=== PATIENT | male | born 1940 | race Caucasian/White ===

== ENCOUNTER → 2016-08-05 | Outpatient (CLI) | payer BC ==
[~2016-08-05] MED LIST: ASPI-435 PO; CEPH500C2 PO; CHOL1CAP57 PO; CIPR-255 PO; CLC100 PO; CYAN100020 PO; DICL1GEL34 TOP; DOXY100C76 PO; LRS10 PO; MAGN400T6 PO; MULT-506 PO; OMEP20CA9 PO; OMEP40CA PO; POTA550T4 PO; SACC250C3 PO; SNK PO; SULF-183 PO; ULT50 PO
--- NOTE | 2016-08-05 09:01 | DIAGNOSTIC IMAGING REPORT ---
FUSION CT SINUSES W/O HISTORY: J32.9 Chronic [id number] Nasal septal [id number] Hypertr TECHNIQUE: Multiaxial CT images of the sinuses were performed and reformatted in the coronal plane without the use of intravenous contrast. Fusion CT sinus protocol was also obtained. COMPARISON STUDY: None. FINDINGS: The frontal sinuses, ethmoid air cells, sphenoid sinuses, and bilateral maxillary antra are clear. No fluid levels within the paranasal sinuses. The mastoid air cells are clear. No evidence for carotid canal dehiscence. The lamina papyracea and orbital floors are intact. Mild right nasal septal deviation. Bilateral ostiomeatal units are patent. The orbits and visualized brain parenchyma are unremarkable. IMPRESSION: The paranasal sinuses and mastoid air cells are clear. Mild right nasal septal deviation. Electronically signed by: Vu Graves M.D. 08/05/2016 8:59 AM Dictated Date/Time: 08/05/2016 8:55 AM
== END | disposition home or self-care (01) ==
LOC: C.CTS 08:23
PROVIDERS: ATTEND Physician Assistant
DX: J34.2 Deviated nasal septum (principal); J32.9 Chronic sinusitis, unspecified; J34.3 Hypertrophy of nasal turbinates

== ENCOUNTER → 2016-08-12 | Outpatient (CLI) | payer BC ==
--- NOTE | 2016-08-12 13:48 | DIAGNOSTIC IMAGING REPORT ---
CT SCAN OF THE CHEST WITHOUT IV CONTRAST CLINICAL HISTORY: Follow-up pulmonary nodule. COMPARISON STUDY: Chest CT dated 09/05/2015. TECHNIQUE: CT scan of the thorax was performed from the thoracic inlet to the upper abdomen. Images are reviewed in the axial, sagittal, and coronal planes. IV contrast was not administered for this examination as per the front clinician. CT DOSE: 393.75 mGy.cm FINDINGS: Thyroid: Imaged portions of the thyroid gland are normal in size and attenuation. Thoracic aorta: There is mild atherosclerotic calcification of the thoracic aorta, which is normal in caliber and demonstrates standard 3-vessel arch anatomy. Heart: The heart is normal in size and there is trace pericardial effusion. The coronary arteries are densely calcified. Lungs and pleural spaces: Mild emphysematous change is observed. There is no airspace consolidation or pleural effusion. The trachea and central airways are clear. A 5 mm right lower lobe nodule seen on image #161 is unchanged from 09/05/2015. No additional nodules are identified. Mediastinum: There is no mediastinal lymphadenopathy. [place]: Not well assessed without IV contrast. Axillae: There is no axillary lymphadenopathy. Upper abdomen: There is a tiny hiatal hernia. The liver is steatotic. Diverticula are noted in the partially imaged colon. Skeletal structures: The skeletal structures are osteopenic. Mild degenerative change is seen in the thoracic spine and shoulders. No lytic or blastic bony lesions are seen. IMPRESSION: 1. Emphysema. 2. There is unchanged appearance of a 5 mm right lower lobe nodule as compared to 09/05/2015. Continued follow-up is recommended to document 2 years of stability. See below. 3. No new pulmonary lesions are identified. 4. No airspace consolidation or pleural effusion is seen. 5. Hepatic steatosis. Please refer to below summary of Fleischner criteria recommendations for follow-up of incidental CT nodules (Cecily Machado, Guidelines for management of small pulmonary nodules detected on CT scans: A statement from the Fleischner Society, Radiology 237: [phone].) SOLID NODULES Solitary nodule size: <6 mm * low risk patients: no follow-up needed * high risk patients: optional CT at 12 months Solitary nodule size: 6-8 mm * low risk patients: follow-up at 6-12 months, then consider further follow-up at 18-24 months * high risk patients: initial follow-up CT at 6-12 months and then at 18-24 months if no change Solitary nodule size: >8 mm * either low or high risk patients - consider follow-up CT at 3 months, and/or CT-PET, and/or biopsy Multiple nodules size: <6 mm * low risk patients: no routine follow-up * high risk patients: optional CT at 12 months Multiple nodules size: 6-8 mm * low risk patients: follow-up at 3-6 months, then consider further follow-up at 18-24 months * high risk patients: follow-up at 3-6 months, then at 18-24 months if no change Multiple nodules size: >8 mm * low risk patients: follow-up at 3-6 months, then consider further follow-up at 18-24 months * high risk patients: follow-up at 3-6 months, then at 18-24 months if no change Note: newly detected indeterminate nodule in persons 35 years of age or older. * low risk patients: minimal or absent history of smoking and/or other known risk factors * high risk patients: history of smoking or of other known risk factors (e.g. first degree relative with lung cancer, or exposure to asbestos, radon, uranium) * if a nodule up to 8 mm is partly solid or is ground glass further follow-up is required after 24 months to exclude possible slow growing adenocarcinoma (RUFUS) SUBSOLID NODULES Solitary pure ground-glass nodule * nodule size <6 mm - no CT follow-up required * nodule size >=6 mm - follow-up CT at 6-12 months, then every 2 years until 5 years Solitary part-solid nodule * nodule size <6 mm - no CT follow-up required * nodule size >=6 mm - follow-up CT at 3-6 months. If unchanged, and solid component remains <6 mm, then annual follow-up for 5 years Multiple subsolid nodules * nodule size <6 mm - follow-up CT at 3-6 months, consider further follow-up at 2 and 4 years if stable * nodule size >=6 mm - follow-up CT at 3-6 months, subsequent management based on the most suspicious nodule(s) Electronically signed by: Elia Rebollar M.D. 08/12/2016 1:47 PM Dictated Date/Time: 08/12/2016 1:42 PM
== END | disposition home or self-care (01) ==
LOC: C.CTS 13:30
PROVIDERS: ATTEND Internal Medicine
DX: R91.1 Solitary pulmonary nodule (principal)

== ENCOUNTER → 2016-08-20 | Outpatient (CLI) | payer BC ==
[2016-08-20 12:33] LABS: CALCIUM 9.9 mg/dl (8.5-10.1)
[2016-08-20 12:40] LABS: ALT/SGPT 84 U/L (12-78); AST/SGOT 59 U/L (15-37); BLOOD UREA NITROGEN 16 mg/dl (7-18); BUN/CREATININE RATIO 15.9 (10-20); CARBON DIOXIDE 26 mmol/L (21-32); CHLORIDE 108 mmol/L (98-107); CHOLESTEROL 176 mg/dl (0-200); GLUCOSE 143 mg/dl (70-99); SODIUM 140 mmol/L (136-145); TRIGLYCERIDES 85 mg/dl (0-150); VERY LOW DENSITY LIPOPROT CALC 17 mg/dl
[2016-08-20 12:42] LABS: ESTIMATED AVERAGE GLUCOSE 131 mg/dl; HA1C FLAG Normal (Normal)
[2016-08-20 12:44] LABS: ALKALINE PHOSPHATASE 126 U/L (45-117); CHOLESTEROL/HDL RATIO 2.9; HDL CHOLESTEROL 60 mg/dl; LDL CHOLESTEROL CALCULATED 99 mg/dl; TOTAL IRON BINDING CAPACITY 308 mcg/dl (250-450)
[2016-08-20 13:12] LABS: RATIO 15.1 mcg/mg (0-30.0)
== END | disposition home or self-care (01) ==
LOC: C.LAB 10:51
PROVIDERS: ATTEND Internal Medicine
DX: E78.00 Pure hypercholesterolemia, unspecified (principal); I10 Essential (primary) hypertension; E11.9 Type 2 diabetes mellitus without complications; E53.8 Deficiency of other specified B group vitamins; E55.9 Vitamin D deficiency, unspecified; R79.89 Other specified abnormal findings of blood chemistry; K76.0 Fatty (change of) liver, not elsewhere classified; E83.42 Hypomagnesemia

== ENCOUNTER 2016-10-09 10:40 | Emergency (ER) | payer BC ==
[~2016-10-09] VITALS: Ht 172.7 cm; Wt 75.6 kg
[~2016-10-09 10:40] MED LIST changes: -CEPH500C2 PO; -CLC100 PO; -DICL1GEL34 TOP; -DOXY100C76 PO; -LRS10 PO; -OMEP20CA9 PO; -SACC250C3 PO; -SNK PO; -SULF-183 PO; -ULT50 PO
[2016-10-09 10:44] VITALS: TEMP 36.7; Ht 172.7 cm; Wt 75.6 kg
--- NOTE | 2016-10-09 11:17 | EMERGENCY ROOM VISIT NOTE ---
History Report prepared by Joseph: Dane Cottrell Under the Supervision of: Dr. Giles Workman M.D. First contact with patient: 10:50 Chief Complaint: INFECTION Stated Complaint: CELLULITIS History of Present Illness The patient is a 76 year old male who presents to the Emergency Room with complaints of a constant rash that started three weeks ago. He rates his discomfort as a 2/10 in severity. The patient reports that he noticed a rash, erythema, and a black and blue hue to his leg around three weeks ago. He states that he was given Keflex for a week three times a day, which he finished a week ago, and a cream for his leg twice a day. He states that for the last three days he has been experiencing achiness, chills, weakness, back pain and fatigue. The patient reports that he is usually not fatigued. He admits that the rash is pruritic, but denies scratching the rash area. The patient admits that he has been experiencing lower extremity stiffness and mild pain. The patient reports that his rash is not as worse as it was when it first occurred, but admits that the rash has spread. He states that he follows up with Dr. Gm langston for his iron level and liver since his iron level is three times the level it should be. He states that his doctor was concerned about his rash and told him to report to the ED. The patient admits that he saw Dr. Ghosh yesterday where we was tested for Lyme's disease. He also admits that he saw dermatology, but denies having anything done. any The patient denies fever, cough, congestion, nausea, vomiting, and a history of hepatitis and hemochromatosis. Source of History: patient Onset: three weeks ago Position: leg (left) Symptom Intensity: 2/10 Quality: other (pruritic) Modifying Factors (Relieving): other (antibiotic, cream) Associated Symptoms: + chills, + back pain, + fatigue, + weakness, No fevers , No cough, No nausea, No vomiting Review of Systems See HPI for pertinent positives and negatives. A total of ten systems were reviewed and were otherwise negative. Past Medical & Surgical Medical Problems: (1) Diabetes (2) Hypertension (3) Perforated diverticulitis Surgical Problems: (1) History of inguinal hernia repair Family History Cancer Diabetes mellitus Hypertension Social History Smoking Status: Former Smoker Alcohol Use: occasionally Drug Use: none Marital Status: single Housing Status: lives with friends Occupation Status: employed Current/Historical Medications Scheduled Aspirin (Aspirin 81), 1 TAB PO QAM Cephalexin Monohydrate (Keflex), 500 MG PO QID Cholecalciferol (Vitamin D3), 1 CAP PO QAM Cyanocobalamin (Vitamin B12), 1 TAB PO QAM Magnesium Oxide (Mag-Ox), 400 MG PO QAM Multivitamin (Multivitamin), 1 TAB PO QAM Omeprazole (Prilosec), 40 MG PO QAM Potassium Gluconate (Potassium Gluconate), 1 TAB PO QAM Saccharomyces Boulardii (Florastor), 1 CAP PO BID Sulfamethoxazole-Trimethoprim (Smz-Tmp Ds), 2 TAB PO BID Allergies Coded Allergies: No Known Allergies (Verified , 10/09/16) Physical Exam Vital Signs Date Time Temp Pulse Resp B/P (MAP) Pulse Ox O2 Delivery O2 Flow Rate FiO2 10/09/16 14:02 77 18 133/78 99 10/09/16 12:02 82 18 129/80 99 Room Air 10/09/16 10:44 36.7 90 20 147/85 94 Room Air Physical Exam GENERAL: Awake, alert, well-appearing, in no distress HENT: Normocephalic, atraumatic. Oropharynx unremarkable. EYES: Normal conjunctiva. Sclera non-icteric. NECK: Supple. No nuchal rigidity. FROM. No JVD. RESPIRATORY: Clear to auscultation. CARDIAC: Regular rate, normal rhythm. Extremities warm and well perfused. Pulses equal. ABDOMEN: Soft, non-distended. No tenderness to palpation. No rebound or guarding. No masses. RECTAL: Deferred. MUSCULOSKELETAL: Chest examination reveals no tenderness. The back is symmetrical on inspection without obvious abnormality. There is no CVA tenderness to palpation. No joint edema. LOWER EXTREMITIES: Calves are equal size bilaterally and non-tender. No edema. Patch of erythema in the proximal thigh with mild warmth. No induration or fluctuance. Erythema in distal thigh tracking medially across the knee to the proximal lower leg. No fluctuance or induration. Full ROM in knee without pain. Sensory in tact. NEURO: Normal sensorium. No sensory or motor deficits noted. SKIN: skin warm/dry no jaundice noted. Medical Decision & Procedures ER Provider Diagnostic Interpretation: Radiology results as stated below per my review and radiologist interpretation: ULTRASOUND LEFT VENOUS DOPP LOWER EXT UNILAT CLINICAL HISTORY: Left pain and erythema COMPARISON STUDY: No previous studies for comparison. FINDINGS: Real-time and color flow Doppler imaging were performed. Flow was seen within the femoral, popliteal and calf veins with no intraluminal thrombus demonstrated. The saphenous vein is patent. IMPRESSION: No evidence of left lower extremity DVT. Electronically signed by: Nathaniel Kent M.D. 10/09/2016 1:04 PM Dictated Date/Time: 10/09/2016 1:03 PM Laboratory Results 10/09/16 11:20 Red Blood Count 4.12, Mean Corpuscular Volume 101.0, Mean Corpuscular Hemoglobin 34.2, Mean Corpuscular Hemoglobin Concent 33.9, Mean Platelet Volume 9.8, Neutrophils (%) (Auto) 67.0, Lymphocytes (%) (Auto) 21.1, Monocytes (%) ( Auto) 10.1, Eosinophils (%) (Auto) 0.8, Basophils (%) (Auto) 0.6, Neutrophils # (Auto) 3.31, Lymphocytes # (Auto) 1.04, Monocytes # (Auto) 0.50, Eosinophils # ( Auto) 0.04, Basophils # (Auto) 0.03 10/09/16 11:20 Test 10/09/16 11:20 White Blood Count 4.94 K/uL (4.8-10.8) Red Blood Count 4.12 M/uL (4.7-6.1) Hemoglobin 14.1 g/dL (14.0-18.0) Hematocrit 41.6 % (42-52) Mean Corpuscular Volume 101.0 fL (80-100) Mean Corpuscular Hemoglobin 34.2 pg (25-34) Mean Corpuscular Hemoglobin Concent 33.9 g/dl (32-36) Platelet Count 165 K/uL (130-400) Mean Platelet Volume 9.8 fL (7.4-10.4) Neutrophils (%) (Auto) 67.0 % Lymphocytes (%) (Auto) 21.1 % Monocytes (%) (Auto) 10.1 % Eosinophils (%) (Auto) 0.8 % Basophils (%) (Auto) 0.6 % Neutrophils # (Auto) 3.31 K/uL (1.4-6.5) Lymphocytes # (Auto) 1.04 K/uL (1.2-3.4) Monocytes # (Auto) 0.50 K/uL (0.11-0.59) Eosinophils # (Auto) 0.04 K/uL (0-0.5) Basophils # (Auto) 0.03 K/uL (0-0.2) RDW Standard Deviation 44.2 fL (36.4-46.3) RDW Coefficient of Variation 12.2 % (11.5-14.5) Immature Granulocyte % (Auto) 0.4 % Immature Granulocyte # (Auto) 0.02 K/uL (0.00-0.02) Anion Gap 6.0 mmol/L (3-11) Est Creatinine Clear Calc Drug Dose 76.4 ml/min Estimated GFR () 101.0 Estimated GFR (Non- 87.1 BUN/Creatinine Ratio 14.4 (10-20) Calcium Level 8.9 mg/dl (8.5-10.1) Total Bilirubin 0.6 mg/dl (0.2-1) Direct Bilirubin 0.2 mg/dl (0-0.2) Aspartate Amino Transf (AST/SGOT) 28 U/L (15-37) Alanine Aminotransferase (ALT/SGPT) 42 U/L (12-78) Alkaline Phosphatase 108 U/L (45-117) Total Protein 7.3 gm/dl (6.4-8.2) Albumin 3.4 gm/dl (3.4-5.0) Laboratory results reviewed by me Medications Administered Medications (Trade) Dose Ordered Sig/Tab Route Start Time Stop Time Status Last Admin Dose Admin Ketorolac Tromethamine (Toradol Inj) 30 mg NOW STAT IV 10/09/16 12:49 10/09/16 12:50 DC 10/09/16 13:03 30 MG Cephalexin Monohydrate (Keflex Cap) 500 mg NOW ONCE PO 10/09/16 13:45 10/09/16 13:46 DC 10/09/16 13:53 500 MG Trimethoprim/ Sulfamethoxazole (Septra Ds 800/ 160MG Tab) 2 tab NOW ONCE PO 10/09/16 13:45 10/09/16 13:46 DC 10/09/16 13:53 2 TAB ED Course 1052: The patient was evaluated in room B04B. A complete history and physical exam was performed. 1249: Toradol Injection 30 mg IV. 1345: Ordered Trimethoprim/Sulfamethoxazole 2 tab PO, Keflex Cap 500 mg PO. 1350: I reevaluated the patient. Discussed results and discharge instructions: He verbalized understanding and agreement. The patient is ready for discharge. Medical Decision I reviewed the patient's past medical history, medications, and the nursing notes as described above. The patient's presentation and history were concerning for cellulitis, DVT, abscess, and allergic reaction. Patient is a 76-year-old gentleman with a past medical history of iron was followed by hematology who presents emergency department for worsening of lower extremity redness and warmth after completing a 1 week course of Keflex for the same last week per history of present illness. Arrival the patient is in no acute distress. Afebrile with stable vital signs. She has area of warmth and redness proximal tib-fib area extending medially to the distal thigh. As an additional patch proximal thigh extending across the lower abdomen. No induration or areas of fluctuance. The distribution of the erythema DVT in the differential despite no significant swelling. Duplex study negative for DVT. Otherwise WBC within normal limits. Sitting recent failure of outpatient Keflex although with some improvement. I will broaden coverage and provide a 10 day course of both Keflex and Bactrim. Findings and plan for follow-up d/w patient. Patient agreeable and d/c'd per discharge instructions. Medication Reconcilliation Current Medication List: was personally reviewed by me Blood Pressure Screening Patient's blood pressure: Elevated blood pressure Blood pressure disposition: Elevated BP felt to be situational Impression Primary Impression: Cellulitis Scribe Attestation The scribe's documentation has been prepared under my direction and personally reviewed by me in its entirety. I confirm that the note above accurately reflects all work, treatment, procedures, and medical decision making performed by me. Departure Information Dispostion Home / Self-Care Prescriptions Saccharomyces Boulardii (Florastor) 250 Mg Cap 1 CAP PO BID for 10 Days, #20 CAP Prov: Giles Workman M.D. 10/09/16 Cephalexin Monohydrate (KEFLEX) 500 Mg Cap 500 MG PO QID for 10 Days, #40 CAP Prov: Giles Workman M.D. 10/09/16 Sulfamethoxazole-Trimethoprim (SMZ-TMP DS) 1 Tab Tab 2 TAB PO BID for 10 Days, #40 TAB Prov: Giles Workman M.D. 10/09/16 Referrals Carmelo Mason M.D. (PCP) Forms HOME CARE DOCUMENTATION FORM, IMPORTANT VISIT INFORMATION, WORK / SCHOOL INSTRUCTIONS Patient Instructions Cellulitis Dc, [facility] Additional Instructions Please follow up with your primary care physician in the next 1-3 days for re- evaluation. Otherwise, your exam, lab results, and ultrasound did not show signs of an emergent condition at this time. Take antibiotics as prescribed. Probiotics as directed to help prevent antibiotic associated diarrhea. Return to the emergency department for worsening symptoms as described in the accompanying instructions.
[2016-10-09 11:37] LABS: BASO % 0.6 %; BASO ABS # 0.03 K/uL (0-0.2); COMPLETE YES; EOS % 0.8 %; HEMATOCRIT 41.6 % (42-52); IG% 0.4 %; LYMPH % 21.1 %; LYMPH ABS # 1.04 K/uL (1.2-3.4); MEAN CORPUSCULAR HEMOGLOBIN 34.2 pg (25-34); MEAN CORPUSCULAR HGB CONC 33.9 g/dl (32-36); MEAN PLATELET VOLUME 9.8 fL (7.4-10.4); MONO % 10.1 %; PLATELET COUNT 165 K/uL (130-400); RED BLOOD COUNT 4.12 M/uL (4.7-6.1); WHITE BLOOD COUNT 4.94 K/uL (4.8-10.8)
[2016-10-09 11:56] LABS: BUN/CREATININE RATIO 14.4 (10-20); CALCIUM 8.9 mg/dl (8.5-10.1); CREATININE 0.82 mg/dl (0.60-1.40); POTASSIUM 3.9 mmol/L (3.5-5.1)
[2016-10-09] MEDS ORDERED: KETOROLAC TROMETHAMINE 30 MG/ML VIAL IV STA (12:49)
--- NOTE | 2016-10-09 13:05 | DIAGNOSTIC IMAGING REPORT ---
ULTRASOUND LEFT VENOUS DOPP LOWER EXT UNILAT CLINICAL HISTORY: Left pain and erythema COMPARISON STUDY: No previous studies for comparison. FINDINGS: Real-time and color flow Doppler imaging were performed. Flow was seen within the femoral, popliteal and calf veins with no intraluminal thrombus demonstrated. The saphenous vein is patent. IMPRESSION: No evidence of left lower extremity DVT. Electronically signed by: Nathaniel Kent M.D. 10/09/2016 1:04 PM Dictated Date/Time: 10/09/2016 1:03 PM
[2016-10-09] MEDS ORDERED: SULF-183 PO (13:39)
[2016-10-09] MEDS ORDERED: CEPH500C2 PO (13:39)
[2016-10-09] MEDS ORDERED: SACC250C3 PO (13:40)
[2016-10-09] MEDS ORDERED: CEPHALEXIN MONOHYDRATE 250 MG CAP PO ONE (13:45)
[2016-10-09] MEDS ORDERED: SULFAMETHOXAZOLE/TRIMETHOPRIM DS 800/160MG TAB PO ONE (13:45)
[2016-10-09 14:02] VITALS: BP 133/78; PULSE 77; O2SAT 99
== END 2016-10-09 14:03 | disposition home or self-care (01) ==
LOC: C.EDB 10:41
DX: L03.116 Cellulitis of left lower limb (principal); L03.311 Cellulitis of abdominal wall; E11.9 Type 2 diabetes mellitus without complications; I10 Essential (primary) hypertension; Z79.82 Long term (current) use of aspirin; Z79.899 Other long term (current) drug therapy; Z87.19 Personal history of other diseases of the digestive system; Z87.891 Personal history of nicotine dependence; Z82.49 Family history of ischemic heart disease and other diseases of the circulatory system; Z83.3 Family history of diabetes mellitus

== ENCOUNTER 2016-10-24 20:59 | Emergency (ER) | payer BC ==
[~2016-10-24] VITALS: Ht 172.7 cm; Wt 76.8 kg
[~2016-10-24 20:59] MED LIST changes: -CIPR-255 PO
[2016-10-24 21:02] VITALS: TEMP 36.7; Ht 172.7 cm; Wt 76.8 kg
[2016-10-24] MEDS ORDERED: OMEP20CA9 PO (21:14)
[2016-10-24 21:58] LABS: BASO % 0.6 %; BASO ABS # 0.04 K/uL (0-0.2); COMPLETE YES; EOS % 1.3 %; HEMATOCRIT 41.3 % (42-52); IG% 0.6 %; LYMPH ABS # 2.16 K/uL (1.2-3.4); MEAN CELL VOLUME 100.2 fL (80-100); MEAN CORPUSCULAR HGB CONC 34.9 g/dl (32-36); MEAN PLATELET VOLUME 9.6 fL (7.4-10.4); MONO % 8.3 %; NEUT % 59.2 %; PLATELET COUNT 189 K/uL (130-400); RED BLOOD COUNT 4.12 M/uL (4.7-6.1); WHITE BLOOD COUNT 7.19 K/uL (4.8-10.8)
[2016-10-24 22:02] LABS: BUN/CREATININE RATIO 16.8 (10-20); CALCIUM 8.8 mg/dl (8.5-10.1); CREATININE 0.87 mg/dl (0.60-1.40); POTASSIUM 4.1 mmol/L (3.5-5.1)
[2016-10-24 22:20] LABS: URINE APPEARANCE CLEAR (CLEAR); URINE BILIRUBIN NEG (NEG); URINE COLOR YELLOW; URINE NITRITE NEG (NEG); URINE SPECIFIC GRAVITY 1.023 (1.000-1.030); UROBILINOGEN NEG (NEG); ZZUR CULT IF INDIC CLEAN CATCH NO
--- NOTE | 2016-10-24 22:28 | EMERGENCY ROOM VISIT NOTE ---
ED Visit Note First contact with patient: 21:10 HPI: lower back pain and left leg pain. PE: AFVSS, NAD NC/AT RRR, no murmurs CTAB Abd soft NT/ND BACK no midline ttp. mild lower lumbar paraspinal ttp. Ext: no edema, erythema, 5//5 strength and SILT x 4 ext. Neuro: grossly intact Plan: Labs unremarkable. Plain films notable for L-spine arthropathy. Sx likely muscular strain vs radiculopathy. No weakness, numbness, urinary retention or bowel incontinence. Thus, no indication for emergent MRI at this time. Patient receiving relief from NSAIDs already. Here reports pain only 2/10. Recommend heating pad and pcp f/u for possible physical therapy if symptoms persist. Will avoid narcotics in this elderly patient who lives by himself. I reviewed the patient's past medical history, medications, and visit nursing notes. I discussed the case with the physician bricklayer's assistant, examined the patient, and agree with the findings and plan as documented in the physician assistants note.
--- NOTE | 2016-10-24 22:34 | DIAGNOSTIC IMAGING REPORT ---
L-SPINE MIN 4 VIEWS ROUTINE HISTORY: 76 years-old Male low back pain, no injury, radiating down both legs, L>R acute lumbar back pain without injury with radiation into the lower extremities. Radicular symptoms. Initial exam. COMPARISON: CT 09/05/2015 TECHNIQUE: 5 views of the lumbar spine. FINDINGS: 14 degrees convex left curvature is seen from L3-L5. No acute fracture or subluxation. Moderate intervertebral disc space narrowing is again seen at L4-L5 and L5-S1. Mild multilevel endplate spurring is seen. Moderate facet arthrosis is noted at L4-L5 and L5-S1. The bones are mildly demineralized. There is atherosclerosis of the aorta. The bones are seen within the pelvis. Surgical suture material is seen within the right mid abdomen. IMPRESSION: 1. No acute fracture or subluxation. 2. Moderate intervertebral disc space narrowing and facet arthropathy redemonstrated at L4-L5 and L5-S1. 3. Mild convex left curvature of the lower lumbar spine. The above report was generated using voice recognition software. It may contain grammatical, syntax or spelling errors. Electronically signed by: Dagoberto Cortez M.D. 10/24/2016 10:33 PM Dictated Date/Time: 10/24/2016 10:30 PM
[2016-10-24 22:50] LABS: MANUAL MICROSCOPIC REQUIRED? NO; REVIEW REQ? NO
--- NOTE | 2016-10-24 23:22 | EMERGENCY ROOM VISIT NOTE ---
ED Visit Note First contact with patient: 21:10 CHIEF COMPLAINT: "Low back pain/groin/hip pain". HISTORY OF PRESENT ILLNESS: This 76-year-old male patient presents to the emergency department via private vehicle complaining of pain in the low back which began weeks ago. He notes that he was seen here about 2 weeks ago for cellulitis of the left leg, which is now better but notes that he had back pain at that time which has now progressed. The pain was gradual in onset, is now constant and worse with movement. The patient notes the pain as dull and a 10/ 10. The patient has taken ibuprofen, Tylenol and Raffi's with a little relief of the pain. The patient denies any loss of control of their bowel or bladder functions. There has been no leg numbness or weakness, and no change in sensation. No nausea or vomiting or abdominal pain. No chest pain or shortness of breath. The patient has no had prior back injuries. No dysuria or increased urinary frequency. REVIEW OF SYSTEMS: A review of systems was performed with positives and pertinent negatives listed in the history of present illness. All other systems were reviewed and are negative. ALLERGIES: None MEDICATIONS: As noted below PMH: Diverticulitis, diabetes, high blood pressure SOCIAL HISTORY: Patient lives locally with self. PHYSICAL EXAM: VITALS: Vitals are noted on the nurse's note and reviewed by myself. Vital signs stable. He is hypertensive which I believe is secondary to pain. GENERAL: 76-year-old male, in no acute distress, nondiaphoretic, well-developed well-nourished. SKIN: The skin was without rashes, erythema, edema, or bruising. Capillary refill less than 2 seconds. NECK: Full range of motion. HEART: Regular rate and rhythm without murmurs gallops or rubs. LUNGS: Clear to auscultation bilaterally without wheezes, rales or rhonchi. ABDOMEN: Positive bowel sounds x 4. Normal tympanic percussion. Soft, nontender, without masses or organomegaly. MUSCULOSKELETAL: No muscle atrophy, erythema, or edema noted of the back. There is minimal tenderness over the lumbar spinous processes. There is no tenderness over the paraspinous muscles. There is no tenderness over the thoracic spine or paraspinous muscles. There are no muscle spasms present. The patient is able to ambulate without difficulty. NEURO: Patient was alert and oriented to person place and time. Normal sensation to light and sharp touch. Deep tendon reflexes 2+ in the lower extremities. Strength 5/5 and equal in the bilateral lower extremities. IMAGING: L-SPINE MIN 4 VIEWS ROUTINE HISTORY: 76 years-old Male low back pain, no injury, radiating down both legs, L>R acute lumbar back pain without injury with radiation into the lower extremities. Radicular symptoms. Initial exam. COMPARISON: CT 09/05/2015 TECHNIQUE: 5 views of the lumbar spine. FINDINGS: 14 degrees convex left curvature is seen from L3-L5. No acute fracture or subluxation. Moderate intervertebral disc space narrowing is again seen at L4-L5 and L5-S1. Mild multilevel endplate spurring is seen. Moderate facet arthrosis is noted at L4-L5 and L5-S1. The bones are mildly demineralized. There is atherosclerosis of the aorta. The bones are seen within the pelvis. Surgical suture material is seen within the right mid abdomen. IMPRESSION: 1. No acute fracture or subluxation. 2. Moderate intervertebral disc space narrowing and facet arthropathy redemonstrated at L4-L5 and L5-S1. 3. Mild convex left curvature of the lower lumbar spine. The above report was generated using voice recognition software. It may contain grammatical, syntax or spelling errors. Electronically signed by: Dagoberto Cortez M.D. 10/24/2016 10:33 PM Dictated Date/Time: 10/24/2016 10:30 PM EMERGENCY DEPARTMENT COURSE: Patient was seen and evaluated as above. Previous visits were reviewed. Patient presents to us today with low back pain, without evidence of cauda equina syndrome. He was able to drive here, and ambulate to the emergency department. Previous imaging was reviewed, and he has had a CAT scan of the abdomen and pelvis little over a year ago. There is no emergent finding upon this that would contribute to today's findings, no evidence of aortic dilatation. I do not suspect AAA. I suspect is most likely experiencing lumbar radiculopathy secondary to a bulging disc. X-ray was obtained with results as above. There does appear to be some disc space narrowing, and some curvature. Degenerative changes are noted. There has been no trauma or injury. His history, physical examination as well as normal blood work is also leaning towards a diagnosis of lumbar radiculopathy. Because of the recent cellulitis of that leg, I was concerned about DVT, but was able to find a study that was performed at the time he was here a few weeks ago, which was normal. He denies any leg swelling or leg pain is progressed since that time. His CBC reveals no leukocytosis, with red blood cell count slightly low at 4.12. Metabolic panel reveals chloride slightly high at 109, creatinine okay 0.87, glucose high at 205, and alkaline phosphatase high at 148. Urine reveals 1+ glucose, otherwise negative. He is to follow-up for today's incidental findings, as well as the glucose. At this time he appears stable for discharge. Case was discussed with the attending physician who is also personally evaluated the patient. I do not believe that narcotic medication at this time is warranted, as the patient's pain is now rated much lower, noting that the pain meds he took prior to coming here made him feel much better. It is important to clarify that the patient has taken Raffi's, ibuprofen and similar oewn-poa-ucgjkce medication but no narcotics. I do believe he is stable to drive home. I cautioned him about taking ibuprofen and Raffi's together as these are in the same class. He is to follow-up with the family doctor, but was also given the number for a start up specialist in which he may follow-up with. He is to return if worsening. He was educated upon worrisome symptoms which to return, had questions answered prior to discharge, and was discharged home in good condition. In the evaluation and treatment of this patient the following differential diagnoses were entertained: Lumbar radiculopathy, AAA, DVT, infectious etiology , abdominal etiology, among others. Problem List Medical Problems: (1) Diabetes Status: Chronic (2) Hypertension Status: Chronic (3) Perforated diverticulitis Status: Resolved Surgical Problems: (1) History of inguinal hernia repair Status: Resolved Current/Historical Medications Scheduled Aspirin (Aspirin 81), 1 TAB PO QAM Cholecalciferol (Vitamin D3), 1 CAP PO QAM Cyanocobalamin (Vitamin B12), 1 TAB PO QAM Magnesium Oxide (Mag-Ox), 400 MG PO QAM Multivitamin (Multivitamin), 1 TAB PO QAM Omeprazole (Prilosec), 20 MG PO DAILY Potassium Gluconate (Potassium Gluconate), 1 TAB PO QAM Allergies Coded Allergies: No Known Allergies (Verified , 10/24/16) Vital Signs Date Time Temp Pulse Resp B/P (MAP) Pulse Ox O2 Delivery O2 Flow Rate FiO2 10/24/16 23:29 67 20 141/78 94 10/24/16 23:07 67 20 141/78 94 Room Air 10/24/16 22:03 76 20 146/88 96 Room Air 10/24/16 21:02 36.7 84 20 170/96 97 Room Air Laboratory Results 10/24/16 21:30 Red Blood Count 4.12, Mean Corpuscular Volume 100.2, Mean Corpuscular Hemoglobin 35.0, Mean Corpuscular Hemoglobin Concent 34.9, Mean Platelet Volume 9.6, Neutrophils (%) (Auto) 59.2, Lymphocytes (%) (Auto) 30.0, Monocytes (%) ( Auto) 8.3, Eosinophils (%) (Auto) 1.3, Basophils (%) (Auto) 0.6, Neutrophils # ( Auto) 4.26, Lymphocytes # (Auto) 2.16, Monocytes # (Auto) 0.60, Eosinophils # ( Auto) 0.09, Basophils # (Auto) 0.04 10/24/16 21:30 Test 10/24/16 21:30 10/24/16 22:10 White Blood Count 7.19 K/uL (4.8-10.8) Red Blood Count 4.12 M/uL (4.7-6.1) Hemoglobin 14.4 g/dL (14.0-18.0) Hematocrit 41.3 % (42-52) Mean Corpuscular Volume 100.2 fL (80-100) Mean Corpuscular Hemoglobin 35.0 pg (25-34) Mean Corpuscular Hemoglobin Concent 34.9 g/dl (32-36) Platelet Count 189 K/uL (130-400) Mean Platelet Volume 9.6 fL (7.4-10.4) Neutrophils (%) (Auto) 59.2 % Lymphocytes (%) (Auto) 30.0 % Monocytes (%) (Auto) 8.3 % Eosinophils (%) (Auto) 1.3 % Basophils (%) (Auto) 0.6 % Neutrophils # (Auto) 4.26 K/uL (1.4-6.5) Lymphocytes # (Auto) 2.16 K/uL (1.2-3.4) Monocytes # (Auto) 0.60 K/uL (0.11-0.59) Eosinophils # (Auto) 0.09 K/uL (0-0.5) Basophils # (Auto) 0.04 K/uL (0-0.2) RDW Standard Deviation 45.2 fL (36.4-46.3) RDW Coefficient of Variation 12.6 % (11.5-14.5) Immature Granulocyte % (Auto) 0.6 % Immature Granulocyte # (Auto) 0.04 K/uL (0.00-0.02) Anion Gap 6.0 mmol/L (3-11) Est Creatinine Clear Calc Drug Dose 72.0 ml/min Estimated GFR () 98.5 Estimated GFR (Non- 85.0 BUN/Creatinine Ratio 16.8 (10-20) Calcium Level 8.8 mg/dl (8.5-10.1) Total Bilirubin 0.3 mg/dl (0.2-1) Aspartate Amino Transf (AST/SGOT) 34 U/L (15-37) Alanine Aminotransferase (ALT/SGPT) 49 U/L (12-78) Alkaline Phosphatase 148 U/L (45-117) Total Protein 7.2 gm/dl (6.4-8.2) Albumin 3.6 gm/dl (3.4-5.0) Globulin 3.6 gm/dl (2.5-4.0) Albumin/Globulin Ratio 1.0 (0.9-2) Urine Color YELLOW Urine Appearance CLEAR (CLEAR) Urine pH 5.0 (4.5-7.5) Urine Specific [place] 1.023 (1.000-1.030) Urine Protein NEG (NEG) Urine Glucose (UA) 1+ (NEG) Urine Ketones NEG (NEG) Urine Occult Blood NEG (NEG) Urine Nitrite NEG (NEG) Urine Bilirubin NEG (NEG) Urine Urobilinogen NEG (NEG) Urine Leukocyte Esterase NEG (NEG) Departure Information Impression Primary Impression: Low back pain Dispostion Home / Self-Care Condition GOOD Referrals Pro,Carmelo Perkins M.D. (PCP) Lio Christianson, DO Patient Instructions My [facility] Additional Instructions You have been treated in the Emergency Department for Back Pain. For pain control, you can use the following anvf-pan-douxcny medicines: - Regular strength (325mg/tab) Tylenol (acetaminophen) 2 tabs every 4-6 hours as needed. Do not exceed 12 tablets in a 24 hour period. Avoid taking more than 3 grams (3000 mg) of Tylenol per day. This includes any other sources of acetaminophen you may take on a regular basis. - Regular strength (200 mg/tab) Advil (ibuprofen) 1-2 tabs every 4-6 hours as needed. Do not exceed a dose of 3200 mg per day. Please do not take this with any other medication like aspirin, Aleve or Raffi's. If this is an acute injury, ice can be applied to the area of pain for the first 3 days to help decrease pain and inflammation. After the first 3 days, a heating pad can be used over the area for continued soothing relief. You should schedule a follow-up appointment in 2-3 days with your Primary Care Provider for further evaluation and treatment of your back pain. I also listed the number for a back specialist. Return to the Emergency Department if your current symptoms worsen despite treatment course outlined above, or if you develop any of the following symptoms : intractable pain despite aforementioned treatment course, loss of control of your bowel or bladder, numbness or tingling in your groin, or development of a fever. Please return the emergency department with any new/concerning symptoms.
[2016-10-24 23:29] VITALS: BP 141/78; PULSE 67; O2SAT 94
== END 2016-10-24 23:30 | disposition home or self-care (01) ==
LOC: C.EDB 21:00 → C.EDA 23:30
DX: M54.5 Low back pain (principal); E11.9 Type 2 diabetes mellitus without complications; I10 Essential (primary) hypertension; K57.92 Diverticulitis of intestine, part unspecified, without perforation or abscess without bleeding; Z79.82 Long term (current) use of aspirin; Z79.899 Other long term (current) drug therapy

== ENCOUNTER → 2016-11-02 | Outpatient (CLI) | payer BC ==
[~2016-11-02] MED LIST changes: +CLC100 PO; +DICL1GEL34 TOP; +DOXY100C76 PO; +LRS10 PO; +OMEP20CA9 PO; -OMEP40CA PO; +SNK PO; +ULT50 PO
[2016-11-02 14:31] LABS: LYME DISEASE AB IGG POS (NEG); LYME DISEASE AB IGM POS (NEG)
[2016-11-06 16:09] LABS: 18KDIGG BAND REACTIVE (NONREACTIVE); 23KDIGG BAND NONREACTIVE (NONREACTIVE); 23KDIGM BAND REACTIVE (NONREACTIVE); 28KDIGG BAND NONREACTIVE (NONREACTIVE); 30KDIGG BAND NONREACTIVE (NONREACTIVE); 39KDIGG BAND REACTIVE (NONREACTIVE); 39KDIGM BAND NONREACTIVE (NONREACTIVE); 41KDIGG BAND REACTIVE (NONREACTIVE); 41KDIGM BAND REACTIVE (NONREACTIVE); 45KDIGG BAND REACTIVE (NONREACTIVE); 58KDIGG BAND REACTIVE (NONREACTIVE); 66KDIGG BAND NONREACTIVE (NONREACTIVE); 93KDIGG BAND REACTIVE (NONREACTIVE)
== END | disposition home or self-care (01) ==
LOC: C.LAB 10:59
PROVIDERS: ATTEND Internal Medicine
DX: G89.29 Other chronic pain (principal)

== ENCOUNTER 2016-11-03 01:59 | Inpatient (IN) | payer BC, OTHER ==
[~2016-11-03] VITALS: Ht 170.2 cm; Wt 75.6 kg
[~2016-11-03 01:59] MED LIST changes: -CLC100 PO; -DICL1GEL34 TOP; -DOXY100C76 PO; -LRS10 PO; -SNK PO; -ULT50 PO
[2016-11-03] MEDS ORDERED: SODIUM CHLORIDE 0.9% 1000ML 1,000 ML IV STA ×2 (02:17→03:42)
[2016-11-03] MEDS ORDERED: HYDROmorphone INJ 1 MG/ML SYR IV STA (02:17)
--- NOTE | 2016-11-03 02:25 | EMERGENCY ROOM VISIT NOTE ---
History Report prepared by Joseph: Deon Frey Under the Supervision of: Dr. Raheel Gonzales M.D. First contact with patient: 02:08 Chief Complaint: ABDOMINAL PAIN Stated Complaint: ABDOMINAL PAIN- DIVERTICULITUS Nursing Triage Summary: Patient ambulatory to triage, hunched over, states "I have a history of diverticulitis. For about 3 days now, I have had pain all the way across my lower abdomen. I saw my doctor yesterday and she prescribed me Tramadol. That is not working for the pain at all. I haven't been eating because I don't feel good. I am a little bit constipated." History of Present Illness The patient is a 76 year old male who presents to the Emergency Room with complaints of constant, severe, lower abdominal pain beginning about three days ago. The patient states that his discomfort wraps around his abdomen to her lower back. He reports that breathing intensifies his discomfort. The patient notes that he has a history of diverticulitis, and he thinks it is one of his flares. He states that he is nauseous, constipated, and has a decreased appetite. The patient reports that he was evaluated yesterday and was given Tramadol for pain, but it did not help. He notes that he began to develop erythema to his entire right, lower abdomen that spans the entire length of his discomfort. The patient states that he has a history of colon surgery. He denies vomiting, diarrhea, shortness of breath, chest pain, and edema to his legs. Source of History: patient Onset: 3 days ago Position: abdomen (lower) Symptom Intensity: severe Timing: constant Modifying Factors (Worsening): breathing Associated Symptoms: + back pain, + rash, No chest pain, No SOB, No vomiting , No diarrhea Note: Associated symptoms: constipation and decreased appetite Denies: edema to his legs Review of Systems See HPI for pertinent positives & negatives. A total of 10 systems reviewed and were otherwise negative. Past Medical & Surgical Medical Problems: (1) Abdominal wall cellulitis (2) Diabetes (3) Elevated lactic acid level (4) Hypertension (5) Perforated diverticulitis Surgical Problems: (1) History of inguinal hernia repair Family History Cancer Diabetes mellitus Hypertension Social History Smoking Status: Never Smoker Alcohol Use: occasionally Drug Use: none Marital Status: single Housing Status: lives with friends Occupation Status: employed Current/Historical Medications Scheduled Aspirin (Aspirin 81), 1 TAB PO QAM Cholecalciferol (Vitamin D3), 1 CAP PO QAM Cyanocobalamin (Vitamin B12), 1 TAB PO QAM Magnesium Oxide (Mag-Ox), 400 MG PO QAM Multivitamin (Multivitamin), 1 TAB PO QAM Omeprazole (Prilosec), 20 MG PO DAILY Potassium Gluconate (Potassium Gluconate), 1 TAB PO QAM Scheduled PRN Tramadol HCl (Tramadol HCl), 50 MG PO UD PRN for Pain Allergies Coded Allergies: No Known Allergies (Verified , 11/03/16) Physical Exam Vital Signs Date Time Temp Pulse Resp B/P (MAP) Pulse Ox O2 Delivery O2 Flow Rate FiO2 11/03/16 04:43 96 136/74 93 Room Air 11/03/16 03:07 98 22 96/60 98 Room Air 11/03/16 02:04 36.7 87 18 92/63 91 Room Air Physical Exam GENERAL: Patient is uncomfortable appearing and in moderate distress. HEENT: No acute trauma, normocephalic atraumatic, mucous membranes moist, no nasal congestion, no scleral icterus. NECK: No stridor, no adenopathy, no meningismus, trachea is midline. LUNGS: No dyspnea. Clear to auscultation and equal bilaterally. No wheeze, no rhonchi. HEART: Regular rate and rhythm. No murmurs, rubs, gallops appreciated. ABDOMEN: Soft, bowel sounds positive, no masses appreciated, no peritonitis. Extensive scaring with moderate tenderness to palpation over the right lower quadrant. BACK: No midline tenderness, no CVA tenderness EXTREMITIES: Normal motion all extremities, no cyanosis, no edema. NEUROLOGIC: Alert and oriented, no acute motor or sensory deficits, no focal weakness, cranial nerves grossly intact. SKIN: Diffuse cellulitic finding of the entire lower abdomen extending to the thighs and bilateral flanks, warm to touch. No jaundice, no diaphoresis. Medical Decision & Procedures ER Provider Diagnostic Interpretation: CT results as stated below per interpretation by me and the radiologist: CT ABDOMEN & PELVIS: Similar trace pericardial fluid. Coronary artery calcifications. Mild dependent atelectasis bilaterally. Hepatic steatosis again noted. Punctuate nonobstructing renal stones bilaterally. Stable small hypodensity in the right kidney which likely represents a small cyst. Tiny hypodensity in the left kidney is too small to definitively characterize. Large duodenal diverticulum. Status post partial right colon resection with ileocolic anastomosis. Diverticulosis without evidence of diverticulitis. No bowel obstruction or inflammation. Calcification in the prostate. Small fat-containing bilateral inguinal hernias. Tiny fat-containing umbilical hernia. Surgical scaring noted in the soft tissues of the anterior abdominal wall. Radiologist: Maurilio Nelson MD Study ready at 0311 and initial results transmitted at 0347 Laboratory Results 11/03/16 02:30 Red Blood Count 4.49, Mean Corpuscular Volume 101.6, Mean Corpuscular Hemoglobin 33.6, Mean Corpuscular Hemoglobin Concent 33.1, Mean Platelet Volume 9.6, Neutrophils (%) (Auto) 82.0, Lymphocytes (%) (Auto) 12.7, Monocytes (%) ( Auto) 4.2, Eosinophils (%) (Auto) 0.4, Basophils (%) (Auto) 0.3, Neutrophils # ( Auto) 7.82, Lymphocytes # (Auto) 1.21, Monocytes # (Auto) 0.40, Eosinophils # ( Auto) 0.04, Basophils # (Auto) 0.03 Test 11/03/16 02:30 11/03/16 02:35 11/03/16 02:38 11/03/16 04:45 White Blood Count 9.54 K/uL (4.8-10.8) Red Blood Count 4.49 M/uL (4.7-6.1) Hemoglobin 15.1 g/dL (14.0-18.0) Hematocrit 45.6 % (42-52) Mean Corpuscular Volume 101.6 fL (80-100) Mean Corpuscular Hemoglobin 33.6 pg (25-34) Mean Corpuscular Hemoglobin Concent 33.1 g/dl (32-36) Platelet Count 199 K/uL (130-400) Mean Platelet Volume 9.6 fL (7.4-10.4) Neutrophils (%) (Auto) 82.0 % Lymphocytes (%) (Auto) 12.7 % Monocytes (%) (Auto) 4.2 % Eosinophils (%) (Auto) 0.4 % Basophils (%) (Auto) 0.3 % Neutrophils # (Auto) 7.82 K/uL (1.4-6.5) Lymphocytes # (Auto) 1.21 K/uL (1.2-3.4) Monocytes # (Auto) 0.40 K/uL (0.11-0.59) Eosinophils # (Auto) 0.04 K/uL (0-0.5) Basophils # (Auto) 0.03 K/uL (0-0.2) RDW Standard Deviation 46.3 fL (36.4-46.3) RDW Coefficient of Variation 12.5 % (11.5-14.5) Immature Granulocyte % (Auto) 0.4 % Immature Granulocyte # (Auto) 0.04 K/uL (0.00-0.02) Est Creatinine Clear Calc Drug Dose 52.2 ml/min Total Bilirubin 0.9 mg/dl (0.2-1) Direct Bilirubin 0.2 mg/dl (0-0.2) Aspartate Amino Transf (AST/SGOT) 17 U/L (15-37) Alanine Aminotransferase (ALT/SGPT) 31 U/L (12-78) Alkaline Phosphatase 116 U/L (45-117) Total Protein 7.7 gm/dl (6.4-8.2) Albumin 3.3 gm/dl (3.4-5.0) Lipase 124 U/L (73-393) Bedside Lactic Acid Venous 2.36 mmol/L (0.90-1.70) Bedside Hemoglobin 15.0 g/dl (14.0-18.0) Bedside Hematocrit 44 % (42-52) Bedside Sodium 137 mEq/L (135-144) Bedside Potassium 4.0 mEq/L (3.3-5.0) Bedside Chloride 98 mEq/L (101-112) Bedside Total CO2 26 mEq/l (24-31) Bedside Blood Urea Nitrogen 21 mg/dl (7-18) Bedside Creatinine 1.1 mg/dl (0.6-1.3) Bedside Glucose (other) 215 mg/dl (70-99) Bedside Ionized Calcium (Radha) 1.09 mmol/l (1.12-1.32) Influenza Type A Antigen Neg for Influ A (NEG) Influenza Type B Antigen Neg for Influ B (NEG) Laboratory results as reviewed by me. Medications Administered Medications (Trade) Dose Ordered Sig/Tab Route Start Time Stop Time Status Last Admin Dose Admin Sodium Chloride 1,000 ml @ 999 mls/hr Q1H1M STAT IV 11/03/16 02:17 11/03/16 03:17 DC 11/03/16 02:41 999 MLS/HR Hydromorphone HCl (Dilaudid Inj) 1 mg NOW STAT IV 11/03/16 02:17 11/03/16 02:19 DC 11/03/16 02:41 1 MG Sodium Chloride 1,000 ml @ 125 mls/hr Q8H STAT IV 11/03/16 03:42 11/03/16 11:41 11/03/16 03:51 125 MLS/HR Vancomycin HCl 1800 mg/Sodium Chloride 536 ml @ 200 mls/hr ONE STAT IV 11/03/16 03:46 11/03/16 06:26 11/03/16 03:46 200 MLS/HR Ceftriaxone Sodium (Rocephin Inj) 1 gm NOW STAT IV 11/03/16 03:46 11/03/16 03:47 DC 11/03/16 03:51 1 GM ED Course 0212: The patient was evaluated in room A11B. A complete history and physical exam was performed. 0217: Ordered Hydromorphone HCl 1mg IV, Sodium Chloride 1000 ml @ 999 mls/hr IV 0342: Ordered Sodium Chloride 1000 ml @ 125 mls/hr IV 0346: Ordered Ceftriaxone Sodium 1gm IV, Vancomycin HCl 1800 mg/Sodium Chloride 536 ml @ 200 mls/hr IV 0347: Upon reevaluation, the patient is resting. Discussed results and treatment plan with the patient. He verbalized understanding and agreement with the treatment plan. The patient will be evaluated for further management. 0348: I discussed the patient's case with Dr. Seaman, [facility] Hospitalist. The patient will be evaluated for further management and care. Medical Decision Differential: Cellulitis, Abscess, Diverticulitis, Allergic Rx, Renal Colic, Bowel Obstruction, Aortic Pathology, amongst other pathologies entertained. 76 yr old male with bilateral lower abdominal pain worsening over last few days. Seen by PCP and started on Tramadol with minimal improvement. History of extensive abdominal surgeries as well as diverticulitis. On exam diffusely TTP over lower abdomen in area with extensive erythema consistent with cellulitis. Suspect source is infection from recent thigh infection, though with history felt that CT to rule out abscess, or other source indicated. WBC normal, though CRP elevated, mild lactic acid elevation and BP is quite low for patient. Blood Cultures obtained prior to abx given. 1 L NSS bolus with improvement in BP thus held on full 30ml/kg for fear cause CHF. Patient feeling improved but with extensive cellulitis and early sepsis he will need to come in for further monitoring/treatment. Medication Reconcilliation Current Medication List: was personally reviewed by me Blood Pressure Screening Patient's blood pressure: Low blood pressure Monitored by hospitalist. Consults Time Called: 341 Consulting Physician: Dr. Seaman, [facility] Hospitalist Returned Call: [phone] I discussed the patient's case with Dr. Seaman, [facility] Hospitalist. The patient will be evaluated for further management and care. Impression Primary Impression: Abdominal wall cellulitis Additional Impression: Sepsis Scribe Attestation The scribe's documentation has been prepared under my direction and personally reviewed by me in its entirety. I confirm that the note above accurately reflects all work, treatment, procedures, and medical decision making performed by me. Departure Information Dispostion Being Evaluated By Hospitalist Referrals ,Carmelo Perkins M.D. (PCP) Patient Instructions My [facility] Problem Qualifiers
[2016-11-03] MEDS ORDERED: OPTIRAY 320 IV PRN (02:30)
[2016-11-03 02:43] LABS: BASO % 0.3 %; BASO ABS # 0.03 K/uL (0-0.2); COMPLETE YES; EOS % 0.4 %; HEMATOCRIT 45.6 % (42-52); IG% 0.4 %; LYMPH % 12.7 %; LYMPH ABS # 1.21 K/uL (1.2-3.4); MEAN CELL VOLUME 101.6 fL (80-100); MEAN CORPUSCULAR HEMOGLOBIN 33.6 pg (25-34); MEAN CORPUSCULAR HGB CONC 33.1 g/dl (32-36); MEAN PLATELET VOLUME 9.6 fL (7.4-10.4); MONO % 4.2 %; PLATELET COUNT 199 K/uL (130-400); RED BLOOD COUNT 4.49 M/uL (4.7-6.1); WHITE BLOOD COUNT 9.54 K/uL (4.8-10.8)
[2016-11-03 02:50] LABS: ISTAT CREATININE 1.1 mg/dl (0.6-1.3); ISTAT IONIZED CALCIUM 1.09 mmol/l (1.12-1.32)
[2016-11-03 03:02] LABS: BUN/CREATININE RATIO 17.8 (10-20); CALCIUM 8.7 mg/dl (8.5-10.1); CREATININE 1.2 mg/dl (0.60-1.40)
[2016-11-03 03:05] LABS: C-REACTIVE PROTEIN 10.8 mg/dl (0-0.29)
[2016-11-03] MEDS ORDERED: ULT50 PO (03:07)
[2016-11-03] MEDS ORDERED: CEFTRIAXONE SOD INJ 1 GM ADDVIAL IV STA (03:46)
[2016-11-03] MEDS ORDERED: VANCOMYCIN INJ 1,800 MG in SODIUM CHLORIDE 0.9% 500ML 500 ML IV STA (03:46)
[2016-11-03] MEDS ORDERED: ONDANSETRON INJ 2 MG/ML 2 ML VIAL IV PRN (05:15)
[2016-11-03] MEDS ORDERED: GLUCOSE 40% GEL 15 GM TUBE PO PRN (05:45)
[2016-11-03] MEDS ORDERED: DEXTROSE 50% 50 ML SYR IV PRN (05:45)
[2016-11-03] MEDS ORDERED: GLUCAGON FOR INJ 1 MG VIAL SQ PRN (05:45)
[2016-11-03] MEDS ORDERED: GLUCOSE 10 TABS/TUBE PO PRN (05:45)
[2016-11-03 06:00] VITALS: BP 130/74; PULSE 88; TEMP 36.3; O2SAT 95; Ht 170.2 cm; Wt 75.6 kg
--- NOTE | 2016-11-03 06:02 | History and Physical ---
History & Physical Date & Time of Service: Nov 03, 2016 at 04:07 Chief Complaint: Abdominal Pain- Diverticulitus Primary Care Physician: Carmelo Mason M.D. History of Present Illness Source: patient, clinic records, hospital records Mr Robertson is a 76 year old male who presents to the ER with lower abdominal pain , back pain and rash. His history course is unclear and multiple times he changes his story. This is most likely secondary to the time in the morning and Dilaudid given in the ER. His main complaint to me is lower back pain. He reports this pain is all the way around his lower abdomen and started 2 weeks ago although he was here on October 24 with back pain which began weeks before that. The pain round his front has just been in the last 2-3 days. It is an aching pain made worse with movement. He feels generalized aches everywhere "like coming down with the flu". He has had a lack of appetite for the past week , he denies dysphagia or odynophagia. Last BM yesterday - formed hard stool ( feels constipated). 2 days of nausea, no vomiting. He denies any dysuria, incontinence or urinary frequency. He denies any bowel incontinence or perianal numbness. From recent ER and clinic notes: Sep 23 seen in clinic and diagnosed with left leg cellulitis (left popliteal) treated with keflex and Oct 09 seen in the ER and added Bactrim to regimen Oct 24 seen in ER for lower back pain - CT October 27 seen in clinic (Dr Caruso) - for lower back pain and started on methylprednisolone taper and tramadol. No rashes noted. November 02 unsure who ordered the test but he had a lyme IgG and IgM which were both positive Past Medical/Surgical History Medical Problems: (1) T2 Diabetes - diet controlled (2) Hypertension (3) Perforated diverticulitis s/p partial right colectomy with ileocolic anastomosis (4) Chronic lower back pain (5) BPH (6) Hypercholesterolemia (7) Hepatic steatosis (8) Elevated ferritin (9) B12 deficiency (10) Vitamin D deficiency Surgical Problems: (1) History of inguinal hernia repair (2) Partial right colectomy with ileocolic anastomosis Family History Cancer Diabetes mellitus Hypertension Social History Smoking Status: Never Smoker Smokeless Tobacco Use: No Alcohol Use: none (previous alcohol abuse) Drug Use: none Marital Status: single Housing status: lives alone Occupational Status: employed Immunizations History of Influenza Vaccine: Unknown History of Tetanus Vaccine?: Unknown History of Pneumococcal: Unknown History of Hepatitis B Vaccine: Unknown Multi-Drug Resistant Organisms History of MDRO: No Allergies Coded Allergies: No Known Allergies (Verified , 11/03/16) Home Medications Scheduled Aspirin (Aspirin 81), 1 TAB PO QAM Cholecalciferol (Vitamin D3), 1 CAP PO QAM Cyanocobalamin (Vitamin B12), 1 TAB PO QAM Magnesium Oxide (Mag-Ox), 400 MG PO QAM Multivitamin (Multivitamin), 1 TAB PO QAM Omeprazole (Prilosec), 20 MG PO DAILY Potassium Gluconate (Potassium Gluconate), 1 TAB PO QAM Scheduled PRN Tramadol HCl (Tramadol HCl), 50 MG PO UD PRN for Pain Review of Systems Constitutional: + chills, No fever Eyes: No worsening of vision ENT: No hearing loss Respiratory: + cough, No sputum, No wheezing, No shortness of breath, No dyspnea on exertion, No hemoptysis Cardiovascular: No chest pain, No orthopnea, No edema, No claudication, No palpitations Abdomen: + nausea, + constipation, No pain, No vomiting, No diarrhea, No GI bleeding Musculoskeletal: No joint pain, No muscle pain Physical Exam Vital Signs Date Time Temp Pulse Resp B/P (MAP) Pulse Ox O2 Delivery O2 Flow Rate FiO2 11/03/16 03:07 98 22 96/60 98 Room Air 11/03/16 02:04 36.7 87 18 92/63 91 Room Air General Appearance: no apparent distress, + pertinent finding (poorly nourished ) Head: normocephalic, atraumatic Eyes: normal inspection, PERRL, EOMI Neck: supple, no JVD, trachea midline Respiratory/Chest: chest non-tender, lungs clear, normal breath sounds, no respiratory distress, no accessory muscle use Cardiovascular: regular rate, rhythm, no edema, no murmur, normal peripheral pulses Abdomen/GI: normal bowel sounds, non tender, soft Back: normal inspection, + left CVA tenderness (mild) Extremities/Musculoskelatal: no calf tenderness, normal capillary refill, no pedal edema 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, no motor/sensory deficits, alert, oriented x 3 Skin: + pertinent finding (macular papular mobilliform rash on abdominal wall without defined edges but does not appear generalized) Lymphatic: no adenopathy Diagnostics Laboratory Results Results Past 24 Hours Test 11/03/16 02:30 11/03/16 02:35 11/03/16 02:38 Range/Units White Blood Count 9.54 4.8-10.8 K/uL Red Blood Count 4.49 4.7-6.1 M/uL Hemoglobin 15.1 14.0-18.0 g/dL Hematocrit 45.6 42-52 % Mean Corpuscular Volume 101.6 80-100 fL Mean Corpuscular Hemoglobin 33.6 25-34 pg Mean Corpuscular Hemoglobin Concent 33.1 32-36 g/dl Platelet Count 199 130-400 K/uL Mean Platelet Volume 9.6 7.4-10.4 fL Neutrophils (%) (Auto) 82.0 % Lymphocytes (%) (Auto) 12.7 % Monocytes (%) (Auto) 4.2 % Eosinophils (%) (Auto) 0.4 % Basophils (%) (Auto) 0.3 % Neutrophils # (Auto) 7.82 1.4-6.5 K/uL Lymphocytes # (Auto) 1.21 1.2-3.4 K/uL Monocytes # (Auto) 0.40 0.11-0.59 K/uL Eosinophils # (Auto) 0.04 0-0.5 K/uL Basophils # (Auto) 0.03 0-0.2 K/uL RDW Standard Deviation 46.3 36.4-46.3 fL RDW Coefficient of Variation 12.5 11.5-14.5 % Immature Granulocyte % (Auto) 0.4 % Immature Granulocyte # (Auto) 0.04 0.00-0.02 K/uL Sodium Level 136 136-145 mmol/L Potassium Level 4.0 3.5-5.1 mmol/L Chloride Level 101 98-107 mmol/L Carbon Dioxide Level 26 21-32 mmol/L Anion Gap 9.0 18.0 16-25 mmol/L Blood Urea Nitrogen 21 7-18 mg/dl Creatinine 1.20 0.60-1.40 mg/dl Est Creatinine Clear Calc Drug Dose 52.2 ml/min Estimated GFR () 68.6 Estimated GFR (Non- 59.2 BUN/Creatinine Ratio 17.8 10-20 Random Glucose 213 70-99 mg/dl Calcium Level 8.7 8.5-10.1 mg/dl Total Bilirubin 0.9 0.2-1 mg/dl Direct Bilirubin 0.2 0-0.2 mg/dl Aspartate Amino Transf (AST/SGOT) 17 15-37 U/L Alanine Aminotransferase (ALT/SGPT) 31 12-78 U/L Alkaline Phosphatase 116 45-117 U/L C-Reactive Protein 10.80 0-0.29 mg/dl Total Protein 7.7 6.4-8.2 gm/dl Albumin 3.3 3.4-5.0 gm/dl Lipase 124 73-393 U/L Bedside Lactic Acid Venous 2.36 0.90-1.70 mmol/L Bedside Hemoglobin 15.0 14.0-18.0 g/dl Bedside Hematocrit 44 42-52 % Bedside Sodium 137 135-144 mEq/L Bedside Potassium 4.0 3.3-5.0 mEq/L Bedside Chloride 98 101-112 mEq/L Bedside Total CO2 26 24-31 mEq/l Bedside Blood Urea Nitrogen 21 7-18 mg/dl Bedside Creatinine 1.1 0.6-1.3 mg/dl Bedside Glucose (other) 215 70-99 mg/dl Bedside Ionized Calcium (Radha) 1.09 1.12-1.32 mmol/l Microbiology Results 11/03/16 Blood Culture, Received Pending 11/03/16 Blood Culture, Received Pending Diagnostic Radiology ABD/PELVIS IV CONTRAST ONLY IMPRESSION: 1. Pancolonic diverticulosis. No evidence of diverticulitis. 2. Postsurgical changes with ileocolic anastomosis and small bowel anastomosis in the right lower quadrant. No bowel obstruction. 3. 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 4. Suggestion of mild biliary ductal wall thickening, which raises concern for cholangitis. Correlate clinically and with LFTs. 5. Bilateral nonobstructing renal calculi. 6. Hepatic steatosis. CHEST ONE VIEW PORTABLE IMPRESSION: Pulmonary emphysema with basilar atelectasis Impression Assessment and Plan 76 year old with abdominal wall cellulitis and positive lyme IgG and IgM Abdominal wall cellulitis - chills with elevated CRP, possible erythema migrans although atypical appearance vs. drug reaction (previous treatments with Keflex and Bactrim, patient feels it is pruritic) - ceftriaxone + vancomycin (previously failed keflex + bactrim extended course) - follow up blood cultures - repeat lactic acid Lyme Disease - increase ceftriaxone to 2g daily to cover for lyme disease. - Follow up bands on outside lab result Constipation - likely secondary to tramadol use - MiraLax QAM - limit opiate use T2DM - hold metformin - Lantus 8 units BID, insulin as required. Aiming BSG 110-140, correction 35, carb ratio 12 - T2DM diet Code - Full VTE Prophylaxis - enoxaparin 40mg SQ daily Disposition - admit to med/surg Resident Physician Supervision Note: Pt seen/examined independently. I discussed the case with the resident and agree with the findings and plan as documented in the note. Any exceptions or clarifications are listed here: 76 y/o M DM, HTN, HPL Presents with abdominal and L flank pain - has extensive erythema over lower abdominal wall and L leg - suspect cellulitis - may be ressult of erythema migrans - lyme results pending Pt likely has degree of dementia and is a poor historian AAO x 2 S1,2 R CTAB Erythema and warmth over abdomen - nontender Tender L flank/back P: Placed on Vanc and Cef as he has had courses of Bactrim and Keflex - this would cover both Lyme and cellulitis No change in home meds Above discussed with resident and pt Documented By: Siva Seaman Level of Care Med/Surg Resuscitation Status FULL RESUSCITATION VTE Prophylaxis VTE Risk Assessment Done? Y/N: Yes Risk Level: Moderate Given or contraindicated: Enoxaparin (Lovenox)SQ Additional Copies To Carmelo Mason M.D. Resident Tracking Resident Involvement: Resident Care Provided Care Provided: Adult Hospital Medicine
[2016-11-03] MEDS ORDERED: CEFTRIAXONE SOD INJ 1 GM in DEXTROSE 5% ADD-VANTAGE 50ML 50 ML IV SCH (06:30)
--- NOTE | 2016-11-03 06:35 | DIAGNOSTIC IMAGING REPORT ---
CHEST ONE VIEW PORTABLE CLINICAL HISTORY: chills for last week + cough ?pneumonia COMPARISON STUDY: 07/29/2015 FINDINGS: The cardiac and mediastinal contours are normal. There is no evidence of focal pulmonary consolidation. There is no evidence of failure. No pleural effusions are visualized.[ Underlying emphysema is suspected. Increased basal markings are felt to be atelectatic. IMPRESSION: Pulmonary emphysema with basilar atelectasis Electronically signed by: Nathaniel Kent M.D. 11/03/2016 6:33 AM Dictated Date/Time: 11/03/2016 6:32 AM
[2016-11-03] MEDS: ACETAMINOPHEN 325 MG TAB PO PRN (07:26)
[2016-11-03] MEDS ORDERED: VANCOMYCIN CONSULT ACTIVE PRN (07:30)
[2016-11-03] MEDS: CYANOCOBALAMIN 500 MCG TAB (VIT B-12) PO SCH (07:33)
[2016-11-03] MEDS: MAGNESIUM OXIDE 400 MG TAB PO SCH (07:33)
[2016-11-03] MEDS: CHOLECALCIFEROL 1000 INTER.UNIT TAB PO SCH (07:33)
[2016-11-03] MEDS: PANTOprazole SOD 40 MG TAB PO SCH (07:33)
--- NOTE | 2016-11-03 07:46 | DIAGNOSTIC IMAGING REPORT ---
ABD/PELVIS IV CONTRAST ONLY CLINICAL HISTORY: 76 years-old Male presenting with diffuse lower abdominal pain. TECHNIQUE: Multidetector CT of the abdomen and pelvis was performed after the administration of intravenous contrast. IV contrast: 93 mL of Optiray 320. A dose lowering technique was used consistent with the principles of ALARA (as low as reasonably achievable). COMPARISON: 10/11/2015. CT DOSE (mGy.cm): The estimated cumulative dose is 448.97 mGy.cm. 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 Lung bases: Minimal dependent reticulation and volume loss, which is persistent and may represent scarring/cicatrizing atelectasis. Normal heart size. Coronary artery and aortic valve calcification. Trace pericardial effusion. No pleural effusion. Liver: Liver density consistent with hepatic steatosis. Normal liver morphology. No focal lesion. Patent hepatic vasculature. Biliary: Mild biliary ductal wall thickening at the liver hilum may be present. No intrahepatic or extra hepatic biliary ductal dilatation. Normal gallbladder. Pancreas: Prominent duodenal diverticulum at the pancreatic head. Mild diffuse pancreatic parenchymal atrophy. Mild prominence of the pancreatic duct at the level of the head and neck, possibly secondary to the presence of the diverticulum. Spleen: Normal. Adrenal glands: Normal. Kidneys and ureters: Punctate nonobstructing renal calculus at the lower pole the left kidney (series 3 image 232). Multiple nonobstructing right renal calculi, the largest at the upper pole measuring 4 mm. No hydronephrosis. Ureters normal. Bladder: Normal. Pelvic organs: Prostate and seminal vesicles normal. Bowel: Normal. No bowel obstruction. Peritoneal cavity: Diverticulosis of the entire colon. The previous site of diverticulitis at the mid to distal sigmoid colon has resolved. Ileocolic anastomosis is evident in the right lower quadrant, which is widely patent. A small bowel anastomosis is also noted in the right lower quadrant, which is also widely patent. No bowel obstruction. Large duodenal diverticulum at the pancreatic head as previously mentioned. No associated inflammatory change. Vasculature: Atherosclerosis of the normal caliber abdominal aorta. IVC patent. Lymph nodes: No enlarged lymph nodes in the abdomen or pelvis. Abdominal wall: Postsurgical changes along the right lower quadrant. No associated fluid collection. Musculoskeletal: Degenerative changes of the spine. IMPRESSION: 1. Pancolonic diverticulosis. No evidence of diverticulitis. 2. Postsurgical changes with ileocolic anastomosis and small bowel anastomosis in the right lower quadrant. No bowel obstruction. 3. 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 4. Suggestion of mild biliary ductal wall thickening, which raises concern for cholangitis. Correlate clinically and with LFTs. 5. Bilateral nonobstructing renal calculi. 6. Hepatic steatosis. Electronically signed by: Art Melton M.D. 11/03/2016 7:45 AM Dictated Date/Time: 11/03/2016 7:36 AM
[2016-11-03 07:54] LABS: BUN/CREATININE RATIO 22.7 (10-20); C-REACTIVE PROTEIN 9.83 mg/dl (0-0.29); CALCIUM 8.2 mg/dl (8.5-10.1); CREATININE 0.83 mg/dl (0.60-1.40)
[2016-11-03 08:07] VITALS: BP 101/57; PULSE 85; TEMP 36.8; O2SAT 93
[2016-11-03] MEDS ORDERED: TRAMADOL HCL 50 MG TAB PO STA (08:18)
--- NOTE | 2016-11-03 08:50 | Family Medicine Progress Note ---
Progress Note Date of Service Nov 03, 2016. Subjective Pt evaluation today including: conversation w/ patient, physical exam, chart review, lab review, review of studies Found pt lying upright comfortably, speaking easily. Pt discussed how his dull , lumbar ache is "24/7" for the past month and that he would like stronger medication that "just aspirin". Has not seen pain management in the past but was on narcotics around winter 2013 for similar pains, stating that the regimen then seemed to work for him really well. He doesn't remember ever being bit by a tick but his dog has had them. Says he thinks his cellulitis on his leg completely resolved about six days after bactrim was added around 18Aug. He's not sure when the current erythema and abd/back rash started. Denies any other acute c/o (including CP, SOB, new abd pain, fevers). Constitutional: No fever, No chills Respiratory: No cough, No wheezing, No shortness of breath Cardiovascular: No chest pain Abdomen: + pain, No nausea, No vomiting, No diarrhea Male : No dysuria Skin: + rash Medications Current Inpatient Medications Medications (Trade) Dose Ordered Sig/Tab Route Start Time Stop Time Status Last Admin Dose Admin Ioversol (Optiray 320) 100 ml UD PRN IV 11/03/16 02:30 11/07/16 02:29 Enoxaparin Sodium (Lovenox Inj) 40 mg Q24H SQ 11/03/16 05:15 12/03/16 05:14 11/03/16 09:20 40 MG Acetaminophen (Tylenol Tab) 650 mg Q4H PRN PO 11/03/16 05:15 12/03/16 05:14 11/03/16 07:26 650 MG Ondansetron HCl (Zofran Inj) 4 mg Q6H PRN IV 11/03/16 05:15 12/03/16 05:14 Magnesium Oxide (Mag-Ox Tab) 400 mg QAM PO 11/03/16 08:00 12/03/16 08:59 11/03/16 07:33 400 MG Cholecalciferol (Vitamin D Tab) 1,000 inter.unit QAM PO 11/03/16 08:00 12/03/16 08:59 11/03/16 07:33 1,000 INTER.UNIT Cyanocobalamin (Vitamin B-12 Tab) 1,000 mcg QAM PO 11/03/16 08:00 12/03/16 08:59 11/03/16 07:33 1,000 MCG Pantoprazole Sodium (Protonix Tab) 40 mg QAM PO 11/03/16 08:00 12/03/16 08:59 11/03/16 07:33 40 MG Vancomycin HCl 1000 mg/Sodium Chloride 270 ml @ 125 mls/hr Q12H IV 11/03/16 16:00 11/13/16 03:59 Insulin Glargine (Lantus Solostar Pen) 8 units Q12 SC 11/03/16 09:00 12/03/16 08:59 11/03/16 09:37 8 UNITS Insulin Aspart (novoLOG ASPART) SLIDING SCALE If C... ACHS SC 11/03/16 06:30 12/03/16 06:59 11/03/16 09:38 5 UNITS Glucose (Glucose 40% Gel) 15-30 GRAMS 15 GRAMS... UD PRN PO 11/03/16 05:45 12/03/16 05:44 Glucose (Glucose Chew Tab) 4-8 Tablets 4 Tabl... UD PRN PO 11/03/16 05:45 12/03/16 05:44 Dextrose (Dextrose 50% 50ML Syringe) 25-50ML OF 50% DW IV FOR... UD PRN IV 11/03/16 05:45 12/03/16 05:44 Glucagon (Glucagon Inj) 1 mg UD PRN SQ 11/03/16 05:45 12/03/16 05:44 Vancomycin HCl (Consult) 1 ea UD PRN N/A 11/03/16 07:30 12/03/16 07:29 Polyethylene (Miralax Powder Packet) 17 gm QAM PO 11/03/16 09:00 12/03/16 08:59 11/03/16 09:17 17 GM Lactated Ringer's 1,000 ml @ 100 mls/hr Q10H IV 11/03/16 08:45 12/03/16 08:44 11/03/16 09:39 100 MLS/HR Ceftriaxone Sodium 2000 mg/ Dextrose 70 ml @ 100 mls/hr Q24H IV 11/04/16 03:00 11/13/16 02:59 Objective Vital Signs Date Time Temp Pulse Resp B/P (MAP) Pulse Ox O2 Delivery O2 Flow Rate FiO2 11/03/16 08:07 36.8 85 18 101/57 (72) 93 Room Air 11/03/16 08:00 Room Air 11/03/16 06:00 36.3 88 20 130/74 95 Room Air 11/03/16 05:26 88 20 117/69 93 11/03/16 04:43 96 136/74 93 Room Air 11/03/16 03:07 98 22 96/60 98 Room Air 11/03/16 02:04 36.7 87 18 92/63 91 Room Air Physical Exam General Appearance: WD/WN, no apparent distress Respiratory/Chest: lungs clear, normal breath sounds Cardiovascular: regular rate, rhythm, no edema Abdomen: normal bowel sounds, non tender (palpation of abdomen doesn't change "internal" discomfort), soft Extremities: non-tender, normal inspection, no pedal edema Skin: + rash Notes: - There is a circumferential, linearly-demarcated erythematous, blanching rash on his abdomen up to approx 10 cm above umbilicus extending around his back. There is a less-so erythematous rash over his lateral LLE. Both areas are warm , not notably edematous, and not ttp. - There is a separate rosacea-like erythema on his face and upper chest. - Full and easy LLE ROM, distal sensation intact. Laboratory Results 11/03/16 02:30 Red Blood Count 4.49, Mean Corpuscular Volume 101.6, Mean Corpuscular Hemoglobin 33.6, Mean Corpuscular Hemoglobin Concent 33.1, Mean Platelet Volume 9.6, Neutrophils (%) (Auto) 82.0, Lymphocytes (%) (Auto) 12.7, Monocytes (%) ( Auto) 4.2, Eosinophils (%) (Auto) 0.4, Basophils (%) (Auto) 0.3, Neutrophils # ( Auto) 7.82, Lymphocytes # (Auto) 1.21, Monocytes # (Auto) 0.40, Eosinophils # ( Auto) 0.04, Basophils # (Auto) 0.03 11/03/16 07:16 Test 11/03/16 02:30 11/03/16 02:35 11/03/16 02:38 11/03/16 04:45 White Blood Count 9.54 K/uL (4.8-10.8) Red Blood Count 4.49 M/uL (4.7-6.1) Hemoglobin 15.1 g/dL (14.0-18.0) Hematocrit 45.6 % (42-52) Mean Corpuscular Volume 101.6 fL (80-100) Mean Corpuscular Hemoglobin 33.6 pg (25-34) Mean Corpuscular Hemoglobin Concent 33.1 g/dl (32-36) Platelet Count 199 K/uL (130-400) Mean Platelet Volume 9.6 fL (7.4-10.4) Neutrophils (%) (Auto) 82.0 % Lymphocytes (%) (Auto) 12.7 % Monocytes (%) (Auto) 4.2 % Eosinophils (%) (Auto) 0.4 % Basophils (%) (Auto) 0.3 % Neutrophils # (Auto) 7.82 K/uL (1.4-6.5) Lymphocytes # (Auto) 1.21 K/uL (1.2-3.4) Monocytes # (Auto) 0.40 K/uL (0.11-0.59) Eosinophils # (Auto) 0.04 K/uL (0-0.5) Basophils # (Auto) 0.03 K/uL (0-0.2) RDW Standard Deviation 46.3 fL (36.4-46.3) RDW Coefficient of Variation 12.5 % (11.5-14.5) Immature Granulocyte % (Auto) 0.4 % Immature Granulocyte # (Auto) 0.04 K/uL (0.00-0.02) Total Bilirubin 0.9 mg/dl (0.2-1) Direct Bilirubin 0.2 mg/dl (0-0.2) Aspartate Amino Transf (AST/SGOT) 17 U/L (15-37) Alanine Aminotransferase (ALT/SGPT) 31 U/L (12-78) Alkaline Phosphatase 116 U/L (45-117) Total Protein 7.7 gm/dl (6.4-8.2) Albumin 3.3 gm/dl (3.4-5.0) Lipase 124 U/L (73-393) Bedside Lactic Acid Venous 2.36 mmol/L (0.90-1.70) Bedside Hemoglobin 15.0 g/dl (14.0-18.0) Bedside Hematocrit 44 % (42-52) Bedside Sodium 137 mEq/L (135-144) Bedside Potassium 4.0 mEq/L (3.3-5.0) Bedside Chloride 98 mEq/L (101-112) Bedside Total CO2 26 mEq/l (24-31) Bedside Blood Urea Nitrogen 21 mg/dl (7-18) Bedside Creatinine 1.1 mg/dl (0.6-1.3) Bedside Glucose (other) 215 mg/dl (70-99) Bedside Ionized Calcium (Radha) 1.09 mmol/l (1.12-1.32) Influenza Type A Antigen Neg for Influ A (NEG) Influenza Type B Antigen Neg for Influ B (NEG) Test 11/03/16 07:16 11/03/16 07:54 Anion Gap 4.0 mmol/L (3-11) Est Creatinine Clear Calc Drug Dose 73.0 ml/min Estimated GFR () 100.5 Estimated GFR (Non- 86.7 BUN/Creatinine Ratio 22.7 (10-20) Lactic Acid Level 1.1 mmol/L (0.4-2.0) Calcium Level 8.2 mg/dl (8.5-10.1) C-Reactive Protein 9.83 mg/dl (0-0.29) Vitamin B12 Level 630 pg/mL (211-911) Folate 18.45 ng/mL (>5.38) Bedside Glucose 164 mg/dl (70-99) Assessment and Plan 76yo male with abdominal pain and ongoing cellulitis. Cellulitis / ? early sepsis: Timeline: 02Aug left leg cellulitis, rx keflex. 18Aug seen in ED, added bactrim. 02Sep seen in ED for back pain, CT scan. 05Sep seen in clinic, no note of rash. 11Sep lyme IgG and IgM positive. Also ? of erythema migrans. - Started on vancomycin 1 gram q12h (12Sep) and ceftriaxone 2 grams q24h (12Sep ) to cover both cellulitis and lyme. [ ] BCx results pending - Reported hx generalized aches. Negative for influenza A & B. - Elevated lactate in ED 11Sep. Repeat s/p IVF resolved. Abd pain, hx diverticulitis: Reportedly worsening over past couple days, not improved with outpt tramadol. Positive nausea, no emesis, pt feels constipated. Exam somewhat complicated by cellulitis and prior surgical issues. - Miralax q AM. Try to limit opiates due to SE of constipation. Lower back pain: Reportedly began around 02Sep, seen in ED for back pain. - Tramadol given. PMH DM2: By report, previously diet-controlled. - On Glargine and aspart here to start. DVT prophy: Lovenox Code status: Full code. Will discuss all the above on attending rounds this morning. Veda, PGY1 [employer] Tracking Resident Involvement: Resident Care Provided (inpt rounds) Care Provided: Adult Hospital Medicine History Resident Physician Supervision Note: I was present with Dr. Rodrigues during the history and exam. I discussed the case with the resident and agree with the findings and plan as documented in the note. Any exceptions or clarifications are listed here. Pt reports improved pain control with present regimen and after starting antibiotic therapy. Concomitantly, the rash on his abdomen/back may be somewhat less intense than previous. He reports no fever, DHALIWAL, other joint pain, CP/ palpitations, SOB. 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, alert, normal mood/affect, oriented x 3 Skin Characteristics: rash (erythematous, nontender rash with some peeling on the abdomen which wraps from 10 cm rightward lateral of midline to the right midback) Assessment/Plan 76 y/o male with h/o chronic lower back pain presents with abdominal rash concerning for cellulitis Cellulitis - +ve DELMA for Lyme, atypical as is nontender, nonindurated - BCx pending, continue ceftriaxone and vancomycin Abdominal pain in the setting of diverticulosis - monitor BM, bowel regimen as noted Lower back pain - acute on chronic - avoid NSAIDs in this patient - reasonable to use percocet or morphine for acute inpatient pain DMII - ISS and glargine, monitor FSBS and will adjust as needed
[2016-11-03] MEDS: POLYETHYLENE (MIRALAX) 17 GM PACK PO SCH (09:17)
[2016-11-03] MEDS ORDERED: KETOROLAC TROMETHAMINE 30 MG/ML VIAL IV STA (09:17)
[2016-11-03] MEDS: ENOXAPARIN 40 MG/0.4 ML SYR SQ SCH (09:20)
[2016-11-03] MEDS: INSULIN GLARGINE SOLOSTAR 100 UNITS/ML 3 ML PEN SC SCH ×2 (09:37→20:58)
[2016-11-03] MEDS: INSULIN ASPART 100 UNITS/ML 3 ML PEN SC SCH ×4 (09:38→20:59)
[2016-11-03] MEDS: LACTATED RINGER'S 1000ML 1,000 ML IV SCH ×2 (09:39→19:48)
[2016-11-03] MEDS: VANCOMYCIN INJ 1,000 MG in SODIUM CHLORIDE 0.9% 250ML 250 ML IV SCH (15:38)
--- NOTE | 2016-11-03 16:03 | Pharmacy Progress Note ---
Pharmacy Antibiotic Consult Date of Service: Nov 03, 2016. Pharmacy Dosing Scope Pharmacy is consulted to initiate vanocmycin IV dosing therapy, order appropriate labs and adjust drug dose/frequency. Subjective The patient is a 76 year old male admitted on Nov 03, 2016 at 05:14 with cellulitis. History of DM, diverticulitis, cellulitis. Objective Height (Feet): 5 Height (Inches): 7.00 Weight (Kilograms): 75.600 Lab Results (24hrs): Test 11/03/16 02:30 11/03/16 02:35 11/03/16 02:38 11/03/16 04:45 White Blood Count 9.54 K/uL (4.8-10.8) Red Blood Count 4.49 M/uL (4.7-6.1) Hemoglobin 15.1 g/dL (14.0-18.0) Hematocrit 45.6 % (42-52) Mean Corpuscular Volume 101.6 fL (80-100) Mean Corpuscular Hemoglobin 33.6 pg (25-34) Mean Corpuscular Hemoglobin Concent 33.1 g/dl (32-36) Platelet Count 199 K/uL (130-400) Mean Platelet Volume 9.6 fL (7.4-10.4) Neutrophils (%) (Auto) 82.0 % Lymphocytes (%) (Auto) 12.7 % Monocytes (%) (Auto) 4.2 % Eosinophils (%) (Auto) 0.4 % Basophils (%) (Auto) 0.3 % Neutrophils # (Auto) 7.82 K/uL (1.4-6.5) Lymphocytes # (Auto) 1.21 K/uL (1.2-3.4) Monocytes # (Auto) 0.40 K/uL (0.11-0.59) Eosinophils # (Auto) 0.04 K/uL (0-0.5) Basophils # (Auto) 0.03 K/uL (0-0.2) RDW Standard Deviation 46.3 fL (36.4-46.3) RDW Coefficient of Variation 12.5 % (11.5-14.5) Immature Granulocyte % (Auto) 0.4 % Immature Granulocyte # (Auto) 0.04 K/uL (0.00-0.02) Sodium Level 136 mmol/L (136-145) Potassium Level 4.0 mmol/L (3.5-5.1) Chloride Level 101 mmol/L (98-107) Carbon Dioxide Level 26 mmol/L (21-32) Blood Urea Nitrogen 21 mg/dl (7-18) Creatinine 1.20 mg/dl (0.60-1.40) Est Creatinine Clear Calc Drug Dose 52.2 ml/min Estimated GFR () 68.6 Estimated GFR (Non- 59.2 BUN/Creatinine Ratio 17.8 (10-20) Random Glucose 213 mg/dl (70-99) Calcium Level 8.7 mg/dl (8.5-10.1) Total Bilirubin 0.9 mg/dl (0.2-1) Direct Bilirubin 0.2 mg/dl (0-0.2) Aspartate Amino Transf (AST/SGOT) 17 U/L (15-37) Alanine Aminotransferase (ALT/SGPT) 31 U/L (12-78) Alkaline Phosphatase 116 U/L (45-117) C-Reactive Protein 10.80 mg/dl (0-0.29) Total Protein 7.7 gm/dl (6.4-8.2) Albumin 3.3 gm/dl (3.4-5.0) Lipase 124 U/L (73-393) Bedside Lactic Acid Venous 2.36 mmol/L (0.90-1.70) Bedside Hemoglobin 15.0 g/dl (14.0-18.0) Bedside Hematocrit 44 % (42-52) Bedside Sodium 137 mEq/L (135-144) Bedside Potassium 4.0 mEq/L (3.3-5.0) Bedside Chloride 98 mEq/L (101-112) Bedside Total CO2 26 mEq/l (24-31) Anion Gap 18.0 mmol/L (16-25) Bedside Blood Urea Nitrogen 21 mg/dl (7-18) Bedside Creatinine 1.1 mg/dl (0.6-1.3) Bedside Glucose (other) 215 mg/dl (70-99) Bedside Ionized Calcium (Radha) 1.09 mmol/l (1.12-1.32) Influenza Type A Antigen Neg for Influ A (NEG) Influenza Type B Antigen Neg for Influ B (NEG) Test 11/03/16 07:16 11/03/16 07:54 Sodium Level 138 mmol/L (136-145) Potassium Level 4.0 mmol/L (3.5-5.1) Chloride Level 104 mmol/L (98-107) Carbon Dioxide Level 30 mmol/L (21-32) Anion Gap 4.0 mmol/L (3-11) Blood Urea Nitrogen 19 mg/dl (7-18) Creatinine 0.83 mg/dl (0.60-1.40) Est Creatinine Clear Calc Drug Dose 73.0 ml/min Estimated GFR () 100.5 Estimated GFR (Non- 86.7 BUN/Creatinine Ratio 22.7 (10-20) Random Glucose 158 mg/dl (70-99) Lactic Acid Level 1.1 mmol/L (0.4-2.0) Calcium Level 8.2 mg/dl (8.5-10.1) C-Reactive Protein 9.83 mg/dl (0-0.29) Vitamin B12 Level 630 pg/mL (211-911) Folate 18.45 ng/mL (>5.38) Bedside Glucose 164 mg/dl (70-99) Micro Results: 11/03/16 blood x2 pending Recent Pertinent Medications Item Value Date Time Ceftriaxone 70 ml @ 100 mls/hr 11/04/16 0300 Sodium 2000 mg/ Q24H/IV Dextrose Vancomycin HCl 270 ml @ 125 mls/hr 11/03/16 1600 1000 mg/Sodium Q12H/IV 11/03/16 1538 Chloride Ceftriaxone 50 ml @ 100 mls/hr 11/03/16 0630 Sodium 1 gm/ TODAY@0630/IV 11/03/16 0728 Dextrose Vancomycin HCl 536 ml @ 200 mls/hr 11/03/16 0346 1800 mg/Sodium ONE STAT/IV 11/03/16 0346 Chloride Ceftriaxone Sodium 1 gm 11/03/16 0346 (Rocephin Inj) NOW STAT/IV 11/03/16 0351 Assessment & Plan Loading dose: vancomycin 1800 mg IV X 1 dose (~24 mg/kg) then: vancomycin 1000 mg IV every 12 hours. Goal peak level estimate: between 30-40 mcg/mL. Goal trough level estimate: between 15-20 mcg/mL. Trough has been ordered for: 11/05/16 before 0400 dose. Pharmacy will continue to follow and will adjust dose/frequency as necessary. Thank you
[2016-11-03 16:05] VITALS: BP 120/69; PULSE 91; TEMP 36.8; O2SAT 97
[2016-11-03] MEDS: OXYCODONE/ACETAMINOPHEN 5-325 TAB PO PRN (16:50)
[2016-11-03 17:34] LABS: URINE APPEARANCE CLEAR (CLEAR); URINE BILIRUBIN NEG (NEG); URINE COLOR DK YELLOW; URINE NITRITE NEG (NEG); URINE PH 7.5 (4.5-7.5); URINE SPECIFIC GRAVITY > 1.045 (1.000-1.030); UROBILINOGEN NEG (NEG); ZZUR CULT IF INDIC CLEAN CATCH NO
[2016-11-03 17:41] LABS: MANUAL MICROSCOPIC REQUIRED? NO; REVIEW REQ? NO
[2016-11-03 17:43] LABS: SULFASALICYLIC ACID NEG (NEG)
--- NOTE | 2016-11-03 18:01 | Medical Student: [facility] ---
Med Student Progress Note Date of Service Nov 03, 2016. Subjective Pt evaluation today including: conversation w/ patient, physical exam, chart review, lab review, review of studies, review of inpatient medication list Pain: moderate PO Intake: normal Voiding: no voiding problems This is 76 year-old male with hx of DM type 2, HTN, diverticulitis, chronic low back pain, BPH, hypercholesterolemia, hepatic steatosis, and B12/Vit D deficiency presented this morning with lower back and abdominal pain with a rash. Per ER and clinic record, he has been having chronic back pain which has got worse for the past 1 month. 2 to 3 days ago, pain in the back started radiating and wrapping to the lower abdomen. He also complains of generalized weakness, loss of appetite, and nausea w/o vomiting. He was recently treated for cellulitis (09/23/2016) with Keflex and Bactrum. As of 11/02/2016, he was tested positive for Lyme disease IgG+ and IgM+. Today, he stated that he felt better but still constant back and abdominal pain. He also feels weak and nauseous but no vomiting. He also felt chills. His last BM was 2 days ago with hard stool, no blood. He denies fever, but have chills episodes. Denies chest pain and SOB. When asked about Lyme disease, he stated that he does not remember spending a lot of time in the [place] or being bitten by any ticks; however, he admitted to picking ticks out of his dogs before. He also expressed concerns of not having enough pain medications. Review of Systems Constitutional: + chills, + fatigue, No fever Eyes: No worsening of vision ENT: No hearing loss Respiratory: No cough, No shortness of breath Cardiac: No chest pain Abdomen: + pain, + nausea, + constipation, No vomiting, No diarrhea Musculoskeletal: + problem reported (Back pain) Neurologic: No memory loss Heme: No swollen lymph nodes Skin: + new/changing skin lesions Objective Vital Signs Date Time Temp Pulse Resp B/P (MAP) Pulse Ox O2 Delivery O2 Flow Rate FiO2 11/03/16 08:07 36.8 85 18 101/57 (72) 93 Room Air 11/03/16 08:00 Room Air 11/03/16 06:00 36.3 88 20 130/74 95 Room Air 11/03/16 05:26 88 20 117/69 93 11/03/16 04:43 96 136/74 93 Room Air 11/03/16 03:07 98 22 96/60 98 Room Air 11/03/16 02:04 36.7 87 18 92/63 91 Room Air Physical Exam General Appearance: no apparent distress Eyes: bilateral eyes normal inspection ENT: hearing grossly normal Neck: supple, no adenopathy Respiratory/Chest: lungs clear, normal breath sounds, no respiratory distress, no accessory muscle use Cardiovascular: regular rate, rhythm, no murmur Abdomen: normal bowel sounds, non tender, soft, + pertinent finding (contant abdominal pain unrelated to palpation) Extremities: normal range of motion Neurologic/Psychiatric: alert, normal mood/affect, oriented x 3 Skin: + rash (abdominal erythema rash, no vesicles, not confined to dermatome around umblicus that goes from left flank to right flank) Laboratory Results Last 24 Hours Test 11/03/16 02:30 11/03/16 02:35 11/03/16 02:38 11/03/16 04:45 White Blood Count 9.54 K/uL Red Blood Count 4.49 M/uL Hemoglobin 15.1 g/dL Hematocrit 45.6 % Mean Corpuscular Volume 101.6 fL Mean Corpuscular Hemoglobin 33.6 pg Mean Corpuscular Hemoglobin Concent 33.1 g/dl Platelet Count 199 K/uL Mean Platelet Volume 9.6 fL Neutrophils (%) (Auto) 82.0 % Lymphocytes (%) (Auto) 12.7 % Monocytes (%) (Auto) 4.2 % Eosinophils (%) (Auto) 0.4 % Basophils (%) (Auto) 0.3 % Neutrophils # (Auto) 7.82 K/uL Lymphocytes # (Auto) 1.21 K/uL Monocytes # (Auto) 0.40 K/uL Eosinophils # (Auto) 0.04 K/uL Basophils # (Auto) 0.03 K/uL RDW Standard Deviation 46.3 fL RDW Coefficient of Variation 12.5 % Immature Granulocyte % (Auto) 0.4 % Immature Granulocyte # (Auto) 0.04 K/uL Sodium Level 136 mmol/L Potassium Level 4.0 mmol/L Chloride Level 101 mmol/L Carbon Dioxide Level 26 mmol/L Anion Gap 9.0 mmol/L 18.0 mmol/L Blood Urea Nitrogen 21 mg/dl Creatinine 1.20 mg/dl Est Creatinine Clear Calc Drug Dose 52.2 ml/min Estimated GFR () 68.6 Estimated GFR (Non- 59.2 BUN/Creatinine Ratio 17.8 Random Glucose 213 mg/dl Calcium Level 8.7 mg/dl Total Bilirubin 0.9 mg/dl Direct Bilirubin 0.2 mg/dl Aspartate Amino Transf (AST/SGOT) 17 U/L Alanine Aminotransferase (ALT/SGPT) 31 U/L Alkaline Phosphatase 116 U/L C-Reactive Protein 10.80 mg/dl Total Protein 7.7 gm/dl Albumin 3.3 gm/dl Lipase 124 U/L Bedside Lactic Acid Venous 2.36 mmol/L Bedside Hemoglobin 15.0 g/dl Bedside Hematocrit 44 % Bedside Sodium 137 mEq/L Bedside Potassium 4.0 mEq/L Bedside Chloride 98 mEq/L Bedside Total CO2 26 mEq/l Bedside Blood Urea Nitrogen 21 mg/dl Bedside Creatinine 1.1 mg/dl Bedside Glucose (other) 215 mg/dl Bedside Ionized Calcium (Radha) 1.09 mmol/l Influenza Type A Antigen Neg for Influ A Influenza Type B Antigen Neg for Influ B Test 11/03/16 07:16 11/03/16 07:54 Sodium Level 138 mmol/L Potassium Level 4.0 mmol/L Chloride Level 104 mmol/L Carbon Dioxide Level 30 mmol/L Anion Gap 4.0 mmol/L Blood Urea Nitrogen 19 mg/dl Creatinine 0.83 mg/dl Est Creatinine Clear Calc Drug Dose 73.0 ml/min Estimated GFR () 100.5 Estimated GFR (Non- 86.7 BUN/Creatinine Ratio 22.7 Random Glucose 158 mg/dl Lactic Acid Level 1.1 mmol/L Calcium Level 8.2 mg/dl C-Reactive Protein 9.83 mg/dl Vitamin B12 Level 630 pg/mL Folate 18.45 ng/mL Bedside Glucose 164 mg/dl Medications Current Inpatient Medications Medications (Trade) Dose Ordered Sig/Tab Route Start Time Stop Time Status Last Admin Dose Admin Ioversol (Optiray 320) 100 ml UD PRN IV 11/03/16 02:30 11/07/16 02:29 Enoxaparin Sodium (Lovenox Inj) 40 mg Q24H SQ 11/03/16 05:15 12/03/16 05:14 11/03/16 09:20 40 MG Acetaminophen (Tylenol Tab) 650 mg Q4H PRN PO 11/03/16 05:15 12/03/16 05:14 11/03/16 07:26 650 MG Ondansetron HCl (Zofran Inj) 4 mg Q6H PRN IV 11/03/16 05:15 12/03/16 05:14 Magnesium Oxide (Mag-Ox Tab) 400 mg QAM PO 11/03/16 08:00 12/03/16 08:59 11/03/16 07:33 400 MG Cholecalciferol (Vitamin D Tab) 1,000 inter.unit QAM PO 11/03/16 08:00 12/03/16 08:59 11/03/16 07:33 1,000 INTER.UNIT Cyanocobalamin (Vitamin B-12 Tab) 1,000 mcg QAM PO 11/03/16 08:00 12/03/16 08:59 11/03/16 07:33 1,000 MCG Pantoprazole Sodium (Protonix Tab) 40 mg QAM PO 11/03/16 08:00 12/03/16 08:59 11/03/16 07:33 40 MG Vancomycin HCl 1000 mg/Sodium Chloride 270 ml @ 125 mls/hr Q12H IV 11/03/16 16:00 11/13/16 03:59 Insulin Glargine (Lantus Solostar Pen) 8 units Q12 SC 11/03/16 09:00 12/03/16 08:59 11/03/16 09:37 8 UNITS Insulin Aspart (novoLOG ASPART) SLIDING SCALE If C... ACHS SC 11/03/16 06:30 12/03/16 06:59 11/03/16 13:46 5 UNITS Glucose (Glucose 40% Gel) 15-30 GRAMS 15 GRAMS... UD PRN PO 11/03/16 05:45 12/03/16 05:44 Glucose (Glucose Chew Tab) 4-8 Tablets 4 Tabl... UD PRN PO 11/03/16 05:45 12/03/16 05:44 Dextrose (Dextrose 50% 50ML Syringe) 25-50ML OF 50% DW IV FOR... UD PRN IV 11/03/16 05:45 12/03/16 05:44 Glucagon (Glucagon Inj) 1 mg UD PRN SQ 11/03/16 05:45 12/03/16 05:44 Vancomycin HCl (Consult) 1 ea UD PRN N/A 11/03/16 07:30 12/03/16 07:29 Polyethylene (Miralax Powder Packet) 17 gm QAM PO 11/03/16 09:00 12/03/16 08:59 11/03/16 09:17 17 GM Lactated Ringer's 1,000 ml @ 100 mls/hr Q10H IV 11/03/16 08:45 12/03/16 08:44 11/03/16 09:39 100 MLS/HR Ceftriaxone Sodium 2000 mg/ Dextrose 70 ml @ 100 mls/hr Q24H IV 11/04/16 03:00 11/13/16 02:59 Assessment and Plan Assessment and Plan: his is 76 year-old male with hx of DM type 2, HTN, diverticulitis, chronic low back pain, BPH, hypercholesterolemia, hepatic steatosis, and B12/Vit D deficiency presented this morning with lower back and abdominal pain with a rash. Cellulitis and Lyme Disease Patient had a rash on left leg with knee ache 1.5 months ago, treated with Keflex and Bactrum. Not sure if this is an early manifestation of Lyme Disease or separate cellulitis. Lyme serology IgM and IgG positive (11/02 clinic). - Continue Ceftriaxone (2000mg) and Vancomycin (1000mg) - started 11/03 Chronic lower back pain and abdominal pain Patient states a change in his back pain. This could be from Lyme Disease or a separate back problem. Patient also had hx of diverticulitis s/p partial right colectomy with iliocolic anastomosis - Continue Tramadol prn. DM - Continue Lantus q12 8mg - NovoLog per meal DVT prophylaxis - Lovenox 40mg injection
[2016-11-03 23:34] VITALS: BP 105/65; PULSE 78; TEMP 36.7; O2SAT 96
[2016-11-04] MEDS: OXYCODONE/ACETAMINOPHEN 5-325 TAB PO PRN ×4 (02:32→19:49)
[2016-11-04] MEDS: CEFTRIAXONE SOD INJ 2,000 MG in DEXTROSE 5% 50ML 50 ML IV SCH (03:20)
[2016-11-04] MEDS ORDERED: CEFTRIAXONE SOD INJ 1 GM in DEXTROSE 5% ADD-VANTAGE 50ML 50 ML IV SCH (03:30)
[2016-11-04] MEDS ORDERED: CEFTRIAXONE SOD INJ 2,000 MG in DEXTROSE 5% 50ML 50 ML IV SCH (04:00)
[2016-11-04] MEDS: VANCOMYCIN INJ 1,000 MG in SODIUM CHLORIDE 0.9% 250ML 250 ML IV SCH ×2 (04:19→15:24)
[2016-11-04] MEDS: LACTATED RINGER'S 1000ML 1,000 ML IV SCH ×2 (04:25→14:25)
--- NOTE | 2016-11-04 05:37 | Family Medicine Progress Note ---
Progress Note Date of Service Nov 04, 2016. Subjective Pt evaluation today including: conversation w/ patient, physical exam, chart review, lab review Found pt resting comfortably. Says he had some [pointing to] suprapubic abd pain last night, some relief with perocet. Denies any other acute pains or concerns. Denies any dysuria, hematuria, or void difficulties. Says last BM was three days ago and inquires about more bowel regimen. Denies N/V. Says he has a hx of kidney stones but has never passed one that he remembers. Constitutional: No fever, No chills Respiratory: No cough, No shortness of breath Cardiovascular: No chest pain, No edema Abdomen: + pain, + constipation, No nausea, No vomiting, No diarrhea Skin: + rash Medications Current Inpatient Medications Medications (Trade) Dose Ordered Sig/Tab Route Start Time Stop Time Status Last Admin Dose Admin Ioversol (Optiray 320) 100 ml UD PRN IV 11/03/16 02:30 11/07/16 02:29 Enoxaparin Sodium (Lovenox Inj) 40 mg Q24H SQ 11/03/16 05:15 12/03/16 05:14 11/04/16 06:11 40 MG Acetaminophen (Tylenol Tab) 650 mg Q4H PRN PO 11/03/16 05:15 12/03/16 05:14 11/04/16 06:07 650 MG Ondansetron HCl (Zofran Inj) 4 mg Q6H PRN IV 11/03/16 05:15 12/03/16 05:14 Magnesium Oxide (Mag-Ox Tab) 400 mg QAM PO 11/03/16 08:00 12/03/16 08:59 11/04/16 08:13 400 MG Cholecalciferol (Vitamin D Tab) 1,000 inter.unit QAM PO 11/03/16 08:00 12/03/16 08:59 11/04/16 08:13 1,000 INTER.UNIT Cyanocobalamin (Vitamin B-12 Tab) 1,000 mcg QAM PO 11/03/16 08:00 12/03/16 08:59 11/04/16 08:13 1,000 MCG Pantoprazole Sodium (Protonix Tab) 40 mg QAM PO 11/03/16 08:00 12/03/16 08:59 11/04/16 08:13 40 MG Vancomycin HCl 1000 mg/Sodium Chloride 270 ml @ 125 mls/hr Q12H IV 11/03/16 16:00 11/13/16 03:59 11/04/16 04:19 125 MLS/HR Insulin Glargine (Lantus Solostar Pen) 8 units Q12 SC 11/03/16 09:00 12/03/16 08:59 11/03/16 20:58 8 UNITS Insulin Aspart (novoLOG ASPART) SLIDING SCALE If C... ACHS SC 11/03/16 06:30 12/03/16 06:59 11/03/16 20:59 1 UNITS Glucose (Glucose 40% Gel) 15-30 GRAMS 15 GRAMS... UD PRN PO 11/03/16 05:45 12/03/16 05:44 Glucose (Glucose Chew Tab) 4-8 Tablets 4 Tabl... UD PRN PO 11/03/16 05:45 12/03/16 05:44 Dextrose (Dextrose 50% 50ML Syringe) 25-50ML OF 50% DW IV FOR... UD PRN IV 11/03/16 05:45 12/03/16 05:44 Glucagon (Glucagon Inj) 1 mg UD PRN SQ 11/03/16 05:45 12/03/16 05:44 Vancomycin HCl (Consult) 1 ea UD PRN N/A 11/03/16 07:30 12/03/16 07:29 Polyethylene (Miralax Powder Packet) 17 gm QAM PO 11/03/16 09:00 12/03/16 08:59 11/04/16 08:12 17 GM Lactated Ringer's 1,000 ml @ 100 mls/hr Q10H IV 11/03/16 08:45 12/03/16 08:44 11/04/16 04:25 100 MLS/HR Ceftriaxone Sodium 2000 mg/ Dextrose 70 ml @ 100 mls/hr Q24H IV 11/04/16 03:00 11/13/16 02:59 11/04/16 03:20 100 MLS/HR Oxycodone/ Acetaminophen (Percocet 5-325mg Tab) 1 tab Q4H PRN PO 11/03/16 15:45 11/17/16 15:44 11/04/16 06:53 1 TAB Objective Vital Signs Date Time Temp Pulse Resp B/P (MAP) Pulse Ox O2 Delivery O2 Flow Rate FiO2 11/04/16 07:39 36.9 78 18 124/73 (90) 94 Room Air 11/04/16 00:00 Room Air 11/03/16 23:34 36.7 78 16 105/65 (78) 96 Room Air 11/03/16 20:00 Room Air 11/03/16 16:05 36.8 91 18 120/69 (86) 97 Room Air 11/03/16 16:00 Room Air Physical Exam General Appearance: no apparent distress Respiratory/Chest: lungs clear, + wheezing (in bilateral low lung powell on expiration) Cardiovascular: regular rate, rhythm, no edema, no murmur Abdomen: normal bowel sounds, non tender, soft Extremities: normal range of motion, non-tender, no pedal edema Neurologic/Psychiatric: alert, normal mood/affect Skin: + rash Notes: - There remains an upper linear rim of the abdominal rash erythema but the vast majority of the lower section appears resolved, as does the erythema on his left leg. Laboratory Results 11/04/16 06:37 Test 11/03/16 20:00 11/04/16 06:37 Bedside Glucose 148 mg/dl (70-99) Est Creatinine Clear Calc Drug Dose 78.7 ml/min Estimated GFR () 103.6 Estimated GFR (Non- 89.4 Assessment and Plan 76yo male with abdominal pain and ongoing cellulitis. Cellulitis / ? early sepsis: Timeline: 02Aug left leg cellulitis, rx keflex. 18Aug seen in ED, added bactrim. Pt believes rash on leg resolved within the next week. 05Sep seen in clinic, no note of rash. Pt is unsure of when new leg , abdomen, and back rash began, perhaps around day of admission. 11Sep lyme IgG and IgM positive. He does not remember being bit by a tick. Leading sources are cellulitis vs lyme disease, so will cover for both. On morning of 13Sep, both abd and leg rash much improved. - Started on vancomycin 1 gram q12h (12Sep) and ceftriaxone 2 grams q24h (12Sep ) to cover both cellulitis and lyme. [ ] 12Sep BCx results pending - Reported hx generalized aches. Negative for influenza A & B. - Elevated lactate in ED 11Sep. Repeat s/p IVF resolved. Abd pain, hx diverticulitis: Reportedly worsening over past couple days, not improved with outpt tramadol. Positive nausea, no emesis, pt feels constipated. Says the pain is more internal and has repeated non-tender to palpation examinations. Hx narcotic pain control (per PDMP query around Oct 2013 to June 2014) but minimal in interim until now. CT scan on 12Sep noted no evidence of diverticulitis. - Miralax q AM. [ ] Pain management consult, appreciate recs. Lower back pain: Reportedly began about a month ago, seen in ED on 02Sep for same, suspected muscular strain vs radiculopathy at that time. Presently no low back red flags prompting need for emergent imaging. X-ray in ED then noted 1. No acute fracture or subluxation. 2. Moderate intervertebral disc space narrowing and facet arthropathy redemonstrated at L4-L5 and L5-S1. 3. Mild convex left curvature of the lower lumbar spine. On this inpt stay, single dose of tramadol given. Will try to avoid NSAIDs if possible. - Will manage along with overall pain management recs. For moment, prn percocet ordered. [ ] 12Sep UA noted trace ketones and 10-30 RBCs along with 10-[address] of abd/pelvis noted bilateral nonobstructing renal calculi. Will discuss hematuria on rounds. PMH DM2: By report, previously diet-controlled. - On Glargine and aspart here to start. DVT prophy: Lovenox Code status: Full code. Will discuss all the above on attending rounds this morning. [facility], PGY1 [employer] Tracking Resident Involvement: Resident Care Provided Care Provided: Adult Hospital Medicine (inpt rounds) History Resident Physician Supervision Note: I was present with Dr. Rodrigues during the history and exam. I discussed the case with the resident and agree with the findings and plan as documented in the note. Any exceptions or clarifications are listed here. Today, patient feels that his back pain has returned to it's baseline. Concomitantly, the abdominal pain that he has complained about has also improved on the antibiotic regimen. He has been asking for pain medication regularly, which has likely influenced this, but he states that even between doses, it hasn't been that bad. General Appearance: WD/WN, no apparent distress Respiratory: chest non-tender, lungs clear, normal breath sounds, no respiratory distress Cardiovascular: normal peripheral pulses, regular rate, rhythm, no murmur Gastrointestinal: normal bowel sounds, non tender, soft, no organomegaly Skin Characteristics: rash (significantly improved nontender nonindurated erytehmatous rash of the abdomen which has faded in intensity as well as area) Assessment/Plan 76 y/o male with h/o chronic lower back pain presents with abdominal rash concerning for cellulitis Rash of the abdomen w/ pain - +ve DELMA for Lyme, atypical as is nontender, nonindurated - BCx pending, continue ceftriaxone and vancomycin. Can taper to Doxy for 3 wks if cultures negative as empiric tx for lyme (calling this rash EM ) Suprapubic pain w/ hematuria - repeat UA, encourage PO hydration Constipation - continue miralax, would add senna for narcotic induced constipation Lower back pain - acute on chronic - continue current regimen. Awaiting pain management evaluation. DMII - ISS and glargine, monitor FSBS
[2016-11-04] MEDS: ACETAMINOPHEN 325 MG TAB PO PRN (06:07)
[2016-11-04] MEDS: ENOXAPARIN 40 MG/0.4 ML SYR SQ SCH (06:11)
[2016-11-04 07:39] VITALS: BP 124/73; PULSE 78; TEMP 36.9; O2SAT 94
[2016-11-04 07:56] LABS: CREATININE 0.77 mg/dl (0.60-1.40)
[2016-11-04] MEDS: POLYETHYLENE (MIRALAX) 17 GM PACK PO SCH (08:12)
[2016-11-04] MEDS: MAGNESIUM OXIDE 400 MG TAB PO SCH (08:13)
[2016-11-04] MEDS: PANTOprazole SOD 40 MG TAB PO SCH (08:13)
[2016-11-04] MEDS: CHOLECALCIFEROL 1000 INTER.UNIT TAB PO SCH (08:13)
[2016-11-04] MEDS: CYANOCOBALAMIN 500 MCG TAB (VIT B-12) PO SCH (08:13)
[2016-11-04] MEDS: INSULIN GLARGINE SOLOSTAR 100 UNITS/ML 3 ML PEN SC SCH ×2 (09:06→22:04)
[2016-11-04] MEDS: INSULIN ASPART 100 UNITS/ML 3 ML PEN SC SCH ×4 (09:06→22:05)
--- NOTE | 2016-11-04 10:55 | Clinical Documentation Query ---
KONSTANTIN Arzate : CLINICAL DOCUMENTATION QUERY Please document the POA status of the following clinical diagnosis: Sepsis This diagnosis was introduced the day after admission, but noted elevated lactate in the ED, with HR > 90 and SBP < 100 mmHg. Please clarify as clinically appropriate. In your clinical opinion is this patient being managed for: ( ) Possible early sepsis, POA ( ) Possible early sepsis, not POA ( ) Not Agree ( ) Other explanation of clinical findings (Please Explain) ( ) Unable to determine (Please Define) ( ) Need to Discuss The medical record reflects the following clinical findings, treatment, and risk factors. Clinical Indicators: As above Treatment: IVF, IV antibiotics, blood cultures. Risk Factors: Abdominal well cellulitis Please clarify and document your clinical opinion in the progress notes and discharge summary. Terms such as "probable", "suspected", "likely", "questionable", "possible", or "still to be ruled out" are acceptable. IF IN AGREEMENT, YOU MUST DOCUMENT ABOVE DIAGNOSTIC STATEMENT IN DAILY PROGRESS NOTES AND DISCHARGE SUMMARY. This document is not part of the patient's record. Thank You, Jag Tripp, RN [phone]
--- NOTE | 2016-11-04 15:31 | Medical Student: [facility] ---
Med Student Progress Note Date of Service Nov 04, 2016. Subjective Pt evaluation today including: conversation w/ patient, physical exam, chart review, lab review, review of studies, review of inpatient medication list Pain: lessen PO Intake: normal Voiding: no voiding problems This is 76 year-old male with hx of DM type 2, HTN, diverticulitis, chronic low back pain, BPH, hypercholesterolemia, hepatic steatosis, and B12/Vit D deficiency presented yesterday with lower back and abdominal pain with a rash. Today, he stated that he felt better with pain localized to the suprapubic region. Lower back pain seems to feel like the normal back pain that he usually has. Rash is better. No BM for the past 2 days. Appetite and sleeping okay. Denies fever, chills, chest pain, or SOB. Review of Systems Constitutional: No fever, No chills Eyes: No worsening of vision ENT: No hearing loss Respiratory: No shortness of breath, No dyspnea on exertion Cardiac: No chest pain Abdomen: + pain (lower abdominal pain), + constipation, No nausea, No vomiting Male : No dysuria Objective Vital Signs Date Time Temp Pulse Resp B/P (MAP) Pulse Ox O2 Delivery O2 Flow Rate FiO2 11/04/16 08:00 Room Air 11/04/16 07:39 36.9 78 18 124/73 (90) 94 Room Air 11/04/16 00:00 Room Air 11/03/16 23:34 36.7 78 16 105/65 (78) 96 Room Air 11/03/16 20:00 Room Air 11/03/16 16:05 36.8 91 18 120/69 (86) 97 Room Air 11/03/16 16:00 Room Air Physical Exam General Appearance: no apparent distress Eyes: bilateral eyes normal inspection ENT: hearing grossly normal Neck: supple Respiratory/Chest: lungs clear, normal breath sounds, no respiratory distress Cardiovascular: regular rate, rhythm, no murmur Abdomen: normal bowel sounds, non tender, soft Extremities: non-tender, no pedal edema Neurologic/Psychiatric: alert, normal mood/affect, oriented x 3 Laboratory Results Last 24 Hours Test 11/03/16 16:53 11/03/16 20:00 11/04/16 06:37 11/04/16 07:54 Bedside Glucose 125 mg/dl 148 mg/dl 150 mg/dl Creatinine 0.77 mg/dl Est Creatinine Clear Calc Drug Dose 78.7 ml/min Estimated GFR () 103.6 Estimated GFR (Non- 89.4 Test 11/04/16 11:12 11/04/16 11:34 Bedside Glucose 169 mg/dl Medications Current Inpatient Medications Medications (Trade) Dose Ordered Sig/Tab Route Start Time Stop Time Status Last Admin Dose Admin Ioversol (Optiray 320) 100 ml UD PRN IV 11/03/16 02:30 11/07/16 02:29 Enoxaparin Sodium (Lovenox Inj) 40 mg Q24H SQ 11/03/16 05:15 12/03/16 05:14 11/04/16 06:11 40 MG Acetaminophen (Tylenol Tab) 650 mg Q4H PRN PO 11/03/16 05:15 12/03/16 05:14 11/04/16 06:07 650 MG Ondansetron HCl (Zofran Inj) 4 mg Q6H PRN IV 11/03/16 05:15 12/03/16 05:14 Magnesium Oxide (Mag-Ox Tab) 400 mg QAM PO 11/03/16 08:00 12/03/16 08:59 11/04/16 08:13 400 MG Cholecalciferol (Vitamin D Tab) 1,000 inter.unit QAM PO 11/03/16 08:00 12/03/16 08:59 11/04/16 08:13 1,000 INTER.UNIT Cyanocobalamin (Vitamin B-12 Tab) 1,000 mcg QAM PO 11/03/16 08:00 12/03/16 08:59 11/04/16 08:13 1,000 MCG Pantoprazole Sodium (Protonix Tab) 40 mg QAM PO 11/03/16 08:00 12/03/16 08:59 11/04/16 08:13 40 MG Vancomycin HCl 1000 mg/Sodium Chloride 270 ml @ 125 mls/hr Q12H IV 11/03/16 16:00 11/13/16 03:59 11/04/16 04:19 125 MLS/HR Insulin Glargine (Lantus Solostar Pen) 8 units Q12 SC 11/03/16 09:00 12/03/16 08:59 11/04/16 09:06 8 UNITS Insulin Aspart (novoLOG ASPART) SLIDING SCALE If C... ACHS SC 11/03/16 06:30 12/03/16 06:59 11/04/16 13:05 5 UNITS Glucose (Glucose 40% Gel) 15-30 GRAMS 15 GRAMS... UD PRN PO 11/03/16 05:45 12/03/16 05:44 Glucose (Glucose Chew Tab) 4-8 Tablets 4 Tabl... UD PRN PO 11/03/16 05:45 12/03/16 05:44 Dextrose (Dextrose 50% 50ML Syringe) 25-50ML OF 50% DW IV FOR... UD PRN IV 11/03/16 05:45 12/03/16 05:44 Glucagon (Glucagon Inj) 1 mg UD PRN SQ 11/03/16 05:45 12/03/16 05:44 Vancomycin HCl (Consult) 1 ea UD PRN N/A 11/03/16 07:30 12/03/16 07:29 Polyethylene (Miralax Powder Packet) 17 gm QAM PO 11/03/16 09:00 12/03/16 08:59 11/04/16 08:12 17 GM Lactated Ringer's 1,000 ml @ 100 mls/hr Q10H IV 11/03/16 08:45 12/03/16 08:44 11/04/16 14:25 100 MLS/HR Ceftriaxone Sodium 2000 mg/ Dextrose 70 ml @ 100 mls/hr Q24H IV 11/04/16 03:00 11/13/16 02:59 11/04/16 03:20 100 MLS/HR Oxycodone/ Acetaminophen (Percocet 5-325mg Tab) 1 tab Q4H PRN PO 11/03/16 15:45 11/17/16 15:44 11/04/16 11:01 1 TAB Senna (Senokot Tab) 8.6 mg QAM PO 11/05/16 08:00 12/05/16 07:59 Docusate Sodium (coLACE CAP) 100 mg BID PO 11/04/16 20:00 12/04/16 19:59 Assessment and Plan Assessment and Plan: This is 76 year-old male with hx of DM type 2, HTN, diverticulitis, chronic low back pain, BPH, hypercholesterolemia, hepatic steatosis, and B12/Vit D deficiency presented this morning with lower back and abdominal pain with a rash. Cellulitis and Lyme Disease Rash on leg is resolved. Rash on abdomen is significantly better. - Continue Ceftriaxone (2000mg) and Vancomycin (1000mg) - started 11/03 - Blood culture pending. Discussed on rounds, probably will switch to doxycycline. Abdominal Pain Back pain has became usual chronic back pain. Patient still complains of suprapubic pain. UA shows RBC 10-30. Ddx microscopic hematuria includes renal ( glomerular vs nonglomerular) and extra-renal (kidney stones). Glomerular kidney disease will likely shows red cell casts, proteinuria, which are not seen in this patient. Creatinine in this patient is stable at 1.1. Non-glomerular renal disease such as nephritis also will likely show markedly proteinuria and urinary symptoms, which this patient does not have. Extra-renal such as kidney stones, prostate enlargement, infection or tumors can also cause microscopic hematuria. With suprapubic pain and microscopic hematuria, cystitis is possible but patient is afebrile, has normal WBC and has no urinary sx such as dysuria. With history of BPH, microscopic hematuria is possible also although does not explain the suprapubic pain. The abdominal pain could be also resulted from constipation 2/2 pain medications patient has been taking. Patient hx of diverticulitis is not excluded however abd/pelvic CT shows no signs of diverticulitis. - Continue Tramadol prn. - Continue Percocet prn. - Discussed on rounds: Continue Miralax, start Colace and senokot for bm. Will have a second UA. DM Current blood glucose ranges from 120s-160s. - Continue Lantus q12 8mg - NovoLog per meal DVT prophylaxis - Lovenox 40mg injection
[2016-11-04 15:43] VITALS: BP 143/81; PULSE 93; TEMP 36.6; O2SAT 96
[2016-11-04] MEDS: DOCUSATE SODIUM 100 MG CAP PO SCH (19:49)
[2016-11-04 22:47] LABS: URINE APPEARANCE CLEAR (CLEAR); URINE BILIRUBIN NEG (NEG); URINE COLOR YELLOW; URINE NITRITE NEG (NEG); URINE PH 7.5 (4.5-7.5); URINE SPECIFIC GRAVITY 1.012 (1.000-1.030); UROBILINOGEN NEG (NEG)
[2016-11-04 22:51] LABS: MANUAL MICROSCOPIC REQUIRED? NO; REVIEW REQ? NO
[2016-11-04 22:55] VITALS: BP 144/79; PULSE 77; TEMP 36.6; O2SAT 96
[2016-11-05] MEDS: LACTATED RINGER'S 1000ML 1,000 ML IV SCH ×2 (00:14→11:16)
[2016-11-05] MEDS: OXYCODONE/ACETAMINOPHEN 5-325 TAB PO PRN ×2 (00:14→07:16)
[2016-11-05] MEDS: CEFTRIAXONE SOD INJ 2,000 MG in DEXTROSE 5% 50ML 50 ML IV SCH (02:58)
[2016-11-05] MEDS ORDERED: VANCOMYCIN TROUGH SCH (03:30)
[2016-11-05 04:20] LABS: CREATININE 0.72 mg/dl (0.60-1.40)
[2016-11-05] MEDS: VANCOMYCIN INJ 1,000 MG in SODIUM CHLORIDE 0.9% 250ML 250 ML IV SCH (04:55)
[2016-11-05] MEDS: ENOXAPARIN 40 MG/0.4 ML SYR SQ SCH (04:56)
--- NOTE | 2016-11-05 05:41 | Family Medicine Progress Note ---
Progress Note Date of Service Nov 05, 2016. Subjective Pt evaluation today including: conversation w/ patient, physical exam, chart review, lab review Voiding: no voiding problems Found pt standing, combing hair, in NAD. Says he continues to have low ( suprapubic regional) pain, same as yesterday. Did have BM yesterday. Says percocet helps control pain. Says low back pain is at his baseline. Denies any overnight events or acute concerns otherwise. Constitutional: No fever, No chills Respiratory: No cough, No shortness of breath Cardiovascular: No chest pain, No edema Abdomen: + pain, No nausea, No vomiting, No diarrhea Male : No dysuria, No urinary frequency, No incontinence, No hematuria Skin: + rash Medications Current Inpatient Medications Medications (Trade) Dose Ordered Sig/Tab Route Start Time Stop Time Status Last Admin Dose Admin Ioversol (Optiray 320) 100 ml UD PRN IV 11/03/16 02:30 11/07/16 02:29 Enoxaparin Sodium (Lovenox Inj) 40 mg Q24H SQ 11/03/16 05:15 12/03/16 05:14 11/05/16 04:56 40 MG Acetaminophen (Tylenol Tab) 650 mg Q4H PRN PO 11/03/16 05:15 12/03/16 05:14 11/04/16 06:07 650 MG Ondansetron HCl (Zofran Inj) 4 mg Q6H PRN IV 11/03/16 05:15 12/03/16 05:14 Magnesium Oxide (Mag-Ox Tab) 400 mg QAM PO 11/03/16 08:00 12/03/16 08:59 11/04/16 08:13 400 MG Cholecalciferol (Vitamin D Tab) 1,000 inter.unit QAM PO 11/03/16 08:00 12/03/16 08:59 11/04/16 08:13 1,000 INTER.UNIT Cyanocobalamin (Vitamin B-12 Tab) 1,000 mcg QAM PO 11/03/16 08:00 12/03/16 08:59 11/04/16 08:13 1,000 MCG Pantoprazole Sodium (Protonix Tab) 40 mg QAM PO 11/03/16 08:00 12/03/16 08:59 11/04/16 08:13 40 MG Vancomycin HCl 1000 mg/Sodium Chloride 270 ml @ 125 mls/hr Q12H IV 11/03/16 16:00 11/13/16 03:59 11/05/16 04:55 125 MLS/HR Insulin Glargine (Lantus Solostar Pen) 8 units Q12 SC 11/03/16 09:00 12/03/16 08:59 11/04/16 22:04 8 UNITS Insulin Aspart (novoLOG ASPART) SLIDING SCALE If C... ACHS SC 11/03/16 06:30 12/03/16 06:59 11/04/16 22:05 1 UNITS Glucose (Glucose 40% Gel) 15-30 GRAMS 15 GRAMS... UD PRN PO 11/03/16 05:45 12/03/16 05:44 Glucose (Glucose Chew Tab) 4-8 Tablets 4 Tabl... UD PRN PO 11/03/16 05:45 12/03/16 05:44 Dextrose (Dextrose 50% 50ML Syringe) 25-50ML OF 50% DW IV FOR... UD PRN IV 11/03/16 05:45 12/03/16 05:44 Glucagon (Glucagon Inj) 1 mg UD PRN SQ 11/03/16 05:45 12/03/16 05:44 Vancomycin HCl (Consult) 1 ea UD PRN N/A 11/03/16 07:30 12/03/16 07:29 Polyethylene (Miralax Powder Packet) 17 gm QAM PO 11/03/16 09:00 12/03/16 08:59 11/04/16 08:12 17 GM Lactated Ringer's 1,000 ml @ 100 mls/hr Q10H IV 11/03/16 08:45 12/03/16 08:44 11/05/16 00:14 100 MLS/HR Ceftriaxone Sodium 2000 mg/ Dextrose 70 ml @ 100 mls/hr Q24H IV 11/04/16 03:00 11/13/16 02:59 11/05/16 02:58 100 MLS/HR Oxycodone/ Acetaminophen (Percocet 5-325mg Tab) 1 tab Q4H PRN PO 11/03/16 15:45 11/17/16 15:44 11/05/16 07:16 1 TAB Senna (Senokot Tab) 8.6 mg QAM PO 11/05/16 08:00 12/05/16 07:59 Docusate Sodium (coLACE CAP) 100 mg BID PO 11/04/16 20:00 12/04/16 19:59 11/04/16 19:49 100 MG Objective Vital Signs Date Time Temp Pulse Resp B/P (MAP) Pulse Ox O2 Delivery O2 Flow Rate FiO2 11/05/16 00:00 Room Air 11/04/16 22:55 36.6 77 20 144/79 (100) 96 Room Air 11/04/16 20:00 Room Air 11/04/16 16:00 Room Air 11/04/16 15:43 36.6 93 18 143/81 (101) 96 Room Air 11/04/16 08:00 Room Air Physical Exam General Appearance: no apparent distress Respiratory/Chest: lungs clear, normal breath sounds Cardiovascular: regular rate, rhythm, no edema Abdomen: normal bowel sounds, non tender (throughout, including suprapubically) , soft Extremities: non-tender Neurologic/Psychiatric: no motor/sensory deficits, alert Skin: no rash (abdominal, back, and LLE rash appears virtually completely resolved) Laboratory Results 11/05/16 03:12 Test 11/04/16 22:00 11/04/16 22:09 11/05/16 03:12 Bedside Glucose 164 mg/dl (70-99) Urine Color YELLOW Urine Appearance CLEAR (CLEAR) Urine pH 7.5 (4.5-7.5) Urine Specific [place] 1.012 (1.000-1.030) Urine Protein NEG (NEG) Urine Glucose (UA) NEG (NEG) Urine Ketones NEG (NEG) Urine Occult Blood NEG (NEG) Urine Nitrite NEG (NEG) Urine Bilirubin NEG (NEG) Urine Urobilinogen NEG (NEG) Urine Leukocyte Esterase NEG (NEG) Est Creatinine Clear Calc Drug Dose 84.2 ml/min Estimated GFR () 106.5 Estimated GFR (Non- 91.9 Vancomycin Level Trough 11.8 mcg/ml (SEE COMMENT) Assessment and Plan Cellulitis / suspected sepsis: Timeline: 02Aug left leg cellulitis, rx keflex. 18Aug seen in ED, added bactrim. Pt believes rash on leg resolved within the next week. 05Sep seen in clinic, no note of rash. Pt is unsure of when new leg , abdomen, and back rash began, perhaps around day of admission. 11Sep lyme IgG and IgM positive. He does not remember being bit by a tick. Leading sources are cellulitis vs lyme disease, so will cover for both. Rash appears to have resolved on 14Sep. - Started on vancomycin 1 gram q12h (12Sep) and ceftriaxone 2 grams q24h (12Sep ) to cover both cellulitis and lyme. [ ] 12Sep BCx results pending, though no growth as of 14Sep AM. Will likely transition to PO doxycycline x three weeks for coverage (and will consider rash to be erythema migrans). - Reported hx generalized aches. Negative for influenza A & B. - Elevated lactate in ED 11Sep, in combination with cellulitis as source, makes suspected sepsis likely. Repeat lactate improved s/p IVF. Abd pain, hx diverticulitis: Reportedly worsening over past couple days, not improved with outpt tramadol. Positive nausea, no emesis, pt feels constipated. Says the pain is more internal and has repeated non-tender to palpation examinations. Hx narcotic pain control (per PDMP query around Oct 2013 to June 2014) but minimal in interim until now. CT scan on 12Sep noted no evidence of diverticulitis. - Miralax q AM. Added senna and colace as well to help with BM. [ ] Pain management consult, appreciate recs. - 12Sep UA noted trace ketones and 10-30 RBCs along with 10-[address] of abd/pelvis noted bilateral nonobstructing renal calculi. Repeat UA on evening of 13Sep was completely clear (though micro not performed). Therefore unlikely that urinary tract is source of discomfort. Lower back pain: Reportedly began about a month ago, seen in ED on 02Sep for same, suspected muscular strain vs radiculopathy at that time. Presently no low back red flags prompting need for emergent imaging. X-ray in ED then noted 1. No acute fracture or subluxation. 2. Moderate intervertebral disc space narrowing and facet arthropathy redemonstrated at L4-L5 and L5-S1. 3. Mild convex left curvature of the lower lumbar spine. On this inpt stay, single dose of tramadol given. Will try to avoid NSAIDs if possible. During inpt stay, pt says his back pain has returned to baseline. - Will manage along with overall pain management recs. For moment, prn percocet ordered. PMH DM2: By report, previously diet-controlled. - On Glargine and aspart here to start. DVT prophy: Lovenox Code status: Full code. Will discuss all the above on attending rounds this morning. Veda, PGY1 General Medical Practitioner Tracking Resident Involvement: Resident Care Provided Care Provided: Adult Hospital Medicine (inpt rounds) History Resident Physician Supervision Note: I was present with Dr. Rodrigues during the history and exam. I discussed the case with the resident and agree with the findings and plan as documented in the note. Any exceptions or clarifications are listed here. For full attending documentation, please see discharge summary from day of this note. Assessment/Plan 76 y/o male with h/o chronic lower back pain presents with abdominal rash concerning for cellulitis Rash of the abdomen w/ pain - +ve DELMA for Lyme, atypical as is nontender, nonindurated; BCx neg x 48h - transition to complete 3 wks of doxycycline Constipation - encourage behavioral modification and medication use as directed Suprapubic pain - UA negative - outpatient management with baclofen and voltaren gel, f/u with primary care DMII - resume outpatient regimen
[2016-11-05 07:00] VITALS: BP 150/85; PULSE 84; TEMP 36.9; O2SAT 98
[2016-11-05] MEDS ORDERED: SENNA 8.6 MG TAB PO SCH (08:00)
[2016-11-05] MEDS: DOCUSATE SODIUM 100 MG CAP PO SCH (08:36)
[2016-11-05] MEDS: CHOLECALCIFEROL 1000 INTER.UNIT TAB PO SCH (08:36)
[2016-11-05] MEDS: MAGNESIUM OXIDE 400 MG TAB PO SCH (08:36)
[2016-11-05] MEDS: POLYETHYLENE (MIRALAX) 17 GM PACK PO SCH (08:37)
[2016-11-05] MEDS: CYANOCOBALAMIN 500 MCG TAB (VIT B-12) PO SCH (08:37)
[2016-11-05] MEDS: PANTOprazole SOD 40 MG TAB PO SCH (08:37)
[2016-11-05] MEDS: INSULIN GLARGINE SOLOSTAR 100 UNITS/ML 3 ML PEN SC SCH (08:45)
[2016-11-05] MEDS: INSULIN ASPART 100 UNITS/ML 3 ML PEN SC SCH ×2 (08:45→12:46)
--- NOTE | 2016-11-05 09:57 | Pharmacy Progress Note ---
Pharmacy Abx Dose Progress Nt Date of Service Nov 05, 2016. Pharmacy Dosing Scope The patient WAS receiving the following antimicrobial agents per Pharmacy consult: Vancomycin 1000 mg IV every 12 hours Objective Height (Feet): 5 Height (Inches): 7.00 Weight (Kilograms): 75.600 Vital Signs (Past 12Hrs) Vital Signs Past 12 Hours Date Time Temp Pulse Resp B/P (MAP) Pulse Ox O2 Delivery O2 Flow Rate FiO2 11/05/16 07:00 36.9 84 20 150/85 (106) 98 Room Air 11/05/16 00:00 Room Air 11/04/16 22:55 36.6 77 20 144/79 (100) 96 Room Air Lab Results (24Hrs) Item Value Date Time Vancomycin Level Trough 11.8 mcg/ml 11/05/16 0312 Micro Results Date/Time Source Procedure Growth Status 11/03/16 02:53 Blood Blood Culture - Preliminary NO GROWTH TO DATE. Resulted 11/03/16 02:30 Blood Blood Culture - Preliminary NO GROWTH TO DATE. Resulted Assessment & Plan Assessment 76 year old male was receiving Vancomycin 1gm IV q12h for treatment of Cellulitis. Day # 3/10 of antimicrobial therapy. Plan Vancomycin IV * Trough level of 11.8 mcg/mL is subtherapeutic. * Goal trough for Cellulitis ~15 mcg/ml. * Ke = 0.085/hr, t1/2 = 8.2 hrs. * Changed to Vancomycin 1250 mg IV every 12 hours * Trough Vancomycin level ordered for: 11/06 before dose at 1600 Pharmacy will continue to follow and will adjust dose/frequency as necessary. Thank you.
[2016-11-05] MEDS ORDERED: BACLOFEN 10 MG TAB PO PRN (10:00)
--- NOTE | 2016-11-05 12:41 | Pain Management Consultation ---
Pain Management Consultation Date of Consultation Nov 05, 2016. Reason for Consultation Lower abdominal pain Pain Location 1 - Past Medical/Surgical History (1) Perforated diverticulitis (2) Abdominal abscess (3) Anemia (4) Enterocutaneous fistula (5) Left leg DVT (6) Anemia (7) Abdominal pain (8) Abdominal wall fistula (9) Enterocutaneous fistula (10) Subtherapeutic international normalized ratio (INR) (11) Abdominal fistula (12) Ileostomy care (13) abd wall fistula, ileostomy site leakage, acute anemia (14) Peritoneal free air (15) Intra-abdominal abscess (16) Oliguria (17) Microscopic hematuria (18) Anemia (19) Small bowel obstruction (20) Urinary retention (21) Chest pain (22) Acute diverticulitis (23) Back strain (24) Spasm of back muscles (25) Diverticulitis (26) Abdominal wall cellulitis (27) Elevated lactic acid level (28) Sepsis (29) Abdominal wall cellulitis (30) Diabetes (31) Hypertension (32) Acute diverticulitis (33) History of inguinal hernia repair Family History Cancer Diabetes mellitus Hypertension Family Hx Review: history personally reviewed by me Social / Work History Smoking Status: Unknown if ever smoked Smokeless Tobacco Use: No Alcohol Use: none (previous alcohol abuse) Drug Use: none Marital Status: single Housing Status: lives alone Occupation: employed 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[employer] but 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 at [employer] Allergies Coded Allergies: No Known Allergies (Verified , 11/03/16) Medications Current Inpatient Medications Medications (Trade) Dose Ordered Sig/Tab Route Start Time Stop Time Status Last Admin Dose Admin Ioversol (Optiray 320) 100 ml UD PRN IV 11/03/16 02:30 11/07/16 02:29 Enoxaparin Sodium (Lovenox Inj) 40 mg Q24H SQ 11/03/16 05:15 12/03/16 05:14 11/05/16 04:56 40 MG Acetaminophen (Tylenol Tab) 650 mg Q4H PRN PO 11/03/16 05:15 12/03/16 05:14 11/04/16 06:07 650 MG Ondansetron HCl (Zofran Inj) 4 mg Q6H PRN IV 11/03/16 05:15 12/03/16 05:14 Magnesium Oxide (Mag-Ox Tab) 400 mg QAM PO 11/03/16 08:00 12/03/16 08:59 11/05/16 08:36 400 MG Cholecalciferol (Vitamin D Tab) 1,000 inter.unit QAM PO 11/03/16 08:00 12/03/16 08:59 11/05/16 08:36 1,000 INTER.UNIT Cyanocobalamin (Vitamin B-12 Tab) 1,000 mcg QAM PO 11/03/16 08:00 12/03/16 08:59 11/05/16 08:37 1,000 MCG Pantoprazole Sodium (Protonix Tab) 40 mg QAM PO 11/03/16 08:00 12/03/16 08:59 11/05/16 08:37 40 MG Insulin Glargine (Lantus Solostar Pen) 8 units Q12 SC 11/03/16 09:00 12/03/16 08:59 11/05/16 08:45 8 UNITS Insulin Aspart (novoLOG ASPART) SLIDING SCALE If C... ACHS SC 11/03/16 06:30 12/03/16 06:59 11/05/16 08:45 5 UNITS Glucose (Glucose 40% Gel) 15-30 GRAMS 15 GRAMS... UD PRN PO 11/03/16 05:45 12/03/16 05:44 Glucose (Glucose Chew Tab) 4-8 Tablets 4 Tabl... UD PRN PO 11/03/16 05:45 12/03/16 05:44 Dextrose (Dextrose 50% 50ML Syringe) 25-50ML OF 50% DW IV FOR... UD PRN IV 11/03/16 05:45 12/03/16 05:44 Glucagon (Glucagon Inj) 1 mg UD PRN SQ 11/03/16 05:45 12/03/16 05:44 Vancomycin HCl (Consult) 1 ea UD PRN N/A 11/03/16 07:30 12/03/16 07:29 Polyethylene (Miralax Powder Packet) 17 gm QAM PO 11/03/16 09:00 12/03/16 08:59 11/05/16 08:37 17 GM Lactated Ringer's 1,000 ml @ 100 mls/hr Q10H IV 11/03/16 08:45 12/03/16 08:44 11/05/16 11:16 100 MLS/HR Ceftriaxone Sodium 2000 mg/ Dextrose 70 ml @ 100 mls/hr Q24H IV 11/04/16 03:00 11/13/16 02:59 11/05/16 02:58 100 MLS/HR Oxycodone/ Acetaminophen (Percocet 5-325mg Tab) 1 tab Q4H PRN PO 11/03/16 15:45 11/17/16 15:44 11/05/16 07:16 1 TAB Senna (Senokot Tab) 8.6 mg QAM PO 11/05/16 08:00 12/05/16 07:59 11/05/16 08:38 8.6 MG Docusate Sodium (coLACE CAP) 100 mg BID PO 11/04/16 20:00 12/04/16 19:59 11/05/16 08:36 100 MG Vancomycin HCl 1250 mg/Sodium Chloride 275 ml @ 125 mls/hr Q12H IV 11/05/16 16:00 11/13/16 03:59 Baclofen (Lioresal Tab) 5 mg Q6H PRN PO 11/05/16 10:00 12/05/16 09:59 Review of Systems 10 point review of systems was otherwise negative aside from HPI Physical Exam Height & Weight: Height 5 feet, 7.00 inches. Weight 75.600 (Kilograms) 166 (Pounds) Last Vital Signs Documentation Date Time Temp Pulse Resp B/P (MAP) Pulse Ox O2 Delivery O2 Flow Rate FiO2 11/05/16 08:00 Room Air 11/05/16 07:00 36.9 84 20 150/85 (106) 98 Exam: Awake alert noted 3 appearing in no acute distress just finished breakfast sitting in bed. HEENT pupils equally round and reactive to light Neck supple CV regular rate and rhythm Lung no audible wheezes or rhonchi, he is nontender over her ribs to deep palpation or with chest excursion Abdomen soft with mild distention over the lower quadrants visible scars over the right lower quadrant at the inguinal crease as well as from prior laparotomy incision he does not have significant allodynia surrounding the scars. There is some generalized muscular tension over his lower quadrants but no discrete myoneural trigger points he is nontender over bilateral ilioinguinal or genitofemoral nerves. Extremities 5 out of 5 strength in all extremities equal throughout with intact sensation He is able to easily log roll in the bed without difficulty Laboratory Laboratory Results (Last CBC): 11/03/16 02:30 Red Blood Count 4.49 L, Mean Corpuscular Volume 101.6 H, Mean Corpuscular Hemoglobin 33.6, Mean Corpuscular Hemoglobin Concent 33.1, Mean Platelet Volume 9.6, Neutrophils (%) (Auto) 82.0, Lymphocytes (%) (Auto) 12.7, Monocytes (%) ( Auto) 4.2, Eosinophils (%) (Auto) 0.4, Basophils (%) (Auto) 0.3, Neutrophils # ( Auto) 7.82 H, Lymphocytes # (Auto) 1.21, Monocytes # (Auto) 0.40, Eosinophils # (Auto) 0.04, Basophils # (Auto) 0.[address] Findings ABD/PELVIS IV CONTRAST ONLY CLINICAL HISTORY: 76 years-old Male presenting with diffuse lower abdominal pain. TECHNIQUE: Multidetector CT of the abdomen and pelvis was performed after the administration of intravenous contrast. IV contrast: 93 mL of Optiray 320. A dose lowering technique was used consistent with the principles of ALARA (as low as reasonably achievable). COMPARISON: 10/11/2015. CT DOSE (mGy.cm): The estimated cumulative dose is 448.97 mGy.cm. FINDINGS: Sewer And Inspector topogram: Unremarkable. Lung bases: Minimal dependent reticulation and volume loss, which is persistent and may represent scarring/cicatrizing atelectasis. Normal heart size. Coronary artery and aortic valve calcification. Trace pericardial effusion. No pleural effusion. Liver: Liver density consistent with hepatic steatosis. Normal liver morphology. No focal lesion. Patent hepatic vasculature. Biliary: Mild biliary ductal wall thickening at the liver hilum may be present. No intrahepatic or extra hepatic biliary ductal dilatation. Normal gallbladder. Pancreas: Prominent duodenal diverticulum at the pancreatic head. Mild diffuse pancreatic parenchymal atrophy. Mild prominence of the pancreatic duct at the level of the head and neck, possibly secondary to the presence of the diverticulum. Spleen: Normal. Adrenal glands: Normal. Kidneys and ureters: Punctate nonobstructing renal calculus at the lower pole the left kidney (series 3 image 232). Multiple nonobstructing right renal calculi, the largest at the upper pole measuring 4 mm. No hydronephrosis. Ureters normal. Bladder: Normal. Pelvic organs: Prostate and seminal vesicles normal. Bowel: Normal. No bowel obstruction. Peritoneal cavity: Diverticulosis of the entire colon. The previous site of diverticulitis at the mid to distal sigmoid colon has resolved. Ileocolic anastomosis is evident in the right lower quadrant, which is widely patent. A small bowel anastomosis is also noted in the right lower quadrant, which is also widely patent. No bowel obstruction. Large duodenal diverticulum at the pancreatic head as previously mentioned. No associated inflammatory change. Vasculature: Atherosclerosis of the normal caliber abdominal aorta. IVC patent. Lymph nodes: No enlarged lymph nodes in the abdomen or pelvis. Abdominal wall: Postsurgical changes along the right lower quadrant. No associated fluid collection. Musculoskeletal: Degenerative changes of the spine. IMPRESSION: 1. Pancolonic diverticulosis. No evidence of diverticulitis. 2. Postsurgical changes with ileocolic anastomosis and small bowel anastomosis in the right lower quadrant. No bowel obstruction. 3. 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 4. Suggestion of mild biliary ductal wall thickening, which raises concern fo [place] Drug Monitoring Program Search Results: patient reviewed within database, no issues identified Opioid Risk Assessment Risk assessment performed, no issues identified Assessment 1. Abdominal pain of unknown origin 2. Possible myofascial pain and spasm Recommendations 1. I do not really see a anatomic reason for pain in this area at this time. The patient does report improvement with Percocet utilization. Would recommend continuation or perhaps it discharge a decrease to hydrocodone acetaminophen. 2. Will initiate baclofen 5 mg by mouth every 8 when necessary should there be a myofascial component to this but I don't feel that a trigger point injection at this time is warranted as there is not a discrete myoneural trigger point noted. 3. We'll add Voltaren gel to further diminish pain 4. Thank you for this consultation
[2016-11-05] MEDS ORDERED: DICLOFENAC SOD 1% GEL 100 GM TUBE EXT PRN (12:45)
[2016-11-05] MEDS ORDERED: SNK PO (14:47)
[2016-11-05] MEDS ORDERED: CLC100 PO (14:47)
[2016-11-05] MEDS ORDERED: DOXY100C76 PO (14:48)
[2016-11-05] MEDS ORDERED: LRS10 PO (14:56)
[2016-11-05] MEDS ORDERED: DICL1GEL34 TOP (14:56)
--- NOTE | 2016-11-05 14:59 | Discharge Instructions ---
Discharge Instructions Date of Service Nov 05, 2016. Admission Reason for Admission: Abd. Wall Cellulitis, Elevated Lactic Acid Level Discharge Discharge Diagnosis / Problem: Cellulitis Discharge Goals Goal(s): Decrease discomfort Activity Recommendations Activity Limitations: resume your previous activity . Instructions / Follow-Up Instructions / Follow-Up - Take the doxycycline (an antibiotic) for a total of three weeks to make sure your rash (suspected infection) does not return. - Please follow up with your primary care provider for routine hospital follow- up to make sure the rash remains resolved. - Please also talk to them about your back pain and your more recent lower abdominal discomfort. - Your blood sugars were mildly elevated during your hospital stay. Please talk with your doctor about your diabetes to keep it under great control. - Return to an emergency department if you develop a new rapidly-spreading rash , fever, uncontrolled pain, or other acute symptoms or concerns. Current Hospital Diet Patient's current hospital diet: Diabetes Type 2 Diet Discharge Diet Recommended Diet: Diabetes Type 2 Diet Procedures Procedures Performed: CT abdomen/pelvis, Chest x-ray Pending Studies Studies pending at discharge: yes List of pending studies: Final blood culture results Laboratory Results Hemoglobin A1c Test 08/20/16 11:00 Range/Units Estimated Average Glucose 131 mg/dl Hemoglobin A1c 6.2 H 4.5-5.6 % Lipid Panel Test 08/20/16 11:00 Range/Units Triglycerides Level 85 0-150 mg/dl Cholesterol Level 176 0-200 mg/dl HDL Cholesterol 60 mg/dl Cholesterol/HDL Ratio 2.9 LDL Cholesterol, Calculated 99 mg/dl Medical Emergencies . Who to Call and When: Medical Emergencies: If at any time you feel your situation is an emergency, please call 911 immediately. . Non-Emergent Contact Non-Emergency issues call your: Primary Care Provider . . "Provider Documentation" section prepared by Dagoberto Rodrigues. . VTE Core Measure Inpt VTE Proph given/why not?: Enoxaparin (Lovenox)SQ
--- NOTE | 2016-11-05 15:12 | Discharge Summary ---
Discharge Summary Date of Service Nov 05, 2016. (Josh. Rodrigues M.D.) Discharge Summary Admission Date: Nov 03, 2016 at 05:14 Discharge Date: Nov 05, 2016 Discharge Disposition: Home Principal Diagnosis: Cellulitis Problems/Secondary Diagnoses: - Possible erythema migrans - Lower abdominal pain - Low back pain Immunizations: Have You Had Influenza Vaccine: Unknown History of Tetanus Vaccine?: Unknown History of Pneumococcal: Unknown History of Hepatitis B Vaccine: Unknown Procedures: CT abdomen/pelvis with IV contrast only [id number] 1. Pancolonic diverticulosis. No evidence of diverticulitis. 2. Postsurgical changes with ileocolic anastomosis and small bowel anastomosis in the right lower quadrant. No bowel obstruction. 3. 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 4. Suggestion of mild biliary ductal wall thickening, which raises concern for cholangitis. Correlate clinically and with LFTs. 5. Bilateral nonobstructing renal calculi. 6. Hepatic steatosis. Chest X-ray one view portable [id number] IMPRESSION: Pulmonary emphysema with basilar atelectasis Consultations: Pain management (Josh. Rodrigues M.D.) Medication Reconciliation New Medications: Baclofen (Baclofen) 10 Mg Tab 0.5 TAB PO TID, #20 0 Refills one-half tab per dose Diclofenac Sodium (Topical) (Diclofenac Sodium) 1 % Gel 2 GM TOP QID PRN for Pain, #1 TUBE 0 Refills apply to affected area on abdomen Doxycycline Monohydrate (Monodox) 100 Mg Cap 100 MG PO BID for 21 Days, #42 CAP Docusate Sodium (Docusate Sodium) 100 Mg Cap 100 MG PO BID for 30 Days, #60 CAP Senna (Senna Lax) 8.6 Mg Tab 8.6 MG PO QAM for 30 Days, #30 TAB 0 Refills Continued Medications: Aspirin (Aspirin 81) 81 Mg Tab 1 TAB PO QAM Cholecalciferol (Vitamin D3) 1,000 Unit Cap 1 CAP PO QAM Cyanocobalamin (Vitamin B12) 1,000 Mcg Tab 1 TAB PO QAM Magnesium Oxide (Mag-Ox) 400 Mg Tab 400 MG PO QAM, TAB Multivitamin (Multivitamin) Tab 1 TAB PO QAM, TAB Omeprazole (Prilosec) 20 Mg Cap 20 MG PO DAILY, #30 Potassium Gluconate (Potassium Gluconate) 550 Mg Tab 1 TAB PO QAM Tramadol HCl (Tramadol HCl) 50 Mg Tab 50 MG PO UD PRN for Pain Discharge Exam Review of Systems: Constitutional: No fever, No chills Respiratory: No cough, No shortness of breath Cardiovascular: No chest pain, No edema Abdomen: + pain, No nausea, No vomiting, No diarrhea Genitourinary - Female: No dysuria, No urinary incontinence, No hematuria Physical Exam: General Appearance: WD/WN, no apparent distress Respiratory/Chest: lungs clear, normal breath sounds Cardiovascular: regular rate, rhythm, no edema Abdomen / GI: normal bowel sounds, non tender (including suprapubically to palpation), soft Extremities: normal inspection Neurologic/Psychiatric: no motor/sensory deficits, alert Skin: no rash (resolved) (Josh. Rodrigues M.D.) Hospital Course From admission H&P Source: patient, clinic records, hospital records Mr Robertson is a 76 year old male who presents to the ER with lower abdominal pain , back pain and rash. His history course is unclear and multiple times he changes his story. This is most likely secondary to the time in the morning and Dilaudid given in the ER. His main complaint to me is lower back pain. He reports this pain is all the way around his lower abdomen and started 2 weeks ago although he was here on October 24 with back pain which began weeks before that. The pain round his front has just been in the last 2-3 days. It is an aching pain made worse with movement. He feels generalized aches everywhere "like coming down with the flu". He has had a lack of appetite for the past week , he denies dysphagia or odynophagia. Last BM yesterday - formed hard stool ( feels constipated). 2 days of nausea, no vomiting. He denies any dysuria, incontinence or urinary frequency. He denies any bowel incontinence or perianal numbness. From recent ER and clinic notes: Sep 23 seen in clinic and diagnosed with left leg cellulitis (left popliteal) treated with keflex and Oct 09 seen in the ER and added Bactrim to regimen Oct 24 seen in ER for lower back pain - CT October 27 seen in clinic (Dr Caruso) - for lower back pain and started on methylprednisolone taper and tramadol. No rashes noted. November 02 unsure who ordered the test but he had a lyme IgG and IgM which were both positive Upon discharge: Cellulitis vs Erythema migrans / suspected sepsis: Timeline: 02Aug left leg cellulitis, rx keflex. 18Aug seen in ED, added bactrim. Pt believes rash on leg resolved within the next week. 05Sep seen in clinic, no note of rash. Pt is unsure of when new leg, abdomen, and back rash (circumferential around entire lower abdomen and back extending approx 10 cm above umbilicus, less so over entire lateral aspect of thigh and calf of LLE) began, perhaps around day of admission. 11Sep lyme IgG and IgM positive. He does not remember being bit by a tick. Leading sources are cellulitis vs lyme disease, so will cover for both. Rash appears to have resolved on 14Sep. Started on vancomycin 1 gram q12h (12Sep) and ceftriaxone 2 grams q24h (12Sep) to cover both cellulitis and lyme. Blood cultures x 2 were no growth as of 48 hours, so IV abx were stopped. Will transition to doxycycline 100 mg PO BID for three weeks. - Reported hx generalized aches. Negative for influenza A & B. - Elevated lactate in ED 11Sep, in combination with cellulitis as source, makes suspected sepsis likely. Repeat lactate improved s/p IVF. Abd pain, hx diverticulitis: Reportedly worsening over past couple days, not improved with outpt tramadol. Positive nausea, no emesis, pt feels constipated. Says the pain is more internal and has repeated non-tender to palpation examinations. Hx narcotic pain control (per PDMP query around Oct 2013 to June 2014) but minimal in interim until now. CT scan on 12Sep noted no evidence of diverticulitis. No obvious cause of his pain. On final eval before d/c, pt stated this pain had completely resolved at rest. Pain management consulted, noted possible myofascial pain or spasm. Rec'd baclofen 5 mg PO q8h and voltaren gel BID prn. Noted could use vicodin prn if needed. Discussed the same with pt, will try to avoid narcotics as much as possible, so will go with former two pain options. - For bowel regimen, was on miralax q AM, but added senna and colace as well to help with BM. Will send home with senna and docusate rx. - 12Sep UA noted trace ketones and 10-30 RBCs along with 10-[address] of abd/pelvis noted bilateral nonobstructing renal calculi. Repeat UA on evening of 13Sep was completely clear (though micro not performed). Therefore unlikely that urinary tract is source of discomfort. Lower back pain: Reportedly began about a month ago, seen in ED on 02Sep for same, suspected muscular strain vs radiculopathy at that time. Presently no low back red flags prompting need for emergent imaging. X-ray in ED then noted 1. No acute fracture or subluxation. 2. Moderate intervertebral disc space narrowing and facet arthropathy redemonstrated at L4-L5 and L5-S1. 3. Mild convex left curvature of the lower lumbar spine. On this inpt stay, single dose of tramadol given. During inpt stay, pt says his back pain has returned to baseline. Will manage pain along with recommendations above. PMH DM2: By report, previously diet-controlled. Mildly elevated blood sugars here, last four 169 - 121 - 173 - 164. Rec'd PCM f/u. Total Time Spent: Greater than 30 minutes This includes examination of the patient, discharge planning, medication reconciliation, and communication with other providers. (Josh. Rodrigues M.D.) Discharge Instructions Please refer to the electronic Patient Visit Report (Discharge Instructions) for additional information. (Josh. Rodrigues M.D.) Follow-Up PCM (Josh. Rodrigues M.D.) History Resident Physician Supervision Note: I was present with Dr. Rodrigues during the history and exam. I discussed the case with the resident and agree with the findings and plan as documented in the note. Any exceptions or clarifications are listed here. Pt reports considerable improvement in abdominal and back pain, the former to resolution, the latter to baseline. He states his rash has nearly disappeared as well. (Gabe George MD) General Appearance: WD/WN, no apparent distress Respiratory: chest non-tender, lungs clear, normal breath sounds, no respiratory distress Cardiovascular: normal peripheral pulses, regular rate, rhythm, no edema, no murmur Gastrointestinal: normal bowel sounds, non tender, soft, no organomegaly Skin Characteristics: normal color, warm/dry (Gabe George MD) Assessment/Plan 76 y/o male with h/o chronic lower back pain presents with abdominal rash concerning for cellulitis Rash of the abdomen w/ pain - +ve DELMA for Lyme, atypical as is nontender, nonindurated; BCx neg x 48h - transition to complete 3 wks of doxycycline Constipation - encourage behavioral modification and medication use as directed Suprapubic pain - UA negative - outpatient management with baclofen and voltaren gel, f/u with primary care DMII - resume outpatient regimen (Gabe George MD)
[2016-11-05 15:22] VITALS: BP 150/85; PULSE 84; TEMP 36.9; O2SAT 98
--- NOTE | 2016-11-05 15:44 | Medical Student: [facility] ---
Med Student Progress Note Date of Service Nov 05, 2016. Subjective Pt evaluation today including: conversation w/ patient, physical exam, chart review, lab review, review of studies, review of inpatient medication list Pain: controlled with pain meds PO Intake: normal Voiding: no voiding problems This is 76 year-old male with hx of DM type 2, HTN, diverticulitis, chronic low back pain, BPH, hypercholesterolemia, hepatic steatosis, and B12/Vit D deficiency presented 2 days ago with lower back and abdominal pain with a rash. Today, he stated that he felt better. Suprapubic pain is controlled with pain meds. Lower back pain seems to feel like the normal back pain that he usually has. Rash is resolved. BM yesterday (soft stool, no blood). Appetite and sleeping okay. Denies fever, chills, chest pain, or SOB. Review of Systems Constitutional: No fever, No chills Eyes: No worsening of vision ENT: No hearing loss Respiratory: No cough, No shortness of breath Cardiac: No chest pain, No edema Abdomen: + see HPI, + pain (lower abdominal pain), No nausea, No vomiting Musculoskeletal: No joint pain Male : No dysuria Neurologic: No memory loss Objective Vital Signs Date Time Temp Pulse Resp B/P (MAP) Pulse Ox O2 Delivery O2 Flow Rate FiO2 11/05/16 15:22 36.9 84 20 98 Room Air 11/05/16 08:00 Room Air 11/05/16 07:00 36.9 84 20 150/85 (106) 98 Room Air 11/05/16 00:00 Room Air 11/04/16 22:55 36.6 77 20 144/79 (100) 96 Room Air 11/04/16 20:00 Room Air 11/04/16 16:00 Room Air 11/04/16 15:43 36.6 93 18 143/81 (101) 96 Room Air Physical Exam General Appearance: WD/WN, no apparent distress Eyes: bilateral eyes normal inspection ENT: hearing grossly normal Neck: supple Respiratory/Chest: lungs clear, normal breath sounds, no respiratory distress Cardiovascular: regular rate, rhythm, no murmur Abdomen: normal bowel sounds, non tender, soft Extremities: normal range of motion, no pedal edema Neurologic/Psychiatric: alert, normal mood/affect, oriented x 3 Skin: no rash Laboratory Results Last 24 Hours Test 11/04/16 16:27 11/04/16 20:07 11/04/16 22:00 11/04/16 22:09 Bedside Glucose 121 mg/dl 173 mg/dl 164 mg/dl Urine Color YELLOW Urine Appearance CLEAR Urine pH 7.5 Urine Specific Priddy 1.012 Urine Protein NEG Urine Glucose (UA) NEG Urine Ketones NEG Urine Occult Blood NEG Urine Nitrite NEG Urine Bilirubin NEG Urine Urobilinogen NEG Urine Leukocyte Esterase NEG Test 11/05/16 03:12 11/05/16 07:41 11/05/16 11:23 Creatinine 0.72 mg/dl Est Creatinine Clear Calc Drug Dose 84.2 ml/min Estimated GFR () 106.5 Estimated GFR (Non- 91.9 Vancomycin Level Trough 11.8 mcg/ml Bedside Glucose 161 mg/dl 145 mg/dl Medications Current Inpatient Medications Medications (Trade) Dose Ordered Sig/Tab Route Start Time Stop Time Status Last Admin Dose Admin Ioversol (Optiray 320) 100 ml UD PRN IV 11/03/16 02:30 11/07/16 02:29 Enoxaparin Sodium (Lovenox Inj) 40 mg Q24H SQ 11/03/16 05:15 12/03/16 05:14 11/05/16 04:56 40 MG Acetaminophen (Tylenol Tab) 650 mg Q4H PRN PO 11/03/16 05:15 12/03/16 05:14 11/04/16 06:07 650 MG Ondansetron HCl (Zofran Inj) 4 mg Q6H PRN IV 11/03/16 05:15 12/03/16 05:14 Magnesium Oxide (Mag-Ox Tab) 400 mg QAM PO 11/03/16 08:00 12/03/16 08:59 11/05/16 08:36 400 MG Cholecalciferol (Vitamin D Tab) 1,000 inter.unit QAM PO 11/03/16 08:00 12/03/16 08:59 11/05/16 08:36 1,000 INTER.UNIT Cyanocobalamin (Vitamin B-12 Tab) 1,000 mcg QAM PO 11/03/16 08:00 12/03/16 08:59 11/05/16 08:37 1,000 MCG Pantoprazole Sodium (Protonix Tab) 40 mg QAM PO 11/03/16 08:00 12/03/16 08:59 11/05/16 08:37 40 MG Insulin Glargine (Lantus Solostar Pen) 8 units Q12 SC 11/03/16 09:00 12/03/16 08:59 11/05/16 08:45 8 UNITS Insulin Aspart (novoLOG ASPART) SLIDING SCALE If C... ACHS SC 11/03/16 06:30 12/03/16 06:59 11/05/16 12:46 7 UNITS Glucose (Glucose 40% Gel) 15-30 GRAMS 15 GRAMS... UD PRN PO 11/03/16 05:45 12/03/16 05:44 Glucose (Glucose Chew Tab) 4-8 Tablets 4 Tabl... UD PRN PO 11/03/16 05:45 12/03/16 05:44 Dextrose (Dextrose 50% 50ML Syringe) 25-50ML OF 50% DW IV FOR... UD PRN IV 11/03/16 05:45 12/03/16 05:44 Glucagon (Glucagon Inj) 1 mg UD PRN SQ 11/03/16 05:45 12/03/16 05:44 Vancomycin HCl (Consult) 1 ea UD PRN N/A 11/03/16 07:30 12/03/16 07:29 Polyethylene (Miralax Powder Packet) 17 gm QAM PO 11/03/16 09:00 12/03/16 08:59 11/05/16 08:37 17 GM Lactated Ringer's 1,000 ml @ 100 mls/hr Q10H IV 11/03/16 08:45 12/03/16 08:44 11/05/16 11:16 100 MLS/HR Ceftriaxone Sodium 2000 mg/ Dextrose 70 ml @ 100 mls/hr Q24H IV 11/04/16 03:00 11/13/16 02:59 11/05/16 02:58 100 MLS/HR Oxycodone/ Acetaminophen (Percocet 5-325mg Tab) 1 tab Q4H PRN PO 11/03/16 15:45 11/17/16 15:44 11/05/16 07:16 1 TAB Senna (Senokot Tab) 8.6 mg QAM PO 11/05/16 08:00 12/05/16 07:59 11/05/16 08:38 8.6 MG Docusate Sodium (coLACE CAP) 100 mg BID PO 11/04/16 20:00 12/04/16 19:59 11/05/16 08:36 100 MG Vancomycin HCl 1250 mg/Sodium Chloride 275 ml @ 125 mls/hr Q12H IV 11/05/16 16:00 11/13/16 03:59 Baclofen (Lioresal Tab) 5 mg Q6H PRN PO 11/05/16 10:00 12/05/16 09:59 Diclofenac Sodium (Voltaren 1% Top Gel) 1 appln BID PRN EXT 11/05/16 12:45 12/05/16 12:44 Assessment and Plan Assessment and Plan: This is 76 year-old male with hx of DM type 2, HTN, diverticulitis, chronic low back pain, BPH, hypercholesterolemia, hepatic steatosis, and B12/Vit D deficiency presented 2 days ago with lower back and abdominal pain with a rash. Cellulitis and Lyme Disease Rash on abdomen and leg resolved - Blood Culture is 48hrs negative - Switch abx to doxycycline (discussed on round and with patient) Abdominal Pain Back pain has became usual chronic back pain. Patient still complains of suprapubic pain, which is controlled with pain medications. UA shows RBC 10-30 yesterday. Today UA is negative for blood. Muscle pain might be the cause. Other Ddx microscopic hematuria includes renal (glomerular vs nonglomerular) and extra-renal (kidney stones). Glomerular kidney disease will likely shows red cell casts, proteinuria, which are not seen in this patient. Creatinine in this patient is stable at 1.1. Non-glomerular renal disease such as nephritis also will likely show markedly proteinuria and urinary symptoms, which this patient does not have. Extra-renal such as kidney stones, prostate enlargement, infection or tumors can also cause microscopic hematuria. With suprapubic pain and microscopic hematuria, cystitis is possible but patient is afebrile, has normal WBC and has no urinary sx such as dysuria. With history of BPH, microscopic hematuria is possible also although does not explain the suprapubic pain. The abdominal pain could be also resulted from constipation 2/2 pain medications patient has been taking. Patient hx of diverticulitis is not excluded however abd/pelvic CT shows no signs of diverticulitis. - Pain management consulted - recommended Baclofen and Voltaren - Discussed on round and with patient. Patient agreed to Baclofen and Voltaren when discharged. DM Current blood glucose ranges from 120s-160s. - Continue Lantus q12 8mg - NovoLog per meal DVT prophylaxis - Lovenox 40mg injection Discharge planning: home
[2016-11-05] MEDS ORDERED: VANCOMYCIN INJ 1,250 MG in SODIUM CHLORIDE 0.9% 250ML 250 ML IV SCH (16:00)
[2016-11-06] MEDS ORDERED: VANCOMYCIN TROUGH SCH (15:30)
== END 2016-11-05 16:00 | disposition home or self-care (01) | DRG 872 ==
LOC: C.EDB 02:00 → C.MS4W 05:14 → ENRESERV 05:19
PROVIDERS: ADMIT Internal Medicine; ATTEND Family Medicine
DX: A41.9 Sepsis, unspecified organism (principal); L03.311 Cellulitis of abdominal wall; A69.20 Lyme disease, unspecified; Z83.3 Family history of diabetes mellitus; Z82.49 Family history of ischemic heart disease and other diseases of the circulatory system; Z79.82 Long term (current) use of aspirin; K59.03 Drug induced constipation; T40.4X5A Adverse effect of other synthetic narcotics, initial encounter; E11.9 Type 2 diabetes mellitus without complications; M54.5 Low back pain; G89.29 Other chronic pain; K75.9 Inflammatory liver disease, unspecified; A26.0 Cutaneous erysipeloid; M79.1 Myalgia; M62.838 Other muscle spasm

== ENCOUNTER → 2017-02-24 | Outpatient (CLI) | payer BC, OTHER ==
[~2017-02-24] MED LIST changes: +CLC100 PO; +DICL1GEL34 TOP; +LRS10 PO; +SNK PO; +ULT50 PO
[2017-02-24 16:26] LABS: ALT/SGPT 49 U/L (12-78); AST/SGOT 31 U/L (15-37); BLOOD UREA NITROGEN 13 mg/dl (7-18); CALCIUM 8.7 mg/dl (8.5-10.1); CARBON DIOXIDE 24 mmol/L (21-32); CREATININE 0.97 mg/dl (0.60-1.40); GLUCOSE 161 mg/dl (70-99); SODIUM 139 mmol/L (136-145)
[2017-02-24 16:53] LABS: HEMOGLOBIN A1C 6.4 % (4.5-5.6)
== END | disposition home or self-care (01) ==
LOC: C.LAB1850 14:57
PROVIDERS: ATTEND Internal Medicine
DX: E11.9 Type 2 diabetes mellitus without complications (principal); E53.8 Deficiency of other specified B group vitamins; E55.9 Vitamin D deficiency, unspecified; R79.89 Other specified abnormal findings of blood chemistry; E78.00 Pure hypercholesterolemia, unspecified

== ENCOUNTER → 2017-02-26 | Outpatient (CLI) | payer BC, OTHER | END | disposition home or self-care (01) | LOC: C.LAB 09:50 | PROVIDERS: ATTEND Internal Medicine | DX: E78.00 Pure hypercholesterolemia, unspecified (principal) ==

== ENCOUNTER → 2017-09-10 | Outpatient (CLI) | payer BC ==
[~2017-09-10] MED LIST changes: -CLC100 PO; -DICL1GEL34 TOP; -LRS10 PO; -SNK PO; -ULT50 PO
[2017-09-10 13:17] LABS: BASO % 0.5 %; BASO ABS # 0.03 K/uL (0-0.2); EOS ABS # 0.06 K/uL (0-0.5); HEMATOCRIT 43.9 % (42-52); HEMOGLOBIN 15.3 g/dL (14.0-18.0); IG# 0.02 K/uL (0.00-0.02); LYMPH % 33.2 %; LYMPH ABS # 1.99 K/uL (1.2-3.4); MEAN CELL VOLUME 99.5 fL (80-100); MEAN CORPUSCULAR HEMOGLOBIN 34.7 pg (25-34); MEAN CORPUSCULAR HGB CONC 34.9 g/dl (32-36); MEAN PLATELET VOLUME 9.9 fL (7.4-10.4); MONO % 9.5 %; MONO ABS # 0.57 K/uL (0.11-0.59); NEUT % 55.5 %; NEUT ABS # 3.33 K/uL (1.4-6.5); PLATELET COUNT 177 K/uL (130-400); RED CELL DISTRIBUTION WIDTH CV 12.3 % (11.5-14.5)
[2017-09-10 14:13] LABS: ALBUMIN 3.7 gm/dl (3.4-5.0); ALKALINE PHOSPHATASE 106 U/L (45-117); ALT/SGPT 43 U/L (12-78); AST/SGOT 27 U/L (15-37); BLOOD UREA NITROGEN 14 mg/dl (7-18); CALCIUM 8.8 mg/dl (8.5-10.1); CARBON DIOXIDE 23 mmol/L (21-32); CREATININE 0.85 mg/dl (0.60-1.40); GLUCOSE 111 mg/dl (70-99); SODIUM 138 mmol/L (136-145); TOTAL PROTEIN 7.3 gm/dl (6.4-8.2)
== END | disposition home or self-care (01) ==
LOC: C.LAB1850 12:03
PROVIDERS: ATTEND Internal Medicine
DX: R10.31 Right lower quadrant pain (principal); R10.9 Unspecified abdominal pain

== ENCOUNTER → 2017-09-15 | Outpatient (CLI) | payer BC ==
--- NOTE | 2017-09-15 09:32 | DIAGNOSTIC IMAGING REPORT ---
ABD/PELVIS NO IV OR ORAL CONT CT DOSE: HISTORY: Abnormal CT scan R93.2 Abnormal findings on diagnostic imaging of liver and bilia TECHNIQUE: Multiaxial CT images of the abdomen and pelvis were performed without contrast. A dose lowering technique was utilized adhering to the principles of ALARA. COMPARISON STUDY: 11/03/2016 FINDINGS: Lung bases are clear. Liver spleen and pancreas appear unremarkable. Moderate gastric distention. No evidence for gallbladder distention. Kidneys negative for hydronephrosis. There are several nonobstructing lower pole right renal calcifications. Postoperative changes to the bowel including several anastomotic sites are again noted. These appear to be widely patent. There are findings of chronic colonic diverticulosis. There is no evidence for acute diverticulitis. The bladder is midline. IMPRESSION: 1. Moderate gastric distention. Several nonobstructing right renal calcifications. 2. Stable postoperative changes. 3. Otherwise negative study. The above report was generated using voice recognition software. It may contain grammatical, syntax or spelling errors. Electronically signed by: Naseem Irby M.D. 09/15/2017 9:31 AM Dictated Date/Time: 09/15/2017 9:18 AM
--- NOTE | 2017-09-15 09:48 | DIAGNOSTIC IMAGING REPORT ---
(CHEST) THORAX WITHOUT CT DOSE: 749.08 mGy.cm HISTORY: Lung nodule R91.1 Lung nodule < 6cm TECHNIQUE: Multiaxial CT images of the chest were performed without contrast. A dose lowering technique was utilized adhering to the principles of ALARA. COMPARISON: 08/12/2016 FINDINGS: Stable 5 mm right lower lobe nodule. No new or interval parenchymal nodularity is appreciated. Lungs are clear. No significant mediastinal or hilar adenopathy. IMPRESSION: 1. Stable 5 mm right lower lobe nodule. 2. No change from the prior exam. 3. No new interval or progressive process. 4. No additional follow-up is required. The above report was generated using voice recognition software. It may contain grammatical, syntax or spelling errors. Electronically signed by: Naseem Irby M.D. 09/15/2017 9:46 AM Dictated Date/Time: 09/15/2017 9:38 AM
== END | disposition home or self-care (01) ==
LOC: C.CTS 08:51
PROVIDERS: ATTEND Internal Medicine
DX: R91.1 Solitary pulmonary nodule (principal); R93.2 Abnormal findings on diagnostic imaging of liver and biliary tract; R10.31 Right lower quadrant pain

== ENCOUNTER 2020-06-03 15:49 | Inpatient (IN) ==
[2020-06-03] MEDS ORDERED: KETOROLAC TROMETHAMINE 15 MG/ML VIAL IV STA (17:33)
[2020-06-03] MEDS ORDERED: ONDANSETRON INJ 2 MG/ML 2 ML VIAL IV STA (17:33)
[2020-06-03] MEDS ORDERED: GI COCKTAIL ED USE PO ONE (17:33)
[2020-06-03] MEDS ORDERED: SODIUM CHLORIDE 0.9% 1000ML 1,000 ML IV SCH (17:45)
[2020-06-03 17:58] LABS: Basophils # (auto) 0.02 K/uL (0-0.2); Basophils % (auto) 0.2 %; Hematocrit (blood only) 42.8 % (42-52); Hemoglobin 15.4 g/dL (14.0-18.0); Immature Granulocytes # (auto) 0.02 K/uL (0.00-0.02); Immature Granulocytes % (auto) 0.2 %; Lymphocytes # (auto) 0.46 K/uL (1.2-3.4); Lymphocytes % (auto) 4.9 %; Mean Corpuscular Hemoglobin 35.2 pg (25-34); Mean Corpuscular Volume 97.9 fL (80-100); Mean Platelet Volume 9.6 fL (7.4-10.4); Monocytes # (auto) 0.33 K/uL (0.11-0.59); Monocytes % (auto) 3.5 %; Neutrophils # (auto) 8.62 K/uL (1.4-6.5); Neutrophils % (auto) 91.2 %; Platelet Count 194 K/uL (130-400); RDW Coefficient of Variation 12.5 % (11.5-14.5); Red Blood Count 4.37 M/uL (4.7-6.1); White Blood Count 9.45 K/uL (4.8-10.8)
--- NOTE | 2020-06-03 18:26 | Emergency Department Note ---
History of Present Illness General Chief Complaint: Abdominal Pain Stated Complaint: ABDOMINAL PAIN Time Seen by Provider: 06/03/20 17:13 History of Present Illness Provider Complaint: abdominal pain Onset (ago): 7 hour(s) Pain Consistency: intermittent Location: diffuse Radiation: none Severity: severe Maximum Pain Intensity: 10 Current Pain Intensity: 10 Quality: + aching Relieved By: + nothing Exacerbated By: + nothing Context: no foreign travel, no possible food poisoning, no sick contacts, no recent antibiotic use, no recent surgery/procedure, no recent injury and no history of similar episodes Associated Symptoms: + nausea and + vomiting (6 times); no diarrhea, no fever, no constipation, no dysuria, no hematemesis, no hematochezia, no melena, no hematuria, no anorexia, no headache, no neck pain, no back pain, no chest pain, no weakness and no breathing difficulty Home Medications Medication Instructions Recorded Confirmed Type cholecalciferol (vitamin D3) 25 1,000 units PO QAM cap 10/06/18 06/03/20 History mcg (1,000 unit) capsule cyanocobalamin (vitamin B-12) 1,000 mcg PO QAM #30 tab 10/06/18 06/03/20 History 1,000 mcg tablet psyllium husk 3.4 gram/5.4 gram 1 tbs PO QAM gm 10/06/18 06/03/20 History oral powder aspirin [Aspirin Low Dose] 81 mg PO QAM 11/14/19 06/03/20 History potassium gluconate 595 mg PO QAM 11/14/19 06/03/20 History omeprazole 20 mg capsule,delayed 20 mg PO QAM #90 cap 01/04/20 06/03/20 Rx release Allergies Allergy/AdvReac Type Severity Reaction Status Date / Time No Known Drug Allergies Allergy Verified 06/03/20 20:06 Past Med/Surg History Medical History (Updated 06/04/20 @ 00:33 by Eldon Lyon) Acute diverticulitis (08/08/13) hx Chronic back pain Diverticulosis of colon Hepatic steatosis Hiatal hernia History of esophageal dilatation Hypercholesterolemia Left leg DVT pt unsure of details. Low back pain Osteoarthritis Osteopenia Perforated diverticulitis Schatzki's ring Small bowel obstruction (2014) Type 2 diabetes mellitus no medications currently. monitoring with PCP. Surgical History History of colostomy History of colostomy reversal History of esophagogastroduodenoscopy (EGD) Hx of appendectomy Hx of colectomy Hx of colonoscopy Hx of inguinal hernia repair Hx of tonsillectomy Family History Family/Other Aorta aneurysm Perceptive hearing loss or deafness Mother Alcoholism /alcohol abuse Lung disease Lung cancer Father Alcoholism /alcohol abuse Lung disease Brother Diabetes Primary hemochromatosis Denies family history of Colon cancer Ovarian cancer Prostate cancer Myocardial infarction Breast cancer Colorectal cancer Hypertension Stroke Asthma Social History Smoking Status: Former smoker Second Hand Exposure: No; Do You Dip or Chew Tobacco: No; Tobacco Cessation Education Requested by Patient: No Hx Alcohol Use: No Hx Substance Use: No Preferred Language: Yi Communication Ability: Effective Visual Impairment: No Limitations 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: Normal 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 Review of Systems A total of 10 systems reviewed and were otherwise negative Physical Exam Vital Signs: Vital Signs - 24 hr 06/03/20 16:15 06/03/20 17:29 06/03/20 18:19 Temperature 36.0 C L 36.8 C Temperature Source Temporal Artery Sc an Oral Pulse Rate 104 H 87 Pulse Rate [Right] 90 Pulse Rate from Sp O2 Sensor Pulse Rhythm [Righ t] Regular Pulse Strength [Ri ght] Normal Respiratory Rate 18 18 17 Respiratory Effort / Characteristics Non-Labored Non-Labored Respiratory Depth Normal Normal Respiratory Patter n Regular Regular Blood Pressure 125/59 L Blood Pressure [Le ft Arm] 155/90 H Blood Pressure Shefali n 81 Blood Pressure Shefali n [Left Arm] 111 Blood Pressure Pos ition Sitting Blood Pressure Pos ition [Left Arm] Lying Pulse Oximetry 96 99 Oxygen Delivery Me thod Room Air Room Air Sepsis Recent Feve r Within 48 Hours No Sepsis New/Unexpla ined Change in Men carlos Status N/A Sepsis Action Take n by Nursing No Action Required 06/03/20 18:20 06/03/20 18:30 06/03/20 18:40 Temperature Temperature Source Pulse Rate 86 88 87 Pulse Rate [Right] Pulse Rate from Sp O2 Sensor Pulse Rhythm [Righ t] Pulse Strength [Ri ght] Respiratory Rate 20 19 16 Respiratory Effort / Characteristics Respiratory Depth Respiratory Patter n Blood Pressure 122/65 Blood Pressure [Le ft Arm] Blood Pressure Shefali n 84 Blood Pressure Shefali n [Left Arm] Blood Pressure Pos ition Blood Pressure Pos ition [Left Arm] Pulse Oximetry Oxygen Delivery Me thod Sepsis Recent Feve r Within 48 Hours Sepsis New/Unexpla ined Change in Men carlos Status Sepsis Action Take n by Nursing 06/03/20 19:04 06/03/20 19:05 06/03/20 19:15 Temperature Temperature Source Pulse Rate 89 88 85 Pulse Rate [Right] Pulse Rate from Sp O2 Sensor 90 88 85 Pulse Rhythm [Righ t] Pulse Strength [Ri ght] Respiratory Rate 18 18 21 Respiratory Effort / Characteristics Respiratory Depth Respiratory Patter n Blood Pressure 134/78 117/71 Blood Pressure [Le ft Arm] Blood Pressure Shefali n 96 86 Blood Pressure Shefali n [Left Arm] Blood Pressure Pos ition Blood Pressure Pos ition [Left Arm] Pulse Oximetry 95 99 97 Oxygen Delivery Me thod Sepsis Recent Feve r Within 48 Hours Sepsis New/Unexpla ined Change in Men carlos Status Sepsis Action Take n by Nursing 06/03/20 19:20 06/03/20 19:30 06/03/20 19:40 Temperature Temperature Source Pulse Rate 85 86 86 Pulse Rate [Right] Pulse Rate from Sp O2 Sensor 85 86 86 Pulse Rhythm [Righ t] Pulse Strength [Ri ght] Respiratory Rate 16 22 13 Respiratory Effort / Characteristics Respiratory Depth Respiratory Patter n Blood Pressure 124/70 Blood Pressure [Le ft Arm] Blood Pressure Shefali n 88 Blood Pressure Shefali n [Left Arm] Blood Pressure Pos ition Blood Pressure Pos ition [Left Arm] Pulse Oximetry 97 96 97 Oxygen Delivery Me thod Sepsis Recent Feve r Within 48 Hours Sepsis New/Unexpla ined Change in Men carlos Status Sepsis Action Take n by Nursing 06/03/20 19:45 06/03/20 20:00 06/03/20 20:01 Temperature Temperature Source Pulse Rate 85 84 84 Pulse Rate [Right] Pulse Rate from Sp O2 Sensor 85 84 84 Pulse Rhythm [Righ t] Pulse Strength [Ri ght] Respiratory Rate 15 18 19 Respiratory Effort / Characteristics Respiratory Depth Respiratory Patter n Blood Pressure 138/79 107/69 Blood Pressure [Le ft Arm] Blood Pressure Shefali n 98 81 Blood Pressure Shefali n [Left Arm] Blood Pressure Pos ition Blood Pressure Pos ition [Left Arm] Pulse Oximetry 97 96 94 Oxygen Delivery Me thod Sepsis Recent Feve r Within 48 Hours Sepsis New/Unexpla ined Change in Men carlos Status Sepsis Action Take n by Nursing 06/03/20 20:15 06/03/20 20:20 06/03/20 20:31 Temperature Temperature Source Pulse Rate 79 79 94 H Pulse Rate [Right] Pulse Rate from Sp O2 Sensor 79 79 78 Pulse Rhythm [Righ t] Pulse Strength [Ri ght] Respiratory Rate 18 22 20 Respiratory Effort / Characteristics Respiratory Depth Respiratory Patter n Blood Pressure 115/65 127/86 Blood Pressure [Le ft Arm] Blood Pressure Shefali n 81 99 Blood Pressure Shefali n [Left Arm] Blood Pressure Pos ition Blood Pressure Pos ition [Left Arm] Pulse Oximetry 95 95 94 Oxygen Delivery Me thod Sepsis Recent Feve r Within 48 Hours Sepsis New/Unexpla ined Change in Men carlos Status Sepsis Action Take n by Nursing 06/03/20 20:40 06/03/20 20:45 06/03/20 21:00 Temperature Temperature Source Pulse Rate 100 H 78 78 Pulse Rate [Right] Pulse Rate from Sp O2 Sensor 90 79 78 Pulse Rhythm [Righ t] Pulse Strength [Ri ght] Respiratory Rate 21 19 17 Respiratory Effort / Characteristics Respiratory Depth Respiratory Patter n Blood Pressure 101/66 125/66 Blood Pressure [Le ft Arm] Blood Pressure Shefali n 77 85 Blood Pressure Shefali n [Left Arm] Blood Pressure Pos ition Blood Pressure Pos ition [Left Arm] Pulse Oximetry 94 96 95 Oxygen Delivery Me thod Sepsis Recent Feve r Within 48 Hours Sepsis New/Unexpla ined Change in Men carlos Status Sepsis Action Take n by Nursing 06/03/20 21:01 06/03/20 21:15 06/03/20 21:20 Temperature Temperature Source Pulse Rate 76 77 Pulse Rate [Right] Pulse Rate from Sp O2 Sensor 76 77 81 Pulse Rhythm [Righ t] Pulse Strength [Ri ght] Respiratory Rate 16 16 18 Respiratory Effort / Characteristics Respiratory Depth Respiratory Patter n Blood Pressure 122/67 Blood Pressure [Le ft Arm] Blood Pressure Shefali n 85 Blood Pressure Shefali n [Left Arm] Blood Pressure Pos ition Blood Pressure Pos ition [Left Arm] Pulse Oximetry 95 95 98 Oxygen Delivery Me thod Sepsis Recent Feve r Within 48 Hours Sepsis New/Unexpla ined Change in Men carlos Status Sepsis Action Take n by Nursing 06/03/20 21:30 Temperature Temperature Source Pulse Rate Pulse Rate [Right] Pulse Rate from Sp O2 Sensor 81 Pulse Rhythm [Righ t] Pulse Strength [Ri ght] Respiratory Rate 21 Respiratory Effort / Characteristics Respiratory Depth Respiratory Patter n Blood Pressure 120/91 Blood Pressure [Le ft Arm] Blood Pressure Shefali n 100 Blood Pressure Shefali n [Left Arm] Blood Pressure Pos ition Blood Pressure Pos ition [Left Arm] Pulse Oximetry 96 Oxygen Delivery Me thod Sepsis Recent Feve r Within 48 Hours Sepsis New/Unexpla ined Change in Men carlos Status Sepsis Action Take n by Nursing Physical Exam: Physical Exam GENERAL: He is oriented to person, place, and time. He appears well-developed and well-nourished. He does not appear distressed. HENT: Exam performed. - Head: Normocephalic and atraumatic. - Right Ear: External ear normal. No mastoid tenderness. - Left Ear: External ear normal. No mastoid tenderness. - Mouth/Throat: The oropharynx is clear and moist. No trismus in the jaw. No dental abscesses or uvula swelling. No oropharyngeal exudate or tonsillar abscesses. EYES: Conjunctivae and EOM are normal. Pupils are equal, round, and reactive to light. Right eye exhibits no discharge. Left eye exhibits no discharge. No scleral icterus. NECK: Normal range of motion. Neck supple. No JVD present. No spinous process tenderness present. No carotid bruit present. No rigidity. No tracheal deviation and normal range of motion present. No Brudzinski's sign and no Kernig's sign noted. CV: Normal rate, regular rhythm, normal heart sounds and intact distal pulses. There is no peripheral edema. Palpable radial pulses bue. PULM/CHEST: Effort normal and breath sounds normal. No respiratory distress. No stridor. He has no wheezes. He has no rales. - Chest Wall: He exhibits no tenderness. ABD: The abdomen is soft. Bowel sounds are normal. He has no distension. No mass is present. There is diffuse to palpation of the abdomen tenderness. There is no rebound, no guarding, no Lozano's sign and no tenderness at McBurney's point. Rovsig negative. MUSC/SKEL: Normal range of motion. There is no peripheral edema, tenderness or deformity. LYMPH: No cervical adenopathy. NEURO: He is alert and oriented to person, place, and time. He has normal strength. No cranial nerve deficit or sensory deficit. Coordination and gait normal. GCS eye subscore is 4. GCS verbal subscore is 5. GCS motor subscore is 6. Cerebellar tests wnl. SKIN: Skin is warm and dry. He is not diaphoretic. PSYCH: He has a normal mood and affect. Behavior is normal. Judgment and thought content normal. Course Course 1713: The patient was evaluated in room B9. A complete history and physical exam was performed Cardiac monitoring: An order was placed for continuous cardiac monitoring. The monitor shows a rate of 90 with sinus rhythm 1935: Vital signs stable. Labs within normal limits. CT does show small bowel obstruction. Patient will be admitted to the medicine service. [facility] [place]. Administered Medications Famotidine 20 mg/ Syringe 5 mls @ 2.5 mls/min IV Q12 PATRICIA Stop: 07/03/20 23:13 Last Admin: 06/03/20 23:14 Dose: 2.5 mls/min Documented by: [id number] Potassium Chloride/Sodium Chloride (Normal Saline W/20 Meq Kcl) 20 meq in 1,000 mls @ 100 mls/hr IV .Q10H PATRICIA Stop: 07/03/20 23:13 Last Admin: 06/03/20 23:14 Dose: 100 mls/hr Documented by: [id number] Discontinued Medications Al Hydrox/Mg Hydrox/Simethicone (Gi Cocktail Ed Use) 1 dose PO ONE ONE Stop: 06/03/20 17:34 Last Admin: 06/03/20 17:50 Dose: 1 dose Documented by: [id number] Sodium Chloride (Nss 1000ml) 1,000 mls @ 125 mls/hr IV .Q8H PATRICIA Stop: 07/03/20 17:44 Last Infusion: 06/03/20 23:15 Dose: 0 mls/hr Documented by: [id number] Admin: 06/03/20 17:53 Dose: 125 mls/hr Documented by: [id number] Piperacillin Sod/Tazobactam (Sod 3.375 gm/ Dextrose) 115 mls @ 230 mls/hr IV ONE ONE Stop: 06/03/20 23:59 Last Infusion: 06/03/20 23:44 Dose: 0 mls/hr Documented by: [id number] Admin: 06/03/20 23:14 Dose: 230 mls/hr Documented by: [id number] Ioversol (Ioversol 100ml) 85 ml IV ONCE ONE Stop: 06/03/20 18:55 Last Admin: 06/03/20 18:55 Dose: 85 ml Documented by: [id number] Ketorolac Tromethamine (Ketorolac Tromethamine 15 Mg/Ml Vial) 15 mg IV NOW STA Stop: 06/03/20 17:34 Last Admin: 06/03/20 17:50 Dose: 15 mg Documented by: [id number] Ondansetron HCl (Ondansetron Inj 2 Mg/Ml 2 Ml Vial) 4 mg IV NOW STA Stop: 06/03/20 17:34 Last Admin: 06/03/20 17:50 Dose: 4 mg Documented by: [id number] Medical Decision Making Laboratory Data Result diagrams: 06/03/20 17:40 06/03/20 17:40 Lab Results 06/03/20 06/03/20 06/03/20 Range/Units 17:40 17:40 19:02 WBC 9.45 (4.8-10.8) K/uL RBC 4.37 L (4.7-6.1) M/uL Hgb 15.4 (14.0-18.0) g/dL Hct 42.8 (42-52) % MCV 97.9 (80-100) fL MCH 35.2 H (25-34) pg MCHC 36.0 (32-36) g/dL RDW Std Deviation 45.0 (36.4-46.3) fL RDW Coeff of Saturnino 12.5 (11.5-14.5) % Plt Count 194 (130-400) K/uL MPV 9.6 (7.4-10.4) fL Immature Gran % (Auto) 0.2 % Neut % (Auto) 91.2 % Lymph % (Auto) 4.9 % Mccone % (Auto) 3.5 % Eos % (Auto) 0.0 % Baso % (Auto) 0.2 % Neut # (Auto) 8.62 H (1.4-6.5) K/uL Lymph # (Auto) 0.46 L (1.2-3.4) K/uL Mccone # (Auto) 0.33 (0.11-0.59) K/uL Eos # (Auto) 0.00 (0-0.5) K/uL Baso # (Auto) 0.02 (0-0.2) K/uL Immature Gran # (Auto) 0.02 (0.00-0.02) K/uL PT 10.6 (9.0-12.0) Seconds INR 1.0 (0.9-1.1) APTT 23.2 (21.0-31.0) Seconds PTT Ratio 0.9 Sodium 140 (136-145) mmol/L Potassium 3.7 (3.5-5.1) mmol/L Chloride 109 H (98-107) mmol/L Carbon Dioxide 23 (21-32) mmol/L Anion Gap 8.0 (3-11) BUN 14 (7-18) mg/dl Creatinine 0.79 (0.6-1.4) mg/dl Est Cr Clr Drug Dosing 73.2 ml/min Est GFR ( Amer) 100.4 Est GFR (Non-Af Amer) 86.6 BUN/Creatinine Ratio 18.3 (10-20) Glucose 218 H (70-99) mg/dl Calcium 9.1 (8.5-10.1) mg/dl Total Bilirubin 0.9 (0.2-1) mg/dl Direct Bilirubin 0.2 (0-0.2) mg/dl AST 37 (15-37) U/L ALT 45 (12-78) U/L Alkaline Phosphatase 118 H (45-117) U/L Total Protein 7.8 (6.4-8.2) gm/dl Albumin 3.9 (3.4-5.0) gm/dl Lipase 94 (73-393) U/L COVID-19 Eval Order SARS-CoV-2 (PCR) (Negative) Influenza Type A (PCR) (Neg) Influenza Type B (PCR) (Neg) RSV (RT-PCR) (Neg) 06/03/20 06/03/20 Range/Units 20:27 20:27 WBC (4.8-10.8) K/uL RBC (4.7-6.1) M/uL Hgb (14.0-18.0) g/dL Hct (42-52) % MCV (80-100) fL MCH (25-34) pg MCHC (32-36) g/dL RDW Std Deviation (36.4-46.3) fL RDW Coeff of Saturnino (11.5-14.5) % Plt Count (130-400) K/uL MPV (7.4-10.4) fL Immature Gran % (Auto) % Neut % (Auto) % Lymph % (Auto) % Mccone % (Auto) % Eos % (Auto) % Baso % (Auto) % Neut # (Auto) (1.4-6.5) K/uL Lymph # (Auto) (1.2-3.4) K/uL Mccone # (Auto) (0.11-0.59) K/uL Eos # (Auto) (0-0.5) K/uL Baso # (Auto) (0-0.2) K/uL Immature Gran # (Auto) (0.00-0.02) K/uL PT (9.0-12.0) Seconds INR (0.9-1.1) APTT (21.0-31.0) Seconds PTT Ratio Sodium (136-145) mmol/L Potassium (3.5-5.1) mmol/L Chloride (98-107) mmol/L Carbon Dioxide (21-32) mmol/L Anion Gap (3-11) BUN (7-18) mg/dl Creatinine (0.6-1.4) mg/dl Est Cr Clr Drug Dosing ml/min Est GFR ( Amer) Est GFR (Non-Af Amer) BUN/Creatinine Ratio (10-20) Glucose (70-99) mg/dl Calcium (8.5-10.1) mg/dl Total Bilirubin (0.2-1) mg/dl Direct Bilirubin (0-0.2) mg/dl AST (15-37) U/L ALT (12-78) U/L Alkaline Phosphatase (45-117) U/L Total Protein (6.4-8.2) gm/dl Albumin (3.4-5.0) gm/dl Lipase (73-393) U/L COVID-19 Eval Order CovFluRsv at [facility] SARS-CoV-2 (PCR) NEGATIVE (Negative) Influenza Type A (PCR) Negative (Neg) Influenza Type B (PCR) Negative (Neg) RSV (RT-PCR) Negative (Neg) Imaging Data Radiologist's Impression: Abdomen/Pelvis CT 06/03/20 17:34 CT SCAN OF THE ABDOMEN AND PELVIS WITH IV CONTRAST CLINICAL HISTORY: Generalized abdominal pain. Vomiting. COMPARISON STUDY: Abdominal CT dated 09/15/2017. TECHNIQUE: Following the IV administration of 85 cc of Optiray 320, CT scan of the abdomen and pelvis is performed from the lung bases to the proximal femora. Images are reviewed in the axial, sagittal, and coronal planes. IV contrast was administered without complication. A dose lowering technique was utilized adhering to the principles of ALARA. CT DOSE: 404.14 mGy.cm FINDINGS: Lung bases: The heart is normal in size noting trace pericardial fluid. The coronary arteries are densely calcified. There is a small hiatal hernia. The lung bases are clear noting bibasilar scarring/atelectasis. Liver: The contrast-enhanced liver is normal in size, contour, and attenuation. There is no intrahepatic biliary ductal dilatation. The hepatic veins and portal veins are patent. Gallbladder: Unremarkable. Spleen: Normal in size and attenuation. Pancreas: Moderately atrophic and grossly unremarkable. Adrenal glands: Unremarkable. Kidneys: The contrast enhanced kidneys demonstrate mild cortical atrophy and are without hydronephrosis. The kidneys enhance symmetrically. There are least 2 nonobstructing right renal calculi measuring up to 8 mm. A 3 mm nonobstructing calculus is noted in the left kidney. Scattered subcentimeter cortical hypodensities likely represent cysts but are too small for definitive suzan racterization. Abdominal vasculature: The abdominal aorta is normal in course and caliber noting moderate to advanced atherosclerotic calcification. Bowel: There is postoperative change from ileocecal resection resections with bowel anastomoses in the right lower quadrant. The upstream small bowel loops are distended and fluid-filled measuring up to 2.8 cm diameter. A focal transition point is identified distal to a small bowel anastomosis in the right lower quadrant on image #202. The distal small bowel and colon are decompressed, the appearance is consistent with a small bowel obstruction. There is trace interloop fluid. No pneumatosis intestinalis or portal venous gas is identified. There is advanced colonic diverticulosis without CT evidence of acute diverticulitis. The appendix is surgically absent. There are large duodenal diverticula. Peritoneum: No intraperitoneal free air is identified. There is trace pelvic ascites. Lymphadenopathy: None. Pelvic viscera: The prostate gland is enlarged and heterogeneous noting median lobe hypertrophy. The bladder wall appears thickened and trabeculated indicating chronic outlet obstruction. There is evidence of previous right inguinal herniorrhaphy. Skeletal structures: The skeletal structures are osteopenic. There is mild l umbosacral spondylosis. No lytic or blastic lesions are seen. IMPRESSION: 1. There is postoperative change from ileocecal resections in the right lower quadrant with anastomoses. 2. Findings are consistent with a small bowel obstruction. The transition point is seen just below a small bowel anastomosis in the right lower quadrant as above. 3. There is trace interloop fluid and trace pelvic ascites. 4. There is no pneumatosis intestinalis, portal venous gas, or intraperitoneal free air. 5. Bilateral nephrolithiasis. 6. Advanced colonic diverticulosis without CT evidence of acute diverticulitis. 7. Additional findings as above. ACT 112: Negative or not required by law. Electronically signed by: Elia Rebollar M.D. 06/03/2020 7:14 PM MDM Narrative Vital signs stable. Labs within normal limits. CT does show small bowel obstruction. Patient will be admitted to the medicine service. [facility] [place] Pr[place] notified. Impression & Plan SBO (small bowel obstruction) Discharge Plan Visit Data Chief Complaint: Abdominal Pain Stated Complaint: ABDOMINAL PAIN ED Provider: Eldon Lyon Discharge Problem: SBO (small bowel obstruction) Patient Disposition: Admitted As Inpatient Discharge Instructions Interventions: ED Discharge Assessment Last Done: 06/03/20 22:35
[2020-06-03 18:28] LABS: Albumin Level 3.9 gm/dl (3.4-5.0); BUN Creatinine Ratio 18.3 (10-20); Bilirubin Direct 0.2 mg/dl (0-0.2); Calcium 9.1 mg/dl (8.5-10.1); Creatinine Clr Calc Pharmacy 73.2 ml/min; Est GFR (African American) 100.4; Est GFR (Non-African American) 86.6; Potassium 3.7 mmol/L (3.5-5.1)
[2020-06-03 18:37] LABS: Bilirubin,Total 0.9 mg/dl (0.2-1); Total Protein 7.8 gm/dl (6.4-8.2)
[2020-06-03] MEDS ORDERED: OPTIRAY 320 100ml IV ONE (18:54)
--- NOTE | 2020-06-03 19:15 | CT Scan Report ---
CT SCAN OF THE ABDOMEN AND PELVIS WITH IV CONTRAST CLINICAL HISTORY: Generalized abdominal pain. Vomiting. COMPARISON STUDY: Abdominal CT dated 09/15/2017. TECHNIQUE: Following the IV administration of 85 cc of Optiray 320, CT scan of the abdomen and pelvi s is performed from the lung bases to the proximal femora. Images are reviewed in the axial, sagittal , and coronal planes. IV contrast was administered without complication. A dose lowering technique wa s utilized adhering to the principles of ALARA. CT DOSE: 404.14 mGy.cm FINDINGS: Lung bases: The heart is normal in size noting trace pericardial fluid. The coronary arteries are den sely calcified. There is a small hiatal hernia. The lung bases are clear noting bibasilar scarring/at electasis. Liver: The contrast-enhanced liver is normal in size, contour, and attenuation. There is no intrahepa tic biliary ductal dilatation. The hepatic veins and portal veins are patent. Gallbladder: Unremarkable. Spleen: Normal in size and attenuation. Pancreas: Moderately atrophic and grossly unremarkable. Adrenal glands: Unremarkable. Kidneys: The contrast enhanced kidneys demonstrate mild cortical atrophy and are without hydronephros is. The kidneys enhance symmetrically. There are least 2 nonobstructing right renal calculi measuring up to 8 mm. A 3 mm nonobstructing calculus is noted in the left kidney. Scattered subcentimeter tracy ical hypodensities likely represent cysts but are too small for definitive characterization. Abdominal vasculature: The abdominal aorta is normal in course and caliber noting moderate to advance d atherosclerotic calcification. Bowel: There is postoperative change from ileocecal resection resections with bowel anastomoses in th e right lower quadrant. The upstream small bowel loops are distended and fluid-filled measuring up to 2.8 cm diameter. A focal transition point is identified distal to a small bowel anastomosis in the r ight lower quadrant on image #202. The distal small bowel and colon are decompressed, the appearance is consistent with a small bowel obstruction. There is trace interloop fluid. No pneumatosis intestin candido or portal venous gas is identified. There is advanced colonic diverticulosis without CT evidence of acute diverticulitis. The appendix is surgically absent. There are large duodenal diverticula. Peritoneum: No intraperitoneal free air is identified. There is trace pelvic ascites. Lymphadenopathy: None. Pelvic viscera: The prostate gland is enlarged and heterogeneous noting median lobe hypertrophy. The bladder wall appears thickened and trabeculated indicating chronic outlet obstruction. There is evide nce of previous right inguinal herniorrhaphy. Skeletal structures: The skeletal structures are osteopenic. There is mild lumbosacral spondylosis. N o lytic or blastic lesions are seen. IMPRESSION: 1. There is postoperative change from ileocecal resections in the right lower quadrant with anastomos es. 2. Findings are consistent with a small bowel obstruction. The transition point is seen just below a small bowel anastomosis in the right lower quadrant as above. 3. There is trace interloop fluid and trace pelvic ascites. 4. There is no pneumatosis intestinalis, portal venous gas, or intraperitoneal free air. 5. Bilateral nephrolithiasis. 6. Advanced colonic diverticulosis without CT evidence of acute diverticulitis. 7. Additional findings as above. ACT 112: Negative or not required by law. Electronically signed by: Elia Rebollar M.D. 06/03/2020 7:14 PM
[2020-06-03 19:30] LABS: Partial Thromboplastin Ratio 0.9; Partial Thromboplastin Time 23.2 Seconds (21.0-31.0); Prothrombin Time 10.6 Seconds (9.0-12.0)
[2020-06-03 21:22] LABS: Influenza A virus by PCR Negative (Neg); Influenza B virus by PCR Negative (Neg); RSV by PCR Negative (Neg); SARS CoV2 RNA(COVID-19) InHosp NEGATIVE (Negative)
--- NOTE | 2020-06-03 22:11 | Surgery Consultation ---
Date of Consultation June 03, 2020 Assessment & Plan (1) Small bowel obstruction: Patient small bowel obstruction are likely on the basis of adhesions from previous surgeries. He is being admitted to the hospital by the medical service. We recommend proceeding as follows: Provide analgesics Provide antiemetics Keep patient n.p.o. Provide IV fluid for hydration I discussed with the patient that if any nausea vomiting ensue or his belly becomes more distended or painful he require an NG tube. As patient is comfortable without any further nausea vomiting this time we can hold at this modality for the present time. Continue to follow along while patient is hospitalized History of Present Illness Reason for Consultation: Small bowel obstruction History of Present Illness This is a 79-year-old male who presented to the emergency department secondary to abdominal pain. Patient notes he was in his usual state of health yesterday however earlier today he developed abdominal pain with associated nausea vomiting on numerous occasions. Patient does note that he has had multiple abdominal surgeries related to diverticulitis. These include partial colon resections as well as an ostomy with subsequent reversal. Patient denies any fevers, shakes, chills. He says he did feel somewhat better after vomiting. He denies any additional provocative factors he denies any other palliative factors other than pain medicine that was administered in the emergency department. He does note that his bowels have been moving normally over the past 24 hours. In the emergency department the patient had labs and imaging which were independently reviewed by myself. CBC revealed his white blood cell count, hemoglobin, hematocrit, and platelet count were all within normal range. Chemistry profile showed his sodium, potassium, BUN, and creatinine were all within normal range. A Covid test was performed and was noted to be negative. CT scan of the abdomen showed findings consistent with a small bowel obstruction with a chest transition point in the right lower quadrant. There is no pneumatosis or portal venous gas. There is no free air. At the time of my interview the patient was pain-free and he was in no distress. Allergies Allergy/AdvReac Type Severity Reaction Status Date / Time No Known Drug Allergies Allergy Verified 06/03/20 20:06 Home Medications Medication Instructions Recorded Confirmed Type cholecalciferol (vitamin D3) 25 1,000 units PO QAM cap 10/06/18 06/03/20 History mcg (1,000 unit) capsule cyanocobalamin (vitamin B-12) 1,000 mcg PO QAM #30 tab 10/06/18 06/03/20 History 1,000 mcg tablet psyllium husk 3.4 gram/5.4 gram 1 tbs PO QAM gm 10/06/18 06/03/20 History oral powder aspirin [Aspirin Low Dose] 81 mg PO QAM 11/14/19 06/03/20 History potassium gluconate 595 mg PO QAM 11/14/19 06/03/20 History omeprazole 20 mg capsule,delayed 20 mg PO QAM #90 cap 01/04/20 06/03/20 Rx release Patient History Medical History (Updated 06/03/20 @ 22:10 by Edgardo aCmargo PA-C) Acute diverticulitis (08/08/13) hx Chronic back pain Diverticulosis of colon Hepatic steatosis Hiatal hernia History of esophageal dilatation Hypercholesterolemia Left leg DVT pt unsure of details. Low back pain Osteoarthritis Osteopenia Perforated diverticulitis Schatzki's ring Small bowel obstruction (2014) Type 2 diabetes mellitus no medications currently. monitoring with PCP. Surgical History History of colostomy History of colostomy reversal History of esophagogastroduodenoscopy (EGD) Hx of appendectomy Hx of colectomy Hx of colonoscopy Hx of inguinal hernia repair Hx of tonsillectomy Family History Family/Other Aorta aneurysm Perceptive hearing loss or deafness Mother Alcoholism /alcohol abuse Lung disease Lung cancer Father Alcoholism /alcohol abuse Lung disease Brother Diabetes Primary hemochromatosis Denies family history of Colon cancer Ovarian cancer Prostate cancer Myocardial infarction Breast cancer Colorectal cancer Hypertension Stroke Asthma Social History Smoking Status: Former smoker Second Hand Exposure: No; Hx Alcohol Use: Yes (quit several years ago) Hx Substance Use: No Preferred Language: Jamaican Communication Ability: Effective Visual Impairment: No Limitations 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: Normal Ladle Liner Required: No Beliefs That Will Affect Care: None marital status: Single Current Living Situation: Alone current occupational status: retired current occupation: [employer] Feels Safe at Home: Yes Dental Care, Regularly: No Physical Activity Frequency: 1-2 Times per Week Seatbelt Use: always Assistive Devices: Glasses Review of Systems Constitutional: no fever and no chills Eyes: no diplopia Ear, Nose, Mouth, Throat: no ear pain Respiratory: no cough and no dyspnea Cardiovascular: no chest pain Gastrointestinal: + abdominal pain, + nausea and + vomiting Genitourinary: no dysuria Musculoskeletal: no back pain Integumentary: no rash Neurologic: no localized weakness Physical Exam Constitutional: well developed and well nourished; no acute distress Eyes: no conjunctival abnormality ENMT: Ears: no hearing impairment Neck: trachea midline Respiratory: normal respiratory effort, lungs clear to auscultation Cardiovascular: Rate/Rhythm: regular rate and regular rhythm Gastrointestinal (Abdomen): Abdomen is soft and nondistended. Bowel sounds are present. There is minimal pain with palpation. There is no rebound tenderness or guarding. Musculoskeletal: No calf tenderness Skin: normal turgor Neurologic: moves all extremities Psychiatric: A+Ox3, euthymic affect Results & Data ([facility]) Vital Signs (Past 12 Hours) Vital Signs Temp Pulse Pulse Resp BP BP Pulse Ox 06/03/20 20:20 79 22 95 06/03/20 20:15 79 18 115/65 95 06/03/20 20:01 84 19 94 06/03/20 20:00 84 18 107/69 96 06/03/20 19:45 85 15 138/79 97 06/03/20 19:40 86 13 97 06/03/20 19:30 86 22 124/70 96 06/03/20 19:20 85 16 97 06/03/20 19:15 85 21 117/71 97 06/03/20 19:05 88 18 134/78 99 06/03/20 19:04 89 18 95 06/03/20 18:40 87 16 06/03/20 18:30 88 19 122/65 06/03/20 18:20 86 20 06/03/20 18:19 87 17 06/03/20 17:29 36.8 C 90 18 155/90 H 99 06/03/20 16:15 36.0 C L 104 H 18 125/59 L 96 PG Care Time/CCT Total # of Minutes Spent Total Time Spent with Patient: Total time spent is greater than 50% in coordination of care (as documented) at patient's floor/unit and/or counseling patient: Coding Level of Care Code 91195 Inpt Consult Level 5 Diagnoses Small bowel obstruction K56.609
--- NOTE | 2020-06-03 22:43 | History & Physical Report ---
Date of Service June 03, 2020 Assessment & Plan (1) SBO (small bowel obstruction): Small bowel obstruction/history of previous abdominal surgeries, history of colostomy and then reversal- NPO Zofran 4 mg IV every 6 hours as needed Famotidine 20 mg IV every 12 hours Zosyn 4.5 g IV every 8 hours NSS + KCl 20 mEq at 100 mils per hour Acetaminophen 1 g IV every 8 hours as needed mild pain or temperature No NG tube at this time Consult general surgery Present on Admission?: Yes (2) Schatzki's ring: Hiatal hernia/Schatzki's ring- Hold omeprazole while n.p.o., and placed on famotidine 20 mg IV every 12 hours as noted Present on Admission?: Yes (3) Hiatal hernia: See above Present on Admission?: Yes Admission and Anticipated Discharge Date Admission Date: June 03, 2020 History of Present Illness Chief Complaint: The patient presents to the emergency department with complaint of acute onset of mid and lower abdominal pain upon awakening this morning, without relieved by [place], and worsened as the day progressed. Later accompanied by nausea and 5 episodes of vomiting. Primary Care Provider: Carmelo Mason MD The patient is a 79-year-old male with a past medical history including hypertension, anemia, left lower extremity DVT, vitamin D deficiency, vitamin B12 deficiency, erectile dysfunction, hepatic steatosis, hiatal hernia, hypercholesterolemia, Schatzki's ring, diabetes mellitus type 2, previous small bowel obstruction 2014, previous surgery for SBO, with temporary colostomy and then reversal. Work-up in the emergency department included is a CT scan of abdomen and pelvis, which showed findings consistent with small bowel ob struction with a transition point in the right lower quadrant, without signs of perforation. Laboratory studies were overall normal, and patient was referred to the medical service for admission. Patient was seen by general surgery in the emergency department and will follow along during admission Allergies Allergy/AdvReac Type Severity Reaction Status Date / Time No Known Drug Allergies Allergy Verified 06/03/20 20:06 Home Medications Medication Instructions Recorded Confirmed Type cholecalciferol (vitamin D3) 25 1,000 units PO QAM cap 10/06/18 06/03/20 History mcg (1,000 unit) capsule cyanocobalamin (vitamin B-12) 1,000 mcg PO QAM #30 tab 10/06/18 06/03/20 History 1,000 mcg tablet psyllium husk 3.4 gram/5.4 gram 1 tbs PO QAM gm 10/06/18 06/03/20 History oral powder aspirin [Aspirin Low Dose] 81 mg PO QAM 11/14/19 06/03/20 History potassium gluconate 595 mg PO QAM 11/14/19 06/03/20 History omeprazole 20 mg capsule,delayed 20 mg PO QAM #90 cap 01/04/20 06/03/20 Rx release Past Med/Surg History Medical History (Updated 06/04/20 @ 00:33 by Eldon Lyon) Acute diverticulitis (08/08/13) hx Chronic back pain Diverticulosis of colon Hepatic steatosis Hiatal hernia History of esophageal dilatation Hypercholesterolemia Left leg DVT pt unsure of details. Low back pain Osteoarthritis Osteopenia Perforated diverticulitis Schatzki's ring Small bowel obstruction (2014) Type 2 diabetes mellitus no medications currently. monitoring with PCP. Surgical History History of colostomy History of colostomy reversal History of esophagogastroduodenoscopy (EGD) Hx of appendectomy Hx of colectomy Hx of colonoscopy Hx of inguinal hernia repair Hx of tonsillectomy Family History Family/Other Aorta aneurysm Perceptive hearing loss or deafness Mother Alcoholism /alcohol abuse Lung disease Lung cancer Father Alcoholism /alcohol abuse Lung disease Brother Diabetes Primary hemochromatosis Denies family history of Colon cancer Ovarian cancer Prostate cancer Myocardial infarction Breast cancer Colorectal cancer Hypertension Stroke Asthma Social History Smoking Status: Former smoker Second Hand Exposure: No; Do You Dip or Chew Tobacco: No; Tobacco Cessation Education Requested by Patient: No Hx Alcohol Use: No Hx Substance Use: No Preferred Language: Macedonian Communication Ability: Effective Visual Impairment: No Limitations 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: Normal Duplicating Machine Mechanic Required: No Beliefs That Will Affect Care: None marital status: Single Current Living Situation: Alone current occupational status: retired current occupation: [employer] Other Information That Helps Us Care for You: No Feels Safe at Home: Yes Safety Concerns: Feels Safe At This Time Dental Care, Regularly: No Physical Activity Frequency: 1-2 Times per Week Seatbelt Use: always Assistive Devices: Glasses Assistive Devices Comment: Reading glasses. Review of Systems Review of Systems: The patient denies chest pain, palpitations, shortness of breath, dyspnea on exertion, cough, lower extremity swelling, sore throat, fevers, chills, sweats, blood in urine or stool, dysuria, urinary frequency or urgency, lightheadedness, dizziness, headache, memory loss, loss of consciousness, rash, abnormal bruising or bleeding, imbalance, focal or generalized weakness, numbness or tingling in arms or legs, generalized arthralgias or myalgias, back or neck pain, or night sweats. The review of systems is otherwise negative other than for that already noted above, and at least 10 systems have been reviewed. Physical Exam Physical Exam: The patient is awake, alert and oriented 3, well developed and well nourished, normocephalic and atraumatic, lying in bed and in no acute distress. HEENT--PERRL, EOMI, mucous membranes and oropharynx dry. Neck--supple. No JVD. No bruits. Thyroid normal, trachea midline, no adenopathy. Heart--normal S1 and S2. No murmurs, rubs or gallops. Lungs--clear bilaterally, no respiratory distress, no accessory muscle use. Abdomen--normal bowel sounds and soft. Tenderness and mid and lower abdomen. Mildly distended. Extremities--no cyanosis or clubbing. No edema. Dermatologic--normal skin turgor, normal color, no abnormal lymph nodes, no rash. Neurologic--cranial nerves II through XII grossly intact. Rheumatologic--normal range of motion. Psychiatric--normal affect. Results & Data Results & Data ([facility]) Vital Signs (Past 12 Hours) Vital Signs Temp Pulse Pulse Resp BP BP Pulse Ox 06/03/20 22:20 18 96 06/03/20 22:15 17 124/76 96 06/03/20 22:01 18 96 06/03/20 22:00 18 127/70 96 06/03/20 21:45 20 115/74 96 06/03/20 21:40 22 95 06/03/20 21:30 21 120/91 96 06/03/20 21:20 18 98 06/03/20 21:15 77 16 122/67 95 06/03/20 21:01 76 16 95 06/03/20 21:00 78 17 125/66 95 06/03/20 20:45 78 19 101/66 96 06/03/20 20:40 100 H 21 94 06/03/20 20:31 94 H 20 127/86 94 06/03/20 20:20 79 22 95 06/03/20 20:15 79 18 115/65 95 06/03/20 20:01 84 19 94 06/03/20 20:00 84 18 107/69 96 06/03/20 19:45 85 15 138/79 97 06/03/20 19:40 86 13 97 06/03/20 19:30 86 22 124/70 96 06/03/20 19:20 85 16 97 06/03/20 19:15 85 21 117/71 97 06/03/20 19:05 88 18 134/78 99 06/03/20 19:04 89 18 95 06/03/20 18:40 87 16 06/03/20 18:30 88 19 122/65 06/03/20 18:20 86 20 06/03/20 18:19 87 17 06/03/20 17:29 98.2 F 90 18 155/90 H 99 06/03/20 16:15 96.8 F L 104 H 18 125/59 L 96 Laboratory Results Laboratory Results WBC 9.45 K/uL (4.8-10.8) 06/03/20 17:40 RBC 4.37 M/uL (4.7-6.1) L 06/03/20 17:40 Hgb 15.4 g/dL (14.0-18.0) 06/03/20 17:40 Hct 42.8 % (42-52) 06/03/20 17:40 MCV 97.9 fL (80-100) 06/03/20 17:40 MCH 35.2 pg (25-34) H 06/03/20 17:40 MCHC 36.0 g/dL (32-36) 06/03/20 17:40 RDW Std Deviation 45.0 fL (36.4-46.3) 06/03/20 17:40 RDW Coeff of [place] 12.5 % (11.5-14.5) 06/03/20 17:40 Plt Count 194 K/uL (130-400) 06/03/20 17:40 MPV 9.6 fL (7.4-10.4) 06/03/20 17:40 Immature Gran % (Auto) 0.2 % 06/03/20 17:40 Neut % (Auto) 91.2 % 06/03/20 17:40 Lymph % (Auto) 4.9 % 06/03/20 17:40 [place] % (Auto) 3.5 % 06/03/20 17:40 Eos % (Auto) 0.0 % 06/03/20 17:40 Baso % (Auto) 0.2 % 06/03/20 17:40 Neut # (Auto) 8.62 K/uL (1.4-6.5) H 06/03/20 17:40 Lymph # (Auto) 0.46 K/uL (1.2-3.4) L 06/03/20 17:40 [place] # (Auto) 0.33 K/uL (0.11-0.59) 06/03/20 17:40 Eos # (Auto) 0.00 K/uL (0-0.5) 06/03/20 17:40 Baso # (Auto) 0.02 K/uL (0-0.2) 06/03/20 17:40 Immature Gran # (Auto) 0.02 K/uL (0.00-0.02) 06/03/20 17:40 PT 10.6 Seconds (9.0-12.0) 06/03/20 19:02 INR 1.0 (0.9-1.1) 06/03/20 19:02 APTT 23.2 Seconds (21.0-31.0) 06/03/20 19:02 PTT Ratio 0.9 06/03/20 19:02 Sodium 140 mmol/L (136-145) 06/03/20 17:40 Potassium 3.7 mmol/L (3.5-5.1) 06/03/20 17:40 Chloride 109 mmol/L (98-107) H 06/03/20 17:40 Carbon Dioxide 23 mmol/L (21-32) 06/03/20 17:40 Anion Gap 8.0 (3-11) 06/03/20 17:40 BUN 14 mg/dl (7-18) 06/03/20 17:40 Creatinine 0.79 mg/dl (0.6-1.4) 06/03/20 17:40 Est Cr Clr Drug Dosing 73.2 ml/min 06/03/20 17:40 Est GFR ( Amer) 100.4 06/03/20 17:40 Est GFR (Non-Af Amer) 86.6 06/03/20 17:40 BUN/Creatinine Ratio 18.3 (10-20) 06/03/20 17:40 Glucose 218 mg/dl (70-99) H 06/03/20 17:40 Calcium 9.1 mg/dl (8.5-10.1) 06/03/20 17:40 Total Bilirubin 0.9 mg/dl (0.2-1) 06/03/20 17:40 Direct Bilirubin 0.2 mg/dl (0-0.2) 06/03/20 17:40 AST 37 U/L (15-37) 06/03/20 17:40 ALT 45 U/L (12-78) 06/03/20 17:40 Alkaline Phosphatase 118 U/L (45-117) H 06/03/20 17:40 Total Protein 7.8 gm/dl (6.4-8.2) 06/03/20 17:40 Albumin 3.9 gm/dl (3.4-5.0) 06/03/20 17:40 Lipase 94 U/L (73-393) 06/03/20 17:40 COVID-19 Eval Order [facility]FluRsv at [facility] 06/03/20 20:27 SARS-CoV-2 (PCR) NEGATIVE (Negative) 06/03/20 20:27 Influenza Type A (PCR) Negative (Neg) 06/03/20 20:27 Influenza Type B (PCR) Negative (Neg) 06/03/20 20:27 RSV (RT-PCR) Negative (Neg) 06/03/20 20:27 Impressions Abdomen/Pelvis CT 06/03/20 17:34 CT SCAN OF THE ABDOMEN AND PELVIS WITH IV CONTRAST CLINICAL HISTORY: Generalized abdominal pain. Vomiting. COMPARISON STUDY: Abdominal CT dated 09/15/2017. TECHNIQUE: Following the IV administration of 85 cc of Optiray 320, CT scan of the abdomen and pelvis is performed from the lung bases to the proximal femora. Images are reviewed in the axial, sagittal, and coronal planes. IV contrast was administered without complication. A dose lowering technique was utilized adhering to the principles of ALARA. CT DOSE: 404.14 mGy.cm FINDINGS: Lung bases: The heart is normal in size noting trace pericardial fluid. The coronary arteries are densely calcified. There is a small hiatal hernia. The lung bases are clear noting bibasilar scarring/atelectasis. Liver: The contrast-enhanced liver is normal in size, contour, and attenuation. There is no intrahepatic biliary ductal dilatation. The hepatic veins and portal veins are patent. Gallbladder: Unremarkable. Spleen: Normal in size and attenuation. Pancreas: Moderately atrophic and grossly unremarkable. Adrenal glands: Unremarkable. Kidneys: The contrast enhanced kidneys demonstrate mild cortical atrophy and are without hydronephrosis. The kidneys enhance symmetrically. There are least 2 nonobstructing right renal calculi measuring up to 8 mm. A 3 mm nonobstructing calculus is noted in the left kidney. Scattered subcentimeter cortical hypodensities likely represent cysts but are too small for definitive characterization. Abdominal vasculature: The abdominal aorta is normal in course and caliber noting moderate to advanced atherosclerotic calcification. Bowel: There is postoperative change from ileocecal resection resections with bowel anastomoses in the right lower quadrant. The upstream small bowel loops are distended and fluid-filled measuring up to 2.8 cm diameter. A focal transition point is identified distal to a small bowel anastomosis in the right lower quadrant on image #202. The distal small bowel and colon are decompressed, the appearance is consistent with a small bowel obstruction. There is trace interloop fluid. No pneumatosis intestinalis or portal venous gas is identified. There is advanced colonic diverticulosis without CT evidence of acute diverticulitis. The appendix is surgically absent. There are large duodenal diverticula. Peritoneum: No intraperitoneal free air is identified. There is trace pelvic ascites. Lymphadenopathy: None. Pelvic viscera: The prostate gland is enlarged and heterogeneous noting median lobe hypertrophy. The bladder wall appears thickened and trabeculated indicating chronic outlet obstruction. There is evidence of previous right inguinal herniorrhaphy. Skeletal structures: The skeletal structures are osteopenic. There is mild lumbosacral spondylosis. No lytic or blastic lesions are seen. IMPRESSION: 1. There is postoperative change from ileocecal resections in the right lower quadrant with anastomoses. 2. Findings are consistent with a small bowel obstruction. The transition point is seen just below a small bowel anastomosis in the right lower quadrant as above. 3. There is trace interloop fluid and trace pelvic ascites. 4. There is no pneumatosis intestinalis, portal venous gas, or intraperitoneal free air. 5. Bilateral nephrolithiasis. 6. Advanced colonic diverticulosis without CT evidence of acute diverticulitis. 7. Additional findings as above. ACT 112: Negative or not required by law. Electronically signed by: Elia Rebollar M.D. 06/03/2020 7:14 PM Code Status & VTE Plan Code Status Full code VTE Prophylaxis Plan VTE Prophylaxis will be ordered: Yes PG Care Time/CCT Total # of Minutes Spent Total Time Spent with Patient: Total time spent is greater than 50% in coor dination of care (as documented) at patient's floor/unit and/or counseling patient: Coding Level of Care Code 46668 Initial Inpt Care Lvl 2 Diagnoses SBO (small bowel obstruction) K56.609 Schatzki's ring K22.2 Hiatal hernia K44.9
[2020-06-03] MEDS: NSS + 20MEQ KCL 20 MEQ/1,000 ML BAG IV SCH (23:14)
[2020-06-03] MEDS: FAMOTIDINE 20 MG in SYRINGE 3 ML IV SCH (23:14)
[2020-06-03] MEDS ORDERED: PIPERACILL/TAZOBAC CONSULT ACTIVE PRN (23:14)
[2020-06-03] MEDS ORDERED: ACETAMINOPHEN 1,000 MG/100 ML VIAL IV PRN (23:14)
[2020-06-03] MEDS ORDERED: ONDANSETRON INJ 2 MG/ML 2 ML VIAL IV PRN (23:14)
[2020-06-03] MEDS ORDERED: PIPERACILLIN/TAZOBACTAM 3.375 GM in DEXTROSE 5% 100 ML IV ONE (23:30)
[2020-06-04] MEDS ORDERED: KETOROLAC TROMETHAMINE 10 MG TABLET PO STA (00:43)
[2020-06-04] MEDS ORDERED: KETOROLAC TROMETHAMINE 15 MG/ML VIAL IV ONE (01:17)
[2020-06-04] MEDS ORDERED: PIPERACILLIN/TAZOBACTAM 3.375 GM in DEXTROSE 5% 100 ML IV SCH (06:00)
[2020-06-04] MEDS: FAMOTIDINE 20 MG in SYRINGE 3 ML IV SCH ×2 (08:21→21:14)
[2020-06-04 08:29] LABS: Estimated Average Glucose 126 mg/dl
[2020-06-04 08:45] LABS: Chol HDL Ratio 3; Cholesterol 142 mg/dl (0-200); HDL Cholesterol 50 mg/dl; LDL Cholesterol Calculated 73 mg/dl; Triglycerides 93 mg/dl (0-150); VLDL Cholesterol 19 mg/dl
[2020-06-04] MEDS: NSS + 20MEQ KCL 20 MEQ/1,000 ML BAG IV SCH ×2 (09:43→19:16)
--- NOTE | 2020-06-04 10:39 | Surgery Progress Note ---
Date of Service June 04, 2020 Assessment & Plan (1) SBO (small bowel obstruction): clinically doing better. will check kub today...if improved will start clears. if still shows sbo obstruction will keep npo. IVF will continue to follow closely. Admission and Anticipated Discharge Date Admission Date: June 03, 2020 Subjective pt feeling much better. no more pain or nausea. no bowel fx yet. Physical Exam Constitutional: WD/WN, vitals as above no acute distress and not ill appearing Eyes: PERRL, conjunctivae normal, anicteric sclerae EOM intact bilaterally ENMT: external ear and nose normal, oropharynx normal Ears: no hearing impairment Neck: trachea midline, no thyromegaly Respiratory: normal respiratory effort; no respiratory distress and does not use accessory muscles Cardiovascular: Rate/Rhythm: regular rate and regular rhythm Gastrointestinal (Abdomen): soft. nt/nd. minimal bs's. multiple lower abdominal surgical scars. no palpable hernias. Skin: no rashes, warm and dry Psychiatric: Orientation: alert, oriented x 3 and cooperative Results & Data ([facility]) Vital Signs (Past 12 Hours) Vital Signs Temp Pulse Resp BP BP Pulse Ox 06/04/20 07:36 36.9 C 74 16 155/76 H 98 06/03/20 23:00 36.7 C 75 14 137/73 97 06/03/20 22:45 136/72 96 06/03/20 22:40 98 PG Care Time/CCT Total # of Minutes Spent Total Time Spent with Patient: Total time spent is greater than 50% in coordination of care (as documented) at patient's floor/unit and/or counseling patient: Coding Level of Care Code 29649 Subseq Hosp Care Lvl 3 Diagnoses SBO (small bowel obstruction) K56.609
--- NOTE | 2020-06-04 11:05 | XRay Report ---
KUB HISTORY: Acute generalized abdominal pain with small bowel obstruction sbo COMPARISON: CT 06/03/2020 FINDINGS: There are persistent and mildly progressed air-filled loops of small bowel within the centr al abdomen measuring up to 3.7 cm transversely. Contrast is noted within the urinary bladder. Air is also seen within the large bowel. Surgical suture material noted within the right lateral midabdomen. Pelvic basin phlebolith. Mild lumbar levoscoliosis. No renal calculi. No ureteral calculi. No pneum operitoneum or pneumatosis. No fracture. IMPRESSION: Small bowel obstruction with persistent mildly progressed small bowel dilation. ACT 112: Negative or not required by law. The above report was generated using voice recognition software. It may contain grammatical, syntax o r spelling errors. Electronically signed by: Dagoberto Cortez M.D. 06/04/2020 11:03 AM
--- NOTE | 2020-06-04 11:19 | Hospitalist Progress Note ---
Date of Service June 04, 2020 Assessment & Plan (1) SBO (small bowel obstruction): Eleuterio Robertson is a 79 yo male with h/o small bowel obstruction in 2015 (s/p resection with colostomy followed by reversal several months later), hiatal hernia, Schtazki ring and h/o DVTs, who was admitted to [facility] on 06/03/2020 for small bowel obstruction. Currently clinically improved with minimal symptoms although SBO still present per imaging. Small Bowel Obstruction H/o SBO, several previous abdominal surgeries, presented with acute onset abdominal pain with N/V, CT showing SBO with transition point just distal to previous anastomosis in RLQ --> SBO - received IVFs and Zofran in the ED, and started on Zosyn - symptoms significantly improved but SBO still present per KUB today - surgery on board, appreciate recs - d/c Zosyn - keep NPO for now, will advance as tolerated after serial KUB tomorrow morning - continue IVFs with NSS +20mEq KCl at 100cc/hr - PRN Zofran for N/V Hiatal Hernia/Schatzki Ring - continue Famotidine 20mg IV Q12H while NPO T2DM - no medications at home, A1c 6.0 today FEN/GI: NPO, NSS +20mEq KCl at 100cc/hr DVT Prophylaxis: Lovenox 40mg SQ QAM Code Status: Full code Disposition: Med/surg Admission and Anticipated Discharge Date Admission Date: June 03, 2020 Supervising Physician Co-Signing Physician Notes I personally examined the patient and verified all rojas points of history and exam, discussed case, and agree with decision making with Dr Kelley. Feeling a good bit better. Feeling hungry, having some flatus, no abdominal pain. Vitals noted, in general he is awake and alert pleasant no distress. HEENT normocephalic atraumatic mucous membranes moist. Abdomen soft mildly distended nontender no guarding no rebound no masses no organomegaly Adhesional small bowel obstructionclinically seems to be much improved. His x- ray was stable from this morning comparing to the CT yesterday rather than improved, but given that I saw him probably 6 or 7 hours after the x-ray was taken and he has shown so much clinical improvement, cautiously we will give trial to clear liquid diet and see how he does. Discussed to not push the diet, and if he feels any pain bloating or nausea to stop eating, but otherwise we can try clears and then hopefully start to advance. Otherwise as above Subjective No nausea or vomiting since arrival in the ED and given anti-emetics. This morning patient reports that abdominal pain is resolved since coming to the hospital. He denies fever/chills, chest pain, palpitations, SOB. Review of Systems 2 Review of Systems: Pertinent positives and negatives mentioned in HPI Physical Exam Physical Exam: General: A&Ox3. NAD. Cooperative. HEENT: Atraumatic, normocephalic. Pulm: CTAB A&P. -wheezes, -rales, -rhonchi. Symmetrical chest rise. No increase work of breathing. No respiratory distress. Cardiac: RRR, -mrg. Radial pulses intact and symmetrical. Abdominal: soft, non-tender, mildly distended, hyperactive BS x 4, previous laparotomy scar and RLQ surgical scar without palpated incisional hernias Results & Data Results & Data ([place]) Vital Signs (Past 12 Hours) Vital Signs Temp Pulse Resp BP Pulse Ox 06/04/20 07:36 36.9 C 74 16 155/76 H 98 Resident Activity Tracking Resident Involvement: Resident Care Provided Care Provided: Adult Hospital Medicine
[2020-06-04] MEDS: ENOXAPARIN INJ 40 MG/0.4 ML SYR SQ SCH (12:24)
--- NOTE | 2020-06-04 20:19 | Billing Data ---
Date of Service June 04, 2020 Coding Level of Care Code 38956 Subseq Hosp Care Lvl 3
[2020-06-05] MEDS: NSS + 20MEQ KCL 20 MEQ/1,000 ML BAG IV SCH (04:40)
[2020-06-05 07:29] LABS: Basophils # (auto) 0.01 K/uL (0-0.2); Basophils % (auto) 0.2 %; Eosinophils # (auto) 0.13 K/uL (0-0.5); Eosinophils % (auto) 2.9 %; Hematocrit (blood only) 34.6 % (42-52); Hemoglobin 11.8 g/dL (14.0-18.0); Immature Granulocytes # (auto) 0.01 K/uL (0.00-0.02); Immature Granulocytes % (auto) 0.2 %; Lymphocytes # (auto) 1.17 K/uL (1.2-3.4); Lymphocytes % (auto) 26.2 %; Mean Corpuscular Hemoglobin 34.2 pg (25-34); Mean Corpuscular Hgb Conc 34.1 g/dL (32-36); Mean Corpuscular Volume 100.3 fL (80-100); Mean Platelet Volume 9.4 fL (7.4-10.4); Monocytes # (auto) 0.45 K/uL (0.11-0.59); Monocytes % (auto) 10.1 %; Neutrophils % (auto) 60.4 %; Platelet Count 160 K/uL (130-400); RDW Coefficient of Variation 12.8 % (11.5-14.5); RDW Standard Deviation 46.3 fL (36.4-46.3); Red Blood Count 3.45 M/uL (4.7-6.1); White Blood Count 4.47 K/uL (4.8-10.8)
[2020-06-05 07:52] LABS: BUN Creatinine Ratio 19.6 (10-20); Calcium 7.4 mg/dl (8.5-10.1); Creatinine Clr Calc Pharmacy 101.5 ml/min; Est GFR (African American) 114.8; Potassium 3.7 mmol/L (3.5-5.1)
--- NOTE | 2020-06-05 08:39 | XRay Report ---
KUB HISTORY: Small bowel obstruction. Follow-up. COMPARISON: KUB 06/04/2020. FINDINGS: Slight improvement in the mildly dilated gas-filled loops of small bowel seen within the ab domen. There is gas and stool seen within the nondistended colon. No renal calculi. No ureteral calc roberto. No pneumoperitoneum or pneumatosis. Suture material within the right side the abdomen consistent with postoperative change. IMPRESSION: Slight improvement in the mildly dilated gas-filled loops of small bowel suggestive of a partial smal l bowel obstruction. ACT 112: Negative or not required by law. Electronically signed by: Vu Graves M.D. 06/05/2020 8:38 AM
--- NOTE | 2020-06-05 08:52 | Surgery Progress Note ---
Date of Service June 05, 2020 Assessment & Plan (1) SBO (small bowel obstruction): Patient here with SBO Is passing + flatus, no BM yet. Has some intermittent lower abdominal discomfort Abdomen is soft, non tender, non distended He was started on clear liquids yesterday of which he has tolerated and denies n/v KUB this AM revealed slight improvement in the mildly dilated gas-filled loops of small bowel suggestive of a partial small bowel obstruction Will plan to remain on clear liquids for now until continued symptom improvement and further return of bowel function as above. still with some mild lower abdominal discomfort. +flatus but no bm yet...would hold on liquids until bowel fx. if regresses may need sbft. will continue to follow closely. Admission and Anticipated Discharge Date Admission Date: June 03, 2020 Subjective Patient states he is feeling well. Denies nausea/vomiting. Tolerating clear liquids. Still has some intermittent lower abdominal discomfort. He is passing flatus, no BM yet. He has been ambulating the halls. Physical Exam Physical Exam: awake/alert Constitutional: well developed and well nourished; no acute distress Gastrointestinal (Abdomen): Inspection/Auscultation: abdomen not distended Percussion/Palpation: + abdomen tender and abdomen soft Results & Data ([facility]) Vital Signs (Past 12 Hours) Vital Signs Temp Pulse Resp BP BP Pulse Ox 06/05/20 07:18 36.4 C L 71 18 120/74 97 06/05/20 00:21 36.6 C 66 16 127/71 94 PG Care Time/CCT Total # of Minutes Spent Total Time Spent with Patient: Total time spent is greater than 50% in coordination of care (as documented) at patient's floor/unit and/or counseling patient: Coding Level of Care Code 87264 Subseq Hosp Care Lvl 3 Diagnoses SBO (small bowel obstruction) K56.609
[2020-06-05] MEDS: FAMOTIDINE 20 MG in SYRINGE 3 ML IV SCH (09:27)
[2020-06-05] MEDS: ENOXAPARIN INJ 40 MG/0.4 ML SYR SQ SCH (09:28)
--- NOTE | 2020-06-05 12:12 | Discharge Summary ---
Date of Service June 05, 2020 Admission HPI Per Admitting Provider The patient is a 79-year-old male with a past medical history including hypertension, anemia, left lower extremity DVT, vitamin D deficiency, vitamin B12 deficiency, erectile dysfunction, hepatic steatosis, hiatal hernia, hypercholesterolemia, Schatzki's ring, diabetes mellitus type 2, previous small bowel obstruction 2015, previous surgery for SBO, with temporary colostomy and then reversal. Work-up in the emergency department included is a CT scan of abdomen and pelvis, which showed findings consistent with small bowel obstruction with a transition point in the right lower quadrant, without signs of perforation. Laboratory studies were overall normal, and patient was referred to the medical service for admission. Patient was seen by general surgery in the emergency department and will follow along during admission Admission Exam Per Admitting Provider The patient is awake, alert and oriented 3, well developed and well nourished, normocephalic and atraumatic, lying in bed and in no acute distress. HEENT--PERRL, EOMI, mucous membranes and oropharynx dry. Neck--supple. No JVD. No bruits. Thyroid normal, trachea midline, no adenopathy. Heart--normal S1 and S2. No murmurs, rubs or gallops. Lungs--clear bilaterally, no respiratory distress, no accessory muscle use. Abdomen--normal bowel sounds and soft. Tenderness and mid and lower abdomen. Mildly distended. Extremities--no cyanosis or clubbing. No edema. Dermatologic--normal skin turgor, normal color, no abnormal lymph nodes, no rash. Neurologic--cranial nerves II through XII grossly intact. Rheumatologic--normal range of motion. Psychiatric--normal affect. Principal Diagnosis Small Bowel Obstruction Discharge Exam General: A&Ox3. NAD. Cooperative. HEENT: Atraumatic, normocephalic. Pulm: CTAB A&P. -wheezes, -rales, -rhonchi. Symmetrical chest rise. No increase work of breathing. No respiratory distress. Cardiac: RRR, -mrg. Radial pulses intact and symmetrical. Abdominal: soft, non-tender, mildly distended, NA BS x 4, previous laparotomy scar and RLQ surgical scar without palpated incisional hernias Discharge Data Allergies Allergy/AdvReac Type Severity Reaction Status Date / Time No Known Drug Allergies Allergy Verified 06/03/20 20:06 Consultations 04/12/21 19:37 ED Decision to Admit Stat 06/03/20 21:40 Consult General Surgery Routine Ordered Studies 06/03/20 17:34 CT abd pelvis IV con only Stat Hospital Course (1) SBO (small bowel obstruction): Eleuterio Robertson is a 79 yo male with h/o small bowel obstruction in 2014 (s/p resection with colostomy followed by reversal several months later), hiatal hernia, Schtazki ring and h/o DVTs, who was admitted to [facility] on 06/03/2020 for small bowel obstruction. Currently clinically improved with minimal symptoms. Small Bowel Obstruction H/o SBO, several previous abdominal surgeries, presented with acute onset abdominal pain with N/V, CT showing SBO with transition point just distal to previous anastomosis in RLQ --> SBO - received IVFs and Zofran in the ED, and started on Zosyn (d/c'd on 06/04) - symptoms significantly improved as of 06/04 - no N/V and minimal abdominal pain with gradually advancing diet to full - recommend f/u with PCP to ensure sustained resolution of SBO Hiatal Hernia/Schatzki Ring - continue home Prilosec T2DM - no medications at home, A1c 6.0 during this hospitalization - counselled on lifestyle modifications Total Time Total Time Spent Total Time Spent (In Minutes): <30 minutes Total Time Includes: Examination of the Patient and Discharge Planning Discharge Plan Discharge Items Patient Disposition: Home - Self-Care Reason For Visit: sbo Discharge Diagnosis: Small Bowel Obstruction Activity: Per Instructions section Non-emergency contact: Primary Care Provider Call non-emergency contact if: your symptoms worsen, your pain is worsening and you have a fever Follow-up/Referrals: Carmelo Mason MD [Primary Care Provider] - Diet: Regular Addtl Attending Provider Instructions: You were admitted to [facility] on 06/03/2020 for small bowel obstruction. You were given anti-nausea medications, IV fluids and pain medications in the emergency department, and your abdominal pain quickly improved. You did not have nausea, vomiting or abdominal pain while in the hospital, and you did well with advancing your diet. You will be discharged on 06/05/2020 in stable, improved condition. We recommend that you keep a soft diet (no red meats or foods hard to digest) for several weeks to help your bowels heal. You should continue to take all of your home medications. You should follow up with your PCP. Pending Studies at Discharge: No Stand-Alone Forms: My [facility] Medications and DC Order Prescriptions: Continued omeprazole 20 mg capsule,delayed release(DR/EC) 20 mg PO QAM Qty: 90 RF: 3 cholecalciferol (vitamin D3) 1,000 unit capsule 1,000 units PO QAM RF: 0 cyanocobalamin (vitamin B-12) 1,000 mcg tablet 1,000 mcg PO QAM Qty: 30 RF: 0 psyllium husk 3.4 gram/5.4 gram powder 1 tbs PO QAM RF: 0 aspirin [Aspirin Low Dose] 81 mg Tablet,Delayed Release (Dr/Ec) 81 mg PO QAM RF: 0 potassium gluconate 595 mg (99 mg) Tablet 595 mg PO QAM RF: 0 Discharge Orders: Discharge Order (Routine); Ordered 06/05/20 Ordered By: Oliver Lange/Other Patient Handouts: Small Bowel Obstruction, Low-Fiber Diet, High Blood Sugar (Hyperglycemia), Managing Type 2 Diabetes, Discharge Instructions- Eating a ..., Managing Diabetes: The A1C Test Admission Data Admit Date/Time: 06/03/20 21:38 Attending Provider: Nelson Graff Admit Provider: Lee Prieto Primary Care Provider: Carmelo Mason Other Providers: Lee Prieto ; Kasi Schulz. Other Interventions: Discharge Summary Assessment (RN) Last Done: 06/05/20 17:46 Supervising Physician Co-Signing Physician Notes I personally examined the patient and verified all rojas points of history and exam, discussed case, and agree with decision making with Dr Kelley. Feeling well. No abdominal pain. Flatus and a small bowel movement. Eating well without difficulty. Vitals noted, in general he is awake and alert pleasant no distress. HEENT normocephalic atraumatic mucous membranes moist. Abdomen soft minimally distended nontender no guarding no rebound no masses no organomegaly Adhesional small bowel obstructionclinically much improved. He is very anxious for dischargeadvance diet, if he tolerates well, consider discharge to home tonightfortunately he did well and was able to go home. Otherwise as above Resident Activity Tracking Resident Involvement: Resident Care Provided Care Provided: Adult Hospital Medicine
--- NOTE | 2020-06-05 19:42 | Billing Data ---
Date of Service June 05, 2020 Coding Level of Care Code D/C Day Management <30 mins
== END 2020-06-05 18:47 | disposition home or self-care (01) | DRG 390 ==
LOC: ED 15:49 → SUATTDRO 21:38 → 3N 21:38

== ENCOUNTER 2021-11-10 10:06 | Observation (INO) ==
--- NOTE | 2021-11-10 11:00 | Emergency Department Note ---
Impression & Plan Syncope, Hypomagnesemia, Anxiety, Poor sleep ED Provider Note NAME: MARIANN BROWN AGE: 81 SEX: M : 1940 ARRIVES VIA: Walk-In INFORMANT: Patient, ED PROVIDER(S): Dorian Stephens MD Chief Complaint: Anxiety, syncope, trouble sleeping HPI: Patient states that he has been involved in stress with increasing anxiety. He was recently placed on trazodone and also purchased an [id number] sleep aid medication but is only been sleeping from about 3:49 AM over the last several weeks. Patient denies any fevers chills chest pains or shortness of breath. The patient did syncopized 4 times yesterday and did have some presyncopal symptoms including lightheadedness and dizziness. Patient states that sometimes it was laying down sometimes when he was upright. The patient denies any nausea or vomiting. Patient denies any leg swelling. Patient denies any prior heart or lung disease. Patient is a non-smoker. He does not drink alcohol. 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 ROS: See HPI for pertinent positives and negatives. A total of 10 systems were reviewed and otherwise negative. Past medical history: See below Surgical history: See below Social history: See below Physical Exam: GENERAL: NAD, wearing a mask, non-toxic. EYE EXAM: Normal conjunctiva. PERRL, no anisocoria and EOM's grossly intact w/o pain. NECK: Supple, no nuchal rigidity, no adenopathy, non-tender. No signs of meningismus. FROM of the neck with good chin to chest and neck extension. No stridor. LUNGS: Clear to auscultation. Normal chest wall mechanics. HEART: NSR, no MRG. ABDOMEN: Abdomen soft, non-tender, normo-active bowel sounds, no masses, no rebound or guarding. BACK: No CVA TTP. SKIN: No rashes and no bruising. UPPER EXTREMITIES: Upper extremities are grossly normal. LOWER EXTREMITIES: Grossly normal, no edema. NEURO EXAM: A&O x3, cranial nerves II-XII grossly intact, normal speech, moves all 4 extremities. Differential diagnoses: Vasovagal event, dehydration, infection, hypoglycemia, electrolyte abnormalities, cardiac sources, intracerebral event, pulmonary embolism, seizure, toxicologic, neurologic, as well as other pathologies. Course: Patient was seen and evaluated the bedside. Full history physical exam was performed. EKG interpreted by me Normal sinus rhythm, rate of 80, normal intervals, left axis deviation, ST depressions in the lateral leads. No significant changes from comparison dated February 19, 2015 Imaging Studies: See Below Cardiac monitoring: An order was placed for continuous cardiac monitoring. The monitor shows a rate of 82 with sinus rhythm. MDM: Patient was seen due to concern for syncope and anxiety. Blood work was obtained along with an EKG. The patient was ordered IV fluids and small amount of Ativan 0.25 IV. Patient's blood work shows normal white count and H&H. Platelet count is unremarkable. Kidney function is grossly unremarkable with mild hypomagnesemia. This is ordered for replacement. Troponin is not elevated. COVID-negative. Given the patient's syncope x4 given in light of the patient's decreased sleep and anxiety do believe the patient would benefit from an observation period. I did speak with Tex Hansen PA-C and the patient was admitted by Dr. Cota. Past Med/Surg History Medical History Acute diverticulitis (08/08/13) hx Chronic back pain Diverticulosis of colon Hepatic steatosis Hiatal hernia History of esophageal dilatation Hypercholesterolemia hx of / pt not sure currently Left leg DVT pt unsure of details. Osteoarthritis Osteopenia Schatzki's ring Sleep trouble Type 2 diabetes mellitus no medications currently. monitoring with PCP. Surgical History History of colostomy History of colostomy reversal History of esophagogastroduodenoscopy (EGD) Hx of appendectomy Hx of colectomy Hx of colonoscopy Hx of inguinal hernia repair Hx of tonsillectomy Family History Family/Other Aorta aneurysm Perceptive hearing loss or deafness Mother Alcoholism /alcohol abuse Lung cancer Lung disease Father Alcoholism /alcohol abuse Lung disease Brother Primary hemochromatosis Denies family history of Colon cancer Ovarian cancer Prostate cancer Myocardial infarction Breast cancer Colorectal cancer Hypertension Stroke Asthma Social History Smoking Status: Never smoker Second Hand Exposure: No; Hx Alcohol Use: No Hx Substance Use: No Preferred Language: Irish Communication Ability: Effective Visual Impairment: No Limitations 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: Normal Kier Operator Required: No Beliefs That Will Affect Care: None marital status: Single Current Living Situation: Alone current occupational status: retired current occupation: [employer] Feels Safe at Home: Yes Dental Care, Regularly: No Physical Activity Frequency: 1-2 Times per Week Seatbelt Use: always Assistive Devices: None Allergies Allergies Allergy/AdvReac Type Severity Reaction Status Date / Time No Known Allergies Allergy Verified 10/14/21 09:18 Home Meds Home Medications Medication Instructions Recorded Confirmed cholecalciferol (vitamin D3) 25 1,000 units PO QAM 10/06/18 11/10/21 mcg (1,000 unit) capsule cyanocobalamin (vitamin B-12) 1,000 mcg PO QAM #30 tabs 10/06/18 11/10/21 1,000 mcg tablet psyllium husk 3.4 gram/5.4 gram 1 tbs PO QAM 10/06/18 11/10/21 oral powder aspirin 81 mg tablet,delayed 81 mg PO QAM 11/14/19 11/10/21 release (Ally Low Dose Aspirin) potassium gluconate 595 mg (99 mg) 595 mg PO QAM 11/14/19 11/10/21 tablet trazodone 50 mg tablet 25 mg PO HS 11/10/21 11/10/21 Previous Rx's Medication Instructions Recorded omeprazole 20 mg capsule,delayed 20 mg PO QAM #90 caps 12/30/20 release Results & Data (ED) Vital Signs Vital Signs - 24 hr 11/10/21 10:16 11/10/21 11:52 11/10/21 13:00 Temperature 36.5 C Temperature Source Oral Pulse Rate 80 Pulse Rate [Finger] 76 81 Pulse Rhythm Regular Pulse Strength Normal Respiratory Rate 18 16 19 Respiratory Effort / Characteristics Non-Labored Spontaneous Non-Labored Respiratory Depth Normal Normal Respiratory Pattern Regular Blood Pressure 143/90 H Blood Pressure [Right Arm] 143/73 H 151/74 H Blood Pressure Mean 107 Blood Pressure Mean [Right Arm] 96 99 Blood Pressure Position Sitting Pulse Oximetry 98 98 99 Oxygen Delivery Method Room Air Room Air Room Air Sepsis Recent Fever Within 48 Hours No Sepsis New/Unexplained Change in Mental Status No Sepsis Action Taken by Nursing No Action Required 11/10/21 14:41 Temperature Temperature Source Pulse Rate Pulse Rate [Finger] 74 Pulse Rhythm Pulse Strength Respiratory Rate 16 Respiratory Effort / Characteristics Respiratory Depth Respiratory Pattern Blood Pressure Blood Pressure [Right Arm] 159/73 H Blood Pressure Mean Blood Pressure Mean [Right Arm] 101 Blood Pressure Position Pulse Oximetry 99 Oxygen Delivery Method Room Air Sepsis Recent Fever Within 48 Hours Sepsis New/Unexplained Change in Mental Status Sepsis Action Taken by [facility] Medications Current Medication List: was personally reviewed by me Laboratory Data Attestation: I reviewed the patient's lab results. Result diagrams: 11/10/21 10:37 11/10/21 10:37 Lab Results 11/10/21 11/10/21 11/10/21 Range/Units 10:37 10:37 10:37 WBC 6.35 (4.8-10.8) K/ul RBC 4.17 L (4.63-6.08) M/uL Hgb 14.3 (14.0-18.0) g/dl Hct 41.4 (40.1-51.0) % MCV 99.3 (80.0-100.0) fL MCH 34.3 H (25.0-34.0) pg MCHC 34.5 (32.0-36.0) g/dL RDW Std Deviation 46.0 (36.4-46.3) fL RDW Coeff of Saturnino 12.8 (11.5-14.5) % Plt Count 197 (130-400) K/uL MPV 10.0 (9.4-12.4) fL Immature Gran % (Auto) 0.8 % Neut % (Auto) 66.6 % Lymph % (Auto) 24.7 % Kenton % (Auto) 6.3 % Eos % (Auto) 0.8 % Baso % (Auto) 0.8 % Neut # (Auto) 4.23 (1.4-6.5) K/uL Lymph # (Auto) 1.57 (1.2-3.4) K/uL Kenton # (Auto) 0.40 (0.24-0.82) K/uL Eos # (Auto) 0.05 (0-0.50) K/uL Baso # (Auto) 0.05 (0-0.2) K/uL Immature Gran # (Auto) 0.05 H (0.00-0.02) K/uL Sodium 139 (136-145) mmol/L Potassium 4.2 (3.5-5.1) mmol/L Chloride 105 (98-107) mmol/L Carbon Dioxide 24 (21-32) mmol/L Anion Gap 10 (3-11) BUN 14 (6-23) mg/dl Creatinine 0.88 (0.6-1.4) mg/dl Est Cr Clr Drug Dosing 59.2 ml/min Est GFR ( Amer) 94.7 ml/min Est GFR (Non-Af Amer) 81.7 ml/min BUN/Creatinine Ratio 15.9 (10-20) Glucose 169 H (70-99(Fasting)) mg/dl Calcium 9.6 (8.5-10.1) mg/dl Phosphorus 3.0 (2.5-4.9) mg/dl Magnesium 1.5 L (1.7-2.4) mg/dl Total Bilirubin 0.5 (0.2-1.0) mg/dl AST 24 (13-39) U/L ALT 22 (7-52) U/L Alkaline Phosphatase 85 (34-104) U/L Troponin I High Sens 5.0 (0-20) pg/ml Total Protein 6.6 (6.0-8.3) gm/dl Albumin 4.0 (3.4-5.0) gm/dl Globulin 2.6 (2.5-4.0) gm/dl Albumin/Globulin Ratio 1.5 (0.9-2) TSH 1.927 (0.300-4.500) uIu/ml SARS-CoV-2, RNA, NAAT (NEGATIVE) 11/10/21 Range/Units 15:53 WBC (4.8-10.8) K/ul RBC (4.63-6.08) M/uL Hgb (14.0-18.0) g/dl Hct (40.1-51.0) % MCV (80.0-100.0) fL MCH (25.0-34.0) pg MCHC (32.0-36.0) g/dL RDW Std Deviation (36.4-46.3) fL RDW Coeff of Saturnino (11.5-14.5) % Plt Count (130-400) K/uL MPV (9.4-12.4) fL Immature Gran % (Auto) % Neut % (Auto) % Lymph % (Auto) % Kenton % (Auto) % Eos % (Auto) % Baso % (Auto) % Neut # (Auto) (1.4-6.5) K/uL Lymph # (Auto) (1.2-3.4) K/uL Kenton # (Auto) (0.24-0.82) K/uL Eos # (Auto) (0-0.50) K/uL Baso # (Auto) (0-0.2) K/uL Immature Gran # (Auto) (0.00-0.02) K/uL Sodium (136-145) mmol/L Potassium (3.5-5.1) mmol/L Chloride (98-107) mmol/L Carbon Dioxide (21-32) mmol/L Anion Gap (3-11) BUN (6-23) mg/dl Creatinine (0.6-1.4) mg/dl Est Cr Clr Drug Dosing ml/min Est GFR ( Amer) ml/min Est GFR (Non-Af Amer) ml/min BUN/Creatinine Ratio (10-20) Glucose (70-99(Fasting)) mg/dl Calcium (8.5-10.1) mg/dl Phosphorus (2.5-4.9) mg/dl Magnesium (1.7-2.4) mg/dl Total Bilirubin (0.2-1.0) mg/dl AST (13-39) U/L ALT (7-52) U/L Alkaline Phosphatase (34-104) U/L Troponin I High Sens (0-20) pg/ml Total Protein (6.0-8.3) gm/dl Albumin (3.4-5.0) gm/dl Globulin (2.5-4.0) gm/dl Albumin/Globulin Ratio (0.9-2) TSH (0.300-4.500) uIu/ml SARS-CoV-2, RNA, NAAT NEGATIVE (NEGATIVE) Administered Medications Discontinued Medications Sodium Chloride (Nss) 500 mls @ 999 mls/hr IV .Q31M PATRICIA Stop: 11/10/21 12:00 Last Infusion: 11/10/21 12:53 Dose: 0 mls/hr Documented By: Admin: 11/10/21 11:54 Dose: 999 mls/hr Documented By: IMMANUEL Magnesium Sulfate/Dextrose (Magnesium Sulfate / D5w) 1 gm in 100 mls @ 100 mls/hr IV NOW STA Stop: 11/10/21 13:53 Last Infusion: 11/10/21 14:17 Dose: 0 mls/hr Documented By: Admin: 11/10/21 13:17 Dose: 100 mls/hr Documented By: TAHIR Lorazepam (Lorazepam 2 Mg/1 Ml Vial) 0.25 mg IV NOW STA; Protocol Stop: 11/10/21 11:21 Last Admin: 11/10/21 11:53 Dose: 0.25 mg Documented By: IMMANUEL Imaging Data Radiologist's Impression: Head CT 11/10/21 13:[address] DOSE: 788.63 mGycm HISTORY: syncope of unknown etiology TECHNIQUE: Multiaxial CT images of the head were performed without the use of intravenous contrast. Automated exposure control was utilized for this study. A dose lowering technique was utilized adhering to the principles of ALARA. Comparison: Sinus CT 08/05/2016. Findings: The paranasal sinuses and mastoid air cells are clear. The calvarium and skull base are intact. There is no mass, hematoma, midline shift, acute infarct. White matter hypodensity is nonspecific but suggestive of microvascular ischemic change. The ventricles and sulci demonstrate mild age-related involutional changes. 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 Impression: No acute intracranial abnormality. Atrophy and microvascular ischemic changes. ACT 112: Negative or not required by law. Electronically signed by: Vu Graves M.D. 11/10/2021 2:48 PM Discharge Plan Visit Data Chief Complaint: Anxiety Stated Complaint: FATIGUE, PASSED OUT ED Provider: Dorian Stephens Discharge Problem: Syncope, Hypomagnesemia, Anxiety, Poor sleep Patient Disposition: Admitted As Inpatient Forms Stand Alone Forms: [facility], Suicide Prevention Resources Prescriptions Prescriptions: No Action omeprazole 20 mg capsule,delayed release(DR/EC) 20 mg PO QAM Qty: 90 3RF cholecalciferol (vitamin D3) 1,000 unit capsule 1,000 units PO QAM cyanocobalamin (vitamin B-12) 1,000 mcg tablet 1,000 mcg PO QAM Qty: 30 psyllium husk 3.4 gram/5.4 gram powder 1 tbs PO QAM aspirin [Ally Low Dose Aspirin] 81 mg Tablet,Delayed Release (Dr/Ec) 81 mg PO QAM potassium gluconate 595 mg (99 mg) Tablet 595 mg PO QAM trazodone 50 mg tablet 25 mg PO HS Referrals Referrals: Pro,Carmelo Perkins MD [Primary Care Provider] -
[2021-11-10] MEDS ORDERED: LORazepam 2 MG/2 ML SYR IV STA (11:20)
[2021-11-10] MEDS ORDERED: SODIUM CHLORIDE 0.9% 500 ML IV SCH (11:30)
[2021-11-10 11:34] LABS: Basophils # (auto) 0.05 K/uL (0-0.2); Basophils % (auto) 0.8 %; Eosinophils # (auto) 0.05 K/uL (0-0.50); Eosinophils % (auto) 0.8 %; Hematocrit (blood only) 41.4 % (40.1-51.0); Hemoglobin 14.3 g/dl (14.0-18.0); Immature Granulocytes # (auto) 0.05 K/uL (0.00-0.02); Immature Granulocytes % (auto) 0.8 %; Lymphocytes # (auto) 1.57 K/uL (1.2-3.4); Lymphocytes % (auto) 24.7 %; Mean Corpuscular Hemoglobin 34.3 pg (25.0-34.0); Mean Corpuscular Hgb Conc 34.5 g/dL (32.0-36.0); Mean Corpuscular Volume 99.3 fL (80.0-100.0); Monocytes % (auto) 6.3 %; Neutrophils # (auto) 4.23 K/uL (1.4-6.5); Neutrophils % (auto) 66.6 %; Platelet Count 197 K/uL (130-400); RDW Coefficient of Variation 12.8 % (11.5-14.5); Red Blood Count 4.17 M/uL (4.63-6.08); White Blood Count 6.35 K/ul (4.8-10.8)
[2021-11-10 11:49] LABS: Albumin Globulin Ratio 1.5 (0.9-2); BUN Creatinine Ratio 15.9 (10-20); Bilirubin,Total 0.5 mg/dl (0.2-1.0); Calcium 9.6 mg/dl (8.5-10.1); Creatinine Clr Calc Pharmacy 59.2 ml/min; Est GFR (African American) 94.7 ml/min; Est GFR (Non-African American) 81.7 ml/min; Globulin 2.6 gm/dl (2.5-4.0); Magnesium 1.5 mg/dl (1.7-2.4); Potassium 4.2 mmol/L (3.5-5.1); Total Protein 6.6 gm/dl (6.0-8.3)
[2021-11-10] MEDS ORDERED: MAGNESIUM SULFATE / D5W 1 GM/100 ML BAG IV STA (12:54)
--- NOTE | 2021-11-10 12:58 | History & Physical Report ---
Date of Service November 10, 2021 Assessment & Plan (1) Syncope and collapse: Plan: -Admit to med tele -Patient is currently afebrile, hemodynamically stable, and stable on RA -The etiology of the patient's symptoms is unknown at this time but includes and is not limited to seizure, arrhythmia, valvular dysfunction, stroke, anxiety/panic attack, orthostatic hypotension -No acute ECG changes -Will obtain CT head WO contrast to rule out head mass, ordering EEG, echo, and monitor on tele, orthostatic vitals ordered as well -Seizure precautions ordered -Will add on B12 and folic acid levels -Hgb has been stable and no signs of bleeding -No bruits noted on auscultation of the carotids, will hold off on imaging for now -AM CBC, BMP, and mag (2) Hypertension: Plan: -Hemodynamically stable -No PROMOTIONS ASSOCIATE antihypertensives, monitor for now (3) Anxiety and depression: Plan: -Patient noted to have anxiety and feeling depressed for 4 months -Was started on trazodone outpatient but without improvement in symptoms -Will consult Psych as patiently likely needs to start another medication for his symptoms -Currently denies though of homicidal and suicidal ideations -Hold trazodone for now with possible seizure activity (4) Vitamin B12 deficiency: Plan: -FU on B12 and folic acid levels (5) Hypomagnesemia: Plan: -Noted to be 1.5 today in the ED -Given 1g IV mag in ED -Follow-up with am mag level tomorrow Plan The patient was discussed with Dr. Cota at the time of admission History of Present Illness Chief Complaint: Syncope Primary Care Provider: Carmelo Mason MD Eleuterio is a 81 year old male with a PMH significant for HTN, type II DM, anemia, GERD, nephrolithiasis, SBO, diverticulitis, BPH, vitamin D and B12 deficiency who presented to the [facility] ED on 11/10/21 with chief complaint of syncope. At the time of the exam the patient was sitting comfortably in bed in no acute distress. 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 He states that over this time he has not been eating/drinking well and has not been sleeping well either. He went and saw his PCP for the anxiety in August, they started him on 25 mg PO trazodone daily. He states that he did not take it for very long as he did not feel as though it was helping. He was unable to give me an exact timeframe as to how long he was taking the trazodone, but he does not think it was more than 1-2 weeks. He states that he also has been taking an OTC sleep aid but cannot remember the name. His friend also gave him a prescribed medication used for anxiety that he was taking at night occasionally but he cannot remember the name of it either. He denies tobacco use, frequent alcohol use, and recreational drug use. Yesterday, the patient states that he had 4 different episodes of syncope/LOC, two of which resulted in fall from stading. He felt lightheaded/dizzy prior to these episodes, had darkening of his vision, and was confused upon waking after these episodes. His friend witnessed one of the episodes yesterday and stated that he was experiencing muscle tension/shaking but denies loss of bowel or bladder function. he does not believe that he has a history of seizures and denies a family history of seizures. The patient states that he has had severe anxiety and depression over the past 4 months. He denies any suicidal or homicidal ideation and hallucinations In the ED the patient was found to be afebrile, hemodynamically stable, and stable on RA. Labs were remarkable for a magnesium of 1.5. The patient was give 1L NSS bolus, 0.25 mg IV ativan, and 1 gram of IV magnesium. Allergies Allergy/AdvReac Type Severity Reaction Status Date / Time No Known Allergies Allergy Verified 10/14/21 09:18 Home Medications Medication Instructions Recorded Confirmed Type cholecalciferol (vitamin D3) 25 1,000 units PO QAM 10/06/18 10/14/21 History mcg (1,000 unit) capsule cyanocobalamin (vitamin B-12) 1,000 mcg PO QAM #30 tabs 10/06/18 10/14/21 History 1,000 mcg tablet psyllium husk 3.4 gram/5.4 gram 1 tbs PO QAM 10/06/18 10/14/21 History oral powder aspirin 81 mg tablet,delayed 81 mg PO QAM 11/14/19 10/14/21 History release (Ally Low Dose Aspirin) potassium gluconate 595 mg (99 mg) 595 mg PO QAM 11/14/19 10/14/21 History tablet omeprazole 20 mg capsule,delayed 20 mg PO QAM #90 caps 12/30/20 10/14/21 Rx release trazodone 50 mg tablet 25 mg PO DAILY #30 tabs 09/11/21 10/14/21 Rx Past Med/Surg History Medical History Acute diverticulitis (08/08/13) hx Chronic back pain Diverticulosis of colon Hepatic steatosis Hiatal hernia History of esophageal dilatation Hypercholesterolemia hx of / pt not sure currently Left leg DVT pt unsure of details. Osteoarthritis Osteopenia Schatzki's ring Sleep trouble Type 2 diabetes mellitus no medications currently. monitoring with PCP. Surgical History History of colostomy History of colostomy reversal History of esophagogastroduodenoscopy (EGD) Hx of appendectomy Hx of colectomy Hx of colonoscopy Hx of inguinal hernia repair Hx of tonsillectomy Family History Family/Other Aorta aneurysm Perceptive hearing loss or deafness Mother Alcoholism /alcohol abuse Lung cancer Lung disease Father Alcoholism /alcohol abuse Lung disease Brother Primary hemochromatosis Denies family history of Colon cancer Ovarian cancer Prostate cancer Myocardial infarction Breast cancer Colorectal cancer Hypertension Stroke Asthma Social History Smoking Status: Never smoker Second Hand Exposure: No; Hx Alcohol Use: No Hx Substance Use: No Preferred Language: Djiboutian Communication Ability: Effective Visual Impairment: No Limitations 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: Normal Public Bath Attendant Required: No Beliefs That Will Affect Care: None marital status: Single Current Living Situation: Alone current occupational status: retired current occupation: [employer] Feels Safe at Home: Yes Dental Care, Regularly: No Physical Activity Frequency: 1-2 Times per Week Seatbelt Use: always Assistive Devices: None Review of Systems Review of Systems: Denies current fever, chills, headache, changes in vision, hearing, taste, and smell, chest pain, SOB, cough, abdominal pain, nausea, vomiting, diarrhea, hematemesis, melena, dysuria, hematuria All systems have been reviewed and are otherwise negative. Physical Exam Physical Exam: Physical Exam: General: In no acute distress, stated age, chronically ill-appearing HEENT: Normocephalic, atraumatic, no scleral icterus, pupils around round, symmetrical, and reactive to light, moist mucus membranes, trachea midline, no thyromegaly Chest/Pulm: No respiratory distress, symmetrical chest expansion, clear breath sounds throughout Cardiac: RRR, no murmurs noted Abdomen: Negative for ascites and bruising, normoactive bowel sounds, soft, non-tender to palpation throughout Musculoskeletal: Symmetrical and without signs of acute trauma, upper and lower extremities with full ROM, no atrophy, spasticity, or flaccidity Extremities: Radial, dorsalis pedis, and posterior tibial pulses are intact and symmetrical, no edema noted in the BL LE's Skin: Warm, dry, no rashes , lesions, or scars noted Neuro: Alert and oriented to person, place, month, year, and president, no focal defects, CN II-XII tested and intact, finger to nose test negative Psych: No acute distress, calm and cooperative during the exam Results & Data Results & Data ([facility]) Vital Signs (Past 12 Hours) Vital Signs Temp Pulse Pulse Resp BP BP Pulse Ox 11/10/21 11:52 76 16 143/73 H 98 11/10/21 10:16 36.5 C 80 18 143/90 H 98 O2 Del Method 11/10/21 11:52 Room Air 11/10/21 10:16 Room Air Laboratory Results Abnormal lab results 11/10/21 11/10/21 Range/Units 10:37 10:37 RBC 4.17 L (4.63-6.08) M/uL MCH 34.3 H (25.0-34.0) pg Immature Gran # (Auto) 0.05 H (0.00-0.02) K/uL Glucose 169 H (70-99(Fasting)) mg/dl Magnesium 1.5 L (1.7-2.4) mg/dl ECG Additional Comments: Normal sinus rhythm Left anterior fascicular block Nonspecific ST and T wave abnormality Abnormal ECG When compared with ECG of 19-FEB-2015 18:05, No significant change was found Confirmed by Nico Barnett ([id number]) on 11/10/2021 1:35:24 PM Code Status & VTE Plan Code Status FUll code VTE Prophylaxis Plan VTE Prophylaxis will be ordered: Yes Supervising Physician Co-Signing Physician Notes Patient seen and examined, chart reviewed, case discussed with Tex Hansen PA-C and I agree with the assessment and plan as above except as otherwise noted Labs and images reviewed Eleuterio Robertson is a 81-year-old male past medical history of hypertension, type 2 diabetes, GERD, SBO, BPH, and increased anxiety who presents with 4 episodes of syncope. He did not have chest pain, shortness of breath, difficulty breathing. Does endorse presyncope with 4 episodes of syncope. Pt reports 4 months has had a very difficulty tenant causing poor sleep, increased anxiety. 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 Friend witnessed one fall who says he seems to be with increased tone. No loss of bowel/bladder function. Did seem confused coming out. Denies seizure history, had a similar episode 1-2x in the past but does not think it was due to seizure. Was prescribed trazodone previously but didn't help so he had not been taking this until last night after he had the episodes. Took a prescribed medicine of a friend (started with a 'c' maybe but patient is not sure) recently to help sleep. On initial ER evaluation he has no leukocytosis, hemoglobin is normal, sodium is normal, potassium is normal, no anion gap is present, creatinine is 0.88 with a baseline of less than 1, glucose is 169, magnesium is slightly low at 1.5, there is no transaminitis, and high- sensitivity troponin is 5.0. TSH is normal. EKG shows a normal sinus rhythm with no territorial ST segment changes, T wave inversion is appreciated in V2,II, III. QTc 435, no heart block. On assessment breathing is unlabored, CTAB, RRR, moving jim xtremities equally without focal weakness. Syncope, ddx includes polypharmacy, cardiac, seizure Marked medication induced with insomnia and taking multiple sleep aids prior Pt friend witnessed one episode, describes tonic-like episode ?seizure but without tongue biting or incontinence - metabolic eval as above, +EEG If doing well overnight and other eval negative recommend mobile airborne mission systems and outpatient follow-up Anxiety Psych consulted, patient with increased anxiety/insomnia as outpt Will require additional outpatient follow-up. PG Care Time/CCT Total # of Minutes Spent Total Time Spent with Patient: Total time spent is greater than 50% in coordination of care (as documented) at patient's floor/unit and/or counseling patient: Coding Level of Care Code Established Pt INT OBSERVATION CARE 70M LVL 3 Patient Type Established History Comprehensive Exam Comprehensive Medical Decision Making High Complexity Diagnoses Syncope and collapse R55 Hypertension I10 Anxiety and depression F41.9; F32.A Vitamin B12 deficiency E53.8 Hypomagnesemia E83.42
--- NOTE | 2021-11-10 13:35 | Electrocardiogram Report ---
Test Reason : Blood Pressure : / mmHG Vent. Rate : 080 BPM Atrial Rate : 080 BPM P-R Int : 178 ms QRS Dur : 082 ms QT Int : 378 ms P-R-T Axes : 053 -64 040 degrees QTc Int : 435 ms Normal sinus rhythm Left anterior fascicular block Nonspecific ST and T wave abnormality Abnormal ECG When compared with ECG of 19-FEB-2015 18:05, No significant change was found Confirmed by Nico Barnett ([id number]) on 11/10/2021 1:35:24 PM Referred By: REFERRED SELF Confirmed By:Nico Barnett
--- NOTE | 2021-11-10 14:50 | CT Scan Report ---
HEAD CT NONCONTRAST CT DOSE: 788.63 mGycm HISTORY: syncope of unknown etiology TECHNIQUE: Multiaxial CT images of the head were performed without the use of intravenous contrast. A utomated exposure control was utilized for this study. A dose lowering technique was utilized adheri ng to the principles of ALARA. Comparison: Sinus CT 08/05/2016. Findings: The paranasal sinuses and mastoid air cells are clear. The calvarium and skull base are int act. There is no mass, hematoma, midline shift, acute infarct. White matter hypodensity is nonspecifi c but suggestive of microvascular ischemic change. The ventricles and sulci demonstrate mild age-rela patience involutional changes. 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 Impression: No acute intracranial abnormality. Atrophy and microvascular ischemic changes. ACT 112: Negative or not required by law. Electronically signed by: Vu Graves M.D. 11/10/2021 2:48 PM
[2021-11-10] MEDS ORDERED: ACETAMINOPHEN 325 MG TAB PO PRN (20:52)
[2021-11-10 21:40] LABS: Folate (Folic Acid) > 22.30 ng/ml (>5.38)
[2021-11-10 21:41] LABS: Vitamin B12 195 pg/ml (180-914)
[2021-11-11 06:11] LABS: Hematocrit (blood only) 36.7 % (40.1-51.0); Hemoglobin 12.5 g/dl (14.0-18.0); Mean Corpuscular Hgb Conc 34.1 g/dL (32.0-36.0); Mean Corpuscular Volume 99.7 fL (80.0-100.0); Platelet Count 168 K/uL (130-400); RDW Coefficient of Variation 12.6 % (11.5-14.5); RDW Standard Deviation 46.1 fL (36.4-46.3); Red Blood Count 3.68 M/uL (4.63-6.08)
[2021-11-11 06:35] LABS: BUN Creatinine Ratio 15.8 (10-20); Calcium 8.5 mg/dl (8.5-10.1); Creatinine Clr Calc Pharmacy 68.6 ml/min; Est GFR (African American) 100.6 ml/min; Est GFR (Non-African American) 86.8 ml/min; Magnesium 1.8 mg/dl (1.7-2.4); Potassium 4.2 mmol/L (3.5-5.1)
[2021-11-11 08:28] LABS: Lyme Ab IgG w/WB Rflx Negative (Negative); Lyme Ab IgM w/WB Rflx Negative (Negative)
--- NOTE | 2021-11-11 08:57 | Electroencephalogram ---
EEG Procedure Note Date of Service November 11, 2021 Start / End Times Start Time: 8:20 AM End Time: 8:40 AM Referring Physician Tex Hansen History Syncope, evaluate for seizure Home Medication List Medication Instructions Recorded Confirmed Type cholecalciferol (vitamin D3) 25 1,000 units PO QAM 10/06/18 11/10/21 History mcg (1,000 unit) capsule cyanocobalamin (vitamin B-12) 1,000 mcg PO QAM #30 tabs 10/06/18 11/10/21 History 1,000 mcg tablet psyllium husk 3.4 gram/5.4 gram 1 tbs PO QAM 10/06/18 11/10/21 History oral powder aspirin 81 mg tablet,delayed 81 mg PO QAM 11/14/19 11/10/21 History release (Ally Low Dose Aspirin) potassium gluconate 595 mg (99 mg) 595 mg PO QAM 11/14/19 11/10/21 History tablet omeprazole 20 mg capsule,delayed 20 mg PO QAM #90 caps 12/30/20 11/10/21 Rx release trazodone 50 mg tablet 25 mg PO HS 11/10/21 11/10/21 History Inpatient Medication List Discontinued Medications Sodium Chloride (Nss) 500 mls @ 999 mls/hr IV .Q31M PATRICAI Stop: 11/10/21 12:00 Last Infusion: 11/10/21 12:53 Dose: 0 mls/hr Documented By: Admin: 11/10/21 11:54 Dose: 999 mls/hr Documented By: IMMANUEL Magnesium Sulfate/Dextrose (Magnesium Sulfate / D5w) 1 gm in 100 mls @ 100 mls/hr IV NOW STA Stop: 11/10/21 13:53 Last Infusion: 11/10/21 14:17 Dose: 0 mls/hr Documented By: Admin: 11/10/21 13:17 Dose: 100 mls/hr Documented By: TAHIR Lorazepam (Lorazepam 2 Mg/1 Ml Vial) 0.25 mg IV NOW STA; Protocol Stop: 11/10/21 11:21 Last Admin: 11/10/21 11:53 Dose: 0.25 mg Documented By: IMMANUEL Description This is a 21 electrode EEG with a single channel dedicated to limited EKG. The electrodes were placed in accordance with the International 10-20 system. There is a posterior dominant rhythm of 8 Hz which is symmetrically distributed and attenuates with eye opening. There is a normal anterior to posterior organization. Photic stimulation is unremarkable. Hyperventilation is not pe rformed. There is a symmetric frontal beta rhythm. There is no focal slowing. There are no epileptiform abnormalities. There are no sleep changes. Interpretation Normal-appearing awake/drowsy EEG. A normal EEG does not completely exclude a diagnosis of epilepsy. Further clinical correlation may be needed. [facility] EEG Procedure Codes Indication for Procedure (1) Syncope: (2) Seizure-like activity: Neurology Neurology: 44320 EEG include record awake & drowsy
[2021-11-11] MEDS ORDERED: NON-FORMULARY MEDICATION (Potassium Gluconate 595 mg (99 mg) Tablet) PO SCH (09:00)
[2021-11-11] MEDS ORDERED: ASPIRIN 81 MG ECTAB PO SCH (09:00)
[2021-11-11] MEDS ORDERED: PANTOprazole 40 MG TAB PO SCH (09:00)
[2021-11-11] MEDS ORDERED: CHOLECALCIFEROL 1,000 UNITS 25 MCG TAB PO SCH (09:00)
[2021-11-11] MEDS ORDERED: CYANOCOBALAMIN 1000 MCG/ML VIAL IM SCH (09:00)
--- NOTE | 2021-11-11 12:13 | XRay Report ---
XR chest 1V portable CLINICAL HISTORY: syncope TECHNIQUE: Single frontal radiograph of the chest was obtained. Comparison: Comparison is made to chest radiograph 10/04/2021 FINDINGS: No lines and tubes are seen. The cardiomediastinal silhouette is normal. The lungs are clear. No evid ence of pleural effusion or pneumothorax. IMPRESSION: No acute chest disease. ACT 112: Negative or not required by law. Electronically signed by: Zhou Roman M.D. 11/11/2021 12:11 PM
--- NOTE | 2021-11-11 17:46 | Discharge Summary ---
Date of Service November 11, 2021 Admission HPI Per Admitting Provider Eleuterio is a 81 year old male with a PMH significant for HTN, type II DM, anemia, GERD, nephrolithiasis, SBO, diverticulitis, BPH, vitamin D and B12 deficiency who presented to the [facility] ED on 11/10/21 with chief complaint of syncope. At the time of the exam the patient was sitting comfortably in bed in no acute distress. 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 He states that over this time he has not been eating/drinking well and has not been sleeping well either. He went and saw his PCP for the anxiety in August, they started him on 25 mg PO trazodone daily. He states that he did not take it for very long as he did not feel as though it was helping. He was unable to give me an exact timeframe as to how long he was taking the trazodone, but he does not think it was more than 1-2 weeks. He states that he also has been taking an OTC sleep aid but cannot remember the name. His friend also gave him a prescribed medication used for anxiety that he was taking at night occasionally but he cannot remember the name of it either. He denies tobacco use, frequent alcohol use, and recreational drug use. Yesterday, the patient states that he had 4 different episodes of syncope/LOC, two of which resulted in fall from stading. He felt lightheaded/dizzy prior to these episodes, had darkening of his vision, and was confused upon waking after these episodes. His friend witnessed one of the episodes yesterday and stated that he was experiencing muscle tension/shaking but denies loss of bowel or bladder function. he does not believe that he has a history of seizures and denies a family history of seizures. The patient states that he has had severe anxiety and depression over the past 4 months. He denies any suicidal or homicidal ideation and hallucinations In the ED the patient was found to be afebrile, hemodynamically stable, and stable on RA. Labs were remarkable for a magnesium of 1.5. The patient was give 1L NSS bolus, 0.25 mg IV ativan, and 1 gram of IV magnesium. Principal Diagnosis Iatrogenic syncope Discharge Exam Constitutional WD/WN, vitals as above Eyes PERRL, conjunctivae normal, anicteric sclerae ENMT external ear and nose normal, oropharynx normal Neck trachea midline, no thyromegaly Respiratory normal respiratory effort, lungs clear to auscultation Cardiovascular RRR, no murmur, no edema Gastrointestinal (Abdomen) normal bowel sounds, soft, nontender, no hepatosplenomegaly Musculoskeletal no cyanosis or clubbing, extremities motor strength 5/5 Skin no rashes, warm and dry Neurologic moves all extremities and awake; no focal motor deficits and not confused Speech / Cognition: normal speech Psychiatric A+Ox3, euthymic affect Discharge Data Allergies Allergy/AdvReac Type Severity Reaction Status Date / Time No Known Allergies Allergy Verified 10/14/21 09:18 Consultations 11/10/21 12:54 ED Decision to Admit Stat Ordered Studies 11/10/21 13:45 CT head/brain wo con Urgent Impression: No acute intracranial abnormality. Atrophy and microvascular ischemic changes. Hospital Course (1) Syncope and collapse: Eleuterio Robertson is a 81 year old male observed overnight at [facility] from November 102021 due to a fainting episode at home. Suspect this was secondary to him taking Klonopin and over the counter sleep aids ( suspected containing sedating anti-histamines). Workup including EEG, CT head, Chest X-ray, echocardiogram with no acute pathology. Given his ongoing anxiety we discussed starting buspirone as needed. He was advised to continue trazodone for insomnia. He was advised to avoid all other prescribed or over the counter sleep aids. (2) Hypertension: (3) Anxiety and depression: (4) Vitamin B12 deficiency: (5) Hypomagnesemia: Total Time Total Time Spent Total Time Spent (In Minutes): 55 Discharge Plan Discharge Items Patient Disposition: Home - Self-Care Reason For Visit: SYNCOPE Discharge Diagnosis: Iatrogenic (medication-induced) syncope (fainting) Activity: Resume your previous activity Non-emergency contact: Primary Care Provider Call non-emergency contact if: you have any medication questions and your symptoms worsen Follow-up/Referrals: ProCarmelo MD [Primary Care Provider] - 11/24/21 11:00 am (Appointment with Eloise Alaniz PA-C) Diet: Regular Addtl Attending Provider Instructions: You were observed overnight at [facility] from November 102021 due to a fainting episode at home. Suspect this was secondary to you taking Klonopin and over the counter sleep aids (likely containing sedating anti-histamines). Workup including EEG, CT head, Chest X-ray, echocardiogram with no acute pathology. Recommend starting buspirone as discussed to use as needed for anxiety. Please continue to take trazodone for insomnia. Please follow up with your primary care physician regarding your ongoing anxiety. Recommend avoiding all other sleep medications at this time. Pending Studies at Discharge: No Stand-Alone Forms: My [facility] [employer], Smoking Cessation Medications and DC Order Prescriptions: New buspirone 5 mg tablet 5 mg PO TID PRN (Reason: anxiety) Qty: 90 0RF Continued omeprazole 20 mg capsule,delayed release(DR/EC) 20 mg PO QAM Qty: 90 3RF cholecalciferol (vitamin D3) 1,000 unit capsule 1,000 units PO QAM cyanocobalamin (vitamin B-12) 1,000 mcg tablet 1,000 mcg PO QAM Qty: 30 psyllium husk 3.4 gram/5.4 gram powder 1 tbs PO QAM aspirin [Ally Low Dose Aspirin] 81 mg Tablet,Delayed Release (Dr/Ec) 81 mg PO QAM potassium gluconate 595 mg (99 mg) Tablet 595 mg PO QAM trazodone 50 mg tablet 25 mg PO HS Discharge Orders: Discharge Order (Routine); Ordered 11/11/21 Ordered By: Dajuan Lange/Other Patient Handouts: Anxiety Disorders Tx Admission Data Admit Date/Time: 11/10/21 13:02 Attending Provider: Dajuan Levi Admit Provider: Art Cota Primary Care Provider: Carmelo Mason Other Providers: Art Cota Other Interventions: Discharge Summary Assessment (RN) Last Done: 11/11/21 17:47 Coding Level of Care Code 67115 OBS Care - Discharge Diagnoses Syncope and collapse R55 Hypertension I10 Anxiety and depression F41.9; F32.A Vitamin B12 deficiency E53.8 Hypomagnesemia E83.42
== END 2021-11-11 18:00 | disposition home or self-care (01) ==
LOC: ED 10:06 → EDINP 10:06 → SUATTDRO 13:02 → 2N 20:07
DX: I10 Essential (primary) hypertension; Z79.899 Other long term (current) drug therapy; F41.9 Anxiety disorder, unspecified; R55 Syncope and collapse; F32.A Depression, unspecified; Z79.82 Long term (current) use of aspirin

== ENCOUNTER 2022-05-25 15:08 | Inpatient (IN) ==
--- NOTE | 2022-05-25 15:47 | XRay Report ---
SINGLE VIEW CHEST CLINICAL HISTORY: Illness. FINDINGS: An AP, portable, upright chest radiograph is compared to study dated 11/11/2021. Correlation is made with chest CT dated 09/15/2017. The cardiomediastinal silhouette is unremarkable noting ather osclerotic calcification of the thoracic aorta. Emphysema and chronic interstitial thickening is [place] to previous. There is bibasilar scarring/atelectasis. No airspace consolidation or large pleural effusion is identified. No pneumothorax is seen. The skeletal structures are osteopenic. The bony tho rax is grossly intact. IMPRESSION: No acute cardiopulmonary abnormality identified. ACT 112: Negative or not required by law. Electronically signed by: Elia Rebollar M.D. 05/25/2022 3:46 PM
[2022-05-25 16:57] LABS: Albumin Globulin Ratio 1.6 (0.9-2); Albumin Level 4.4 gm/dl (3.4-5.0); BUN Creatinine Ratio 19.2 (10-20); Bilirubin,Total 0.6 mg/dl (0.2-1.0); Calcium 9.9 mg/dl (8.6-10.3); Creatinine Clr Calc Pharmacy 55.7 ml/min; Est GFR (African American) 78.8 ml/min; Globulin 2.8 gm/dl (2.5-4.0); Potassium 4.6 mmol/L (3.5-5.1); Total Protein 7.2 gm/dl (6.0-8.3)
[2022-05-25] MEDS ORDERED: SODIUM CHLORIDE 0.9% 1000ML 1,000 ML IV ONE (16:57)
[2022-05-25 17:02] LABS: Basophils # (auto) 0.05 K/uL (0-0.2); Basophils % (auto) 0.6 %; Eosinophils # (auto) 0.05 K/uL (0-0.50); Eosinophils % (auto) 0.6 %; Hematocrit (blood only) 41.2 % (42.0-52.0); Hemoglobin 14.6 g/dl (14.0-18.0); Immature Granulocytes # (auto) 0.05 K/uL (0.01-0.20); Immature Granulocytes % (auto) 0.6 %; Lymphocytes # (auto) 2.67 K/uL (1.2-3.4); Lymphocytes % (auto) 32.3 %; Mean Corpuscular Hemoglobin 35.2 pg (25.0-34.0); Mean Corpuscular Hgb Conc 35.4 g/dL (32.0-36.0); Mean Corpuscular Volume 99.3 fL (80.0-100.0); Mean Platelet Volume 10.3 fL (9.4-12.4); Monocytes # (auto) 0.49 K/uL (0.11-0.59); Monocytes % (auto) 5.9 %; Neutrophils # (auto) 4.95 K/uL (1.40-6.50); Platelet Count 222 K/uL (130-400); RDW Coefficient of Variation 12.1 % (11.5-14.5); RDW Standard Deviation 44.3 fL (36.4-46.3); Red Blood Count 4.15 M/uL (4.70-6.10); White Blood Count 8.26 K/ul (4.8-10.8)
--- NOTE | 2022-05-25 17:14 | Emergency Department Note ---
Impression & Plan Asystole, Hypomagnesemia, Near syncope, Atrial fibrillation with rapid ventricular response ED Provider Note NAME: MARIANN BROWN AGE: 81 SEX: M : 1940 ARRIVES VIA: Walk-In INFORMANT: [Patient] ED PROVIDER(S): [Elia Del Castillo MD] CHIEF COMPLAINT: Illness HISTORY OF PRESENT ILLNESS: The patient is a 81-year-old male who presents to the ER with near syncopal spells, fatigue and some shortness of breath for the last 3 to 4 days. He states that he has had multiple near syncopal spells today. No chest pain, no cough or cold or congestion. No urinary complaints or diarrhea. The patient was in our hospital last October for syncope, no etiology was found. PMHx/PSHx: See Below SOCIAL HISTORY: See Below. PHYSICAL EXAM: GENERAL: Patient is in no acute distress. HEENT: No acute trauma, normocephalic atraumatic, mucous membranes moist, no nasal congestion. NECK: No stridor, no adenopathy, no meningismus, trachea is midline. LUNGS: Clear to auscultation bilaterally, no wheeze, no rhonchi, breath sounds equal. HEART: Mildly tachycardic, irregular, no murmurs. ABDOMEN: Soft, nontender, bowel sounds positive, no peritonitis. EXTREMITIES: No cyanosis or edema, full range of motion of all the joints without pain or difficulty, no signs for acute trauma. NEUROLOGIC: Oriented x 3, no acute motor or sensory deficits, no focal weakness. SKIN: No rash, no jaundice, no diaphoresis. DIFFERENTIAL DIAGNOSIS: A-fib, a flutter, V. tach, SVT, dysrhythmia, GA, anemia, electrolyte imbalance, dehydration, among others. EMERGENCY DEPARTMENT COURSE/PROCEDURES: Prior/Outside records reviewed: Previous discharge summary ECG per my interpretation: Indication was near syncope. The ECG shows what appears to be atrial fibrillation with a rate of 103. There is significant baseline artifact. No ST elevation, no PVCs. The QTc is 440. Nonspecific ST changes seen. When compared to an ECG from 10 November 2021, A-fib is now present. Repeat ECG per my interpretation: Indication was A-fib. The ECG shows a normal sinus rhythm with a rate of 75. There is some nonspecific ST change. There is a potential old lateral infarct. There is no ST elevation, no PVCs. The QTc is 424. Compared to the ECG from earlier, sinus rhythm has replaced atrial fibrillation. Continuous Cardiac Monitoring per my interpretation: An order was placed for continuous cardiac monitoring. The monitor shows a rate of 115 with atrial fibrillation. Critical Care Note: I have personally spent 51 minutes of critical care time in the direct management of this patient. This includes bedside care, interpretation of diagnostic studies, and testing, discussion with consultants, patient, and family members, and other required patient management activities. This 51 minutes is in excess of all separately billable procedures. MEDICAL DECISION MAKING: There is no leukocytosis or concerning anemia. There is a normal platelet count. No coagulopathy. No renal failure. Magnesium was somewhat low at 1.5. No concerning liver enzyme elevation. Patient appeared to be in a euthyroid state. ECG initially showed atrial fibrillation with a rate of 103. No obvious ischemia. Cardiac enzyme testing x1 did not show any evidence for acute cardiac injury. Chest film did not show mediastinal widening, pneumonia or pneumothorax per my review. COVID, influenza and RSV test returned negative. Patient had a very long sinus pause here in the ED of around 4 to 5 seconds, basically, asystole. During this timeframe, he felt near syncopal but never lost consciousness. He was placed on the pacer pads but did not require this intervention. After the asystole, he did convert to a sinus rhythm as confirmed by the patient monitor and ECG. The patient received a liter saline bolus, he was given 2 doses of IV magnesium. I did speak with Dr. Reza and Dr. De La Cruz of cardiology. They felt the patient was stable for monitoring overnight with potential pacemaker placement tomorrow. No need for any emergent pacemaker placement. I did speak with the patient and case management, the on-call hospitalist was consulted. DISPOSITION: The patient's presentation and findings warrant a hospital stay. Past Med/Surg History Medical History Acute diverticulitis (08/08/13) hx Chronic back pain Diverticulosis of colon Hepatic steatosis Hiatal hernia History of esophageal dilatation Hypercholesterolemia hx of / pt not sure currently Left leg DVT pt unsure of details. Osteoarthritis Osteopenia Schatzki's ring Sleep trouble Small bowel obstruction (2014) Type 2 diabetes mellitus no medications currently. monitoring with PCP. Surgical History History of colostomy History of colostomy reversal History of esophagogastroduodenoscopy (EGD) Hx of appendectomy Hx of colectomy Hx of colonoscopy Hx of inguinal hernia repair Hx of tonsillectomy Family History Family/Other Aorta aneurysm Perceptive hearing loss or deafness Mother Alcoholism /alcohol abuse Lung cancer Lung disease Father Alcoholism /alcohol abuse Lung disease Brother Primary hemochromatosis Denies family history of Colon cancer Ovarian cancer Prostate cancer Myocardial infarction Breast cancer Colorectal cancer Hypertension Stroke Asthma Social History Smoking Status: Never smoker Second Hand Exposure: No; Do You Dip or Chew Tobacco: No; Hx Alcohol Use: No Hx Substance Use: No Preferred Language: Guinean Communication Ability: Effective Visual Impairment: No Limitations 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: Normal 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 Beliefs That Will Affect Care: None marital status: Single Current Living Situation: Alone Current Living Situation Comment: House current occupational status: retired current occupation: [employer] Other Information That Helps Us Care for You: No Feels Safe at Home: Yes Dental Care, Regularly: No Physical Activity Frequency: 1-2 Times per Week Seatbelt Use: always Assistive Devices: Glasses Allergies Allergies Allergy/AdvReac Type Severity Reaction Status Date / Time No Known Allergies Allergy Verified 05/25/22 17:56 Home Meds Home Medications Medication Instructions Recorded Confirmed cholecalciferol (vitamin D3) 25 1,000 units PO QAM 10/06/18 05/25/22 mcg (1,000 unit) capsule cyanocobalamin (vitamin B-12) 1,000 mcg PO QAM #30 tabs 10/06/18 05/25/22 1,000 mcg tablet psyllium husk 3.4 gram/5.4 gram 2 tbs PO QAM 10/06/18 05/25/22 oral powder aspirin 81 mg tablet,delayed 81 mg PO QAM 11/14/19 05/25/22 release (Ally Low Dose Aspirin) potassium gluconate 595 mg (99 mg) 595 mg PO QAM 11/14/19 05/25/22 tablet calcium carbonate 600 mg calcium 600 mg PO DAILY 05/25/22 05/25/22 (1,500 mg) tablet (Calcium) Previous Rx's Medication Instructions Recorded buspirone 5 mg tablet 5 mg PO TID PRN anxiety #90 tabs 11/24/21 omeprazole 20 mg capsule,delayed 20 mg PO QAM #90 caps 01/12/22 release mirtazapine 15 mg tablet 15 mg PO .QHS #30 tabs 04/23/22 Results & Data (ED) Vital Signs Vital Signs - 24 hr 05/25/22 15:13 05/25/22 16:53 05/25/22 17:19 Temperature 36.7 C Temperature Source Temporal Artery Scan Pulse Rate 102 H 108 H Pulse Rate [Apical] 79 Pulse Rate from SpO2 Sensor Respiratory Rate 20 16 Respiratory Effort / Characteristics Non-Labored Spontaneous Respiratory Depth Normal Normal Blood Pressure 123/77 Blood Pressure [Left Arm] 93/72 L Blood Pressure Mean 92 Blood Pressure Mean [Left Arm] 79 Pulse Oximetry 97 99 Oxygen Delivery Method Room Air Room Air Sepsis Recent Fever Within 48 Hours No Sepsis New/Unexplained Change in Mental Status N/A Sepsis Action Taken by Nursing No Action Required 05/25/22 17:24 05/25/22 16:52 05/25/22 17:00 Temperature Temperature Source Pulse Rate 77 120 H Pulse Rate [Apical] Pulse Rate from SpO2 Sensor 84 Respiratory Rate 19 Respiratory Effort / Characteristics Respiratory Depth Blood Pressure 93/72 L Blood Pressure [Left Arm] Blood Pressure Mean 79 Blood Pressure Mean [Left Arm] Pulse Oximetry 91 Oxygen Delivery Method Sepsis Recent Fever Within 48 Hours Sepsis New/Unexplained Change in Mental Status Sepsis Action Taken by Nursing 05/25/22 17:00 05/25/22 17:21 05/25/22 17:21 Temperature Temperature Source Pulse Rate 100 H 76 Pulse Rate [Apical] Pulse Rate from SpO2 Sensor 103 H 76 Respiratory Rate 19 16 Respiratory Effort / Characteristics Respiratory Depth Blood Pressure 173/92 H Blood Pressure [Left Arm] Blood Pressure Mean 119 Blood Pressure Mean [Left Arm] Pulse Oximetry 96 99 Oxygen Delivery Method Sepsis Recent Fever Within 48 Hours Sepsis New/Unexplained Change in Mental Status Sepsis Action Taken by Nursing 05/25/22 17:30 05/25/22 17:30 05/25/22 18:00 Temperature Temperature Source Pulse Rate 80 Pulse Rate [Apical] Pulse Rate from SpO2 Sensor 78 Respiratory Rate 14 Respiratory Effort / Characteristics Respiratory Depth Blood Pressure 158/89 H 149/88 H Blood Pressure [Left Arm] Blood Pressure Mean 112 108 Blood Pressure Mean [Left Arm] Pulse Oximetry 92 Oxygen Delivery Method Room Air Sepsis Recent Fever Within 48 Hours Sepsis New/Unexplained Change in Mental Status Sepsis Action Taken by Nursing 05/25/22 18:00 Temperature Temperature Source Pulse Rate 80 Pulse Rate [Apical] Pulse Rate from SpO2 Sensor Respiratory Rate 17 Respiratory Effort / Characteristics Respiratory Depth Blood Pressure Blood Pressure [Left Arm] Blood Pressure Mean Blood Pressure Mean [Left Arm] Pulse Oximetry Oxygen Delivery Method Sepsis Recent Fever Within 48 Hours Sepsis New/Unexplained Change in Mental Status Sepsis Action Taken by Long Term Medications Current Medication List: was personally reviewed by me Laboratory Data Attestation: I reviewed the patient's lab results. 05/25/22 15:55 05/25/22 15:55 Lab Results 05/25/22 05/25/22 05/25/22 Range/Units 15:55 15:55 17:12 WBC 8.26 (4.8-10.8) K/ul RBC 4.15 L (4.70-6.10) M/uL Hgb 14.6 (14.0-18.0) g/dl Hct 41.2 L (42.0-52.0) % MCV 99.3 (80.0-100.0) fL MCH 35.2 H (25.0-34.0) pg MCHC 35.4 (32.0-36.0) g/dL RDW Std Deviation 44.3 (36.4-46.3) fL RDW Coeff of [place] 12.1 (11.5-14.5) % Plt Count 222 (130-400) K/uL MPV 10.3 (9.4-12.4) fL Immature Gran % (Auto) 0.6 % Neut % (Auto) 60.0 % Lymph % (Auto) 32.3 % [place] % (Auto) 5.9 % Eos % (Auto) 0.6 % Baso % (Auto) 0.6 % Neut # (Auto) 4.95 (1.40-6.50) K/uL Lymph # (Auto) 2.67 (1.2-3.4) K/uL [place] # (Auto) 0.49 (0.11-0.59) K/uL Eos # (Auto) 0.05 (0-0.50) K/uL Baso # (Auto) 0.05 (0-0.2) K/uL Immature Gran # (Auto) 0.05 (0.01-0.20) K/uL PT (9.0-12.0) Seconds INR (0.9-1.1) APTT (21.0-31.0) Seconds PTT Ratio Sodium 137 (136-145) mmol/L Potassium 4.6 (3.5-5.1) mmol/L Chloride 106 (98-107) mmol/L Carbon Dioxide 23 (21-32) mmol/L Anion Gap 8 (3-11) BUN 20 (6-23) mg/dl Creatinine 1.04 (0.6-1.4) mg/dl Est Cr Clr Drug Dosing 55.7 ml/min Est GFR ( Amer) 78.8 ml/min Est GFR (Non-Af Amer) 68.0 ml/min BUN/Creatinine Ratio 19.2 (10-20) Glucose 199 H (70-99(Fasting)) mg/dl Calcium 9.9 (8.6-10.3) mg/dl Magnesium 1.5 L (1.7-2.4) mg/dl Total Bilirubin 0.6 (0.2-1.0) mg/dl AST 29 (13-39) U/L ALT 37 (7-52) U/L Alkaline Phosphatase 94 (34-104) U/L Troponin I High Sens 7.0 (0-20) pg/ml Total Protein 7.2 (6.0-8.3) gm/dl Albumin 4.4 (3.4-5.0) gm/dl Globulin 2.8 (2.5-4.0) gm/dl Albumin/Globulin Ratio 1.6 (0.9-2) TSH (0.300-4.500) uIu/ml 05/25/22 05/25/22 Range/Units 17:12 17:12 WBC (4.8-10.8) K/ul RBC (4.70-6.10) M/uL Hgb (14.0-18.0) g/dl Hct (42.0-52.0) % MCV (80.0-100.0) fL MCH (25.0-34.0) pg MCHC (32.0-36.0) g/dL RDW Std Deviation (36.4-46.3) fL RDW Coeff of [place] (11.5-14.5) % Plt Count (130-400) K/uL MPV (9.4-12.4) fL Immature Gran % (Auto) % Neut % (Auto) % Lymph % (Auto) % [place] % (Auto) % Eos % (Auto) % Baso % (Auto) % Neut # (Auto) (1.40-6.50) K/uL Lymph # (Auto) (1.2-3.4) K/uL [place] # (Auto) (0.11-0.59) K/uL Eos # (Auto) (0-0.50) K/uL Baso # (Auto) (0-0.2) K/uL Immature Gran # (Auto) (0.01-0.20) K/uL PT 10.9 (9.0-12.0) Seconds INR 1.0 (0.9-1.1) APTT 25.1 (21.0-31.0) Seconds PTT Ratio 0.9 Sodium (136-145) mmol/L Potassium (3.5-5.1) mmol/L Chloride (98-107) mmol/L Carbon Dioxide (21-32) mmol/L Anion Gap (3-11) BUN (6-23) mg/dl Creatinine (0.6-1.4) mg/dl Est Cr Clr Drug Dosing ml/min Est GFR ( Amer) ml/min Est GFR (Non-Af Amer) ml/min BUN/Creatinine Ratio (10-20) Glucose (70-99(Fasting)) mg/dl Calcium (8.6-10.3) mg/dl Magnesium (1.7-2.4) mg/dl Total Bilirubin (0.2-1.0) mg/dl AST (13-39) U/L ALT (7-52) U/L Alkaline Phosphatase (34-104) U/L Troponin I High Sens (0-20) pg/ml Total Protein (6.0-8.3) gm/dl Albumin (3.4-5.0) gm/dl Globulin (2.5-4.0) gm/dl Albumin/Globulin Ratio (0.9-2) TSH 2.249 (0.300-4.500) uIu/ml Administered Medications Insulin Aspart (Insulin Aspart Per Unit Charge) 0 units SC Q6H PATRICIA Stop: 06/24/22 18:59 Last Admin: 05/25/22 19:41 Dose: Not Given Documented By: LAURA Co-signed By: CHRISTOPHER Discontinued Medications Sodium Chloride (Nss 1000ml) 1,000 mls @ 999 mls/hr IV .Q1H1M ONE Stop: 05/25/22 17:57 Last Infusion: 05/25/22 18:15 Dose: 0 mls/hr Documented By: Admin: 05/25/22 17:11 Dose: 999 mls/hr Documented By: MARA Magnesium Sulfate/Dextrose (Magnesium Sulfate / D5w) 1 gm in 100 mls @ 100 mls/hr IV Q1H PATRICIA Stop: 05/25/22 19:50 Last Infusion: 05/25/22 20:20 Dose: 0 mls/hr Documented By: Admin: 05/25/22 19:15 Dose: 100 mls/hr Documented By: Infusion: 05/25/22 19:13 Dose: 100 mls/hr Documented By: Admin: 05/25/22 18:13 Dose: 100 mls/hr Documented By: MARA Magnesium Sulfate/Dextrose (Magnesium Sulfate / D5w) 1 gm in 100 mls @ 50 mls/hr IV ONE ONE Stop: 05/25/22 23:26 Last Admin: 05/25/22 22:53 Dose: 50 mls/hr Documented By: [id number] Imaging Data Radiologist's Impression: Chest X-Ray 05/25/22 15:19 SINGLE VIEW CHEST CLINICAL HISTORY: Illness. FINDINGS: An AP, portable, upright chest radiograph is compared to study dated 11/11/2021. Correlation is made with chest CT dated 09/15/2017. The cardiomediastinal silhouette is unremarkable noting atherosclerotic calcification of the thoracic aorta. Emphysema and chronic interstitial thickening is similar to previous. There is bibasilar scarring/atelectasis. No airspace consolidation or large pleural effusion is identified. No pneumothorax is seen. The skeletal structures are osteopenic. The bony thorax is grossly intact. IMPRESSION: No acute cardiopulmonary abnormality identified. ACT 112: Negative or not required by law. Electronically signed by: Elia Rebollar M.D. 05/25/2022 3:46 PM Discharge Plan Visit Data Chief Complaint: Illness Stated Complaint: FAINTING SPELLS ED Provider: Elia Del Castillo Discharge Problem: Asystole, Hypomagnesemia, Near syncope, Atrial fibrillation with rapid ventricular response Patient Disposition: Admitted As Inpatient Condition: Serious Discharge Instructions Interventions: ED Discharge Assessment Last Done: 05/25/22 20:53
[2022-05-25 17:48] LABS: Magnesium 1.5 mg/dl (1.7-2.4)
[2022-05-25 18:01] LABS: Influenza A virus by PCR Negative (Neg); Influenza B virus by PCR Negative (Neg); RSV by PCR Negative (Neg); SARS CoV2 RNA(COVID-19) Ceph NEGATIVE (Negative)
[2022-05-25 18:02] LABS: Partial Thromboplastin Ratio 0.9; Partial Thromboplastin Time 25.1 Seconds (21.0-31.0); Prothrombin Time 10.9 Seconds (9.0-12.0)
[2022-05-25] MEDS: MAGNESIUM SULFATE / D5W 1 GM/100 ML BAG IV SCH ×2 (18:13→19:15)
--- NOTE | 2022-05-25 18:38 | History & Physical Report ---
Date of Service May 25, 2022 Assessment & Plan (1) Pre-syncope: Plan: -Admit to the PCU on tele -The patient is currently afebrile, hemodynamically stable, stable on RA, and in NSR -The patient has experienced episodes of syncope/pre-syncope since last year -Was admitted in September of 2021 and had a negative cardiac workup, his syncope at that time was thought to be due to polypharmacy from Klonopin and Antihistamines -Initially found to be in afib rvr in the ED, then had a symptomatic 4 sec sinus pause with conversion to NSR -Cardiology consulted, they will see the patient tomorrow, will likely need to be taken for Pacemaker placement -Continue to monitor on tele, order placed and confirmed with nursing staff that we will keep the pacer pads on the patient until he receives his pacemaker -Bedrest until the patient is evaluated by cardiology -Will hold BuSpar and Remeron for now as both can cause arrhythmias -BL SCD's for DVT PPX -AM CBC, CMP, mag, PT/INR (2) Hypomagnesemia: Plan: -Initially found to be 1.5 in the ED -Patient has a chronic hx -Not on diuretics -S/P 2 bags of mag sulfate in ED, will given another 1gm Mag sulfate later tonight -Monitor AM mag levels (3) Hypertension: Plan: -Stable -Not currently on antihypertensives (4) Anxiety: Plan: -Hold BuSpar and remeron for now -Will order prn ativan overnight -Could restart oral regimen after he receives his pacemaker (5) DM II (diabetes mellitus, type II), controlled: Plan: -Normally controlled with Diet -Monitor BSG q6h, goal is 110-140 -Will start with a correction factor of 50 and carb ratio of 15 -DM II diet for now but will make NPO at 0000 in preparation for pacemaker placement -AM A1C ordered Plan The patient was discussed with Dr. Cota at the time of the admission History of Present Illness Chief Complaint: Near syncope Primary Care Provider: Carmelo Mason MD Eleuterio is a 81 year old male with a PMH significant for HTN, type II DM (controlled with diet), anemia, GERD, nephrolithiasis, SBO, diverticulitis, BPH, vitamin D and B12 deficiencywho presented to the [facility] with a chief complaint of near syncope. In the ED the patient was initially found to be afebrile, hemodynamically stable, stable on RA, but tachycardic with HR in the 120's. ECG initially showed new-onset afib RVR. While in the ED the patient had multiple more episodes of near syncope at rest. He was noted to have a 4 second sinus pause on tele, then converted back to NSR. Labs were significant for a CBC WNL, stable Cr at 1.04 with mag of 1.5 otherwise stable electrolytes, glucose of 199, LFT's WNL, TSH WNL, and Covid/RSV/Influenza negative. Chest xray was read as "No acute cardiopulmonary abnormality identified.". At the time of the exam the patient was lying in bed in no acute distress. He states that since 05/23 he has had multiple daily episodes of lightheadedness/dizziness. He states that these episodes occur sporadically and can occur at rest or with activity. He states that they feel just like the syncopal episode he had last September when he was admitted. He denies any recent fevers, chills, chest pain, cough, abd pain, nausea, vomiting, diarrhea, dysuria, hematuria, or recent falls. I explained that Cardiology will likely insert a pacemaker tomorrow. Since discharge in 2021 for syncope the patient has been on prn BuSpar for anxiety and HS Remeron for sleep. 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 He has been taking his BuSpar up to 5 times daily recently. He wishes to be a full code and for his Nephew to make medical decisions for him if he could not make them himself. Please refer to Dr. Cota's attestation for any changes to the treatment Allergies Allergy/AdvReac Type Severity Reaction Status Date / Time No Known Allergies Allergy Verified 05/25/22 17:56 Home Medications Medication Instructions Recorded Confirmed Type cholecalciferol (vitamin D3) 25 1,000 units PO QAM 10/06/18 05/25/22 History mcg (1,000 unit) capsule cyanocobalamin (vitamin B-12) 1,000 mcg PO QAM #30 tabs 10/06/18 05/25/22 History 1,000 mcg tablet psyllium husk 3.4 gram/5.4 gram 2 tbs PO QAM 10/06/18 05/25/22 History oral powder aspirin 81 mg tablet,delayed 81 mg PO QAM 11/14/19 05/25/22 History release (Ally Low Dose Aspirin) potassium gluconate 595 mg (99 mg) 595 mg PO QAM 11/14/19 05/25/22 History tablet buspirone 5 mg tablet 5 mg PO TID PRN anxiety #90 tabs 11/24/21 05/25/22 Rx omeprazole 20 mg capsule,delayed 20 mg PO QAM #90 caps 01/12/22 05/25/22 Rx release mirtazapine 15 mg tablet 15 mg PO .QHS #30 tabs 04/23/22 05/25/22 Rx calcium carbonate 600 mg calcium 600 mg PO DAILY 05/25/22 05/25/22 History (1,500 mg) tablet (Calcium) Past Med/Surg History Medical History Acute diverticulitis (08/08/13) hx Chronic back pain Diverticulosis of colon Hepatic steatosis Hiatal hernia History of esophageal dilatation Hypercholesterolemia hx of / pt not sure currently Left leg DVT pt unsure of details. Osteoarthritis Osteopenia Schatzki's ring Sleep trouble Small bowel obstruction (2014) Type 2 diabetes mellitus no medications currently. monitoring with PCP. Surgical History History of colostomy History of colostomy reversal History of esophagogastroduodenoscopy (EGD) Hx of appendectomy Hx of colectomy Hx of colonoscopy Hx of inguinal hernia repair Hx of tonsillectomy Family History Family/Other Aorta aneurysm Perceptive hearing loss or deafness Mother Alcoholism /alcohol abuse Lung cancer Lung disease Father Alcoholism /alcohol abuse Lung disease Brother Primary hemochromatosis Denies family history of Colon cancer Ovarian cancer Prostate cancer Myocardial infarction Breast cancer Colorectal cancer Hypertension Stroke Asthma Social History Smoking Status: Never smoker Second Hand Exposure: No; Do You Dip or Chew Tobacco: No; Hx Alcohol Use: No Hx Substance Use: No Preferred Language: Japanese Communication Ability: Effective Visual Impairment: No Limitations 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: Normal Sr. Manager Required: No Beliefs That Will Affect Care: None marital status: Single Current Living Situation: Alone Current Living Situation Comment: House current occupational status: retired current occupation: [employer] Other Information That Helps Us Care for You: No Feels Safe at Home: Yes Dental Care, Regularly: No Physical Activity Frequency: 1-2 Times per Week Seatbelt Use: always Assistive Devices: Glasses Review of Systems Review of Systems: Denies current fever, chills, headache, changes in vision, hearing, taste, and smell, chest pain, SOB, cough, abdominal pain, nausea, vomiting, diarrhea, hematemesis, melena, dysuria, hematuria, and recent falls. All systems have been reviewed and are otherwise negative. Physical Exam Physical Exam: Physical Exam: General: In no acute distress, stated age, well-nourished, good hygiene HEENT: Normocephalic, atraumatic, no scleral icterus, pupils around round, symmetrical, and reactive to light, moist mucus membranes, trachea midline, no thyromegaly Chest/Pulm: No respiratory distress, symmetrical chest expansion, clear breath sounds throughout Cardiac: RRR, no murmurs noted Abdomen: Negative for ascites and bruising, normoactive bowel sounds, soft, non-tender to palpation throughout Musculoskeletal: Symmetrical and without signs of acute trauma, upper and lower extremities with full ROM, no atrophy, spasticity, or flaccidity Extremities: Radial, dorsalis pedis, and posterior tibial pulses are intact and symmetrical, no edema noted in the BL LE's Skin: Warm, dry, no rashes , lesions, or scars noted Neuro: Alert and oriented to person, place, month, year, and president, no focal defects,no tremors noted Psych: No acute distress, calm and cooperative during the exam Results & Data Results & Data Vital Signs (Past 12 Hours) Vital Signs Temp Pulse Pulse Resp BP BP Pulse Ox 05/25/22 18:00 80 17 05/25/22 18:00 149/88 H 05/25/22 17:30 80 14 92 05/25/22 17:30 158/89 H 05/25/22 17:21 173/92 H 05/25/22 17:21 76 16 99 05/25/22 17:00 100 H 19 96 05/25/22 17:00 93/72 L 05/25/22 16:52 120 H 19 91 05/25/22 17:24 77 05/25/22 17:19 79 16 93/72 L 99 05/25/22 16:53 108 H 05/25/22 15:13 36.7 C 102 H 20 123/77 97 O2 Del Method 05/25/22 18:00 05/25/22 18:00 05/25/22 17:30 Room Air 05/25/22 17:30 05/25/22 17:21 05/25/22 17:21 05/25/22 17:00 05/25/22 17:00 05/25/22 16:52 05/25/22 17:24 05/25/22 17:19 Room Air 05/25/22 16:53 05/25/22 15:13 Room Air Laboratory Results Abnormal lab results 05/25/22 05/25/22 05/25/22 Range/Units 15:55 15:55 17:12 RBC 4.15 L (4.70-6.10) M/uL Hct 41.2 L (42.0-52.0) % MCH 35.2 H (25.0-34.0) pg Glucose 199 H (70-99(Fasting)) mg/dl Magnesium 1.5 L (1.7-2.4) mg/dl Diagnostic Findings Chest X-Ray 05/25/22 15:19 SINGLE VIEW CHEST CLINICAL HISTORY: Illness. FINDINGS: An AP, portable, upright chest radiograph is compared to study dated 11/11/2021. Correlation is made with chest CT dated 09/15/2017. The cardiomediastinal silhouette is unremarkable noting atherosclerotic calcification of the thoracic aorta. Emphysema and chronic interstitial thickening is similar to previous. There is bibasilar scarring/atelectasis. No airspace consolidation or large pleural effusion is identified. No pneumothorax is seen. The skeletal structures are osteopenic. The bony thorax is grossly intact. IMPRESSION: No acute cardiopulmonary abnormality identified. ACT 112: Negative or not required by law. Electronically signed by: Elia Rebollar M.D. 05/25/2022 3:46 PM ECG Additional Comments: Poor data quality, interpretation may be adversely affected Atrial fibrillation with rapid ventricular response with premature ventricular or aberrantly conducted complexes Left anterior fascicular block Nonspecific ST and T wave abnormality Abnormal ECG When compared with ECG of 10-NOV-2021 10:21, Atrial fibrillation has replaced Sinus rhythm Nonspecific T wave abnormality now evident in Inferior leads Code Status & VTE Plan Code Status Full code VTE Prophylaxis Plan VTE Prophylaxis will be ordered: Yes Supervising Physician Co-Signing Physician Notes Patient seen and examined, chart reviewed, case discussed with Tex Hansen PA-C and I agree with the assessment and plan as above except as otherwise noted Labs and images reviewed Eleuterio is a 81-year-old male with past medical history of hypertension, type II DM, anemia, GERD, nephrolithiasis, SBO, diverticulitis, BPH who presented to the ER with new onset atrial fibrillation with RVR with multiple episodes of near syncope. Patient did convert to sinus rhythm on monitor, but sustained a 4- second pause prior to conversion. To have bedside assessment he is laying in bed with pacer pads in place, reports he feels better than he had previously but is had multiple episodes of feeling like he was nearly going to pass out. His exercise ability is impaired, but the symptoms would also come on at random. He does not have chest pain, chest pressure or shortness of breath. Lungs are clear, heart rate is regular at bedside. Patient is aware that he is going to be followed on telemetry overnight and that due to his symptoms and pause will likely need a pacemaker. Patient has no questions or concerns at time of admission. Agree with assessment and plan above. PG Care Time/CCT Total # of Minutes Spent Total Time Spent with Patient: Total time spent is greater than 50% in coordination of care (as documented) at patient's floor/unit and/or counseling patient: Coding [place] [address] INT INP/OBS CARE 3/75MIN Patient Type Established Medical Decision Making High Complexity Diagnoses Pre-syncope R55 Hypomagnesemia E83.42 Hypertension I10 Anxiety F41.9 DM II (diabetes mellitus, type II), controlled E11.9
[2022-05-25] MEDS ORDERED: CARBOHYDRATES FOR HYPOGLYCEMIA PO PRN (18:50)
[2022-05-25] MEDS ORDERED: GLUCOSE 40% GEL 15 GM TUBE PO PRN (18:50)
[2022-05-25] MEDS ORDERED: GLUCAGON FOR INJ 1 MG VIAL SQ PRN (18:50)
[2022-05-25] MEDS ORDERED: DEXTROSE 50% 50 ML SYRINGE IV PRN (18:50)
[2022-05-25] MEDS ORDERED: GLUCOSE 10 TAB/TUBE PO PRN (18:50)
[2022-05-25] MEDS: INSULIN ASPART PER UNIT CHARGE SC SCH (19:41)
[2022-05-25] MEDS ORDERED: MAGNESIUM SULFATE / D5W 1 GM/100 ML BAG IV ONE (21:27)
[2022-05-25] MEDS ORDERED: LORazepam 2 MG/1 ML VIAL IV PRN (21:36)
[2022-05-25] MEDS ORDERED: Nursing to Pharmacy Communication SCH (22:00)
[2022-05-26] MEDS: INSULIN ASPART PER UNIT CHARGE SC SCH ×5 (00:47→21:02)
[2022-05-26 06:38] LABS: Hematocrit (blood only) 33.7 % (42.0-52.0); Hemoglobin 11.7 g/dl (14.0-18.0); Mean Corpuscular Hemoglobin 35.1 pg (25.0-34.0); Mean Corpuscular Hgb Conc 34.7 g/dL (32.0-36.0); Mean Corpuscular Volume 101.2 fL (80.0-100.0); Platelet Count 164 K/uL (130-400); RDW Coefficient of Variation 12.6 % (11.5-14.5); RDW Standard Deviation 46.8 fL (36.4-46.3); Red Blood Count 3.33 M/uL (4.70-6.10); White Blood Count 5.45 K/ul (4.8-10.8)
[2022-05-26 06:42] LABS: Albumin Globulin Ratio 1.5 (0.9-2); Albumin Level 3.4 gm/dl (3.4-5.0); BUN Creatinine Ratio 23.1 (10-20); Bilirubin,Total 0.5 mg/dl (0.2-1.0); Calcium 7.9 mg/dl (8.6-10.3); Creatinine Clr Calc Pharmacy 74.3 ml/min; Est GFR (African American) 99.5 ml/min; Est GFR (Non-African American) 85.9 ml/min; Globulin 2.3 gm/dl (2.5-4.0); Magnesium 2.2 mg/dl (1.7-2.4); Potassium 3.8 mmol/L (3.5-5.1); Total Protein 5.7 gm/dl (6.0-8.3)
[2022-05-26 06:48] LABS: Prothrombin Time 10.9 Seconds (9.0-12.0)
[2022-05-26 08:59] LABS: Estimated Average Glucose 123 mg/dl; Hemoglobin A1C 5.9 % (4.5-5.6)
[2022-05-26] MEDS ORDERED: Flu Vaccine-High Dose (Fluzone-HD) PF 65+ 0.7mL SYR IM ONE (09:00)
[2022-05-26] MEDS ORDERED: PNEUMOCOCCAL Polysaccharide Vaccine 25mcg/0.5mL vial/Syr IM ONE (09:00)
[2022-05-26] MEDS: ASPIRIN 81 MG ECTAB PO SCH (09:11)
[2022-05-26] MEDS: PANTOprazole 40 MG TAB PO SCH (09:12)
--- NOTE | 2022-05-26 10:42 | Electrocardiogram Report ---
Test Reason : Blood Pressure : / mmHG Vent. Rate : 103 BPM Atrial Rate : 129 BPM P-R Int : 000 ms QRS Dur : 070 ms QT Int : 336 ms P-R-T Axes : 000 -49 046 degrees QTc Int : 440 ms Poor data quality, interpretation may be adversely affected Atrial fibrillation with rapid ventricular response with premature ventricular or aberrantly conducte d complexes Left anterior fascicular block Nonspecific ST and T wave abnormality Abnormal ECG When compared with ECG of 10-NOV-2021 10:21, Atrial fibrillation has replaced Sinus rhythm HR has increased BY 23 BPM Confirmed by Davon Tabor ([id number]) on 05/26/2022 10:42:10 AM Referred By: REFERRED SELF Confirmed By:Davon Tabor
--- NOTE | 2022-05-26 10:43 | Electrocardiogram Report ---
Test Reason : Blood Pressure : / mmHG Vent. Rate : 075 BPM Atrial Rate : 075 BPM P-R Int : 200 ms QRS Dur : 080 ms QT Int : 380 ms P-R-T Axes : 050 -51 042 degrees QTc Int : 424 ms Normal sinus rhythm Left anterior fascicular block Poor R wave progression, consider anterior CT vs. lead placement vs. LVH Abnormal ECG When compared with ECG of 25-MAY-2022 15:53, Sinus rhythm has replaced Atrial fibrillation HR has decreased BY [address] no longer depressed in Inferior leads Nonspecific T wave abnormality no longer evident in Inferior leads Confirmed by Davon Tabor ([id number]) on 05/26/2022 10:42:54 AM Referred By: REFERRED SELF Confirmed By:Davon Tabor
--- NOTE | 2022-05-26 10:43 | Electrocardiogram Report ---
Test Reason : Blood Pressure : / mmHG Vent. Rate : 079 BPM Atrial Rate : 079 BPM P-R Int : 198 ms QRS Dur : 082 ms QT Int : 386 ms P-R-T Axes : 049 -51 045 degrees QTc Int : 442 ms Sinus rhythm with frequent Premature ventricular complexes Left anterior fascicular block Poor R wave progression, consider anterior AK vs. lead placement vs. LVH Abnormal ECG When compared with ECG of 25-MAY-2022 17:30, Premature ventricular complexes are now Present Confirmed by Davon Tabor ([id number]) on 05/26/2022 10:43:14 AM Referred By: REFERRED SELF Confirmed By:Davon Tabor
--- NOTE | 2022-05-26 10:44 | Electrocardiogram Report ---
Test Reason : Blood Pressure : / mmHG Vent. Rate : 068 BPM Atrial Rate : 068 BPM P-R Int : 216 ms QRS Dur : 084 ms QT Int : 420 ms P-R-T Axes : 049 -42 009 degrees QTc Int : 446 ms Sinus rhythm with 1st degree A-V block Left anterior fascicular block Nonspecific ST abnormality Anterior leads Abnormal ECG When compared with ECG of 25-MAY-2022 17:35, Premature ventricular complexes are no longer Present Nonspecific ST abnormality Anterior leads more pronounced Confirmed by Davon Tabor ([id number]) on 05/26/2022 10:44:18 AM Referred By: REFERRED SELF Confirmed By:Davon Tabor
[2022-05-26] MEDS ORDERED: busPIRone 5 MG TAB PO PRN (12:58)
--- NOTE | 2022-05-26 13:01 | Hospitalist Progress Note ---
Date of Service May 26, 2022 Assessment & Plan (1) Pre-syncope: Plan: Acute/unstable - high risk - The patient has experienced episodes of syncope/pre-syncope since last year - Was admitted in September of 2021 and had a negative cardiac workup, his syncope at that time was thought to be due to polypharmacy from Klonopin and Antihistamines - Initially found to be in afib rvr in the ED, then had a symptomatic 4 sec pause with conversion to NSR - BuSpar and Remeron for now as both can cause arrhythmias - Cardiology seen, no plans for PPM insertion - Initiate treatment to prevent afib recurrence (2) Atrial fibrillation with rapid ventricular response: Plan: Acute/unstable - high risk - Appreciate cardiology input - Initiate Amiodarone 200mg BID - Monitor overnight to ensure no pauses with starting Amio - Initiate anticoagulation with Eliquis 5mg BID - Last echo performed Oct 2021, LV normal size and function. No thrombus. Mild LVH and RVH. Normal wall motion. R ventricle borderline dilated. Normal RV function. - Do not feel strongly that echo needs repeated this hospital stay as his presyncopal/syncopal episodes have been occurring since September 2021 (3) Hypomagnesemia: Plan: Acute/stable - resolved - Initially found to be 1.5 in the ED - Patient has a chronic hx - Not on diuretics - S/P 2 bags of mag sulfate in ED, given another 1gm Mag sulfate later tonight - Reviewed Mag level this AM wnl at 2.2 - Start on slow mag + calcium (4) Anxiety: Plan: Chronic/stable - Buspar and Remeron held on admit d/t possible cause of arrhythmia - ordered prn ativan overnight - Currently remains in NSR, starting Amio, will resume his anxiety meds (5) DM II (diabetes mellitus, type II), controlled: Plan: Chronic/stable - Diet controlled - Monitor BSG achs, goal is 110-140 - Will start with a correction factor of 50 and carb ratio of 15 - DM II diet - AM A1C ordered Plan Discussed case with Dr. Tabor (cardiology). Initiate Amiodarone for prevention of afib as well as Eliquis. Monitor overnight. Can be d/c'd tomorrow barring any overnight issues. Will need cardiology follow up +/- [facility]. Above d/w Dr. Torres. Admission and Anticipated Discharge Date Admission Date: May 25, 2022 Subjective Patient seen on rounds this morning. Seen by cardiology with no plans for pacemaker placement. Patient is currently asymptomatic, denies lightheadedness/dizziness, cp, dyspnea, or palpitations. Currently remains in NSR since converting in ED last evening. Physical Exam Physical Exam: GENERAL: 81 yo well-developed, well-nourished. NAD. LUNGS: Clear to auscultation bilaterally. No W/R/R. CARDIOVASCULAR: Regular rate and rhythm. EXTREMITIES: No edema. Non-tender. Peripheral pulses +2/4. Results & Data Results & Data Vital Signs (Past 12 Hours) Vital Signs Temp Pulse Pulse Resp BP Pulse Ox O2 Del Method 05/26/22 12:02 36.7 C 69 20 119/71 95 Room Air 05/26/22 07:58 36.6 C 68 18 104/61 97 Room Air 05/26/22 07:44 69 05/26/22 03:26 36.4 C L 68 20 123/71 98 Room Air Laboratory Results 05/26/22 05:29 05/26/22 05:29 TB=4.8 Ammonia=64 (106) PG Care Time/CCT Total # of Minutes Spent Total Time Spent with Patient: Total time spent is greater than 50% in coordination of care (as documented) at patient's floor/unit and/or counseling patient: Coding Level of Care Code 70773 SUB INP/OBS CARE 3/50MIN Diagnoses Pre-syncope R55 Atrial fibrillation with rapid ventricular response I48.91 Hypomagnesemia E83.42 Anxiety F41.9 DM II (diabetes mellitus, type II), controlled E11.9
--- NOTE | 2022-05-26 14:27 | Cardiology Consultation ---
Date of Consultation May 26, 2022 Assessment & Plan (1) Atrial fibrillation with rapid ventricular response: (2) Hypomagnesemia: (3) Pre-syncope: Plan 81-year-old man with no prior cardiac history who has had several episodes of lightheadedness/presyncope which seem secondary to conversion pauses from atrial fibrillation with elevated ventricular response converting to sinus rhythm. He has not had any actual syncope and notes no symptoms suggestive of myocardial ischemia or congestive heart failure. A recent echocardiogram was completely unremarkable. Recommend aggressive rhythm management in hopes of maintaining sinus rhythm and avoiding further conversion pauses. Initiate amiodarone 200 mg twice daily, would not use higher loading dose given risk of bradycardia/pauses. His [id number] score is 3 (age and hypertension), given normal renal function would anticoagulate with apixaban 5 mg twice daily and discontinue aspirin. Etiology of hypomagnesemia uncertain, but likely the half gallon of iced tea drinks daily has some degree of diuretic effect, recommended that he reduce his intake and would initiate Slow-Mag 64 mg daily as at least a temporary magnesium supplement. Okay to continue buspirone, as this is not associated with significant dysrhythmias. Agree with holding Remeron as possible since this can have QT prolonging properties and he is being amiodarone loaded. Continue on telemetry monitoring at least overnight while he initiates his antiarrhythmic regimen. If he does demonstrate further pauses which are more prolonged or symptomatic, he could ultimately require a pacemaker, but if his rhythm is adequately controlled and he avoids conversion pauses this may not be necessary. History of Present Illness Reason for Consultation: near syncope, sinus pauses of 4 sec Requesting Physician: Todd Torres MD Attending Physician: Todd Torres MD History of Present Illness 81-year-old man with no prior cardiac history who had an episode of presyncope 6 months ago and presented after further episodes of lightheadedness yesterday, found to be in atrial fibrillation with mildly elevated ventricular response (120 bpm), an episode of lightheadedness while in the ER correlated with a conversion pause of 4 seconds as he returned to sinus rhythm. Labs notable for magnesium 1.5 and normal troponin. At baseline, he is physically active and notes no exertional symptoms routinely. He denies any chest discomfort, dyspnea, orthopnea, PND, or leg edema. Aside from the above noted episodes of transient lightheadedness, he has not had any actual syncope. Of note, he drinks about a half a gallon of iced tea daily. No significant alcohol intake and no diuretic use. At the time of my evaluation this morning, he was comfortable and had no somatic complaints. Allergies Allergy/AdvReac Type Severity Reaction Status Date / Time No Known Allergies Allergy Verified 05/25/22 17:56 Home Medications Medication Instructions Recorded Confirmed Type cholecalciferol (vitamin D3) 25 1,000 units PO QAM 10/06/18 05/25/22 History mcg (1,000 unit) capsule cyanocobalamin (vitamin B-12) 1,000 mcg PO QAM #30 tabs 10/06/18 05/25/22 History 1,000 mcg tablet psyllium husk 3.4 gram/5.4 gram 2 tbs PO QAM 10/06/18 05/25/22 History oral powder aspirin 81 mg tablet,delayed 81 mg PO QAM 11/14/19 05/25/22 History release (Ally Low Dose Aspirin) potassium gluconate 595 mg (99 mg) 595 mg PO QAM 11/14/19 05/25/22 History tablet buspirone 5 mg tablet 5 mg PO TID PRN anxiety #90 tabs 11/24/21 05/25/22 Rx omeprazole 20 mg capsule,delayed 20 mg PO QAM #90 caps 01/12/22 05/25/22 Rx release mirtazapine 15 mg tablet 15 mg PO .QHS #30 tabs 04/23/22 05/25/22 Rx calcium carbonate 600 mg calcium 600 mg PO DAILY 05/25/22 05/25/22 History (1,500 mg) tablet (Calcium) Patient History Medical History Acute diverticulitis (08/08/13) hx Chronic back pain Diverticulosis of colon Hepatic steatosis Hiatal hernia History of esophageal dilatation Hypercholesterolemia hx of / pt not sure currently Left leg DVT pt unsure of details. Osteoarthritis Osteopenia Schatzki's ring Sleep trouble Small bowel obstruction (2014) Type 2 diabetes mellitus no medications currently. monitoring with PCP. Surgical History History of colostomy History of colostomy reversal History of esophagogastroduodenoscopy (EGD) Hx of appendectomy Hx of colectomy Hx of colonoscopy Hx of inguinal hernia repair Hx of tonsillectomy Family History Family/Other Aorta aneurysm Perceptive hearing loss or deafness Mother Alcoholism /alcohol abuse Lung cancer Lung disease Father Alcoholism /alcohol abuse Lung disease Brother Primary hemochromatosis Denies family history of Colon cancer Ovarian cancer Prostate cancer Myocardial infarction Breast cancer Colorectal cancer Hypertension Stroke Asthma Social History Smoking Status: Never smoker Second Hand Exposure: No; Do You Dip or Chew Tobacco: No; Hx Alcohol Use: No Hx Substance Use: No Preferred Language: Romanian Communication Ability: Effective Visual Impairment: No Limitations 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: Normal 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 BP normotensive. Pulse 68 bpm and regular. Skin: no ecchymoses or generalized lesions. HEENT: unremarkable. Neck: no JVD or carotid bruits. Lungs: clear. Cardiac: regular rhythm, normal S1-S2, no murmur or gallop. Abdomen: benign. Extremities: no edema, pulses intact. Neurologic: normal affect and conversation, nonfocal. Results & Data Vital Signs (Past 12 Hours) Vital Signs Temp Pulse Pulse Resp BP Pulse Ox O2 Del Method 05/26/22 12:02 98.1 F 69 20 119/71 95 Room Air 05/26/22 07:58 97.9 F 68 18 104/61 97 Room Air 05/26/22 07:44 69 05/26/22 03:26 97.5 F L 68 20 123/71 98 Room Air Laboratory Results Potassium 3.8, magnesium 1.5, BUN 18, creatinine 0.78. Troponin 7.0. Diagnostic Findings Initial ECG showed atrial fibrillation with ventricular rate of 103 bpm, left anterior fascicular block, nonspecific ST and T wave abnormalities. Compared with 2021 study, A-fib had replaced sinus rhythm and heart rate had increased by 23 bpm. Second ECG showed sinus rhythm at 75 bpm, left anterior fascicular block, poor R wave progression. ST-T wave abnormalities had resolved. 30 ECG showed sinus rhythm at 79 bpm with unifocal PVCs. ECG this morning showed sinus rhythm with first-degree AV block at 60 bpm, left anterior fascicular block, minor nonspecific ST depression in anterior leads. Compared with yesterday, PVCs no longer present, nonspecific ST depression more pronounced. Chest x-ray on admission unremarkable. Echocardiogram October 2021 was unremarkable. PG Care Time/CCT Total # of Minutes Spent Total Time Spent with Patient: Total time spent is greater than 50% in coordination of care (as documented) at patient's floor/unit and/or counseling patient: Coding Level of Care Code 63499 INT INP/OBS CARE 3/75MIN Diagnoses Atrial fibrillation with rapid ventricular response I48.91 Hypomagnesemia E83.42 Pre-syncope R55
[2022-05-26] MEDS ORDERED: Nursing to Pharmacy Communication SCH (17:30)
[2022-05-26] MEDS: AMIODARONE 200 MG TAB PO SCH (17:59)
[2022-05-26] MEDS: APIXABAN 5 MG TABLET PO SCH (20:16)
[2022-05-26] MEDS ORDERED: INSULIN ASPART PER UNIT CHARGE SC SCH (21:00)
[2022-05-26] MEDS ORDERED: MIRTAZAPINE TAB 15 MG TAB PO SCH (21:00)
[2022-05-27 06:36] LABS: Hematocrit (blood only) 33.3 % (42.0-52.0); Hemoglobin 11.5 g/dl (14.0-18.0); Mean Corpuscular Hemoglobin 35.3 pg (25.0-34.0); Mean Corpuscular Hgb Conc 34.5 g/dL (32.0-36.0); Mean Corpuscular Volume 102.1 fL (80.0-100.0); Platelet Count 150 K/uL (130-400); RDW Coefficient of Variation 12.1 % (11.5-14.5); RDW Standard Deviation 45.9 fL (36.4-46.3); Red Blood Count 3.26 M/uL (4.70-6.10); White Blood Count 4.72 K/ul (4.8-10.8)
[2022-05-27 06:54] LABS: Albumin Globulin Ratio 1.6 (0.9-2); Albumin Level 3.5 gm/dl (3.4-5.0); BUN Creatinine Ratio 24.7 (10-20); Bilirubin,Total 0.6 mg/dl (0.2-1.0); Calcium 7.8 mg/dl (8.6-10.3); Creatinine Clr Calc Pharmacy 71.5 ml/min; Est GFR (Non-African American) 84.5 ml/min; Globulin 2.2 gm/dl (2.5-4.0); Magnesium 1.9 mg/dl (1.7-2.4); Potassium 4.1 mmol/L (3.5-5.1); Total Protein 5.7 gm/dl (6.0-8.3)
[2022-05-27] MEDS: AMIODARONE 200 MG TAB PO SCH (08:08)
[2022-05-27] MEDS: ASPIRIN 81 MG ECTAB PO SCH (08:09)
[2022-05-27] MEDS: APIXABAN 5 MG TABLET PO SCH (08:09)
[2022-05-27] MEDS: PANTOprazole 40 MG TAB PO SCH (08:09)
[2022-05-27] MEDS ORDERED: MAGNESIUM CHLORIDE W/CALCIUM 64MG DELAYED REL TAB PO SCH (09:00)
[2022-05-27] MEDS: INSULIN ASPART PER UNIT CHARGE SC SCH ×2 (09:29→13:02)
[2022-05-27] MEDS ORDERED: MAGNESIUM OXIDE 400 MG TAB PO SCH (11:00)
--- NOTE | 2022-05-27 11:48 | Discharge Summary ---
Date of Service May 27, 2022 Admission HPI Per Admitting Provider Eleuterio is a 81 year old male with a PMH significant for HTN, type II DM (controlled with diet), anemia, GERD, nephrolithiasis, SBO, diverticulitis, BPH, vitamin D and B12 deficiencywho presented to the [facility] ED on 05/25/22 with a chief complaint of near syncope. In the ED the patient was initially found to be afebrile, hemodynamically stable, stable on RA, but tachycardic with HR in the 120's. ECG initially showed new-onset afib RVR. While in the ED the patient had multiple more episodes of near syncope at rest. He was noted to have a 4 second sinus pause on tele, then converted back to NSR. Labs were significant for a CBC WNL, stable Cr at 1.04 with mag of 1.5 otherwise stable electrolytes, glucose of 199, LFT's WNL, TSH WNL, and Covid/RSV/Influenza negative. Chest xray was read as "No acute cardiopulmonary abnormality identified.". At the time of the exam the patient was lying in bed in no acute distress. He states that since 05/23 he has had multiple daily episodes of lightheadedness/dizziness. He states that these episodes occur sporadically and can occur at rest or with activity. He states that they feel just like the syncopal episode he had last September when he was admitted. He denies any recent fevers, chills, chest pain, cough, abd pain, nausea, vomiting, diarrhea, dysuria, hematuria, or recent falls. I explained that Cardiology will likely insert a pacemaker tomorrow. Since discharge in 2021 for syncope the patient has been on prn BuSpar for anxiety and HS Remeron for sleep. 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 He has been taking his BuSpar up to 5 times daily recently. He wishes to be a full code and for his Nephew to make medical decisions for him if he could not make them himself. Please refer to Dr. Cota's attestation for any changes to the treatment Admission Exam Per Admitting Provider Physical Exam: General:In no acute distress, stated age, well-nourished, good hygiene HEENT:Normocephalic, atraumatic, no scleral icterus, pupils around round, symmetrical, and reactive to light, moist mucus membranes, trachea midline, no thyromegaly Chest/Pulm:No respiratory distress, symmetrical chest expansion, clear breath sounds throughout Cardiac:RRR, no murmurs noted Abdomen:Negative for ascites and bruising, normoactive bowel sounds, soft, non-tender to palpation throughout Musculoskeletal:Symmetrical and without signs of acute trauma, upper and lower extremities with full ROM, no atrophy, spasticity, or flaccidity Extremities:Radial, dorsalis pedis, and posterior tibial pulses are intact and symmetrical, no edema noted in the BL LE's Skin:Warm, dry, no rashes , lesions, or scars noted Neuro:Alert and oriented to person, place, month, year, and president, no focal defects,no tremors noted Psych:No acute distress, calm and cooperative during the exam Principal Diagnosis Afib w/ RVR Discharge Exam General: WD/WN elderly male sitting up in bed, dressed and wanting to go home, NAD HEENT: head normocephalic, atraumatic, trachea midline Resp: CTA, no w/c/r, on room air CV: RRR, no significant m/r/g, no pitting edema/calf tenderness GI: +BS, soft/NT MSK/NEURO: no focal deficit, no slurred speech/facial droop Psych: AOx3, cooperative with examination Discharge Data Allergies Allergy/AdvReac Type Severity Reaction Status Date / Time No Known Allergies Allergy Verified 05/25/22 17:56 Consultations 05/25/22 17:57 ED Decision to Admit Stat 05/25/22 18:42 Consult Cardiology Routine Ordered Studies Chest X-Ray 05/25/22 15:19 SINGLE VIEW CHEST CLINICAL HISTORY: Illness. FINDINGS: An AP, portable, upright chest radiograph is compared to study dated 11/11/2021. Correlation is made with chest CT dated 09/15/2017. The cardiomediastinal silhouette is unremarkable noting atherosclerotic calcification of the thoracic aorta. Emphysema and chronic interstitial thickening is similar to previous. There is bibasilar scarring/atelectasis. No airspace consolidation or large pleural effusion is identified. No pneumothorax is seen. The skeletal structures are osteopenic. The bony thorax is grossly intact. IMPRESSION: No acute cardiopulmonary abnormality identified. ACT 112: Negative or not required by law. Electronically signed by: Elia Rebollar M.D. 05/25/2022 3:46 PM Hospital Course (1) Pre-syncope: Presented with near syncope, found to be in afib with RVR to rates 120s, no prior afib (Prior admit in Oct 2021 for syncope, felt related to Klonopin use/sleep aides and antihistamines -- while patient does report issues w/ sleeping at baseline, ?if alcohol at bed contributing to afib on admit although patient denied such) Mag 1.5, replacement ordered. Patient converted to NSR, 4 second conversion pause, nothing further. No BB given bradycardic/pauses as discussed w/ Dr Tabor --> plan to discharge patient on Amiodarone 200mg BID, eliquis 5mg BID ($19 galindo chcked by ), and slow mag BID. D/c ASA at discharge. D/c remeron given risk for QT prolongation, can continue buspar prn -- rec'd to f/u PCP for alternative sleep aides Patient without any further syncope/pre-syncope symptoms reported since in NSR and stable for discharge. Cards having MCOT arranged to ensure no breakthrough atrial dysrhythmias or conversion pauses --> if expeience presyncope or syncope, will need to entertain pacemaker placement F/u cards 2-4 weeks CM provided information for life alert for at home as well given family concerns/living alone/falls as well (2) Atrial fibrillation with rapid ventricular response: NEW Cards consulted No need for repeat echo given ongoing episodes since last admission (LV normal size/function, mild LVH, RVH. normal wm. R ventricle borderline dilation w/ normal RV function) Monitored on tele, as above w/ conversion back to NSR w/o further pauses Amio 200mg BID initiated and continued at dc Eliquis 5mg BID initiated and continued at d/c Slow-mag BID ordered -- mag 1.5 on admit, IV ordered and was 1.9 prior to discharge before oral supplementation began and decision to d/c on TWICE daily, especially given prior admit in October patient w/ mag 1.5 as well (?to PPI use) MCOT being arranged by cards at d/c, outpatient follow up (3) Hypomagnesemia: 1.5 on admit, prior lows as above. not on diuretics, ? to PPI use s/p 3gm IV mag replacement Mag 2.2 on repeat, 1.9 this morning --> SLOW MAG BID at discharge (4) Anxiety: Chronic/stable - Buspar and Remeron held on admit d/t possible cause of arrhythmia, prn ativan given at night (not sent rx given prior polypharmacy/sedation w/ klonopin) Remains in NSR on amio buspar resumed prn f/u PCP for alternative sleep medications, rec OTC melatonin/sleep/wake schedules (5) DM II (diabetes mellitus, type II), controlled: Chronic/stablem diet controlled. A1c 5.9 BSG AC/HS while inpatient w/ SSI - BSGs acceptable Total Time Total Time Spent Total Time Spent (In Minutes): 50 Discharge Plan Discharge Items Patient Disposition: Home - Self-Care Reason For Visit: NEAR-SYNCOPE Discharge Diagnosis: Atrial Fibrillation with RVR Goals: You have been hospitalized for an acute medical problem. During your stay at [facility], we have made an effort to correct the problem that brought you to the hospital while keeping you as comfortable as possible. Medications were used to bring your condition under control and your discharge instructions will include directions for any medications you should take after leaving the hospital. Please make sure you see your Primary Care Provider as part of your follow up plan. Activity: Resume your previous activity Non-emergency contact: Primary Care Provider and Quality Review Specialist Call non-emergency contact if: you have any medication questions, your symptoms worsen and you have a fever Follow-up/Referrals: Davon Tabor MD [Physician] - 06/16/22 2:30 pm (With Dr Tabor) ProCarmelo MD [Primary Care Provider] - 06/01/22 11:00 am (With Brigette Mcmahon PA-C) Diet: Heart Healthy Addtl Attending Provider Instructions: You have been hospitalized for pre-syncope and found to be in an irregular rhythm called atrial fibrillation. You converted back to normal sinus rhythm, and your magnesium levels were replaced. We consulted cardiology, Dr Tabor, and recommendations are for you to continue eliquis 5mg by mouth twice daily and amiodarone 200mg by mouth twice daily to help keep you in a normal rhythm and prevent any secondary issues like stroke/clot with the Eliquis. You can continue you buspar as needed for anxiety, but your REMERON (mirtazepine) has been STOPPED to prevent any issues with your conduction system in the heart. You will also be sent on oral magnesium to help prevent any lows, (which could be from reflux medications, or diuretic effect from excess tea consumption) and it is recommended to cut back on the tea intake at discharge. You should STOP your baby aspirin while on Eliquis. You should AVOID taking any Aleve, ibuprofen, naproxen or other NSAIDs while on Eliquis as this is a blood thinner and they will increase risk for bleeding. You will need to have follow up with Cardiology at discharge for ongoing management. Please follow up with primary care in the next 7-10 days after discharge. Please return to the ER for any worsening symptoms, chest pain, shortness of breath , bleeding, or for any other symptoms concerning for you. It has been a pleasure being a part of the medical team providing for you while you have been in the hospital. Take care! 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 Bag Bundler Provider Instructions: Call your Primary Care doctor if you experience any of the following: * Swelling or Pain in your leg * Sudden, continuous pain deep in a muscle * Pain that worsens when you are active or when you stand still for a long time * Chest Pain * Sudden Shortness of Breath * Rapid or pounding heart beat * Fainting * Dizziness * Cough with blood or bloody sputum * Sweating more than normal * Bruises * Heavy or uncontrolled bleeding * Blood in your urine, stool or vomit * Black or tarry stools Pending Studies at Discharge: No Stand-Alone Forms: My [facility], Smoking Cessation Medications and DC Order Prescriptions: New amiodarone 200 mg Tablet 200 mg PO BIDM Qty: 60 0RF Mag 64 64 mg Tablet,Delayed Release (Dr/Ec) 64 mg PO BID Qty: 60 0RF Eliquis 5 mg Tablet 5 mg PO BID Qty: 60 0RF Continued omeprazole 20 mg capsule,delayed release(DR/EC) 20 mg PO QAM Qty: 90 3RF cholecalciferol (vitamin D3) 1,000 unit capsule 1,000 units PO QAM cyanocobalamin (vitamin B-12) 1,000 mcg tablet 1,000 mcg PO QAM Qty: 30 psyllium husk 3.4 gram/5.4 gram powder 2 tbs PO QAM buspirone 5 mg tablet 5 mg PO TID PRN (Reason: anxiety) Qty: 90 3RF potassium gluconate 595 mg (99 mg) Tablet 595 mg PO QAM calcium carbonate [Calcium 600] 600 mg calcium (1,500 mg) Tablet 600 mg PO DAILY Discontinued mirtazapine 15 mg tablet 15 mg PO .QHS Qty: 30 2RF aspirin [Ally Low Dose Aspirin] 81 mg Tablet,Delayed Release (Dr/Ec) 81 mg PO QAM Discharge Orders: Discharge Order (Routine); Ordered 05/27/22 Ordered By: Rianna Dumont Admission Data Admit Date/Time: 05/25/22 18:17 Attending Provider: Alexander Berrios Admit Provider: Art Cota Primary Care Provider: Carmelo Mason Other Providers: Art Cota ; Carmelo De La Cruz Other Interventions: Discharge Summary Assessment (RN) Last Done: 05/27/22 13:24 Supervising Physician Co-Signing Physician Notes The patient was seen by me. The chart was reviewed. Case discussed with BIANCA Lane. Agree with assessment and plan. He will be discharged home today, May 27 Coding Level of Care Code 89741 INP/OBS DISCH >30 MIN Diagnoses Pre-syncope R55 Atrial fibrillation with rapid ventricular response I48.91 Hypomagnesemia E83.42 Anxiety F41.9 DM II (diabetes mellitus, type II), controlled E11.9
--- NOTE | 2022-05-27 12:17 | Cardiology Progress Note ---
Date of Service May 27, 2022 Assessment & Plan (1) Atrial fibrillation with rapid ventricular response: (2) Hypomagnesemia: (3) Pre-syncope: Plan Would discharge on amiodarone 200 mg twice daily and apixaban 5 mg twice daily. Discontinue aspirin. Also, Slow-Mag 64 mg twice daily with instructions to reduce his intake of iced tea (likely contributing factor to his hypomagnesemia). We will arrange for MCOT monitor at home to ensure he has no breakthrough atrial dysrhythmias or further conversion pauses. If he does experience presyncope or syncope, would certainly need to consider pacemaker placement at that time. Cardiology follow-up with me in 2 to 4 weeks. Admission and Anticipated Discharge Date Admission Date: May 25, 2022 Subjective Uneventful night, feels well. No chest pain, dyspnea, subjective palpitations, lightheadedness, presyncope, or syncope. Rhythm is sinus in the 60-70 bpm range, no pauses or recurrent atrial fibrillation. Physical Exam Physical Exam: No distress. BP normotensive. Pulse 72 bpm and regular. Skin: no ecchymoses or generalized lesions. HEENT: unremarkable. Neck: no JVD or carotid bruits. Lungs: clear. Cardiac: regular rhythm, normal S1-S2, no murmur or gallop. Abdomen: benign. Extremities: no edema, pulses intact. Neurologic: normal affect and conversation, nonfocal. Results & Data Vital Signs (Past 12 Hours) Vital Signs Temp Pulse Pulse Resp BP Pulse Ox O2 Del Method 05/27/22 11:34 97.3 F L 72 18 128/71 95 Room Air 05/27/22 07:10 61 05/27/22 07:45 97.9 F 65 18 126/75 95 Room Air 05/27/22 03:41 98.2 F 67 16 119/74 96 Room Air Laboratory Results Normal electrolytes, BUN 20, creatinine 0.81. PG Care Time/CCT Total # of Minutes Spent Total Time Spent with Patient: Total time spent is greater than 50% in coordination of care (as documented) at patient's floor/unit and/or counseling patient: Coding Level of Care Code 24899 SUB INP/OBS CARE 3/50MIN Diagnoses Atrial fibrillation with rapid ventricular response I48.91 Hypomagnesemia E83.42 Pre-syncope R55
== END 2022-05-27 13:51 | disposition home or self-care (01) | DRG 310 ==
LOC: ED 15:08 → SUATTDRO 18:17 → 4W 18:17

== ENCOUNTER 2022-05-29 15:01 | Inpatient (IN) ==
--- NOTE | 2022-05-29 15:44 | Emergency Department Note ---
History of Present Illness General Chief complaint: Syncope Stated complaint: A FIB, DIZZY Time Seen by Provider: 05/29/22 15:08 History of Present Illness Provider complaint: Near syncope Onset (ago): day(s) 1 81-year-old male presents emergency department of near syncope. Patient reports that today felt like he was going to pass out multiple times. He reports no actual syncopal episode. Patient reports this happens when he goes in atrial fibrillation. Patient reports no chest pain no difficulty breathing no headache. Patient is on Eliquis. Home Medications Medication Instructions Recorded Confirmed Type cholecalciferol (vitamin D3) 25 1,000 units PO QAM 10/06/18 05/29/22 History mcg (1,000 unit) capsule cyanocobalamin (vitamin B-12) 1,000 mcg PO QAM #30 tabs 10/06/18 05/29/22 History 1,000 mcg tablet psyllium husk 3.4 gram/5.4 gram 2 tbs PO QAM 10/06/18 05/29/22 History oral powder potassium gluconate 595 mg (99 mg) 595 mg PO QAM 11/14/19 05/29/22 History tablet buspirone 5 mg tablet 5 mg PO TID PRN anxiety #90 tabs 11/24/21 05/29/22 Rx omeprazole 20 mg capsule,delayed 20 mg PO QAM #90 caps 01/12/22 05/29/22 Rx release calcium carbonate 600 mg calcium 600 mg PO DAILY 05/25/22 05/29/22 History (1,500 mg) tablet (Calcium) amiodarone 200 mg tablet 200 mg PO BIDM #60 tabs 05/27/22 05/29/22 Rx apixaban 5 mg tablet (Eliquis) 5 mg PO BID #60 tabs 05/27/22 05/29/22 Rx magnesium chloride 64 mg 64 mg PO BID #60 tabs 05/27/22 05/29/22 Rx (magnesium chloride) tablet,delayed release (Mag 64) Allergies Allergy/AdvReac Type Severity Reaction Status Date / Time No Known Allergies Allergy Verified 05/25/22 17:56 Past Med/Surg History Medical History Acute diverticulitis (08/08/13) hx Chronic back pain Diverticulosis of colon Hepatic steatosis Hiatal hernia History of esophageal dilatation Hypercholesterolemia hx of / pt not sure currently Left leg DVT pt unsure of details. Osteoarthritis Osteopenia Schatzki's ring Sleep trouble Small bowel obstruction (2015) Type 2 diabetes mellitus no medications currently. monitoring with PCP. Surgical History History of colostomy History of colostomy reversal History of esophagogastroduodenoscopy (EGD) Hx of appendectomy Hx of colectomy Hx of colonoscopy Hx of inguinal hernia repair Hx of tonsillectomy Family History Family/Other Aorta aneurysm Perceptive hearing loss or deafness Mother Alcoholism /alcohol abuse Lung cancer Lung disease Father Alcoholism /alcohol abuse Lung disease Brother Primary hemochromatosis Denies family history of Colon cancer Ovarian cancer Prostate cancer Myocardial infarction Breast cancer Colorectal cancer Hypertension Stroke Asthma Social History Smoking Status: Never smoker Second Hand Exposure: No; Hx Alcohol Use: No Hx Substance Use: No Preferred Language: Bulgarian Communication Ability: Effective Visual Impairment: No Limitations 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: Normal Swatch Maker Required: No Beliefs That Will Affect Care: None marital status: Single Current Living Situation: Alone Current Living Situation Comment: House current occupational status: retired current occupation: [employer] Other Information That Helps Us Care for You: No Feels Safe at Home: Yes Safety Concerns: Feels Safe At This Time Dental Care, Regularly: No Physical Activity Frequency: 1-2 Times per Week Seatbelt Use: always Assistive Devices: None Physical Exam Vital Signs Vital Signs - 24 hr 05/29/22 15:05 05/29/22 15:13 05/29/22 15:22 Temperature 36.7 C Temperature Source Temporal Artery Scan Pulse Rate 81 77 Pulse Rate [Apical] 89 Respiratory Rate 16 18 Respiratory Effort / Characteristics Non-Labored Non-Labored Spontaneous Respiratory Depth Normal Normal Blood Pressure 135/75 Blood Pressure [Right Arm] 143/82 H Blood Pressure Mean 95 Blood Pressure Mean [Right Arm] 102 Pulse Oximetry 96 97 Oxygen Delivery Method Room Air Room Air Sepsis Recent Fever Within 48 Hours No Sepsis New/Unexplained Change in Mental Status No Sepsis Action Taken by Nursing No Action Required 05/29/22 15:25 05/29/22 15:34 05/29/22 15:34 Temperature Temperature Source Pulse Rate 74 Pulse Rate [Apical] 73 Respiratory Rate 18 Respiratory Effort / Characteristics Non-Labored Spontaneous Respiratory Depth Normal Blood Pressure Blood Pressure [Right Arm] 125/90 Blood Pressure Mean Blood Pressure Mean [Right Arm] 101 Pulse Oximetry 96 97 Oxygen Delivery Method Room Air Room Air Sepsis Recent Fever Within 48 Hours Sepsis New/Unexplained Change in Mental Status Sepsis Action Taken by Nursing 05/29/22 16:06 05/29/22 17:00 Temperature Temperature Source Pulse Rate Pulse Rate [Apical] 71 67 Respiratory Rate 18 18 Respiratory Effort / Characteristics Non-Labored Spontaneous Non-Labored Spontaneous Respiratory Depth Normal Normal Blood Pressure Blood Pressure [Right Arm] 131/73 120/64 Blood Pressure Mean Blood Pressure Mean [Right Arm] 92 82 Pulse Oximetry 96 97 Oxygen Delivery Method Room Air Room Air Sepsis Recent Fever Within 48 Hours Sepsis New/Unexplained Change in Mental Status Sepsis Action Taken by Nursing Physical Exam GENERAL: oriented to person, place, and time. appears well-developed and well- nourished. HENT: Exam performed. - Head: Normocephalic and atraumatic. EYES: Conjunctivae and EOM are normal. Right eye exhibits no discharge. Left eye exhibits no discharge. No scleral icterus. NECK: Normal range of motion. Neck supple. No JVD present. CV: Normal rate, regular rhythm, normal heart sounds and intact distal pulses. There is no peripheral edema. Palpable radial pulses bue. PULM/CHEST: Effort normal and breath sounds normal. No respiratory distress. No stridor. no wheezes. no rales. ABD: The abdomen is soft. There is no tenderness. NEURO: Motor and sensation grossly intact. SKIN: Skin is warm and dry. He is not diaphoretic. PSYCH: normal mood and affect. Behavior is normal. Judgment and thought content normal. Course Course 1508: The patient was evaluated in room C2. A complete history and physical exam was performed Cardiac monitoring: An order was placed for continuous cardiac monitoring. The monitor shows a rate of 70 with sinus rhythm interpreted by me 1540: Nursing made me aware that the patient had a sinus pause on environmental monitoring technician. Telemetry was reviewed and the patient did have a pause which quickly resolved. According nursing the patient was unresponsive for the time. But quickly became alert and responsive again. 1644: Vital signs stable. Labs within normal limits with exception of a magnesium of 1.5 magnesium repletion started in the emergency department. Discussed case with Tex acosta PA-C for [facility] hospitalist Dr. Levi who will admit the patient to their service. Administered Medications Insulin Aspart (Insulin Aspart Per Unit Charge) 0 units SC ACHS PATRICIA Stop: 06/28/22 20:59 Last Admin: 05/29/22 20:51 Dose: 2 units Documented By: KRANTHI Co-signed By: SRS Discontinued Medications Magnesium Sulfate/Dextrose (Magnesium Sulfate / D5w) 1 gm in 100 mls @ 100 mls/hr IV NOW STA Stop: 05/29/22 17:25 Last Infusion: 05/29/22 17:34 Dose: 0 mls/hr Documented By: Admin: 05/29/22 16:31 Dose: 100 mls/hr Documented By: FRANK Magnesium Sulfate/Dextrose (Magnesium Sulfate / D5w) 1 gm in 100 mls @ 50 mls/hr IV Q2H PATRICIA Stop: 05/29/22 21:59 Last Infusion: 05/29/22 22:00 Dose: 0 mls/hr Documented By: Admin: 05/29/22 19:56 Dose: 50 mls/hr Documented By: Infusion: 05/29/22 19:56 Dose: 50 mls/hr Documented By: Admin: 05/29/22 18:00 Dose: 50 mls/hr Documented By: FRANK Medical Decision Making Medical Records Attestation: I reviewed the patient's medical records. External medical records were reviewed. The patient was admitted to the hospital at this facility from May 25, 2022 to May 27, 2022. In the emergency department on May 25 the patient was found to be in atrial fibrillation and then to have very long sinus pauses lasting 4 to 5 seconds where he felt syncopal but never lost consciousness. The patient's magnesium was low 1.5 and he was given magnesium and then admitted to the hospitalist service. While on the hospitalist team the patient was eval by cardiology Dr. Tabor. He recommended starting the patient on amiodarone 200 mg daily as well as apixaban 5 mg daily and to discontinue aspirin. Slow-Mag 64 mg twice daily was also initiated. Dr. Tabor's note states that we will continue his medical management and if he does experience presyncope or syncope he would need to consider pacemaker placement Laboratory Data Attestation: I reviewed the patient's lab results. 05/29/22 15:21 05/29/22 15:21 Lab Results 05/29/22 05/29/22 05/29/22 Range/Units 15:21 15:21 15:21 WBC 5.96 (4.8-10.8) K/ul RBC 3.48 L (4.70-6.10) M/uL Hgb 12.3 L (14.0-18.0) g/dl Hct 35.6 L (42.0-52.0) % MCV 102.3 H (80.0-100.0) fL MCH 35.3 H (25.0-34.0) pg MCHC 34.6 (32.0-36.0) g/dL RDW Std Deviation 45.1 (36.4-46.3) fL RDW Coeff of [place] 12.2 (11.5-14.5) % Plt Count 173 (130-400) K/uL MPV 10.1 (9.4-12.4) fL Immature Gran % (Auto) 0.5 % Neut % (Auto) 63.8 % Lymph % (Auto) 26.3 % [place] % (Auto) 7.9 % Eos % (Auto) 1.0 % Baso % (Auto) 0.5 % Neut # (Auto) 3.80 (1.40-6.50) K/uL Lymph # (Auto) 1.57 (1.2-3.4) K/uL [place] # (Auto) 0.47 (0.11-0.59) K/uL Eos # (Auto) 0.06 (0-0.50) K/uL Baso # (Auto) 0.03 (0-0.2) K/uL Immature Gran # (Auto) 0.03 (0.01-0.20) K/uL PT 10.9 (9.0-12.0) Seconds INR 1.0 (0.9-1.1) APTT 29.3 (21.0-31.0) Seconds PTT Ratio 1.1 Sodium 137 (136-145) mmol/L Potassium 4.1 (3.5-5.1) mmol/L Chloride 106 (98-107) mmol/L Carbon Dioxide 23 (21-32) mmol/L Anion Gap 8 (3-11) BUN 22 (6-23) mg/dl Creatinine 0.94 (0.6-1.4) mg/dl Est Cr Clr Drug Dosing 61.6 ml/min Est GFR ( Amer) 89.0 ml/min Est GFR (Non-Af Amer) 76.8 ml/min BUN/Creatinine Ratio 23.4 H (10-20) Glucose 192 H (70-99(Fasting)) mg/dl Calcium 9.4 (8.6-10.3) mg/dl Magnesium 1.5 L (1.7-2.4) mg/dl Troponin I High Sens 6.0 (0-20) pg/ml Lipase 26 (11-82) U/L Lyme Disease IgG Ab (Negative) Lyme Disease IgM Ab (Negative) SARS-CoV-2, RNA, NAAT (NEGATIVE) 05/29/22 05/29/22 Range/Units 15:21 15:48 WBC (4.8-10.8) K/ul RBC (4.70-6.10) M/uL Hgb (14.0-18.0) g/dl Hct (42.0-52.0) % MCV (80.0-100.0) fL MCH (25.0-34.0) pg MCHC (32.0-36.0) g/dL RDW Std Deviation (36.4-46.3) fL RDW Coeff of [place] (11.5-14.5) % Plt Count (130-400) K/uL MPV (9.4-12.4) fL Immature Gran % (Auto) % Neut % (Auto) % Lymph % (Auto) % [place] % (Auto) % Eos % (Auto) % Baso % (Auto) % Neut # (Auto) (1.40-6.50) K/uL Lymph # (Auto) (1.2-3.4) K/uL [place] # (Auto) (0.11-0.59) K/uL Eos # (Auto) (0-0.50) K/uL Baso # (Auto) (0-0.2) K/uL Immature Gran # (Auto) (0.01-0.20) K/uL PT (9.0-12.0) Seconds INR (0.9-1.1) APTT (21.0-31.0) Seconds PTT Ratio Sodium (136-145) mmol/L Potassium (3.5-5.1) mmol/L Chloride (98-107) mmol/L Carbon Dioxide (21-32) mmol/L Anion Gap (3-11) BUN (6-23) mg/dl Creatinine (0.6-1.4) mg/dl Est Cr Clr Drug Dosing ml/min Est GFR ( Amer) ml/min Est GFR (Non-Af Amer) ml/min BUN/Creatinine Ratio (10-20) Glucose (70-99(Fasting)) mg/dl Calcium (8.6-10.3) mg/dl Magnesium (1.7-2.4) mg/dl Troponin I High Sens (0-20) pg/ml Lipase (11-82) U/L Lyme Disease IgG Ab Negative (Negative) Lyme Disease IgM Ab Negative (Negative) SARS-CoV-2, RNA, NAAT NEGATIVE (NEGATIVE) Imaging Data Attestation: I personally reviewed and interpreted this imaging study as follows: My Impression: Chest x-ray negative. Airway clear. No pneumothorax. No consolidation. No cardiomegaly or cephalization.. No free air under the diaphragm. No fractures of the skeletal structures. Radiologist's Impression: Chest X-Ray 05/29/22 15:23 XR chest 1V portable CLINICAL HISTORY: Chest pain, nonspecific TECHNIQUE: Single frontal radiograph of the chest was obtained. Comparison: Comparison is made to chest radiograph 05/25/2022 FINDINGS: No lines and tubes are seen. The cardiomediastinal silhouette is normal. The lungs are clear. No evidence of pleural effusion or pneumothorax. IMPRESSION: No acute chest disease. ACT 112: Negative or not required by law. Electronically signed by: Zhou Roman M.D. 05/29/2022 3:41 PM ECG Data Attestation: I personally reviewed and interpreted this ECG as follows: Indication: + other (near syncope) Rate (beats per minute): 79 Rhythm: + normal sinus ECG Intervals/blocks: + Normal QRS, + Normal [place] and + Normal QT-c ECG ST segments: + Normal ST segments [facility] Narrative 1508: The patient was evaluated in room C2. A complete history and physical exam was performed Cardiac monitoring: An order was placed for continuous cardiac monitoring. The monitor shows a rate of 70 with sinus rhythm interpreted by me 1540: Nursing made me aware that the patient had a sinus pause on environmental monitoring technician. Telemetry was reviewed and the patient did have a pause which quickly resolved. According nursing the patient was unresponsive for the time. But quickly became alert and responsive again. 1644: Vital signs stable. Labs within normal limits with exception of a magnesium of 1.5 magnesium repletion started in the emergency department. Discussed case with Tex acosta PA-C [place] hospitalist Dr. Levi who will admit the patient to their service. Impression & Plan Hypomagnesemia, Syncope and collapse Discharge Plan Visit Data Chief Complaint: Syncope Stated Complaint: A FIB, DIZZY ED Provider: Eldon Lyon Discharge Problem: Hypomagnesemia, Syncope and collapse Patient Disposition: Admitted As Inpatient Discharge Instructions Interventions: ED Discharge Assessment Last Done: 05/29/22 18:20
[2022-05-29 15:55] LABS: Basophils # (auto) 0.03 K/uL (0-0.2); Basophils % (auto) 0.5 %; Eosinophils # (auto) 0.06 K/uL (0-0.50); Hematocrit (blood only) 35.6 % (42.0-52.0); Hemoglobin 12.3 g/dl (14.0-18.0); Immature Granulocytes # (auto) 0.03 K/uL (0.01-0.20); Immature Granulocytes % (auto) 0.5 %; Lymphocytes # (auto) 1.57 K/uL (1.2-3.4); Lymphocytes % (auto) 26.3 %; Mean Corpuscular Hemoglobin 35.3 pg (25.0-34.0); Mean Corpuscular Hgb Conc 34.6 g/dL (32.0-36.0); Mean Corpuscular Volume 102.3 fL (80.0-100.0); Mean Platelet Volume 10.1 fL (9.4-12.4); Monocytes # (auto) 0.47 K/uL (0.11-0.59); Monocytes % (auto) 7.9 %; Neutrophils % (auto) 63.8 %; Platelet Count 173 K/uL (130-400); RDW Coefficient of Variation 12.2 % (11.5-14.5); RDW Standard Deviation 45.1 fL (36.4-46.3); Red Blood Count 3.48 M/uL (4.70-6.10); White Blood Count 5.96 K/ul (4.8-10.8)
[2022-05-29 16:15] LABS: BUN Creatinine Ratio 23.4 (10-20); Calcium 9.4 mg/dl (8.6-10.3); Creatinine Clr Calc Pharmacy 61.6 ml/min; Est GFR (Non-African American) 76.8 ml/min; Magnesium 1.5 mg/dl (1.7-2.4); Potassium 4.1 mmol/L (3.5-5.1)
[2022-05-29 16:25] LABS: Partial Thromboplastin Ratio 1.1; Partial Thromboplastin Time 29.3 Seconds (21.0-31.0); Prothrombin Time 10.9 Seconds (9.0-12.0)
[2022-05-29] MEDS ORDERED: MAGNESIUM SULFATE / D5W 1 GM/100 ML BAG IV STA (16:26)
--- NOTE | 2022-05-29 17:05 | History & Physical Report ---
Date of Service May 29, 2022 Assessment & Plan (1) Sinus pause: Plan: -Admit to the PCU -The patient is currently afebrile, hemodynamically stable, and stable on RA -The patient continues to have episodes of afib/aflutter with sinus pauses of 4- 5 seconds when he converts back to NSR >Cardiology attempted a trial of PO amiodarone to keep him out of arrhythmias but this treatment has failed >Cardiology consulted, appreciate Dr. Tabor's quick response to bedside >He recommends holding amiodarone and eliquis at this time, keep transcutaneous pacer pads on incase he becomes unstable >Avoid any beta-blocking agents at this time -Patient's mag was 1.5 in the ED, S/P 1 bag IV mag in the ED, will give 2 additional gms STAT as his mag needs to remain stable -Continue to monitor on tele and pulse oximetry -Will obtain lyme studies as requested by Cardiology -Strict bedrest at this time, the patient and nursing staff are aware -BL SCD's for DVT PPX -Clear liquid diet for now -AM CBC, BMP, Mag (2) Hypomagnesemia: Plan: -Thought to be caused by poor oral intake and large quantities of iced tea which may be causing a diuretic effect -See sinus pause for plan (3) DM II (diabetes mellitus, type II), controlled: Plan: -Diet controlled -Monitor BSG ACHS, goal is 110-140 -CF of 50 and CR of 15 -Clear liquid diet for now in case of emergent procedure (4) Hypertension: Plan: -Stable -Continue to monitor (5) Anxiety and depression: Plan: -Continue Buspirone Plan The patient was discussed with Dr. Levi at the time of the admission History of Present Illness Chief Complaint: Lightheadedness/pre-syncope Primary Care Provider: Carmelo Mason MD Eleuterio is a 81 year old male with a PMH significant for HTN, type II DM (controlled with diet), anemia, GERD, nephrolithiasis, SBO, diverticulitis, BPH, vitamin D and B12 deficiencywho presented to the [facility] ED on 05/29/22 with continued episodes of lightheadedness and pre-syncopal episodes. In the ED the patient was initially found to be afebrile, hemodynamically stable, stable on RA, and with HR in the 70's. Labs were remarkable for a stable CBC, mag of 1.5 otherwise stable CMP, initial high sen trop of 6.0, and covid 19 negative. While in the ED the patient had a confirmed syncopal episode. Review of the telemetry strip prior to the sinus pause it appears that the patient was in sinus rhythm prior and is currently in sinus rhythm. Chest xray was read as "No acute chest disease.". Prior to admission the patient was given 1gm IV mag in the ED. Per chart review, the patient was just admitted to [facility] from from 05/25-05/27 for the same issue. He was evaluated by Cardiology who thought that his pauses were occurring due to the patient going into afib then converting back to sinus rhythm. They recommended starting PO amiodarone for rhythm control before attempting pacemaker placement. The patient was also started on Eliquis for stroke prevention. At the time of the exam the patient was lying in bed in no acute distress. He states that he was initially doing well after discharge. Today, he was doing yard work and had multiple episodes of feeling dizzy/lightheaded but denied complete syncope. He denies recent fevers, chills, chest pain, SOB, abd pain, nausea, vomiting, diarrhea, dysuria, hematuria, melena, LE swelling and recent trauma. While in the room with the patient he went into afib, then a-flutter, with an approximately 4-5 second pause where he was symptomatic but did not pass out and remained hemodynamically stable. Dr. Tabor came to the bedside to evaluate the patient. He confirmed that the patient will need a permanent pacemaker and advised to keep the transcutaneous pacemaker pads in place for now. Please refer to Dr. Levi's attestation for any changes to the treatment plan Allergies Allergy/AdvReac Type Severity Reaction Status Date / Time No Known Allergies Allergy Verified 05/25/22 17:56 Home Medications Medication Instructions Recorded Confirmed Type cholecalciferol (vitamin D3) 25 1,000 units PO QAM 10/06/18 05/29/22 History mcg (1,000 unit) capsule cyanocobalamin (vitamin B-12) 1,000 mcg PO QAM #30 tabs 10/06/18 05/29/22 History 1,000 mcg tablet psyllium husk 3.4 gram/5.4 gram 2 tbs PO QAM 10/06/18 05/29/22 History oral powder potassium gluconate 595 mg (99 mg) 595 mg PO QAM 11/14/19 05/29/22 History tablet buspirone 5 mg tablet 5 mg PO TID PRN anxiety #90 tabs 11/24/21 05/29/22 Rx omeprazole 20 mg capsule,delayed 20 mg PO QAM #90 caps 01/12/22 05/29/22 Rx release calcium carbonate 600 mg calcium 600 mg PO DAILY 05/25/22 05/29/22 History (1,500 mg) tablet (Calcium) amiodarone 200 mg tablet 200 mg PO BIDM #60 tabs 05/27/22 05/29/22 Rx apixaban 5 mg tablet (Eliquis) 5 mg PO BID #60 tabs 05/27/22 05/29/22 Rx magnesium chloride 64 mg 64 mg PO BID #60 tabs 05/27/22 05/29/22 Rx (magnesium chloride) tablet,delayed release (Mag 64) Past Med/Surg History Medical History Acute diverticulitis (08/08/13) hx Chronic back pain Diverticulosis of colon Hepatic steatosis Hiatal hernia History of esophageal dilatation Hypercholesterolemia hx of / pt not sure currently Left leg DVT pt unsure of details. Osteoarthritis Osteopenia Schatzki's ring Sleep trouble Small bowel obstruction (2014) Type 2 diabetes mellitus no medications currently. monitoring with PCP. Surgical History History of colostomy History of colostomy reversal History of esophagogastroduodenoscopy (EGD) Hx of appendectomy Hx of colectomy Hx of colonoscopy Hx of inguinal hernia repair Hx of tonsillectomy Family History Family/Other Aorta aneurysm Perceptive hearing loss or deafness Mother Alcoholism /alcohol abuse Lung cancer Lung disease Father Alcoholism /alcohol abuse Lung disease Brother Primary hemochromatosis Denies family history of Colon cancer Ovarian cancer Prostate cancer Myocardial infarction Breast cancer Colorectal cancer Hypertension Stroke Asthma Social History Smoking Status: Never smoker Second Hand Exposure: No; Hx Alcohol Use: No Hx Substance Use: No Preferred Language: Malay Communication Ability: Effective Visual Impairment: No Limitations 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: Normal 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 Beliefs That Will Affect Care: None marital status: Single Current Living Situation: Alone Current Living Situation Comment: House current occupational status: retired current occupation: [employer] Other Information That Helps Us Care for You: No Feels Safe at Home: Yes Safety Concerns: Feels Safe At This Time Dental Care, Regularly: No Physical Activity Frequency: 1-2 Times per Week Seatbelt Use: always Assistive Devices: None Physical Exam Physical Exam: Physical Exam: General: In no acute distress, stated age, well-nourished, good hygiene HEENT: Normocephalic, atraumatic, no scleral icterus, pupils around round, symmetrical, and reactive to light, moist mucus membranes, trachea midline, no thyromegaly Chest/Pulm: No respiratory distress, symmetrical chest expansion, clear breath sounds throughout Cardiac: irregular rate and rhythm, no murmurs noted Abdomen: Negative for ascites and bruising, normoactive bowel sounds, soft, non-tender to palpation throughout Musculoskeletal: Symmetrical and without signs of acute trauma, upper and lower extremities with full ROM, no atrophy, spasticity, or flaccidity Extremities: Radial, dorsalis pedis, and posterior tibial pulses are intact and symmetrical, no edema noted in the BL LE's Skin: Warm, dry, no rashes , lesions, or scars noted Neuro: Alert and oriented to person, place, month, year, and president, no focal defects, CN II-XII tested and intact, finger to nose test negative, no tremors noted Psych: No acute distress, calm and cooperative during the exam Results & Data Results & Data Vital Signs (Past 12 Hours) Vital Signs Temp Pulse Pulse Resp BP BP Pulse Ox 05/29/22 16:06 71 18 131/73 96 05/29/22 15:34 73 18 125/90 97 05/29/22 15:34 96 05/29/22 15:25 74 05/29/22 15:22 89 18 143/82 H 97 05/29/22 15:13 77 05/29/22 15:05 36.7 C 81 16 135/75 96 O2 Del Method 05/29/22 16:06 Room Air 05/29/22 15:34 Room Air 05/29/22 15:34 Room Air 05/29/22 15:25 05/29/22 15:22 Room Air 05/29/22 15:13 05/29/22 15:05 Room Air Laboratory Results Abnormal lab results 05/29/22 05/29/22 Range/Units 15:21 15:21 RBC 3.48 L (4.70-6.10) M/uL Hgb 12.3 L (14.0-18.0) g/dl Hct 35.6 L (42.0-52.0) % MCV 102.3 H (80.0-100.0) fL MCH 35.3 H (25.0-34.0) pg BUN/Creatinine Ratio 23.4 H (10-20) Glucose 192 H (70-99(Fasting)) mg/dl Magnesium 1.5 L (1.7-2.4) mg/dl Diagnostic Findings Chest X-Ray 05/29/22 15:23 XR chest 1V portable CLINICAL HISTORY: Chest pain, nonspecific TECHNIQUE: Single frontal radiograph of the chest was obtained. Comparison: Comparison is made to chest radiograph 05/25/2022 FINDINGS: No lines and tubes are seen. The cardiomediastinal silhouette is normal. The lungs are clear. No evidence of pleural effusion or pneumothorax. IMPRESSION: No acute chest disease. ACT 112: Negative or not required by law. Electronically signed by: Zhou Roman M.D. 05/29/2022 3:41 PM ECG Additional Comments: Normal sinus rhythm Left anterior fascicular block Nonspecific T wave abnormality Anteroseptal leads Abnormal ECG When compared with ECG of 26-MAY-2022 05:32, Nonspecific T wave abnormality no longer evident in Inferior leads Nonspecific ST abnormality Anterior leads no longer present Confirmed by Davon Tabor ([id number]) on 05/29/2022 5:15:56 PM Code Status & VTE Plan Code Status Full code Supervising Physician Co-Signing Physician Notes I personally saw and examined the patient. I verified all rojas points and agree with Tex Hansen PA-C with the following exceptions and/or additions: 81 year old male presents to the ER with recurrent presyncopal events. Recently admitted for the same and started on amiodarone as episodes occurred on conversation of aKyleigh rg to NSR therefore hope was to stop the episode of a. fib and this would no longer occur. Currently having significant sinus pauses though not related to conversion therefore on advice of cardiology will d/c amiodarone with plans on PPM. Stop apixaban in preparation for this. Replace Mg as needed which should help him not go back into a. fib off the amiodarone. O/E A&Ox3, HS RRR, no murmurs, Chest CTAB, Abdo SNT PG Care Time/CCT Total # of Minutes Spent Total Time Spent with Patient: Total time spent is greater than 50% in coordination of care (as documented) at patient's floor/unit and/or counseling patient: Coding [place] [address] INT INP/OBS CARE 3/75MIN Patient Type Established Medical Decision Making High Complexity Diagnoses Sinus pause I45.5 Hypomagnesemia E83.42 DM II (diabetes mellitus, type II), controlled E11.9 Hypertension I10 Anxiety and depression F41.9; F32.A
--- NOTE | 2022-05-29 17:16 | Electrocardiogram Report ---
Test Reason : Blood Pressure : / mmHG Vent. Rate : 079 BPM Atrial Rate : 079 BPM P-R Int : 198 ms QRS Dur : 080 ms QT Int : 380 ms P-R-T Axes : 043 -59 057 degrees QTc Int : 435 ms Normal sinus rhythm Left anterior fascicular block Nonspecific T wave abnormality Anteroseptal leads Abnormal ECG When compared with ECG of 26-MAY-2022 05:32, Nonspecific T wave abnormality no longer evident in Inferior leads Nonspecific ST abnormality Anterior leads no longer present Confirmed by Davon Tabor ([id number]) on 05/29/2022 5:15:56 PM Referred By: Confirmed By:Davon Tabor
[2022-05-29] MEDS ORDERED: GLUCOSE 10 TAB/TUBE PO PRN (17:51)
[2022-05-29] MEDS ORDERED: DEXTROSE 50% 50 ML SYRINGE IV PRN (17:51)
[2022-05-29] MEDS ORDERED: CARBOHYDRATES FOR HYPOGLYCEMIA PO PRN (17:51)
[2022-05-29] MEDS ORDERED: GLUCOSE 40% GEL 15 GM TUBE PO PRN (17:51)
[2022-05-29] MEDS ORDERED: GLUCAGON FOR INJ 1 MG VIAL SQ PRN (17:51)
[2022-05-29] MEDS: MAGNESIUM SULFATE / D5W 1 GM/100 ML BAG IV SCH ×2 (18:00→19:56)
--- NOTE | 2022-05-29 18:38 | Cardiology Consultation ---
Date of Consultation May 29, 2022 Assessment & Plan (1) Near syncope: (2) Sinus pause: (3) Atrial fibrillation with rapid ventricular response: (4) Hypomagnesemia: At the time of his hospitalization several days ago, the patient had noted only lightheadedness and had 1 episode of conversion pause after atrial fibrillation with mildly tachycardic ventricular response (100-120 bpm). It was suspected that he had intermittent atrial fibrillation with conversion pauses when returning to sinus rhythm and the hope was that this could be suppressed with amiodarone to prevent atrial fibrillation and the subsequent conversion pauses. He did not demonstrate any evidence of heart block or pauses while on telemetry, even after initiation of amiodarone. Unfortunately, he is now demonstrating frequent pauses, some of which are still conversion pauses after atrial fibrillation with a now controlled rate (due to amiodarone), but some of the pauses seem to occur after sinus beats as well. 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 Although he has not had any symptoms to suggest his conduction system disease is secondary to Lyme disease, would check Lyme titer to exclude reversible causes. Since his pauses seem to be self-limited and not sustained, would utilize transcutaneous pacemaker pads for now. However, if he has any recurrent syncope secondary to prolonged pauses, urgent transvenous pacemaker placement may become necessary. Would keep at bedrest and discontinue amiodarone. If he has recurrent atrial fibrillation, previously the rate had not been excessive and was well-tolerated, therefore would not specifically attempt to control rate or return rhythm to sinus, since this could result in further pauses. Would discontinue apixaban, since he may need a temporary transvenous pacer and he is not at risk for thromboembolic phenomenon as long as he is not remaining in atrial fibrillation. Agree with correcting his hypomagnesemia, since reduction in his ice tea intake and the addition of Slow-Mag supplement were not adequate to prevent recurrence, will need to monitor this as outpatient and potentially assess renal magnesium loss. Will have the cardiology team continue to follow and will arrange with electrophysiology for pacemaker placement on Wednesday or Wednesday. History of Present Illness Reason for Consultation: sinus pauses with syncope Requesting Physician: Dajuan Levi MD Attending Physician: Dajuan Levi MD History of Present Illness 81-year-old man with no prior cardiac history who was admitted last week after an episode of atrial fibrillation with presyncope after a 4-second conversion pause and who now returns with recurrent presyncope and possible syncope (in the ER) occurring both in the context of transient atrial fibrillation as well as during sinus rhythm (pauses up to 5 seconds). He first had an episode of presyncope 6 months ago with unrevealing work-up at that time, he was admitted 05/25/22 after further episodes of lightheadedness and found to be in atrial fibrillation with mildly elevated ventricular response (120 bpm) and then had an episode of lightheadedness while in the ER correlated with a conversion pause of 4 seconds as he returned to sinus rhythm. Labs were notable for magnesium 1.5 and normal troponin. He was initiated on amiodarone to suppress atrial fibrillation (and hopefully conversion pauses) and anticoagulated with apixaban, he had no dysrhythmias or pauses on overnight telemetry monitoring and was discharged home on 05/27/22. He did well over the past 3 days with no symptoms whatsoever, but today after higher level of physical activity he noted multiple episodes of presyncope and reported to the emergency department where he had further episodes of presyncope and 1 brief syncopal episode. Rhythm during this time appeared to be variably atrial flutter with controlled ventricular response, sinus rhythm and sinus bradycardia, with significant pauses of up to 5 seconds which at times were conversion pauses but at other times occurred while apparently in sinus rhythm. He denies any chest pain, dyspnea, subjective palpitations, or any complaints aside from transient lightheadedness during the pauses., His exercise tolerance has been good, as noted today he was quite physically active without any symptoms or limitations. Of note, he drinks about a half a gallon of iced tea daily. No significant alcohol intake and no diuretic use. He did reduce his ice tea intake after advised this could be causing hypomagnesemia, however he still discloses substantial ice tea intake. At the time of my evaluation in the ER, he was comfortable and had no somatic complaints and was in sinus rhythm at 64 bpm. Allergies Allergy/AdvReac Type Severity Reaction Status Date / Time No Known Allergies Allergy Verified 05/25/22 17:56 Home Medications Medication Instructions Recorded Confirmed Type cholecalciferol (vitamin D3) 25 1,000 units PO QAM 10/06/18 05/29/22 History mcg (1,000 unit) capsule cyanocobalamin (vitamin B-12) 1,000 mcg PO QAM #30 tabs 10/06/18 05/29/22 History 1,000 mcg tablet psyllium husk 3.4 gram/5.4 gram 2 tbs PO QAM 10/06/18 05/29/22 History oral powder potassium gluconate 595 mg (99 mg) 595 mg PO QAM 11/14/19 05/29/22 History tablet buspirone 5 mg tablet 5 mg PO TID PRN anxiety #90 tabs 11/24/21 05/29/22 Rx omeprazole 20 mg capsule,delayed 20 mg PO QAM #90 caps 01/12/22 05/29/22 Rx release calcium carbonate 600 mg calcium 600 mg PO DAILY 05/25/22 05/29/22 History (1,500 mg) tablet (Calcium) amiodarone 200 mg tablet 200 mg PO BIDM #60 tabs 05/27/22 05/29/22 Rx apixaban 5 mg tablet (Eliquis) 5 mg PO BID #60 tabs 05/27/22 05/29/22 Rx magnesium chloride 64 mg 64 mg PO BID #60 tabs 05/27/22 05/29/22 Rx (magnesium chloride) tablet,delayed release (Mag 64) Patient History Medical History Acute diverticulitis (08/08/13) hx Chronic back pain Diverticulosis of colon Hepatic steatosis Hiatal hernia History of esophageal dilatation Hypercholesterolemia hx of / pt not sure currently Left leg DVT pt unsure of details. Osteoarthritis Osteopenia Schatzki's ring Sleep trouble Small bowel obstruction (2015) Type 2 diabetes mellitus no medications currently. monitoring with PCP. Surgical History History of colostomy History of colostomy reversal History of esophagogastroduodenoscopy (EGD) Hx of appendectomy Hx of colectomy Hx of colonoscopy Hx of inguinal hernia repair Hx of tonsillectomy Family History Family/Other Aorta aneurysm Perceptive hearing loss or deafness Mother Alcoholism /alcohol abuse Lung cancer Lung disease Father Alcoholism /alcohol abuse Lung disease Brother Primary hemochromatosis Denies family history of Colon cancer Ovarian cancer Prostate cancer Myocardial infarction Breast cancer Colorectal cancer Hypertension Stroke Asthma Social History Smoking Status: Never smoker Second Hand Exposure: No; Hx Alcohol Use: No Hx Substance Use: No Preferred Language: Wolof Communication Ability: Effective Visual Impairment: No Limitations 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: Normal Parts Processor Required: No Beliefs That Will Affect Care: None marital status: Single Current Living Situation: Alone Current Living Situation Comment: House current occupational status: retired current occupation: [employer] Feels Safe at Home: Yes Dental Care, Regularly: No Physical Activity Frequency: 1-2 Times per Week Seatbelt Use: always Assistive Devices: None Physical Exam Physical Exam: Normal habitus adult white male in no distress. BP normotensive. Pulse 64 bpm and regular. Skin: no ecchymoses or generalized lesions. HEENT: unremarkable. Neck: no JVD or carotid bruits. Lungs: clear. Cardiac: regular rhythm, normal S1-S2, no murmur or gallop. Abdomen: benign. Extremities: no edema, pulses intact. Neurologic: normal affect and conversation, nonfocal. Results & Data Laboratory Results High-sensitivity troponin was 7.0 earlier this week and 6.0 today. Magnesium 1.5, otherwise normal electrolytes, BUN 20, creatinine 0.81. Diagnostic Findings ECG showed sinus rhythm at 79 bpm with left anterior fascicular block and nonspecific T wave flattening in the anteroseptal leads but otherwise unremarkable ST and T wave segments. Compared with 05/26/2022 ECG, nonspecific T wave abnormality no longer evident in inferior leads nonspecific ST abnormality in the anterior leads was no longer present. Chest x-ray today was unremarkable. Echocardiogram 11/11/2021 was a normal study with mild LVH but normal systolic function with no wall motion abnormalities and no significant valvular disease. PG Care Time/CCT Total # of Minutes Spent Total Time Spent with Patient: Total time spent is greater than 50% in coordination of care (as documented) at patient's floor/unit and/or counseling patient: Coding Level of Care Code 00480 IN/OBS CONSULT LVL 4,60M Diagnoses Near syncope R55 Sinus pause I45.5 Atrial fibrillation with rapid ventricular response I48.91 Hypomagnesemia E83.42
[2022-05-29 18:48] LABS: Lyme Ab IgG w/WB Rflx Negative (Negative); Lyme Ab IgM w/WB Rflx Negative (Negative)
[2022-05-29] MEDS ORDERED: busPIRone 5 MG TAB PO PRN (18:48)
[2022-05-29] MEDS: INSULIN ASPART PER UNIT CHARGE SC SCH (20:51)
[2022-05-29] MEDS ORDERED: MAGNESIUM CHLORIDE W/CALCIUM 64MG DELAYED REL TAB PO SCH (21:00)
[2022-05-30 07:21] LABS: Hemoglobin 12.1 g/dl (14.0-18.0); Mean Corpuscular Hemoglobin 35.3 pg (25.0-34.0); Mean Corpuscular Hgb Conc 34.6 g/dL (32.0-36.0); Platelet Count 162 K/uL (130-400); RDW Coefficient of Variation 12.3 % (11.5-14.5); RDW Standard Deviation 46.2 fL (36.4-46.3); Red Blood Count 3.43 M/uL (4.70-6.10); White Blood Count 4.47 K/ul (4.8-10.8)
[2022-05-30 07:43] LABS: BUN Creatinine Ratio 22.1 (10-20); Calcium 8.1 mg/dl (8.6-10.3); Creatinine Clr Calc Pharmacy 75.3 ml/min; Est GFR (Non-African American) 86.3 ml/min; Magnesium 2.2 mg/dl (1.7-2.4)
[2022-05-30] MEDS: SODIUM CHLORIDE 0.9% 1000ML 1,000 ML IV SCH (08:15)
[2022-05-30] MEDS: PANTOprazole 40 MG TAB PO SCH (08:15)
[2022-05-30] MEDS: INSULIN ASPART PER UNIT CHARGE SC SCH ×4 (08:15→20:24)
--- NOTE | 2022-05-30 12:21 | Hospitalist Progress Note ---
Date of Service May 30, 2022 Assessment & Plan (1) Sinus pause: Plan: Telemetry. Cardiology consultation and recommendations appreciated. It appears he has tachybradycardia syndrome and will need permanent pacemaker insertion on Wednesday. Continue low-flow IV fluids to make sure we have patent IV access if needed (2) Hypomagnesemia: Plan: Corrected. Continue replacement therapy as needed. Serial labs (3) DM II (diabetes mellitus, type II), controlled: Plan: Diet controlled. Sliding scale coverage as needed. Currently on clear liquid diet (4) Hypertension: Plan: Stable. Continue current medical management (5) Anxiety and depression: Plan: Stable Continue Buspirone Plan Anticipate eventual discharge to home Admission and Anticipated Discharge Date Admission Date: May 29, 2022 Subjective Alert and oriented. No complaints. Low-flow IV fluids continuous are ordered to make sure we have IV access if needed. Awaiting permanent pacemaker implantation on Wednesday. Cardiology consultation and recommendations appreciated Review of Systems Review of Systems: Constitutional-no fever or chills ENT-no blurred vision, no double vision, no epistaxis, no sore throat Respiratory-no cough, no wheezing, no shortness of breath Cardiac-no palpitations, no chest pain, no syncope GI-no nausea, vomiting, diarrhea, melena, hematochezia -no urinary retention, no urinary incontinence, no dysuria, no hematuria Musculoskeletal-no joint pain, no muscle tenderness Skin-no bruising, no rashes, no pruritus Neuro-no isolated weakness, no paresthesia, no weakness Psych-no depression, no anxiety Physical Exam Physical Exam: General-alert and oriented x3, no fevers, no chills HEENT-head atraumatic and normocephalic, pupils equal and reactive to light, extraocular muscles intact Neck-no lymphadenopathy or thyromegaly, trachea midline Chest-clear to auscultation percussion. No rales wheezing or rhonchi Cardiac-regular rate and rhythm, normal S1 and S2 Abdomen-normal bowel sounds, nontender, no hepatosplenomegaly Extremities-no cyanosis, clubbing, or edema Neuro-cranial nerves II through XII intact, motor and sensory function within normal limits, strength symmetrical , no focal deficits Psych-normal affect, normal mood Results & Data Results & Data Vital Signs (Past 12 Hours) Vital Signs Temp Pulse Pulse Resp BP Pulse Ox O2 Del Method 05/30/22 11:41 36.6 C 61 19 125/70 97 Room Air 05/30/22 07:37 59 L 05/30/22 07:28 36.6 C 62 18 110/65 98 Room Air 05/30/22 03:24 36.5 C 65 14 127/67 99 Room Air 05/30/22 01:26 59 L Laboratory Results 05/30/22 06:43 05/30/22 06:43 PG Care Time/CCT Total # of Minutes Spent Total Time Spent with Patient: Total time spent is greater than 50% in coordination of care (as documented) at patient's floor/unit and/or counseling patient: Coding Level of Care Code 48655 SUB INP/OBS CARE 3/50MIN Diagnoses Sinus pause I45.5 Hypomagnesemia E83.42 DM II (diabetes mellitus, type II), controlled E11.9 Hypertension I10 Anxiety and depression F41.9; F32.A
--- NOTE | 2022-05-30 14:56 | Cardiology Progress Note ---
Date of Service May 30, 2022 Assessment & Plan (1) Paroxysmal atrial fibrillation: (2) Sinus pause: (3) Near syncope: Plan ASSESSMENT/PLAN: 1. Pauses: Has had pauses during this hospital stay up to 7 seconds. Has been noted to have conversion pauses during hospital stay earlier this past week as well. Also documented atrial fibrillation with rapid ventricular response. Recommend pacemaker, as recommended yesterday by Dr. Tabor. Message sent to electrophysiology for evaluation on 06/01/2022 and possible pacemaker placement when available. No pauses today. Remain in bed. Remain with pads in place if transcutaneous pacing is necessary. Temporary transvenous pacemaker not needed at this time. 2. Paroxysmal atrial fibrillation: Diagnosed in May 2022 when hospitalized on 05/25/2022. Was noted to have conversion pauses and placed on amiodarone by Dr. Tabor. Atrial fibrillation on telemetry on 05/29/2022. Eliquis has been held in anticipation of pacemaker. Can use heparin drip if atrial fibrillation recurs while anticipating pacemaker. Amiodarone discontinued by Dr. Tabor on 05/29/2022. 3. Near syncope: No further symptoms and no further pauses today. 4. Disposition: Dr. Tabor will resume his cardiology care tomorrow and anticipate electrophysiology evaluation on 06/01/2022 if available. Patient is currently on a liquid diet and will reach out to hospitalist as per patient request. N.p.o. after midnight on 05/31/2022. Admission and Anticipated Discharge Date Admission Date: May 29, 2022 Subjective Patient seen this afternoon. No further near syncopal episodes since last evening in the emergency department. He denies syncope, chest pain, shortness of breath, palpitations, edema, or bleeding. He remains in hospital bed. He was alone in his hospital room. Physical Exam Physical Exam: Gen.: No acute distress. Alert. HEENT: Anicteric sclera. Neck: No JVD. Cardiac: No ventricular heave. Regular. Normal S1-S2. No murmurs, rubs, or gallops. Pulmonary: Clear to auscultation bilaterally without wheezes, rales, or rhonchi. Abdomen: Soft, nontender, nondistended, with normoactive bowel sounds. No bruits noted. Extremities: 2+ radial pulses bilaterally. No edema or cyanosis. Psychiatric: Affect appears appropriate. Results & Data Vital Signs (Past 12 Hours) Vital Signs Temp Pulse Pulse Resp BP Pulse Ox O2 Del Method 05/30/22 11:41 36.6 C 61 19 125/70 97 Room Air 05/30/22 07:37 59 L 05/30/22 07:28 36.6 C 62 18 110/65 98 Room Air 05/30/22 03:24 36.5 C 65 14 127/67 99 Room Air Laboratory Results Laboratory Results - last 24 hr 05/29/22 05/29/22 05/29/22 15:21 15:21 15:21 WBC 5.96 RBC 3.48 L Hgb 12.3 L Hct 35.6 L MCV 102.3 H MCH 35.3 H MCHC 34.6 RDW Std Deviation 45.1 RDW Coeff of [place] 12.2 Plt Count 173 MPV 10.1 Immature Gran % (Auto) 0.5 Neut % (Auto) 63.8 Lymph % (Auto) 26.3 [place] % (Auto) 7.9 Eos % (Auto) 1.0 Baso % (Auto) 0.5 Neut # (Auto) 3.80 Lymph # (Auto) 1.57 [place] # (Auto) 0.47 Eos # (Auto) 0.06 Baso # (Auto) 0.03 Immature Gran # (Auto) 0.03 PT 10.9 INR 1.0 APTT 29.3 PTT Ratio 1.1 Sodium 137 Potassium 4.1 Chloride 106 Carbon Dioxide 23 Anion Gap 8 BUN 22 Creatinine 0.94 Est Cr Clr Drug Dosing 61.6 Est GFR ( Amer) 89.0 Est GFR (Non-Af Amer) 76.8 BUN/Creatinine Ratio 23.4 H Glucose 192 H POC Glucose Calcium 9.4 Magnesium 1.5 L Troponin I High Sens 6.0 Lipase 26 Lyme Disease IgG Ab Lyme Disease IgM Ab SARS-CoV-2, RNA, NAAT 05/29/22 05/29/22 05/29/22 15:21 15:48 20:32 WBC RBC Hgb Hct MCV MCH MCHC RDW Std Deviation RDW Coeff of [place] Plt Count MPV Immature Gran % (Auto) Neut % (Auto) Lymph % (Auto) [place] % (Auto) Eos % (Auto) Baso % (Auto) Neut # (Auto) Lymph # (Auto) [place] # (Auto) Eos # (Auto) Baso # (Auto) Immature Gran # (Auto) PT INR APTT PTT Ratio Sodium Potassium Chloride Carbon Dioxide Anion Gap BUN Creatinine Est Cr Clr Drug Dosing Est GFR ( Amer) Est GFR (Non-Af Amer) BUN/Creatinine Ratio Glucose POC Glucose 234 H Calcium Magnesium Troponin I High Sens Lipase Lyme Disease IgG Ab Negative Lyme Disease IgM Ab Negative SARS-CoV-2, RNA, NAAT NEGATIVE 05/30/22 05/30/22 05/30/22 06:43 06:43 07:25 WBC 4.47 L RBC 3.43 L Hgb 12.1 L Hct 35.0 L MCV 102.0 H MCH 35.3 H MCHC 34.6 RDW Std Deviation 46.2 RDW Coeff of [place] 12.3 Plt Count 162 MPV 10.0 Immature Gran % (Auto) Neut % (Auto) Lymph % (Auto) [place] % (Auto) Eos % (Auto) Baso % (Auto) Neut # (Auto) Lymph # (Auto) [place] # (Auto) Eos # (Auto) Baso # (Auto) Immature Gran # (Auto) PT INR APTT PTT Ratio Sodium 138 Potassium 4.0 Chloride 106 Carbon Dioxide 25 Anion Gap 7 BUN 17 Creatinine 0.77 Est Cr Clr Drug Dosing 75.3 Est GFR ( Amer) 100.0 Est GFR (Non-Af Amer) 86.3 BUN/Creatinine Ratio 22.1 H Glucose 149 H POC Glucose 152 H Calcium 8.1 L Magnesium 2.2 Troponin I High Sens Lipase Lyme Disease IgG Ab Lyme Disease IgM Ab SARS-CoV-2, RNA, NAAT 05/30/22 11:39 WBC RBC Hgb Hct MCV MCH MCHC RDW Std Deviation RDW Coeff of [place] Plt Count MPV Immature Gran % (Auto) Neut % (Auto) Lymph % (Auto) [place] % (Auto) Eos % (Auto) Baso % (Auto) Neut # (Auto) Lymph # (Auto) [place] # (Auto) Eos # (Auto) Baso # (Auto) Immature Gran # (Auto) PT INR APTT PTT Ratio Sodium Potassium Chloride Carbon Dioxide Anion Gap BUN Creatinine Est Cr Clr Drug Dosing Est GFR ( Amer) Est GFR (Non-Af Amer) BUN/Creatinine Ratio Glucose POC Glucose 178 H Calcium Magnesium Troponin I High Sens Lipase Lyme Disease IgG Ab Lyme Disease IgM Ab SARS-CoV-2, RNA, NAAT Diagnostic Findings Telemetry personally reviewed: Sinus rhythm today. On 05/29/2022, several pauses noted, up to 7 seconds at 1725, 4.8-second pause at 1559 and again at 1820. Pauses appear to be conversion pauses. Had been in atrial fibrillation. Echo 11/12/2021: Normal LV systolic function and wall motion reported. ECG personally reviewed for 723: Sinus rhythm 79 bpm. Nonspecific T wave abnormality. Medications Administered Current Inpatient Medications Buspirone HCl (Buspirone 5 Mg Tab) 5 mg PO TID PRN PRN Reason: anxiety Stop: 06/28/22 18:47 Dextrose (Dextrose 50% 50 Ml Syringe) 25 - 50 ml IV UD PRN; Protocol PRN Reason: Hypoglycemia Protocol Stop: 06/28/22 17:50 Glucagon (Glucagon For Inj 1 Mg Vial) 1 mg SQ UD PRN; Protocol PRN Reason: Hypoglycemia Protocol Stop: 06/28/22 17:50 Glucose (Glucose 10 Tab/Tube) 4 - 8 tab PO UD PRN; Protocol PRN Reason: Hypoglycemia Treatment Stop: 06/28/22 17:50 Glucose (Glucose 40% Gel 15 Gm Tube) 15 - 30 gm PO UD PRN; Protocol PRN Reason: Hypoglycemia Protocol Stop: 06/28/22 17:50 Sodium Chloride (Nss 1000ml) 1,000 mls @ 50 mls/hr IV .Q20H PATRICIA Stop: 06/29/22 07:59 Last Infusion: 05/30/22 12:36 Dose: 50 mls/hr Insulin Aspart (Insulin Aspart Per Unit Charge) 0 units SC ACHS PATRICIA Stop: 06/28/22 20:59 Last Admin: 05/30/22 12:34 Dose: 1 units Miscellaneous (Carbohydrates For Hypoglycemia ) 15 - 30 gm PO UD PRN PRN Reason: Hypoglycemia Protocol Stop: 06/28/22 17:50 Pantoprazole Sodium (Pantoprazole 40 Mg Tab) 40 mg PO QAM PATRICIA Stop: 06/29/22 08:59 Last Admin: 05/30/22 08:15 Dose: 40 mg PG Care Time/CCT Total # of Minutes Spent Total Time Spent with Patient: Total time spent is greater than 50% in coordination of care (as documented) at patient's floor/unit and/or counseling patient: Coding Level of Care Code 29648 SUB INP/OBS CARE MIN Diagnoses Paroxysmal atrial fibrillation I48.0 Sinus pause I45.5 Near syncope R55
[2022-05-30] MEDS: ACETAMINOPHEN 500 MG TAB PO PRN (20:33)
[2022-05-31] MEDS: SODIUM CHLORIDE 0.9% 1000ML 1,000 ML IV SCH ×2 (02:52→21:42)
[2022-05-31 06:31] LABS: Hematocrit (blood only) 33.8 % (42.0-52.0); Hemoglobin 11.4 g/dl (14.0-18.0); Mean Corpuscular Hgb Conc 33.7 g/dL (32.0-36.0); Mean Corpuscular Volume 103.7 fL (80.0-100.0); Mean Platelet Volume 10.1 fL (9.4-12.4); Platelet Count 154 K/uL (130-400); RDW Coefficient of Variation 12.1 % (11.5-14.5); RDW Standard Deviation 46.2 fL (36.4-46.3); Red Blood Count 3.26 M/uL (4.70-6.10)
[2022-05-31 06:49] LABS: BUN Creatinine Ratio 16.7 (10-20); Calcium 8.1 mg/dl (8.6-10.3); Creatinine Clr Calc Pharmacy 74.3 ml/min; Est GFR (African American) 99.5 ml/min; Est GFR (Non-African American) 85.9 ml/min; Magnesium 2.1 mg/dl (1.7-2.4); Potassium 4.5 mmol/L (3.5-5.1)
[2022-05-31] MEDS: PANTOprazole 40 MG TAB PO SCH (08:10)
[2022-05-31] MEDS: INSULIN ASPART PER UNIT CHARGE SC SCH ×4 (08:14→20:53)
--- NOTE | 2022-05-31 12:20 | Cardiology Progress Note ---
Date of Service May 31, 2022 Assessment & Plan (1) Paroxysmal atrial fibrillation: (2) Sinus pause: (3) Near syncope: Plan Doing well clinically, but he has had multiple pauses (up to 7 seconds) and presyncope/brief syncope and is therefore to undergo permanent pacemaker placeme nt early this week. No further atrial fibrillation or pauses since his admission 2 days ago. Once his pacemaker is placed, would restart amiodarone to prevent recurrent atrial fibrillation and restart apixaban for chronic anticoagulation. No immediate need for anticoagulation since he is remaining in sinus rhythm. If he does develop further atrial fibrillation overnight, would use heparin drip rather than apixaban, since he should be going for pacemaker placement soon. Please have him be n.p.o. after midnight, on the chance that he could undergo pacemaker placement tomorrow (depending upon EP availability). Admission and Anticipated Discharge Date Admission Date: May 29, 2022 Subjective Uneventful night. No symptoms whatsoever. Denies chest pain, palpitations, lightheadedness, or dyspnea. Telemetry shows sinus rhythm with no atrial fibrillation or pauses. Physical Exam Physical Exam: Appears comfortable. Normotensive. Pulse 61 bpm and regular. Skin: no ecchymoses or generalized lesions. HEENT: unremarkable. Neck: no JVD or carotid bruits. Lungs: clear. Cardiac: regular rhythm, normal S1-S2, no murmur or gallop. Abdomen: benign. Extremities: no edema, pulses intact. Neurologic: normal affect and conversation, nonfocal. Results & Data Vital Signs (Past 12 Hours) Vital Signs Temp Pulse Pulse Resp BP Pulse Ox O2 Del Method 05/31/22 11:10 97.7 F 61 18 124/70 95 Room Air 05/31/22 07:58 59 L 05/31/22 07:08 97.7 F 60 18 154/79 H 95 Room Air 05/31/22 02:55 97.7 F 65 12 122/70 98 Room Air 05/31/22 00:35 63 Laboratory Results Normal electrolytes, BUN 13, creatinine 0.78. PG Care Time/CCT Total # of Minutes Spent Total Time Spent with Patient: Total time spent is greater than 50% in coordination of care (as documented) at patient's floor/unit and/or counseling patient: Coding Level of Care Code 60446 SUB INP/OBS CARE 2/35MIN Diagnoses Paroxysmal atrial fibrillation I48.0 Sinus pause I45.5 Near syncope R55
--- NOTE | 2022-05-31 12:29 | Hospitalist Progress Note ---
Date of Service May 31, 2022 Assessment & Plan (1) Sinus pause: Plan: Telemetry. Cardiology consultation and recommendations appreciated. It appears he has tachybradycardia syndrome and will need permanent pacemaker insertion on Wednesday. N.p.o. after midnight tonight. Continue low-flow IV fluids to make sure we have patent IV access if needed (2) Hypomagnesemia: Plan: Corrected. Continue replacement therapy as needed. Serial labs (3) DM II (diabetes mellitus, type II), controlled: Plan: Diet controlled. Sliding scale coverage as needed. Currently on clear liquid diet (4) Hypertension: Plan: Stable. Continue current medical management (5) Anxiety and depression: Plan: Stable Continue Buspirone Plan Anticipate eventual discharge to home after pacemaker insertion and medications have been restarted Admission and Anticipated Discharge Date Admission Date: May 29, 2022 Subjective Alert and oriented. Stable overall. Cardiology entry noted. He will be kept n.p.o. after midnight tonight in the event that pacemaker can be inserted tomorrow, June 01. Amiodarone and Eliquis will be restarted after pacemaker insertion. Hypomagnesemia present on admission has been corrected. Vital signs are stable. Review of Systems Review of Systems: Constitutional-no fever or chills ENT-no blurred vision, no double vision, no epistaxis, no sore throat Respiratory-no cough, no wheezing, no shortness of breath Cardiac-no palpitations, no chest pain, no syncope GI-no nausea, vomiting, diarrhea, melena, hematochezia -no urinary retention, no urinary incontinence, no dysuria, no hematuria Musculoskeletal-no joint pain, no muscle tenderness Skin-no bruising, no rashes, no pruritus Neuro-no isolated weakness, no paresthesia, no weakness Psych-no depression, no anxiety Physical Exam Physical Exam: General-alert and oriented x3, no fevers, no chills HEENT-head atraumatic and normocephalic, pupils equal and reactive to light, extraocular muscles intact Neck-no lymphadenopathy or thyromegaly, trachea midline Chest-clear to auscultation percussion. No rales wheezing or rhonchi Cardiac-regular rate and rhythm, normal S1 and S2 Abdomen-normal bowel sounds, nontender, no hepatosplenomegaly Extremities-no cyanosis, clubbing, or edema Neuro-cranial nerves II through XII intact, motor and sensory function within normal limits, strength symmetrical , no focal deficits Psych-normal affect, normal mood Results & Data Results & Data Vital Signs (Past 12 Hours) Vital Signs Temp Pulse Pulse Resp BP Pulse Ox O2 Del Method 05/31/22 11:10 36.5 C 61 18 124/70 95 Room Air 05/31/22 07:58 59 L 05/31/22 07:08 36.5 C 60 18 154/79 H 95 Room Air 05/31/22 02:55 36.5 C 65 12 122/70 98 Room Air 05/31/22 00:35 63 Laboratory Results 05/31/22 05:42 05/31/22 05:42 PG Care Time/CCT Total # of Minutes Spent Total Time Spent with Patient: Total time spent is greater than 50% in coordination of care (as documented) at patient's floor/unit and/or counseling patient: Coding Level of Care Code 82948 SUB INP/OBS CARE 3/50MIN Diagnoses Sinus pause I45.5 Hypomagnesemia E83.42 DM II (diabetes mellitus, type II), controlled E11.9 Hypertension I10 Anxiety and depression F41.9; F32.A
[2022-06-01 06:37] LABS: Hematocrit (blood only) 34.2 % (42.0-52.0); Hemoglobin 11.9 g/dl (14.0-18.0); Mean Corpuscular Hemoglobin 35.2 pg (25.0-34.0); Mean Corpuscular Hgb Conc 34.8 g/dL (32.0-36.0); Mean Corpuscular Volume 101.2 fL (80.0-100.0); Mean Platelet Volume 9.8 fL (9.4-12.4); Platelet Count 167 K/uL (130-400); RDW Standard Deviation 44.2 fL (36.4-46.3); Red Blood Count 3.38 M/uL (4.70-6.10); White Blood Count 4.98 K/ul (4.8-10.8)
[2022-06-01 07:01] LABS: BUN Creatinine Ratio 18.6 (10-20); Calcium 8.4 mg/dl (8.6-10.3); Creatinine Clr Calc Pharmacy 82.8 ml/min; Est GFR (Non-African American) 89.8 ml/min; Magnesium 1.9 mg/dl (1.7-2.4); Potassium 4.2 mmol/L (3.5-5.1)
[2022-06-01] MEDS: PANTOprazole 40 MG TAB PO SCH (08:19)
[2022-06-01] MEDS: INSULIN ASPART PER UNIT CHARGE SC SCH ×4 (08:21→20:14)
[2022-06-01] MEDS ORDERED: BUPIVACAINE 0.25% PF 30 ML VIAL ONE (14:30)
[2022-06-01] MEDS ORDERED: VANCOMYCIN HCL 1000MG/20ML VIAL ONE (14:30)
[2022-06-01] MEDS ORDERED: LIDOCAINE 1% LOCAL 20 ML VIAL ONE (14:30)
[2022-06-01] MEDS ORDERED: WATER, STERILE FOR INJ 10 ML VIAL ONE (14:30)
[2022-06-01] MEDS ORDERED: ceFAZolin 330 MG/ML 1 GM VIAL ONE (15:09)
[2022-06-01] MEDS ORDERED: MIDAZOLAM HCL 5 MG/ML 1 ML VIAL ONE (15:09)
[2022-06-01] MEDS ORDERED: fentaNYL citrate PF 100 MCG/2 ML VIAL ONE ×2 (15:09→16:07)
--- NOTE | 2022-06-01 15:25 | Pre Anesthesia Assessment ---
Date of Service June 01, 2022 Pre Sedation Assessment Vital Signs Temp Pulse Pulse Resp BP Pulse Ox O2 Del Method 06/01/22 15:19 62 06/01/22 15:19 59 L 20 164/65 H 97 Room Air 06/01/22 15:16 36.5 C 59 L 18 146/64 H 97 Room Air 06/01/22 11:27 36.6 C 62 17 143/75 H 96 Room Air 06/01/22 07:30 63 06/01/22 07:38 36.6 C 62 18 146/66 H Room Air 06/01/22 03:27 36.6 C 65 14 132/61 97 Room Air 05/31/22 23:12 36.7 C 62 16 125/66 97 Room Air 05/31/22 23:00 60 05/31/22 21:12 36.6 C 69 16 131/70 95 Room Air 05/31/22 15:37 63 05/31/22 15:25 36.6 C 63 18 133/76 96 Room Air Cardiovascular + regular rate and + regular rhythm Respiratory + respiratory effort normal Pre-Sedation Airway Assessment Smoking Status: Never smoker Hx Sleep Apnea: No Hx Difficult Intubation: No Short, Thick Neck: No Thyromental Distance: > or= 3.5 Finger Breadths Oral Cavity: + WNL Mallampati Class: II ASA: ASA3 NPO Status Date of Last Intake of Fluids: 06/01/22 Time of Last Intake of Fluids: 07:00 Last Oral Intake of Fluids Comment: sips with pills Date of Last Intake of Solid Food: 05/31/22 Procedure Planning Contraindications for Sedation: none Current Medications Reviewed: Yes Notes The planned sedation has been discussed with the patient. Informed Consent was obtained. I have identified the patient, determined the appropriateness of sedation and have assessed the patient immediately prior to the procedure. All medicine(s) and interventions are by my order.
--- NOTE | 2022-06-01 17:04 | Electrophysiology Report ---
Date of Service June 01, 2022 Electrophysiology Procedure Electrophysiology Procedure Report Procedure performed: Implantation of dual-chamber permanent pacemaker with left bundle pacing lead Staff personal property appraiser: Gabe Irene MD Indication: the patient is a 81-year-old gentleman with a history of paroxysmal atrial fibrillation and conversion pauses which have caused presyncope. He has rapid rates that time and will require more aggressive rate control. As such is felt to be a good candidate for permanent pacemaker due to symptomatic nonreversible sinus node dysfunction. Dual-chamber device was selected as the patient is currently in sinus rhythm and wished to maintain AV synchrony. Procedure in detail: The patient was informed of the risks benefits and alternatives to the intended procedure and he wished to proceed. He was taken to the electrophysiology suite in a fasting state. A preoperative antibiotic had been administered. The patient was monitored electrocardiographically throughout today's procedure and conscious sedation was administered per protocol. The left upper pectoral area is prepped and draped in usual sterile fashion. This area was anesthetized using subcutaneous administration of a xylocaine solution. An incision was made at this site and carried down to the prepectoralis fascia using sharp dissection. Electrocautery was also employed for dissection as well as for hemostasis. A device pocket was fashioned tissues above the pectoralis muscle. Subsequent to this maneuver the left axillary vein was accessed using modified Seldinger technique. A sheath was placed over guidewire at this site used facilitate passage of the guiding catheter for mapping of the interventricular septum. Once a suitable location was identified the pacing lead was advanced into the interventricular septum. Adequate sensing threshold parameters were obtained prior to removal of the guiding catheter and sheath. The proximal portion of lead was then sutured to prepectoralis fascia using nonabsorbable suture. A sheath was placed over the remaining guidewire and used facilitate passage of the pacing lead to the right atrium under fluoroscopic guidance. Adequate sensing threshold parameters were obtained prior to active fixation of this lead to the endocardial surface. The proximal portion lead was then sutured to prepectoralis fascia using nonabsorbable suture. The device pocket was irrigated with antibiotic solution. The leads were then attached to the device. The device and leads were then placed in the pocket and pocket was closed in 3 layers of absorbable suture. Steri-Strips and sterile dressing were applied. The device was tested noninvasively prior to conclusion the procedure. The patient tolerated procedure well there no immediate complications. Equipment used: New pulse generator: [employer] Controller [employer]. Model number:[id number] Serial number [id number] Right atrial lead: [employer] Controller [employer]. Model number: 5076 serial number [id number] Right ventricular lead: [employer] Controller [employer]. Model number: 3830 serial number L [id number] Measured data: Right atrial lead: P-waves measured 2 mV. Pacing threshold was 2 volts at 0.5 milliseconds with a pacing impedance of 634 Ohms Right ventricular lead: R-waves measured 10 mV. Pacing threshold 0.5 volts at 0.5 millisecond with a pacing impedance of 580 Ohms Impression: Successful implantation of dual-chamber permanent pacemaker with left bundle pacing lead [facility] Electrophysiology codes Pacing Procedure 1: Pacin Insert/Replace Pacer A & V PG Moderate Sedation Codes Moderate Sedation Codes Procedure 1: Sedation/Anesthesia: 51016 Mod Sedation by the same physician;Init15 Min Child Age 5 & Up Procedure 2: Sedation/Anesthesia: 02585 Mod Sedation by the same physician; Ea [id number] Minutes
--- NOTE | 2022-06-01 17:04 | Post Anesthesia Assessment ---
Date of Service June 01, 2022 Post Sedation Assessment Vital Signs Temp Pulse Pulse Resp BP Pulse Ox O2 Del Method 06/01/22 15:19 62 06/01/22 15:19 59 L 20 164/65 H 97 Room Air 06/01/22 15:16 36.5 C 59 L 18 146/64 H 97 Room Air 06/01/22 11:27 36.6 C 62 17 143/75 H 96 Room Air 06/01/22 07:30 63 06/01/22 07:38 36.6 C 62 18 146/66 H Room Air 06/01/22 03:27 36.6 C 65 14 132/61 97 Room Air 05/31/22 23:12 36.7 C 62 16 125/66 97 Room Air 05/31/22 23:00 60 05/31/22 21:12 36.6 C 69 16 131/70 95 Room Air Recovery Score Activity: Moves 4 extremities Respiration: Deep Breath/Cough Circulation: +/-20% PreAnes Value Consciousness: Fully Awake Oxygen Saturation: > 92% On Room Air Discharge Sedation Level of Care: Fast Track Phase II Post Sedation Plan On clinical assessment, the patient appears to have tolerated the sedation without complications. Patient is recovering as anticipated. Patient will continue to be monitored by nursing and may be discharged when sedation discharge criteria are met per below protocol. Upon Completions of procedure up to 15 minutes continue every 5 minute vital signs and the P.A.R. score; then discharge to a Phase I or Fast Track to Phase II per the following guidelines: * Discharge Patient to appropriate Phase II area if PAR is 8 or greater or return to pre- procedure baseline. The post - procedure orders will be as directed. * If PAR score is less than 8 or not return to pre-procedure baseline then patient will follow Phase I monitoring till PAR is reached for Phase II. The Phase I may be done in procedure room or may call to secure a Phase I area. * If naloxone or flumazenil are used for reversal, hold in Phase I for continued monitoring from when last reversal dose was given for a minimum of 60 minutes or longer pending the nurse and/or physician discretion of patient condition before discharge to Phase II. Please call the Sedation Physician to re-evaluate and complete post-note for discharge to Phase II area. Do NOT discharge from procedure sedation or Phase 1 until post- sedation evaluation note is complete by procedure /sedation MD Sedation Discharge Instructions to be given to the patient at discharge to home.
[2022-06-01] MEDS ORDERED: oxyCODONE HCL IR 5 MG TAB (IMMEDIATE RELEASE) PO PRN (17:05)
--- NOTE | 2022-06-01 20:04 | Hospitalist Progress Note ---
Date of Service June 01, 2022 Assessment & Plan (1) Sinus pause: Plan: Had 7-second conversion pause between atrial fibrillation and sinus rhythm, presented with syncope Appreciate cardiology consultation. It appears he has tachybradycardia syndrome and will need permanent pacemaker insertion-performed on 06/01 Plan to restart Eliquis and amiodarone when okay with cardiology after pacemaker insertion Continue to monitor on telemetry Keep electrolytes replete (2) Hypomagnesemia: Plan: Corrected. Continue replacement therapy as needed. Serial labs (3) DM II (diabetes mellitus, type II), controlled: Plan: Diet controlled. Sliding scale coverage as needed. Hemoglobin A1c only 5.9% (4) Anxiety and depression: Plan: Stable Continue Buspirone (5) Paroxysmal atrial fibrillation: Plan: Currently in sinus but presented in atrial fibrillation Holding home Eliquis and amiodarone but restart hopefully tomorrow (6) Vitamin B12 deficiency: Plan: Continue oral B12 supplementation upon discharge Plan DVT prophylaxis-holding home Eliquis for procedure Disposition-likely home tomorrow if pacemaker functioning appropriately Admission and Anticipated Discharge Date Admission Date: May 29, 2022 Anticipated date of discharge: 06/02/22 Subjective Patient seen after returning from pacemaker insertion. He is feeling very well, denies pain or lightheadedness. He is eating dinner. Telemetry with normal sinus rhythm and rates in the 50s to 70s, no further pauses Physical Exam Constitutional: WD/WN, vitals as above Neck: trachea midline, no thyromegaly Respiratory: normal respiratory effort, lungs clear to auscultation Cardiovascular: RRR, no murmur, no edema Chest (Breasts): Chest: + pacemaker (Left anterior chest wall with dressing clean dry and intact) Musculoskeletal: Extremities: extremities normal to inspection; no cyanosis and no clubbing Skin: no rashes, warm and dry Neurologic: moves all extremities and awake; no focal motor deficits Psychiatric: A+Ox3, euthymic affect Lymphatic: no lymphedema Results & Data Results & Data Vital Signs (Past 12 Hours) Vital Signs Temp Pulse Pulse Resp BP Pulse Ox O2 Del Method 06/01/22 19:29 36.4 C L 68 17 122/73 96 Room Air 06/01/22 18:30 67 14 108/69 94 Room Air 06/01/22 18:21 75 16 104/65 94 Room Air 06/01/22 17:51 75 16 130/77 95 Room Air 06/01/22 17:36 79 16 94/55 L 95 Room Air 06/01/22 17:21 85 14 113/61 94 Room Air 06/01/22 17:06 36.7 C 96 H 16 118/69 96 Room Air 06/01/22 17:25 65 06/01/22 15:19 62 06/01/22 15:19 59 L 20 164/65 H 97 Room Air 06/01/22 15:16 36.5 C 59 L 18 146/64 H 97 Room Air 06/01/22 11:27 36.6 C 62 17 143/75 H 96 Room Air Laboratory Results CBC, BMP reviewed PG Care Time/CCT Total # of Minutes Spent Total Time Spent with Patient: Total time spent is greater than 50% in coordination of care (as documented) at patient's floor/unit and/or counseling patient: Coding Level of Care Code 15020 SUB INP/OBS CARE 2/35MIN Diagnoses Sinus pause I45.5 Hypomagnesemia E83.42 DM II (diabetes mellitus, type II), controlled E11.9 Anxiety and depression F41.9; F32.A Paroxysmal atrial fibrillation I48.0 Vitamin B12 deficiency E53.8
[2022-06-01] MEDS: ACETAMINOPHEN 500 MG TAB PO PRN (21:11)
[2022-06-01] MEDS ORDERED: ceFAZolin 1000MG 1,000 MG/7.5 ML SYR IV ONE (23:55)
[2022-06-02 06:41] LABS: Basophils # (auto) 0.03 K/uL (0-0.2); Basophils % (auto) 0.6 %; Eosinophils # (auto) 0.12 K/uL (0-0.50); Eosinophils % (auto) 2.3 %; Hematocrit (blood only) 33.3 % (42.0-52.0); Hemoglobin 11.9 g/dl (14.0-18.0); Immature Granulocytes # (auto) 0.02 K/uL (0.01-0.20); Immature Granulocytes % (auto) 0.4 %; Lymphocytes # (auto) 1.66 K/uL (1.2-3.4); Lymphocytes % (auto) 31.9 %; Mean Corpuscular Hemoglobin 35.2 pg (25.0-34.0); Mean Corpuscular Hgb Conc 35.7 g/dL (32.0-36.0); Mean Corpuscular Volume 98.5 fL (80.0-100.0); Mean Platelet Volume 9.8 fL (9.4-12.4); Monocytes # (auto) 0.39 K/uL (0.11-0.59); Monocytes % (auto) 7.5 %; Neutrophils # (auto) 2.98 K/uL (1.40-6.50); Neutrophils % (auto) 57.3 %; Platelet Count 163 K/uL (130-400); RDW Coefficient of Variation 11.7 % (11.5-14.5); RDW Standard Deviation 42.5 fL (36.4-46.3); Red Blood Count 3.38 M/uL (4.70-6.10)
[2022-06-02 07:01] LABS: Calcium 8.4 mg/dl (8.6-10.3); Creatinine Clr Calc Pharmacy 65.9 ml/min; Est GFR (African American) 94.7 ml/min; Est GFR (Non-African American) 81.7 ml/min; Magnesium 1.9 mg/dl (1.7-2.4); Potassium 4.2 mmol/L (3.5-5.1)
[2022-06-02] MEDS: PANTOprazole 40 MG TAB PO SCH (07:49)
[2022-06-02] MEDS: INSULIN ASPART PER UNIT CHARGE SC SCH ×2 (07:49→11:41)
--- NOTE | 2022-06-02 09:10 | XRay Report ---
TWO VIEW CHEST CLINICAL HISTORY: Pacemaker implantation.. FINDINGS: PA and lateral chest radiographs are compared to study dated 05/29/2022. A 2-lead cardiac pac emaker has been placed and partially obscures the left apex. Leads project over the right atrial appe ndage and right ventricle. The heart is top normal in size noting atherosclerotic calcification of th e thoracic aorta. The pulmonary vasculature is noncongested. Chronic interstitial thickening is [place]ole[place] lar to previous. There is bibasilar scarring/atelectasis. The lungs and pleural spaces are otherwise clear. There is no pneumothorax. The skeletal structures are osteopenic. The bony thorax appears inta ct. IMPRESSION: 1. A 2-lead cardiac pacemaker has been implanted as above. No pneumothorax is seen post procedure. 2. There is no radiographic evidence of congestive failure. 3. The lungs are clear. ACT 112: Negative or not required by law. Electronically signed by: Elia Rebollar M.D. 06/02/2022 9:09 AM
--- NOTE | 2022-06-02 11:58 | Discharge Summary ---
Date of Service June 02, 2022 Admission HPI Per Admitting Provider Eleuterio is a 81 year old male with a PMH significant for HTN, type II DM (controlled with diet), anemia, GERD, nephrolithiasis, SBO, diverticulitis, BPH, vitamin D and B12 deficiencywho presented to the [facility] ED on 05/29/22 with continued episodes of lightheadedness and pre-syncopal episodes. In the ED the patient was initially found to be afebrile, hemodynamically stable, stable on RA, and with HR in the 70's. Labs were remarkable for a stable CBC, mag of 1.5 otherwise stable CMP, initial high sen trop of 6.0, and covid 19 negative. While in the ED the patient had a confirmed syncopal episode. Review o f the telemetry strip prior to the sinus pause it appears that the patient was in sinus rhythm prior and is currently in sinus rhythm. Chest xray was read as "No acute chest disease.". Prior to admission the patient was given 1gm IV mag in the ED. Per chart review, the patient was just admitted to [facility] from from 05/25-05/27 for the same issue. He was evaluated by Cardiology who thought that his pauses were occurring due to the patient going into afib then converting back to sinus rhythm. They recommended starting PO amiodarone for rhythm control before attempting pacemaker placement. The patient was also started on Eliquis for stroke prevention. At the time of the exam the patient was lying in bed in no acute distress. He states that he was initially doing well after discharge. Today, he was doing yard work and had multiple episodes of feeling dizzy/lightheaded but denied complete syncope. He denies recent fevers, chills, chest pain, SOB, abd pain, nausea, vomiting, diarrhea, dysuria, hematuria, melena, LE swelling and recent trauma. While in the room with the patient he went into afib, then a-flutter, with an approximately 4-5 second pause where he was symptomatic but did not pass out and remained hemodynamically stable. Dr. Tabor came to the bedside to evaluate the patient. He confirmed that the patient will need a permanent pacemaker and advised to keep the transcutaneous pacemaker pads in place for now. Please refer to Dr. Levi's attestation for any changes to the treatment plan Principal Diagnosis Permanent pacemaker insertion, bradycardia, syncope Discharge Exam Constitutional WD/WN, vitals as above Neck trachea midline, no thyromegaly Respiratory normal respiratory effort, lungs clear to auscultation Cardiovascular RRR, no murmur, no edema Chest (Breasts) Chest: + pacemaker (Left anterior chest wall with dressing clean dry and intact) Musculoskeletal Extremities: extremities normal to inspection; no cyanosis and no clubbing Skin no rashes, warm and dry Neurologic moves all extremities and awake; no focal motor deficits Psychiatric A+Ox3, euthymic affect Lymphatic no lymphedema Discharge Data Allergies Allergy/AdvReac Type Severity Reaction Status Date / Time No Known Allergies Allergy Verified 05/25/22 17:56 Consultations 05/29/22 16:27 ED Decision to Admit Stat 05/29/22 17:40 Consult Cardiology Routine Procedures Performed Operation Date: 06/01/22 15:30 Actual Procedures p Pacer with A/V Leads (Dual) - Gabe Irene MD Ordered Studies 06/01/22 09:30 EP Lab Images for PACS ONCE Hospital Course (1) Sinus pause: Had 7-second conversion pause between atrial fibrillation and sinus rhythm, presented with syncope associated with this Appreciate cardiology consultation. 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 Sliding scale coverage as needed. Hemoglobin A1c only 5.9% (4) Anxiety and depression: Stable Continue Buspirone (5) Paroxysmal atrial fibrillation: Currently in sinus but presented in atrial fibrillation Holding home Eliquis and amiodarone but restart on 06/04 (6) Vitamin B12 deficiency: Continue oral B12 supplementation upon discharge Plan DVT prophylaxis-holding home Eliquis for procedure Disposition-dc to home today Total Time Total Time Spent Total Time Spent (In Minutes): 35 min Discharge Plan Discharge Items Patient Disposition: Home - Self-Care Reason For Visit: LIGHTHEADEDNESS/DIZZINESS Discharge Diagnosis: Bradycardia, Permanent pacemaker insertion Condition on Discharge: Good Activity: As commented below Activity Comment: NO lifting left arm above shoulder or behind neck for 6 weeks. Bathing: Keep incision dry Bathing Comment: keep wound dry and steri-strip intact until f/u next week Non-emergency contact: Primary Care Provider and Contract Lead Call non-emergency contact if: you have any medication questions and your symptoms worsen Follow-up/Referrals: Carmelo Mason MD [Primary Care Provider] - 06/05/22 11:00 am (with Luna Gipson at the [place] Office ) Gabe Irnee MD [Physician] - (Follow up within 1 week) Diet: Carb Consistent or DM2 and Heart Healthy Addtl Attending Provider Instructions: Do not lift your left arm above the level of the shoulder for 4 weeks. No driving for one week. Do not use your left arm for any manual labor for 4 weeks. You can take Tylenol as needed for pain. You should HOLD your Eliquis and Amiodarone until MONDAY 06/05. You can restart both of them then. Follow up with the Contract Lead and your PCP within 1 week. Pending Studies at Discharge: No Stand-Alone Forms: My [facility] [employer], Smoking Cessation Medications and DC Order Prescriptions: New acetaminophen 500 mg capsule 500 mg PO Q6H PRN (Reason: pain) Qty: 30 0RF Rx Instructions: OTC Continued omeprazole 20 mg capsule,delayed release(DR/EC) 20 mg PO QAM Qty: 90 3RF cholecalciferol (vitamin D3) 1,000 unit capsule 1,000 units PO QAM cyanocobalamin (vitamin B-12) 1,000 mcg tablet 1,000 mcg PO QAM Qty: 30 psyllium husk 3.4 gram/5.4 gram powder 2 tbs PO QAM buspirone 5 mg tablet 5 mg PO TID PRN (Reason: anxiety) Qty: 90 3RF potassium gluconate 595 mg (99 mg) Tablet 595 mg PO QAM calcium carbonate [Calcium 600] 600 mg calcium (1,500 mg) Tablet 600 mg PO DAILY amiodarone 200 mg Tablet 200 mg PO BIDM Qty: 60 0RF Mag 64 64 mg Tablet,Delayed Release (Dr/Ec) 64 mg PO BID Qty: 60 0RF Eliquis 5 mg Tablet 5 mg PO BID Qty: 60 0RF Discharge Orders: Discharge Order (Routine); Ordered 06/02/22 Ordered By: Nevin Oquendo Admission Data Admit Date/Time: 05/29/22 17:18 Attending Provider: Nevin Oquendo Admit Provider: Dajuan Levi Primary Care Provider: Carmelo Mason Other Providers: Dajuan Levi ; Davon Tabor Other Interventions: Discharge Summary Assessment (RN) Last Done: 06/02/22 12:14 Coding Level of Care Code 95313 INP/OBS DISCH >30 MIN Diagnoses Sinus pause I45.5 Hypomagnesemia E83.42 DM II (diabetes mellitus, type II), controlled E11.9 Anxiety and depression F41.9; F32.A Paroxysmal atrial fibrillation I48.0 Vitamin B12 deficiency E53.8
--- NOTE | 2022-06-02 15:43 | Cardiology Progress Note ---
Date of Service June 02, 2022 Assessment & Plan (1) Paroxysmal atrial fibrillation: (2) Sinus pause: (3) Near syncope: Plan He underwent dual-chamber pacemaker implantation yesterday without evident complication. He could certainly be discharged today with instructions to avoid lifting left arm above the shoulder behind the neck for 6 weeks. He should keep the wound dry and Steri-Strips intact until follow-up which will be arranged next week. He can resume his usual outpatient medications including amiodarone. He should refrain from restarting Eliquis until WednesdayJune 05. Admission and Anticipated Discharge Date Admission Date: May 29, 2022 Subjective this afternoon the patient claimed he feeling well. He does have some discomfo rt at the device implant site, primarily when moving the left arm. However, he has been ambulatory. No breathing difficulty. No sense of palpitation no dizziness. Review of Systems Review of Systems: Per HPI Physical Exam Physical Exam: evaluation the device implant site did not reveal any hematoma. No swelling. No drainage. No ecchymosis. Results & Data Vital Signs (Past 12 Hours) Vital Signs Temp Pulse Pulse Resp BP Pulse Ox O2 Del Method 06/02/22 12:14 36.6 C 76 19 159/82 H 98 06/02/22 11:30 36.6 C 76 19 159/82 H 98 Room Air 06/02/22 08:00 66 06/02/22 08:00 36.6 C 74 18 119/73 95 Room Air Laboratory Results Abnormal Lab Results 06/01/22 06/01/22 06/02/22 17:22 20:03 05:50 WBC 5.20 RBC 3.38 L Hgb 11.9 L Hct 33.3 L MCV 98.5 MCH 35.2 H MCHC 35.7 RDW Std Deviation 42.5 RDW Coeff of [place] 11.7 Plt Count 163 MPV 9.8 Immature Gran % (Auto) 0.4 Neut % (Auto) 57.3 Lymph % (Auto) 31.9 [place] % (Auto) 7.5 Eos % (Auto) 2.3 Baso % (Auto) 0.6 Neut # (Auto) 2.98 Lymph # (Auto) 1.66 [place] # (Auto) 0.39 Eos # (Auto) 0.12 Baso # (Auto) 0.03 Immature Gran # (Auto) 0.02 Sodium Potassium Chloride Carbon Dioxide Anion Gap BUN Creatinine Est Cr Clr Drug Dosing Est GFR ( Amer) Est GFR (Non-Af Amer) BUN/Creatinine Ratio Glucose POC Glucose 118 H 188 H Calcium Magnesium 06/02/22 06/02/22 06/02/22 05:50 07:31 11:10 WBC RBC Hgb Hct MCV MCH MCHC RDW Std Deviation RDW Coeff of [place] Plt Count MPV Immature Gran % (Auto) Neut % (Auto) Lymph % (Auto) [place] % (Auto) Eos % (Auto) Baso % (Auto) Neut # (Auto) Lymph # (Auto) [place] # (Auto) Eos # (Auto) Baso # (Auto) Immature Gran # (Auto) Sodium 138 Potassium 4.2 Chloride 106 Carbon Dioxide 27 Anion Gap 5 BUN 15 Creatinine 0.88 Est Cr Clr Drug Dosing 65.9 Est GFR ( Amer) 94.7 Est GFR (Non-Af Amer) 81.7 BUN/Creatinine Ratio 17.0 Glucose 129 H POC Glucose 162 H 176 H Calcium 8.4 L Magnesium 1.9 Diagnostic Findings Chest x-ray demonstrated good lead position without evidence of pneumothorax Device interrogation revealed good function of both the atrial and ventricular leads.
== END 2022-06-02 14:33 | disposition home or self-care (01) | DRG 244 ==
LOC: ED 15:01 → SUATTDRO 17:18 → 2S 17:18

== ENCOUNTER 2022-06-07 07:11 | Inpatient (IN) ==
[2022-06-07] MEDS ORDERED: SODIUM CHLORIDE 0.9% 1000ML 500 ML IV ONE (07:21)
--- NOTE | 2022-06-07 07:28 | Emergency Department Note ---
Impression & Plan Chest pain ADMIT ED Provider Note HPI: The patient is a 81-year-old gentleman with history of paroxysmal atrial fibrillation, recent pacemaker placed on 06/[address] Irene for symptomatic sinus pauses, presents the emergency department with a chief complaint of chest pain. Patient states that the pain developed overnight, states that the pain worsens when he attempts to take a deep breath. On arrival here to the ED the patient is saturating well on room air. Patient is noted to be febrile at 38.9, otherwise with stable blood pressure, heart rate is within normal limits. Patient is alert and oriented on arrival. Patient denies any recent cough/congestion. States he was feeling well for several days until his symptoms began last night. ROS: - Per HPI *Outpatient medications and allergy history reviewed. *Pertinent external medical records reviewed. PE: General: Alert HEENT: Normocephalic, trachea midline Eyes: Extraocular eye movement is intact, no scleral erythema Pulmonary: Clear to auscultation bilaterally, no wheezing Cardio: Regular rate and rhythm GI: Abdomen is soft to palpation : No suprapubic tenderness MSK: No evidence of trauma or malformation of the extremities, no edema Skin: No evidence of rash, pacemaker site to the left upper chest appears without surrounding erythema or purulence Neuro: Alert, no focal deficits Psychiatric: Cooperative property assessment monitor: (As interpreted by myself): - An order was placed for continuous cardiac monitoring - Patient was noted to be in sinus rhythm with a rate of 90 EKG: (As interpreted by myself): Rate: 94 Rhythm: Normal sinus rhythm Intervals: Within normal limits ST changes: No ST elevation Time: 0715 Interventions provided in ED: -IV morphine, IV Zofran, IV Tylenol, IV vancomycin, IV cefepime Differential Diagnosis: Pacemaker pocket infection, ACS, pulmonary embolism, pneumothorax, aortic dissection, pneumonia, amongst other potential pathologies. Medical Decision Making: The patient is a very pleasant 81-year-old gentleman who presented to the emerg ency department with chest pain that developed overnight. Patient recently had a pacemaker placed by Dr. Irene of electrophysiology here at this facility on June 01. On arrival here to the ED the patient is hemodynamically stable, was incidentally noted to have a fever at 38.9, patient states he has had some sensation of subjective fevers at home recently but did not take his temperature. Denies any significant coughing. IV was established, lab work obtained, patient was maintained on laboratory monitor, given IV morphine and IV Zofran for his symptoms as well as Tylenol for fever. Blood cultures were drawn. Lab work shows no leukocytosis, hemoglobin is stable, platelet count within normal limits. Lactic acid slightly elevated 2.2, pacemaker site does not appear to show active infection, no purulent drainage or significant erythema. Chest x-ray does not show any evidence of pne umothorax. No evidence of pneumonia. Patient was off his anticoagulation for several days for the procedure, given the CT angiography of the chest was performed that shows no evidence of pulmonary embolism, there is a small to moderate-sized pericardial effusion, possibly an element of pericarditis given the patient's pain although troponin is negative and EKG does not show any ST elevation. On my reassessment patient states his discomfort is improved but he still does have chest pain. Given this in conjunction with fever and recent procedure, will plan to initiate broad-spectrum antibiotics and admit to the hospitalist service. COVID-19 testing and influenza testing are negative. Patient is in agreement to the above plan he was admitted in stable condition. [facility] hospitalist service was consulted for admission. Consultants: Hospitalist service Disposition discussion held by myself with: Patient Diagnosis: 1. Chest pain, acute, nonspecific 2. Fever of unknown origin 3. Recent pacemaker implantation 4. Lactic acidosis Disposition: Admission Naseem Elaine DO Emergency Medicine Past Med/Surg History Medical History Acute diverticulitis (08/08/13) Chronic back pain Diverticulosis of colon Hepatic steatosis Hiatal hernia History of esophageal dilatation Hypercholesterolemia Left leg DVT Osteoarthritis Osteopenia Schatzki's ring Sleep trouble Small bowel obstruction (2014) Type 2 diabetes mellitus Surgical History History of colostomy History of colostomy reversal History of esophagogastroduodenoscopy (EGD) Hx of appendectomy Hx of colectomy Hx of colonoscopy Hx of inguinal hernia repair Hx of tonsillectomy Family History Family/Other Aorta aneurysm Perceptive hearing loss or deafness Mother Alcoholism /alcohol abuse Lung cancer Lung disease Father Alcoholism /alcohol abuse Lung disease Brother Primary hemochromatosis Denies family history of Colon cancer Ovarian cancer Prostate cancer Myocardial infarction Breast cancer Colorectal cancer Hypertension Stroke Asthma Social History Smoking Status: Never smoker Second Hand Exposure: No; Hx Alcohol Use: No Hx Substance Use: No Preferred Language: Ghanaian Communication Ability: Effective Visual Impairment: No Limitations 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: Normal Combining Machine Operator Required: No Beliefs That Will Affect Care: None marital status: Single Current Living Situation: Alone Current Living Situation Comment: House current occupational status: retired current occupation: [employer] Feels Safe at Home: Yes Dental Care, Regularly: No Physical Activity Frequency: 1-2 Times per Week Seatbelt Use: always Assistive Devices: None Allergies Allergies Allergy/AdvReac Type Severity Reaction Status Date / Time No Known Allergies Allergy Verified 06/05/22 10:42 Home Meds Home Medications Medication Instructions Recorded Confirmed cholecalciferol (vitamin D3) 25 1,000 units PO QAM 10/06/18 06/07/22 mcg (1,000 unit) capsule cyanocobalamin (vitamin B-12) 1,000 mcg PO QAM #30 tabs 10/06/18 06/07/22 1,000 mcg tablet psyllium husk 3.4 gram/5.4 gram 2 tbs PO QAM 10/06/18 06/07/22 oral powder potassium gluconate 595 mg (99 mg) 595 mg PO QAM 11/14/19 06/07/22 tablet calcium carbonate 600 mg calcium 600 mg PO DAILY 05/25/22 06/07/22 (1,500 mg) tablet (Calcium) Previous Rx's Medication Instructions Recorded buspirone 5 mg tablet 5 mg PO TID PRN anxiety #90 tabs 11/24/21 omeprazole 20 mg capsule,delayed 20 mg PO QAM #90 caps 01/12/22 release amiodarone 200 mg tablet 200 mg PO BIDM #60 tabs 05/27/22 apixaban 5 mg tablet (Eliquis) 5 mg PO BID #60 tabs 05/27/22 magnesium chloride 64 mg 64 mg PO BID #60 tabs 05/27/22 (magnesium chloride) tablet,delayed release (Mag 64) acetaminophen 500 mg capsule 500 mg PO Q6H PRN pain #30 caps 06/02/22 Results & Data (ED) Vital Signs Vital Signs - 24 hr 06/07/22 07:15 06/07/22 07:15 06/07/22 07:15 Temperature 38.9 C H Temperature Source Oral Pulse Rate 94 H Pulse Rate from SpO2 Sensor Respiratory Rate 22 Respiratory Effort / Characteristics Non-Labored Spontaneous Respiratory Depth Normal Respiratory Pattern Regular Blood Pressure 101/64 Blood Pressure Mean 76 Blood Pressure Position Lying Pulse Oximetry 95 95 95 Oxygen Delivery Method Room Air Room Air Room Air Sepsis Recent Fever Within 48 Hours Yes Sepsis New/Unexplained Change in Mental Status N/A Sepsis Action Taken by Nursing Physician Notified 06/07/22 08:14 06/07/22 09:21 06/07/22 07:16 Temperature 36.8 C Temperature Source Oral Pulse Rate 85 92 H Pulse Rate from SpO2 Sensor 94 H Respiratory Rate 24 Respiratory Effort / Characteristics Respiratory Depth Respiratory Pattern Blood Pressure 101/64 Blood Pressure Mean 76 Blood Pressure Position Pulse Oximetry 95 Oxygen Delivery Method Room Air Sepsis Recent Fever Within 48 Hours Sepsis New/Unexplained Change in Mental Status Sepsis Action Taken by Nursing 06/07/22 10:30 Temperature Temperature Source Pulse Rate 71 Pulse Rate from SpO2 Sensor 71 Respiratory Rate 16 Respiratory Effort / Characteristics Respiratory Depth Respiratory Pattern Blood Pressure 107/68 Blood Pressure Mean 81 Blood Pressure Position Pulse Oximetry 92 Oxygen Delivery Method Room Air Sepsis Recent Fever Within 48 Hours Sepsis New/Unexplained Change in Mental Status Sepsis Action Taken by Nursing Laboratory Data 06/07/22 07:23 06/07/22 07:23 Lab Results 06/07/22 06/07/22 06/07/22 Range/Units 07:07 07:07 07:23 WBC 10.23 (4.8-10.8) K/ul RBC 3.29 L (4.70-6.10) M/uL Hgb 11.7 L (14.0-18.0) g/dl Hct 33.8 L (42.0-52.0) % MCV 102.7 H (80.0-100.0) fL MCH 35.6 H (25.0-34.0) pg MCHC 34.6 (32.0-36.0) g/dL RDW Std Deviation 44.7 (36.4-46.3) fL RDW Coeff of [place] 11.9 (11.5-14.5) % Plt Count 189 (130-400) K/uL MPV 10.0 (9.4-12.4) fL Immature Gran % (Auto) 0.3 % Neut % (Auto) 82.2 % Lymph % (Auto) 10.1 % Orange % (Auto) 7.1 % Eos % (Auto) 0.1 % Baso % (Auto) 0.2 % Neut # (Auto) 8.41 H (1.40-6.50) K/uL Lymph # (Auto) 1.03 L (1.2-3.4) K/uL Orange # (Auto) 0.73 H (0.11-0.59) K/uL Eos # (Auto) 0.01 (0-0.50) K/uL Baso # (Auto) 0.02 (0-0.2) K/uL Immature Gran # (Auto) 0.03 (0.01-0.20) K/uL PT INR Sodium (136-145) mmol/L Potassium (3.5-5.1) mmol/L Chloride (98-107) mmol/L Carbon Dioxide (21-32) mmol/L Anion Gap (3-11) BUN (6-23) mg/dl Creatinine (0.6-1.4) mg/dl Est Cr Clr Drug Dosing ml/min Est GFR ( Amer) ml/min Est GFR (Non-Af Amer) ml/min BUN/Creatinine Ratio (10-20) Glucose (70-99(Fasting)) mg/dl Lactate 2.2 H* (0.4-2.0) mmol/L Calcium (8.6-10.3) mg/dl Total Bilirubin (0.2-1.0) mg/dl AST (13-39) U/L ALT (7-52) U/L Alkaline Phosphatase (34-104) U/L Troponin I High Sens (0-20) pg/ml Total Protein (6.0-8.3) gm/dl Albumin (3.4-5.0) gm/dl Globulin (2.5-4.0) gm/dl Albumin/Globulin Ratio (0.9-2) Lipase (11-82) U/L SARS-CoV-2 (PCR) (Negative) Influenza Type A (PCR) (Neg) Influenza Type B (PCR) (Neg) RSV (RT-PCR) (Neg) SARS-CoV-2, RNA, NAAT NEGATIVE (NEGATIVE) 06/07/22 06/07/22 06/07/22 Range/Units 07:23 07:23 08:15 WBC (4.8-10.8) K/ul RBC (4.70-6.10) M/uL Hgb (14.0-18.0) g/dl Hct (42.0-52.0) % MCV (80.0-100.0) fL MCH (25.0-34.0) pg MCHC (32.0-36.0) g/dL RDW Std Deviation (36.4-46.3) fL RDW Coeff of [place] (11.5-14.5) % Plt Count (130-400) K/uL MPV (9.4-12.4) fL Immature Gran % (Auto) % Neut % (Auto) % Lymph % (Auto) % Orange % (Auto) % Eos % (Auto) % Baso % (Auto) % Neut # (Auto) (1.40-6.50) K/uL Lymph # (Auto) (1.2-3.4) K/uL Orange # (Auto) (0.11-0.59) K/uL Eos # (Auto) (0-0.50) K/uL Baso # (Auto) (0-0.2) K/uL Immature Gran # (Auto) (0.01-0.20) K/uL PT Cancelled INR Cancelled Sodium 134 L (136-145) mmol/L Potassium 4.3 (3.5-5.1) mmol/L Chloride 102 (98-107) mmol/L Carbon Dioxide 22 (21-32) mmol/L Anion Gap 10 (3-11) BUN 14 (6-23) mg/dl Creatinine 0.84 (0.6-1.4) mg/dl Est Cr Clr Drug Dosing 66.7 ml/min Est GFR ( Amer) 96.5 ml/min Est GFR (Non-Af Amer) 83.3 ml/min BUN/Creatinine Ratio 16.7 (10-20) Glucose 204 H (70-99(Fasting)) mg/dl Lactate (0.4-2.0) mmol/L Calcium 9.1 (8.6-10.3) mg/dl Total Bilirubin 0.6 (0.2-1.0) mg/dl AST 20 (13-39) U/L ALT 12 (7-52) U/L Alkaline Phosphatase 75 (34-104) U/L Troponin I High Sens 5.4 (0-20) pg/ml Total Protein 6.6 (6.0-8.3) gm/dl Albumin 3.9 (3.4-5.0) gm/dl Globulin 2.7 (2.5-4.0) gm/dl Albumin/Globulin Ratio 1.4 (0.9-2) Lipase 15 (11-82) U/L SARS-CoV-2 (PCR) NEGATIVE (Negative) Influenza Type A (PCR) Negative (Neg) Influenza Type B (PCR) Negative (Neg) RSV (RT-PCR) Negative (Neg) SARS-CoV-2, RNA, NAAT (NEGATIVE) 06/07/22 06/07/22 Range/Units 08:31 09:23 WBC (4.8-10.8) K/ul RBC (4.70-6.10) M/uL Hgb (14.0-18.0) g/dl Hct (42.0-52.0) % MCV (80.0-100.0) fL MCH (25.0-34.0) pg MCHC (32.0-36.0) g/dL RDW Std Deviation (36.4-46.3) fL RDW Coeff of [place] (11.5-14.5) % Plt Count (130-400) K/uL MPV (9.4-12.4) fL Immature Gran % (Auto) % Neut % (Auto) % Lymph % (Auto) % Orange % (Auto) % Eos % (Auto) % Baso % (Auto) % Neut # (Auto) (1.40-6.50) K/uL Lymph # (Auto) (1.2-3.4) K/uL Orange # (Auto) (0.11-0.59) K/uL Eos # (Auto) (0-0.50) K/uL Baso # (Auto) (0-0.2) K/uL Immature Gran # (Auto) (0.01-0.20) K/uL PT 11.1 INR 1.0 Sodium (136-145) mmol/L Potassium (3.5-5.1) mmol/L Chloride (98-107) mmol/L Carbon Dioxide (21-32) mmol/L Anion Gap (3-11) BUN (6-23) mg/dl Creatinine (0.6-1.4) mg/dl Est Cr Clr Drug Dosing ml/min Est GFR ( Amer) ml/min Est GFR (Non-Af Amer) ml/min BUN/Creatinine Ratio (10-20) Glucose (70-99(Fasting)) mg/dl Lactate 1.9 (0.4-2.0) mmol/L Calcium (8.6-10.3) mg/dl Total Bilirubin (0.2-1.0) mg/dl AST (13-39) U/L ALT (7-52) U/L Alkaline Phosphatase (34-104) U/L Troponin I High Sens (0-20) pg/ml Total Protein (6.0-8.3) gm/dl Albumin (3.4-5.0) gm/dl Globulin (2.5-4.0) gm/dl Albumin/Globulin Ratio (0.9-2) Lipase (11-82) U/L SARS-CoV-2 (PCR) (Negative) Influenza Type A (PCR) (Neg) Influenza Type B (PCR) (Neg) RSV (RT-PCR) (Neg) SARS-CoV-2, RNA, NAAT (NEGATIVE) Administered Medications Discontinued Medications Acetaminophen (Acetaminophen 500 Mg Tab) 1,000 mg PO NOW STA Stop: 06/07/22 08:09 Last Admin: 06/07/22 08:13 Dose: 1,000 mg Documented By: LYNDON Sodium Chloride (Nss 1000ml) 500 mls @ 999 mls/hr IV .Q31M ONE Stop: 06/07/22 07:51 Last Infusion: 06/07/22 07:59 Dose: 0 mls/hr Documented By: Admin: 06/07/22 07:27 Dose: 999 mls/hr Documented By: LYNDON Cefepime HCl (Maxipime) 2,000 mg in 20 mls @ 5 mls/min IV NOW STA; Protocol Stop: 06/07/22 10:29 Last Admin: 06/07/22 10:37 Dose: 5 mls/min Documented By: LYNDON Ioversol (Optiray 320 500ml) 110 ml IV ONCE ONE Stop: 06/07/22 09:19 Last Admin: 06/07/22 09:20 Dose: 110 ml Documented By: JAQUELINE Morphine Sulfate (Morphine Sulfate 4 Mg/Ml 1 Ml Carp\Vial) 4 mg IV NOW STA Stop: 06/07/22 08:37 Last Admin: 06/07/22 08:44 Dose: 4 mg Documented By: LYNDON Morphine Sulfate (Morphine Sulfate 4 Mg/Ml 1 Ml Carp\Vial) 4 mg IV NOW STA Stop: 06/07/22 10:27 Last Admin: 06/07/22 10:37 Dose: 4 mg Documented By: LYNDON Ondansetron HCl (Ondansetron Inj 2 Mg/Ml 2 Ml Vial) 4 mg IV NOW STA Stop: 06/07/22 08:37 Last Admin: 06/07/22 08:44 Dose: 4 mg Documented By: LYNDON Imaging Data Radiologist's Impression: Chest X-Ray 06/07/22 07:15 SINGLE VIEW CHEST CLINICAL HISTORY: Atypical chest pain. FINDINGS: An AP, portable, upright chest radiograph is compared to study dated 06/02/2022. Correlation is made with chest CT dated 09/15/2017. A 2-lead cardiac pacemaker is unchanged in position and partially obscures the left apex. The heart is enlarged noting atherosclerotic calcification of the thoracic aorta. There is mild pulmonary vascular congestion. Scarring/atelectasis is noted at the lung bases. No airspace consolidation or large pleural effusion is identified. No pneumothorax is seen. The skeletal structures are osteopenic. The bony thorax is grossly intact. IMPRESSION: 1. Cardiomegaly and cardiac pacemaker with mild pulmonary vascular congestion. 2. No airspace consolidation or large pleural effusion is identified. ACT 112: Negative or not required by law. Electronically signed by: Elia Rebollar M.D. 06/07/2022 8:09 AM Chest CTA 06/07/22 08:41 CT ANGIOGRAM OF THE CHEST CLINICAL HISTORY: Atypical chest pain. COMPARISON STUDY: Chest x-ray dated 06/07/2022. Chest CT dated 09/15/2017. TECHNIQUE: Following the IV administration of 110 cc of Optiray 320, CT angiogram of the chest was performed from the upper abdomen to the thoracic inlet utilizing the pulmonary embolus protocol. Images are reviewed in the axial, sagittal, and coronal planes. 3-D MIPS images are created and assessed. IV contrast was administered without complication. A dose lowering technique was utilized adhering to the principles of ALARA. The examination is degraded by streak artifact from the left arm which could not be elevated above the chest. CT DOSE: 417.49 mGy.cm FINDINGS: Thyroid: Imaged portions of the thyroid gland are normal in size and attenuation. Thoracic aorta: There is atherosclerotic calcification of the thoracic aorta, which is normal in caliber and demonstrates standard 3-vessel arch anatomy. No dissection is seen. Pulmonary vasculature: The pulmonary trunk is normal in caliber. There are no f illing defects identified in main, lobar, or segmental pulmonary branches to suggest pulmonary embolus. Heart: A pacemaker is present in the left chest wall. The heart is mild enlargement noted small to moderate pericardial effusion. There is mild surrounding infiltration. The coronary arteries are densely calcified. Lungs and pleural spaces: There is mild emphysema. There is trace left pleural effusion. No airspace consolidation is identified. Scarring/atelectasis is noted at the lung bases. The trachea and central airways are clear. A 4 mm right lower lobe pulmonary nodule on image #151 is unchanged. Mediastinum: There is no mediastinal lymphadenopathy. [place]: Clear. Axillae: There is no axillary lymphadenopathy. Upper abdomen: Partially visualized upper abdominal viscera is within normal limits. Skeletal structures: The skeletal structures are osteopenic. No lytic or blastic bony lesions are seen. Mild degenerative change and is seen in the shoulders and thoracic spine. IMPRESSION: 1. There is no evidence of pulmonary embolus in the main, lobar, or segmental pulmonary arteries. 2. Cardiomegaly with a small to moderate pericardial effusion. The effusion has increased in size from 09/15/2017 and there is faint surrounding infiltration. Pericarditis is not excluded. Clinical correlation will be required. 3. No airspace consolidation is seen. 4. Mild emphysema. 5. Trace left pleural effusion. 6. Additional findings as above. ACT 112: Negative or not required by law. Electronically signed by: Elia Rebollar M.D. 06/07/2022 10:11 AM Discharge Plan Visit Data Chief Complaint: Chest Pain Stated Complaint: CHEST PAIN ED Provider: Naseem Elaine Discharge Problem: Chest pain Forms Stand Alone Forms: [facility] Prescriptions Prescriptions: No Action omeprazole 20 mg capsule,delayed release(DR/EC) 20 mg PO QAM Qty: 90 3RF cholecalciferol (vitamin D3) 1,000 unit capsule 1,000 units PO QAM cyanocobalamin (vitamin B-12) 1,000 mcg tablet 1,000 mcg PO QAM Qty: 30 psyllium husk 3.4 gram/5.4 gram powder 2 tbs PO QAM buspirone 5 mg tablet 5 mg PO TID PRN (Reason: anxiety) Qty: 90 3RF potassium gluconate 595 mg (99 mg) Tablet 595 mg PO QAM calcium carbonate [Calcium 600] 600 mg calcium (1,500 mg) Tablet 600 mg PO DAILY amiodarone 200 mg Tablet 200 mg PO BIDM Qty: 60 0RF Mag 64 64 mg Tablet,Delayed Release (Dr/Ec) 64 mg PO BID Qty: 60 0RF Eliquis 5 mg Tablet 5 mg PO BID Qty: 60 0RF acetaminophen 500 mg capsule 500 mg PO Q6H PRN (Reason: pain) Qty: 30 0RF Rx Instructions: OTC Referrals Referrals: Pro,Carmelo Perkins MD [Primary Care Provider] -
[2022-06-07 08:04] LABS: Basophils # (auto) 0.02 K/uL (0-0.2); Basophils % (auto) 0.2 %; Eosinophils # (auto) 0.01 K/uL (0-0.50); Eosinophils % (auto) 0.1 %; Hematocrit (blood only) 33.8 % (42.0-52.0); Hemoglobin 11.7 g/dl (14.0-18.0); Immature Granulocytes # (auto) 0.03 K/uL (0.01-0.20); Immature Granulocytes % (auto) 0.3 %; Lymphocytes # (auto) 1.03 K/uL (1.2-3.4); Lymphocytes % (auto) 10.1 %; Mean Corpuscular Hemoglobin 35.6 pg (25.0-34.0); Mean Corpuscular Hgb Conc 34.6 g/dL (32.0-36.0); Mean Corpuscular Volume 102.7 fL (80.0-100.0); Monocytes # (auto) 0.73 K/uL (0.11-0.59); Monocytes % (auto) 7.1 %; Neutrophils # (auto) 8.41 K/uL (1.40-6.50); Neutrophils % (auto) 82.2 %; Platelet Count 189 K/uL (130-400); RDW Coefficient of Variation 11.9 % (11.5-14.5); RDW Standard Deviation 44.7 fL (36.4-46.3); Red Blood Count 3.29 M/uL (4.70-6.10); White Blood Count 10.23 K/ul (4.8-10.8)
[2022-06-07] MEDS ORDERED: ACETAMINOPHEN 500 MG TAB PO STA (08:08)
--- NOTE | 2022-06-07 08:11 | XRay Report ---
SINGLE VIEW CHEST CLINICAL HISTORY: Atypical chest pain. FINDINGS: An AP, portable, upright chest radiograph is compared to study dated 06/02/2022. Correlation is made with chest CT dated 09/15/2017. A 2-lead cardiac pacemaker is unchanged in position and parti ally obscures the left apex. The heart is enlarged noting atherosclerotic calcification of the thorac ic aorta. There is mild pulmonary vascular congestion. Scarring/atelectasis is noted at the lung base s. No airspace consolidation or large pleural effusion is identified. No pneumothorax is seen. The sk eletal structures are osteopenic. The bony thorax is grossly intact. IMPRESSION: 1. Cardiomegaly and cardiac pacemaker with mild pulmonary vascular congestion. 2. No airspace consolidation or large pleural effusion is identified. ACT 112: Negative or not required by law. Electronically signed by: Elia Rebollar M.D. 06/07/2022 8:09 AM
[2022-06-07 08:12] LABS: Albumin Globulin Ratio 1.4 (0.9-2); Albumin Level 3.9 gm/dl (3.4-5.0); BUN Creatinine Ratio 16.7 (10-20); Bilirubin,Total 0.6 mg/dl (0.2-1.0); Calcium 9.1 mg/dl (8.6-10.3); Creatinine Clr Calc Pharmacy 66.7 ml/min; Est GFR (African American) 96.5 ml/min; Est GFR (Non-African American) 83.3 ml/min; Globulin 2.7 gm/dl (2.5-4.0); Potassium 4.3 mmol/L (3.5-5.1); Total Protein 6.6 gm/dl (6.0-8.3)
[2022-06-07 08:25] LABS: Troponin I High Sensitivity 5.4 pg/ml (0-20)
[2022-06-07] MEDS ORDERED: ONDANSETRON INJ 2 MG/ML 2 ML VIAL IV STA (08:36)
[2022-06-07] MEDS ORDERED: MoRPHine SULFATE 4 MG/ML 1 ML CARP\\VIAL IV STA ×2 (08:36→10:26)
[2022-06-07 09:16] LABS: Prothrombin Time 11.1 Seconds (9.0-12.0)
[2022-06-07] MEDS ORDERED: OPTIRAY 320 500ml IV ONE (09:18)
[2022-06-07 09:33] LABS: Influenza A virus by PCR Negative (Neg); Influenza B virus by PCR Negative (Neg); RSV by PCR Negative (Neg); SARS CoV2 RNA(COVID-19) Ceph NEGATIVE (Negative)
--- NOTE | 2022-06-07 10:13 | CT Scan Report ---
CT ANGIOGRAM OF THE CHEST CLINICAL HISTORY: Atypical chest pain. COMPARISON STUDY: Chest x-ray dated 06/07/2022. Chest CT dated 09/15/2017. TECHNIQUE: Following the IV administration of 110 cc of Optiray 320, CT angiogram of the chest was pe rformed from the upper abdomen to the thoracic inlet utilizing the pulmonary embolus protocol. Images are reviewed in the axial, sagittal, and coronal planes. 3-D MIPS images are created and assessed. I V contrast was administered without complication. A dose lowering technique was utilized adhering to the principles of ALARA. The examination is degraded by streak artifact from the left arm which coul d not be elevated above the chest. CT DOSE: 417.49 mGy.cm FINDINGS: Thyroid: Imaged portions of the thyroid gland are normal in size and attenuation. Thoracic aorta: There is atherosclerotic calcification of the thoracic aorta, which is normal in steve harris and demonstrates standard 3-vessel arch anatomy. No dissection is seen. Pulmonary vasculature: The pulmonary trunk is normal in caliber. There are no filling defects identif ied in main, lobar, or segmental pulmonary branches to suggest pulmonary embolus. Heart: A pacemaker is present in the left chest wall. The heart is mild enlargement noted small to mo derate pericardial effusion. There is mild surrounding infiltration. The coronary arteries are densel y calcified. Lungs and pleural spaces: There is mild emphysema. There is trace left pleural effusion. No airspace consolidation is identified. Scarring/atelectasis is noted at the lung bases. The trachea and central airways are clear. A 4 mm right lower lobe pulmonary nodule on image #151 is unchanged. Mediastinum: There is no mediastinal lymphadenopathy. [place]: Clear. Axillae: There is no axillary lymphadenopathy. Upper abdomen: Partially visualized upper abdominal viscera is within normal limits. Skeletal structures: The skeletal structures are osteopenic. No lytic or blastic bony lesions are see n. Mild degenerative change and is seen in the shoulders and thoracic spine. IMPRESSION: 1. There is no evidence of pulmonary embolus in the main, lobar, or segmental pulmonary arteries. 2. Cardiomegaly with a small to moderate pericardial effusion. The effusion has increased in size fro m 09/15/2017 and there is faint surrounding infiltration. Pericarditis is not excluded. Clinical corre lation will be required. 3. No airspace consolidation is seen. 4. Mild emphysema. 5. Trace left pleural effusion. 6. Additional findings as above. ACT 112: Negative or not required by law. Electronically signed by: Elia Rebollar M.D. 06/07/2022 10:11 AM
[2022-06-07] MEDS ORDERED: CEFEPIME 2,000 MG/20 ML VIAL IV STA (10:26)
[2022-06-07] MEDS ORDERED: VANCOMYCIN CONSULT ACTIVE PRN ×2 (10:26→14:30)
[2022-06-07] MEDS ORDERED: VANCOMYCIN HCL 1,500 MG in SODIUM CHLORIDE 0.9% 500 ML IV ONE (10:26)
--- NOTE | 2022-06-07 11:18 | Electrocardiogram Report ---
Test Reason : Blood Pressure : / mmHG Vent. Rate : 094 BPM Atrial Rate : 094 BPM P-R Int : 182 ms QRS Dur : 086 ms QT Int : 370 ms P-R-T Axes : 026 -69 039 degrees QTc Int : 462 ms Normal sinus rhythm Left anterior fascicular block possible Inferior-posterior infarct , age undetermined Abnormal ECG When compared with ECG of 29-MAY-2022 15:09, No significant change was found Confirmed by Gabe Irene ([id number]) on 06/07/2022 11:17:57 AM Referred By: REFERRED SELF Confirmed By:Lalo Irene
[2022-06-07 11:30] LABS: Troponin I High Sensitivity 5.7 pg/ml (0-20)
--- NOTE | 2022-06-07 12:32 | History & Physical Report ---
Date of Service June 07, 2022 Assessment & Plan (1) Pericardial effusion: Plan: attending: Dr. Cota impression: 81-year-old male recently here for cardiac pacemaker placement with Dr. Irene. Developed chest pain this morning at 2 AM. Came in for evaluation. CT scan of the chest negative for pulmonary embolus but incidental finding of pericardial effusion. No significant improvement with 8 mg of IV morphine. Patient has been ordered colchicine as well as Toradol. Troponin is negative. No ST changes on EKG. Cardiology has been consulted and Dr. Irene is aware and will see the patient later today. Recommendations: * Cardiology aware of new findings of pericardial effusion. No evidence of cardiac tamponade. * Patient is on chronic Eliquis for atrial fibrillation. This has been held. Last dose was taken by patient last evening. * We will hold off on repeat echocardiogram at this time pending evaluation by cardiology * hold morphine. We will treat patient with colchicine and Toradol * monitor on telemetry unit. Repeat troponin serially x2 more (2) Atrial fibrillation with rapid ventricular response: Plan: * continue amiodarone * patient currently rate controlled * monitor on telemetry unit (3) DM II (diabetes mellitus, type II), controlled: Plan: * patient reports that this is diet controlled * NovoLog sliding scale insulin as patient's random glucose is 207 * currently patient is n.p.o. until of being evaluated by cardiology. If no intervention, would advance diet to cardiac/diabetic type II carb controlled diet Laboratory Tests 05/26/22 05:29 Hemoglobin A1c 5.9 H (4) Hypertension: Plan: * patient is currently well controlled with a systolic pressure of 101. Patient typically runs a systolic pressure in the 130s to 140s * no antihypertensives listed in home medications. * Treat as needed if patient is found to be hypertensive. No as needed orders are placed at this time pending further evaluation (5) Anemia: Plan: * no current bleeding * hemoglobin is 11.7 g/Arlene * monitor with a.m. labs (6) Hypomagnesemia: Plan: * we will add magnesium level to ER labs * continue with home magnesium supplement doses (7) Hypokalemia: Plan: * currently well controlled with a potassium level 4.3 mmol/L * continue home dose of potassium gluconate 595 mg daily * follow a.m. labs Plan DVT prophylaxis: Hold Eliquis pending evaluation for pericardial effusion. Will order WANDA hose and SCDs bilaterally knee-high CODE STATUS: Patient desires to be a full resuscitation please refer to Dr. Cota's addendum for further corrections and additions. History of Present Illness Chief Complaint: Chest pain Primary Care Provider: Carmelo Mason MD Attending: Dr. Cota This is a 81 yo male that has a past medical history including atrial fibrillation with RVR, recent acute arrhythmia, recent pacemaker placement 06/02/2022, hypomagnesemia, hypokalemia, hyperglycemia, history of COVID infection, erectile dysfunction, history of nephrolithiasis, vitamin D deficiency, vitamin B12 deficiency, hypertension, anemia, controlled diabetes mellitus type 2, history of near syncope. Patient was in his usual state of health on Wednesday evening. He went to bed without any complication or complaint. At 2 AM he awoke with chest pain. He had previously taken Tylenol with Benadryl and thought that the chest pain will go away. He waited 4 hours and then presented to the emergency department for evaluation. Due to the patient's recent pacemaker placement and due to the fact that Eliquis was held for the procedure, a CTA of the chest was performed to r ule out pulmonary embolus. Patient was found to have a small pericardial effusion with no evidence of tamponade. Troponin was negative. EKG had no new changes. Patient has no elevation of white cells. Patient was empirically started on cefepime and vancomycin and treated with 4 mg of morphine sulfate IV x2 doses for total of 8 mg with no significant improvement in his pain. Patient did have a drop in his blood pressure down to 101 systolically. Typically runs in the 1 30-1 40 range. Patient is bradycardic on exam. During the course of my examination the patient's heart rate did go to 72 bpm. Patient describes chest pain in the precordial region with no extension and no radiation to the neck jaw or arm. Patient has no nausea or vomiting. He did have a loose stool this morning. He does have fever on presentation with a Tmax of 38 9 Celsius. He reports feeling warm at home but did not document any fever. Patient has no other acute complaints. Patient is up-to-date with his COVID vaccination with 2+1 booster current with influenza vaccination as well as pneumococcal vaccination patient is a lifetime non-smoker patient is single with no children. Case reviewed with Dr. Irene and cardiology consult requested. Allergies Allergy/AdvReac Type Severity Reaction Status Date / Time No Known Allergies Allergy Verified 06/05/22 10:42 Home Medications Medication Instructions Recorded Confirmed Type cholecalciferol (vitamin D3) 25 1,000 units PO QAM 10/06/18 06/07/22 History mcg (1,000 unit) capsule cyanocobalamin (vitamin B-12) 1,000 mcg PO QAM #30 tabs 10/06/18 06/07/22 History 1,000 mcg tablet psyllium husk 3.4 gram/5.4 gram 2 tbs PO QAM 10/06/18 06/07/22 History oral powder potassium gluconate 595 mg (99 mg) 595 mg PO QAM 11/14/19 06/07/22 History tablet buspirone 5 mg tablet 5 mg PO TID PRN anxiety #90 tabs 11/24/21 06/07/22 Rx omeprazole 20 mg capsule,delayed 20 mg PO QAM #90 caps 01/12/22 06/07/22 Rx release calcium carbonate 600 mg calcium 600 mg PO DAILY 05/25/22 06/07/22 History (1,500 mg) tablet (Calcium) amiodarone 200 mg tablet 200 mg PO BIDM #60 tabs 05/27/22 06/07/22 Rx apixaban 5 mg tablet (Eliquis) 5 mg PO BID #60 tabs 05/27/22 06/07/22 Rx magnesium chloride 64 mg 64 mg PO BID #60 tabs 05/27/22 06/07/22 Rx (magnesium chloride) tablet,delayed release (Mag 64) acetaminophen 500 mg capsule 500 mg PO Q6H PRN pain #30 caps 06/02/22 06/07/22 Rx Past Med/Surg History Medical History (Updated 06/07/22 @ 12:43 by Elia Shrestha PA-C) Acute diverticulitis (08/08/13) hx Chronic back pain Diverticulosis of colon Hepatic steatosis Hiatal hernia History of esophageal dilatation Hypercholesterolemia hx of / pt not sure currently Hypokalemia Hypomagnesemia Left leg DVT pt unsure of details. Osteoarthritis Osteopenia Pericardial effusion Schatzki's ring Sleep trouble Small bowel obstruction (2014) Type 2 diabetes mellitus no medications currently. monitoring with PCP. Surgical History History of colostomy History of colostomy reversal History of esophagogastroduodenoscopy (EGD) Hx of appendectomy Hx of colectomy Hx of colonoscopy Hx of inguinal hernia repair Hx of tonsillectomy Family History Family/Other Aorta aneurysm Perceptive hearing loss or deafness Mother Alcoholism /alcohol abuse Lung cancer Lung disease Father Alcoholism /alcohol abuse Lung disease Brother Primary hemochromatosis Denies family history of Colon cancer Ovarian cancer Prostate cancer Myocardial infarction Breast cancer Colorectal cancer Hypertension Stroke Asthma Social History Smoking Status: Never smoker Second Hand Exposure: No; Hx Alcohol Use: No Hx Substance Use: No Preferred Language: French Communication Ability: Effective Visual Impairment: No Limitations 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: Normal Complaint Evaluation Supervisor Required: No Beliefs That Will Affect Care: None marital status: Single Current Living Situation: Alone Current Living Situation Comment: House current occupational status: retired current occupation: [employer] Feels Safe at Home: Yes Dental Care, Regularly: No Physical Activity Frequency: 1-2 Times per Week Seatbelt Use: always Assistive Devices: None Review of Systems Review of Systems: A total of 10 systems was reviewed and is negative other than as listed in the HPI Physical Exam Physical Exam: GENERAL : No acute distress EYES: No icterus, gaze conjugate. Pupils equal round and reactive to light NOSE: No evidence of epistaxis. MOUTH: No lesions or candidiasis. Mucosa moist. Absence of most teeth. Patient denies any bridges, crowns, dentures NECK: Supple. No stridor. No tracheal deviation LUNGS: bibasilar crackles. No bronchospasm. No rhonchi. Patient does have a cough with no sputum production. CHEST: No reproducible pain with palpation. No paradoxical chest wall movement. HEART: Regular, rate controlled ABDOMEN: Soft, NT, ND, BS Present EXTREMITIES: No LE edema, pedal pulses intact intact and equal bilaterally NEURO: A&OX3. No focal deficits appreciated Results & Data Results & Data Vital Signs (Past 12 Hours) Vital Signs Temp Pulse Resp BP Pulse Ox O2 Del Method 06/07/22 12:16 69 06/07/22 10:30 71 16 107/68 92 Room Air 06/07/22 07:16 92 H 24 101/64 95 Room Air 06/07/22 09:21 36.8 C 06/07/22 08:14 85 06/07/22 07:15 95 Room Air 06/07/22 07:15 95 Room Air 06/07/22 07:15 38.9 C H 94 H 22 101/64 95 Room Air Critical Care Results & Data Vital Signs (Past 12 Hours) Vital Signs Temp Pulse Resp BP Pulse Ox O2 Del Method 06/07/22 12:16 69 06/07/22 10:30 71 16 107/68 92 Room Air 06/07/22 07:16 92 H 24 101/64 95 Room Air 06/07/22 09:21 36.8 C 06/07/22 08:14 85 06/07/22 07:15 95 Room Air 06/07/22 07:15 95 Room Air 06/07/22 07:15 38.9 C H 94 H 22 101/64 95 Room Air Lab & Micro Results (Past 24 Hours) RBC 3.29 M/uL (4.70-6.10) L 06/07/22 WBC 10.23 K/ul (4.8-10.8) 06/07/22 Hgb 11.7 g/dl (14.0-18.0) L 06/07/22 Hct 33.8 % (42.0-52.0) L 06/07/22 MCV 102.7 fL (80.0-100.0) H 06/07/22 MCH 35.6 pg (25.0-34.0) H 06/07/22 MCHC 34.6 g/dL (32.0-36.0) 06/07/22 RDW Standard Deviation 44.7 fL (36.4-46.3) 06/07/22 RDW Coefficient of Variation 11.9 % (11.5-14.5) 06/07/22 Plt Count 189 K/uL (130-400) 06/07/22 MPV 10.0 fL (9.4-12.4) 06/07/22 Neutrophils (%) (Auto) 82.2 % 06/07/22 Lymphocytes (%) (Auto) 10.1 % 06/07/22 Monocytes # (Auto) 0.73 K/uL (0.11-0.59) H 06/07/22 Eosinophils # (Auto) 0.01 K/uL (0-0.50) 06/07/22 Immature Granulocyte % (Auto) 0.3 % 06/07/22 Neutrophils # (Auto) 8.41 K/uL (1.40-6.50) H 06/07/22 Lymphocytes # (Auto) 1.03 K/uL (1.2-3.4) L 06/07/22 Monocytes # (Auto) 0.73 K/uL (0.11-0.59) H 06/07/22 Eosinophils # (Auto) 0.01 K/uL (0-0.50) 06/07/22 Basophils # (Auto) 0.02 K/uL (0-0.2) 06/07/22 Immature Granulocyte # (Auto) 0.03 K/uL (0.01-0.20) 3 Na 134 mmol/L (136-145) L 06/07/22 K 4.3 mmol/L (3.5-5.1) 06/07/22 Cl 102 mmol/L (98-107) 06/07/22 CO2 22 mmol/L (21-32) 06/07/22 Anion Gap 10 (3-11) 06/07/22 BUN 14 mg/dl (6-23) 06/07/22 Creatinine 0.84 mg/dl (0.6-1.4) 06/07/22 Estimated GFR ( Amer) 96.5 ml/min 06/07/22 Estimated GFR (Non-Af Amer) 83.3 ml/min 06/07/22 BUN/Creatinine Ratio 16.7 (10-20) 06/07/22 Glu 204 mg/dl (70-99(Fasting)) H 06/07/22 Ca 9.1 mg/dl (8.6-10.3) 06/07/22 Total Bilirubin 0.6 mg/dl (0.2-1.0) 06/07/22 AST 20 U/L (13-39) 06/07/22 ALT 12 U/L (7-52) 06/07/22 Alkaline Phosphatase 75 U/L (34-104) 06/07/22 TP 6.6 gm/dl (6.0-8.3) 06/07/22 Albumin 3.9 gm/dl (3.4-5.0) 06/07/22 Globulin 2.7 gm/dl (2.5-4.0) 06/07/22 Albumin/Globulin Ratio 1.4 (0.9-2) 06/07/22 Mg 1.3 mg/dl (1.7-2.4) L 06/07/22 10:39 Calcium Level 9.1 mg/dl (8.6-10.3) 06/07/22 07:23 Prothromb Time International Ratio 1.0 (0.9-1.1) 06/07/22 08:3 1 Diagnostic Findings (Past 24 Hours) Chest X-Ray 06/07/22 07:15 SINGLE VIEW CHEST CLINICAL HISTORY: Atypical chest pain. FINDINGS: An AP, portable, upright chest radiograph is compared to study dated 06/02/2022. Correlation is made with chest CT dated 09/15/2017. A 2-lead cardiac pacemaker is unchanged in position and partially obscures the left apex. The heart is enlarged noting atherosclerotic calcification of the thoracic aorta. There is mild pulmonary vascular congestion. Scarring/atelectasis is noted at the lung bases. No airspace consolidation or large pleural effusion is identified. No pneumothorax is seen. The skeletal structures are osteopenic. The bony thorax is grossly intact. IMPRESSION: 1. Cardiomegaly and cardiac pacemaker with mild pulmonary vascular congestion. 2. No airspace consolidation or large pleural effusion is identified. ACT 112: Negative or not required by law. Electronically signed by: Elia Rebollar M.D. 06/07/2022 8:09 AM Chest CTA 06/07/22 08:41 CT ANGIOGRAM OF THE CHEST CLINICAL HISTORY: Atypical chest pain. COMPARISON STUDY: Chest x-ray dated 06/07/2022. Chest CT dated 09/15/2017. TECHNIQUE: Following the IV administration of 110 cc of Optiray 320, CT angiogram of the chest was performed from the upper abdomen to the thoracic inlet utilizing the pulmonary embolus protocol. Images are reviewed in the axial, sagittal, and coronal planes. 3-D MIPS images are created and assessed. IV contrast was administered without complication. A dose lowering technique was utilized adhering to the principles of ALARA. The examination is degraded by streak artifact from the left arm which could not be elevated above the chest. CT DOSE: 417.49 mGy.cm FINDINGS: Thyroid: Imaged portions of the thyroid gland are normal in size and attenuation. Thoracic aorta: There is atherosclerotic calcification of the thoracic aorta, which is normal in caliber and demonstrates standard 3-vessel arch anatomy. No dissection is seen. Pulmonary vasculature: The pulmonary trunk is normal in caliber. There are no filling defects identified in main, lobar, or segmental pulmonary branches to suggest pulmonary embolus. Heart: A pacemaker is present in the left chest wall. The heart is mild enlargement noted small to moderate pericardial effusion. There is mild surrounding infiltration. The coronary arteries are densely calcified. Lungs and pleural spaces: There is mild emphysema. There is trace left pleural effusion. No airspace consolidation is identified. Scarring/atelectasis is noted at the lung bases. The trachea and central airways are clear. A 4 mm right lower lobe pulmonary nodule on image #151 is unchanged. Mediastinum: There is no mediastinal lymphadenopathy. [place]: Clear. Axillae: There is no axillary lymphadenopathy. Upper abdomen: Partially visualized upper abdominal viscera is within normal limits. Skeletal structures: The skeletal structures are osteopenic. No lytic or blastic bony lesions are seen. Mild degenerative change and is seen in the shoulders and thoracic spine. IMPRESSION: 1. There is no evidence of pulmonary embolus in the main, lobar, or segmental pulmonary arteries. 2. Cardiomegaly with a small to moderate pericardial effusion. The effusion has increased in size from 09/15/2017 and there is faint surrounding infiltration. Pericarditis is not excluded. Clinical correlation will be required. 3. No airspace consolidation is seen. 4. Mild emphysema. 5. Trace left pleural effusion. 6. Additional findings as above. ACT 112: Negative or not required by law. Electronically signed by: Elia Rebollar M.D. 06/07/2022 10:11 AM I & O Totals 24 Hours 06/06/22 06/07/22 06/08/22 06:59 06:59 06:59 Intake Total 500 / 500 Balance 500 / 500 Cumulative 06/07/22 07:06 thru 06/07/22 09:20 Intake Total 500 Balance 500 RT Ventilator Mngmt (Last Documented) Ventilator Ordered Settings Respiratory Rate 16 06/07/22 10:30 Ventilator - PT Measurements Respiratory Rate 16 COVID-19 Results Results COVID-19 Adm Lab Results: RBC 3.29 M/uL (4.70-6.10) L 06/07/22 WBC 10.23 K/ul (4.8-10.8) 06/07/22 Hgb 11.7 g/dl (14.0-18.0) L 06/07/22 Hct 33.8 % (42.0-52.0) L 06/07/22 Plt Count 189 K/uL (130-400) 06/07/22 Neutrophils (%) (Auto) 82.2 % 06/07/22 Lymphocytes (%) (Auto) 10.1 % 06/07/22 Monocytes # (Auto) 0.73 K/uL (0.11-0.59) H 06/07/22 Eosinophils # (Auto) 0.01 K/uL (0-0.50) 06/07/22 Immature Granulocyte % (Auto) 0.3 % 06/07/22 Neutrophils # (Auto) 8.41 K/uL (1.40-6.50) H 06/07/22 Lymphocytes # (Auto) 1.03 K/uL (1.2-3.4) L 06/07/22 Monocytes # (Auto) 0.73 K/uL (0.11-0.59) H 06/07/22 Eosinophils # (Auto) 0.01 K/uL (0-0.50) 06/07/22 Basophils # (Auto) 0.02 K/uL (0-0.2) 06/07/22 Immature Granulocyte # (Auto) 0.03 K/uL (0.01-0.20) 3 Na 134 mmol/L (136-145) L 06/07/22 K 4.3 mmol/L (3.5-5.1) 06/07/22 Cl 102 mmol/L (98-107) 06/07/22 CO2 22 mmol/L (21-32) 06/07/22 Anion Gap 10 (3-11) 06/07/22 BUN 14 mg/dl (6-23) 06/07/22 Creatinine 0.84 mg/dl (0.6-1.4) 06/07/22 BUN/Creatinine Ratio 16.7 (10-20) 06/07/22 Glucose Level 204 mg/dl (70-99(Fasting)) H 06/07/22 Ca 9.1 mg/dl (8.6-10.3) 06/07/22 Total Bilirubin 0.6 mg/dl (0.2-1.0) 06/07/22 AST/SGOT 20 U/L (13-39) 06/07/22 ALT/SGPT 12 U/L (7-52) 06/07/22 Alkaline Phosphatase 75 U/L (34-104) 06/07/22 Total Protein 6.6 gm/dl (6.0-8.3) 06/07/22 Albumin 3.9 gm/dl (3.4-5.0) 06/07/22 Globulin 2.7 gm/dl (2.5-4.0) 06/07/22 Albumin/Globulin Ratio 1.4 (0.9-2) 06/07/22 INR 1.0 (0.9-1.1) 06/07/22 COVID-19 PCR NEGATIVE (Negative) 06/07/22 Influenza Virus Type A (PCR) Negative (Neg) 06/07/22 Influenza Virus Type B (PCR) Negative (Neg) 06/07/22 SARS-CoV-2, RNA, NAAT NEGATIVE (NEGATIVE) 06/07/22 Chest X-Ray 06/07/22 Code Status & VTE Plan VTE Prophylaxis Plan VTE Prophylaxis will be ordered: Yes Supervising Physician Co-Signing Physician Notes Patient seen and examined, chart reviewed, case discussed with Elia Shrestha PA-C and I agree with the assessment and plan as above except as otherwise noted Labs and images reviewed Eleuterio is a 81-year-old male with past medical history of A-fib with RVR, pacemaker placement 06/02/2022 with periprocedural hold of his Eliquis, COVID, vitamin D deficiency, vitamin B-12 deficiency, hypertension, type II DM who awoke 1 day ago with chest pain which did not improve with Tylenol/Benadryl. CTA did not show evidence of PE in the setting of Eliquis hold, but did show a small pericardial effusion without evidence of tamponade. Temperature 38.9, no leukocytosis, patient was given cefepime/vancomycin in ER; morphine total 8 mg without symptomatic improvement. Patient seen at the bedside, reports that he takes Tylenol PM at night for sleep not for pain, was doing well until he woke u p suddenly this morning around 3 AM with sudden achy/burning pain in his chest which has not changed significantly since arrival to the ER. Analgesic medications have not helped so far. He does not have any shortness of breath, lightheadedness, dizziness, leg swelling. Suspect pericardial effusion with symptomatic pericarditis, cardiology consulted. Colchicine/Toradol ordered. No indication for emergent pericardiocentesis. Vancomycin continued. HR Rate is currently adequately controlled on amiodarone, this has been continued. Hemoglobin 11.7; MCV 102.7. Vitamin B12 level last 2021 61, folic acid at that time was greater than 22. Can follow-up for repeat vitamin levels as outpatient. Cardiology consulted, will see. Continue colchicine/toradol for pericardit at this time. no evidence of hemodynamic compromise. Agree with management and assessment, and management of chronic issues as above. PG Care Time/CCT Total # of Minutes Spent Total Time Spent with Patient: Total time spent is greater than 50% in coordination of care (as documented) at patient's floor/unit and/or counseling patient: 60 minutes including discussion with Dr. Irene from cardiology Coding Level of Care Code 71158 INT INP/OBS CARE 3/75MIN Diagnoses Pericardial effusion I31.39 Atrial fibrillation with rapid ventricular response I48.91 DM II (diabetes mellitus, type II), controlled E11.9 Hypertension I10 Anemia D64.9 Hypomagnesemia E83.42 Hypokalemia E87.6 Time Spent (min) 60
[2022-06-07] MEDS ORDERED: COLCHICINE 0.6 MG TAB PO STA (12:33)
[2022-06-07] MEDS ORDERED: KETOROLAC TROMETHAMINE 15 MG/ML VIAL IV STA (12:35)
[2022-06-07 13:02] LABS: Magnesium 1.3 mg/dl (1.7-2.4)
[2022-06-07] MEDS ORDERED: GLUCAGON FOR INJ 1 MG VIAL SQ PRN (14:30)
[2022-06-07] MEDS ORDERED: GLUCOSE 10 TAB/TUBE PO PRN (14:30)
[2022-06-07] MEDS ORDERED: ALUMINUM/MAGNESIUM SUSP 30 ML UDC PO PRN (14:30)
[2022-06-07] MEDS ORDERED: MAGNESIUM HYDROXIDE SUSP 30 ML UDC PO PRN (14:30)
[2022-06-07] MEDS ORDERED: NON-FORMULARY MEDICATION (Potassium Gluconate 595 mg (99 mg) Tablet) PO SCH (14:30)
[2022-06-07] MEDS ORDERED: CARBOHYDRATES FOR HYPOGLYCEMIA PO PRN (14:30)
[2022-06-07] MEDS ORDERED: GLUCOSE 40% GEL 15 GM TUBE PO PRN (14:30)
[2022-06-07] MEDS ORDERED: DEXTROSE 50% 50 ML SYRINGE IV PRN (14:30)
[2022-06-07] MEDS: MAGNESIUM CHLORIDE W/CALCIUM 64MG DELAYED REL TAB PO SCH ×2 (15:39→21:14)
[2022-06-07] MEDS: PANTOprazole 40 MG TAB PO SCH (15:40)
--- NOTE | 2022-06-07 15:46 | Pharmacy Report ---
Pharmacy PK ABX Note - Date of Service June 07, 2022 - Assessment and Plan Assessment 81 year old M receiving vancomycin for empiric treatment. Blood cultures pending. Normal WBC. Tmax 38.9 on admission. Plan Vancomycin * Loading dose: 1500 mg IV x 1 * Maintenance dose: 1250 mg IV every 18 hours * Regimen is predicted to achieve target AUC/LUDMILA of 400-600 mg/L.hr * Random level to be ordered if continued >48 hours. Pharmacy will continue to follow and will adjust dose/frequency as necessary. Thank you. Pharmacy has transitioned to AUC monitoring for vancomycin. AUC/LUDMILA is the preferred PK/PD target and is associated with decreased risk of nephrotoxicity compared to traditional trough targets.
[2022-06-07] MEDS: INSULIN ASPART PER UNIT CHARGE SC SCH ×2 (17:26→20:53)
[2022-06-07] MEDS: MAGNESIUM SULFATE / D5W 1 GM/100 ML BAG IV SCH ×2 (17:29→19:29)
[2022-06-07] MEDS: AMIODARONE 200 MG TAB PO SCH (17:29)
[2022-06-07 19:08] LABS: Appearance Urine Clear (Clear); Bilirubin Urine Negative (Negative); Blood Urine Negative (Negative); Color Urine Yellow; Glucose Urine UA Negative (Negative); Ketones Urine Negative (Negative); Leukocyte Esterase Urine Negative (Negative); Nitrite Urine Negative (Negative); Protein Urine Negative (Negative); Specific Gravity Urine > 1.045 (1.000-1.030); Urobilinogen Urine Negative (Negative); pH Urine 5.5 (4.5-7.5)
[2022-06-07] MEDS: ACETAMINOPHEN 325 MG TAB PO PRN (19:26)
[2022-06-07] MEDS: KETOROLAC TROMETHAMINE 15 MG/ML VIAL IV PRN (19:27)
[2022-06-07] MEDS: HYDROmorphone INJ 0.5 MG/0.5 ML SYR IV PRN (20:08)
[2022-06-07] MEDS: COLCHICINE 0.6 MG TAB PO SCH (21:14)
[2022-06-08] MEDS ORDERED: VANCOMYCIN HCL 1,250 MG in SODIUM CHLORIDE 0.9% 250 ML IV SCH
[2022-06-08] MEDS: HYDROmorphone INJ 0.5 MG/0.5 ML SYR IV PRN ×2 (05:26→13:19)
[2022-06-08 06:32] LABS: BUN Creatinine Ratio 20.9 (10-20); Calcium 8.4 mg/dl (8.6-10.3); Creatinine Clr Calc Pharmacy 61.5 ml/min; Est GFR (African American) 92.6 ml/min; Est GFR (Non-African American) 79.9 ml/min; Magnesium 2.2 mg/dl (1.7-2.4); Potassium 4.3 mmol/L (3.5-5.1)
[2022-06-08 06:47] LABS: Basophils # (auto) 0.03 K/uL (0-0.2); Basophils % (auto) 0.4 %; Eosinophils # (auto) 0.01 K/uL (0-0.50); Eosinophils % (auto) 0.1 %; Hemoglobin 10.6 g/dl (14.0-18.0); Immature Granulocytes # (auto) 0.04 K/uL (0.01-0.20); Immature Granulocytes % (auto) 0.5 %; Lymphocytes # (auto) 1.18 K/uL (1.2-3.4); Lymphocytes % (auto) 14.5 %; Mean Corpuscular Hemoglobin 34.4 pg (25.0-34.0); Mean Corpuscular Hgb Conc 34.2 g/dL (32.0-36.0); Mean Corpuscular Volume 100.6 fL (80.0-100.0); Mean Platelet Volume 9.8 fL (9.4-12.4); Monocytes # (auto) 0.75 K/uL (0.11-0.59); Monocytes % (auto) 9.2 %; Neutrophils # (auto) 6.11 K/uL (1.40-6.50); Neutrophils % (auto) 75.3 %; Platelet Count 169 K/uL (130-400); RDW Coefficient of Variation 12.2 % (11.5-14.5); RDW Standard Deviation 45.3 fL (36.4-46.3); Red Blood Count 3.08 M/uL (4.70-6.10); White Blood Count 8.12 K/ul (4.8-10.8)
[2022-06-08] MEDS: KETOROLAC TROMETHAMINE 15 MG/ML VIAL IV PRN (07:46)
[2022-06-08] MEDS: COLCHICINE 0.6 MG TAB PO SCH ×2 (07:51→19:46)
[2022-06-08] MEDS: MAGNESIUM CHLORIDE W/CALCIUM 64MG DELAYED REL TAB PO SCH ×2 (07:51→19:48)
[2022-06-08] MEDS: AMIODARONE 200 MG TAB PO SCH ×2 (07:51→17:48)
[2022-06-08] MEDS: INSULIN ASPART PER UNIT CHARGE SC SCH ×4 (07:59→21:07)
--- NOTE | 2022-06-08 08:10 | Hospitalist Progress Note ---
Date of Service June 08, 2022 Assessment & Plan (1) Pericardial effusion: Plan: acute chest pain , pericardial effusion no evidence of tamponade CT scan of the chest negative for pulmonary embolus but incidental finding of pericardial effusion. No significant improvement with 8 mg of IV morphine. colchicine as well as ibuprofen Troponin negative x [address] changes on EKG. Cardiology has been consulted, Dr. Teto garcia Eliquis for atrial fibrillation. This has been held. atrial fibrillation chronic and rate controlled continue amiodarone * patient currently rate controlled * monitor on telemetry unit (2) DM II (diabetes mellitus, type II), controlled: Plan: Chronic stable patient reports that this is diet controlled * has ssi if needed Laboratory Tests 05/26/22 05:29 Hemoglobin A1c 5.9 H (3) Anemia: Plan: * chronic and stable, macrocytic , b12 normal 02/12, folate normal 11/13 (4) Hypomagnesemia: Plan: replete Plan DVT prophylaxis: Hold Eliquis pending evaluation for pericardial effusion. Will order WANDA hose and SCDs bilaterally knee-high CODE STATUS: Patient desires to be a full resuscitation Admission and Anticipated Discharge Date Admission Date: June 07, 2022 Subjective pt still with some pleuritic pain, improved somewhat, appreciate cardiology evaluation Physical Exam Physical Exam: pt is laying flat, no jvd cardiac is regular no rubs, not distant lungs are clear abd is soft and non tender Results & Data Results & Data Vital Signs (Past 12 Hours) Vital Signs Temp Pulse Pulse Resp BP Pulse Ox O2 Del Method 06/08/22 04:16 98.4 F 82 18 109/63 92 Room Air 06/08/22 00:36 102 H 06/07/22 23:26 98.2 F 93 H 18 88/61 L 93 Room Air 06/07/22 21:39 Room Air Laboratory Results reviewed cbc, chemistry 7, magnesium PG Care Time/CCT Total # of Minutes Spent Total Time Spent with Patient: Total time spent is greater than 50% in coordination of care (as documented) at patient's floor/unit and/or counseling patient: Coding Level of Care Code 47199 SUB INP/OBS CARE 2/35MIN Diagnoses Pericardial effusion I31.39 DM II (diabetes mellitus, type II), controlled E11.9 Anemia D64.9 Hypomagnesemia E83.42
[2022-06-08] MEDS ORDERED: VANCOMYCIN HCL 1,250 MG in SODIUM CHLORIDE 0.9% 500 ML IV SCH (09:00)
[2022-06-08] MEDS: PANTOprazole 40 MG TAB PO SCH ×2 (11:49→19:48)
[2022-06-08] MEDS: IBUPROFEN 600 MG TAB PO SCH ×2 (13:16→19:45)
--- NOTE | 2022-06-08 15:29 | XCELERA ---
[id number] \\[email or web address]\[id number]
--- NOTE | 2022-06-08 15:36 | Cardiology Progress Note ---
Date of Service June 08, 2022 Assessment & Plan (1) Pericardial effusion: (2) Chest pain: (3) Paroxysmal atrial fibrillation: (4) Pacemaker: Plan 1. Pericardial effusion: Likely related to small perforation of the atrial lead. Possibly simply related to pericardial irritation. This is all consistent with the sudden onset yesterday. No evidence of hemodynamic compromise currently. Will attempt to manage conservatively. Will stop his anticoagulation. Nonsteroidal medications and colchicine being administered with some improvement in symptoms. For hemodynamic compromise immediate intervention would involve volume infusion followed by pericardiocentesis. 2. Chest pain: Pleuritic in nature. Likely related to pericardial irritation either from pericarditis or the atrial lead. Improving with standard therapy of colchicine and nonsteroidal medications. 3. Atrial fibrillation: He had transient episode of atrial fibrillation yesterday. He was not aware of the arrhythmia. Overall rate control was reasonable. Although although more aggressive rate control currently while his acute problem resolves itself. Eliquis currently being held due to his pericardial effusion. 4. Normally functioning dual-chamber permanent pacemaker 5. Fever: It is certainly concerning in the setting of a recent device implant. No evidence of a pocket infection. Monitor the blood culture results. He is continuing on antibiotics. Possibly related to inflammatory process such as pericarditis. No other symptoms leading up to admission concerning for infection. He is actually not aware of the fever. Admission and Anticipated Discharge Date Admission Date: June 07, 2022 Subjective Patient presented to the emergency room early yesterday morning with symptoms of acute chest discomfort. He states that around 2:00 a.m. he was woken from sleep with severe chest pain especially with deep inspiration. Prior to 2:00 a.m. yesterday morning he claims to be feeling well. He was discharged from the hospital several days prior he did not report any symptoms of chest discomfort, breathing difficulty or lightheadedness. He was gradually increasing his activity. No subjective fevers or chills. This afternoon the patient claimed he feeling better than yesterday. His pleuritic chest pain has improved. Still some discomfort with deep inspiration. No discomfort at rest. He reports being ambulatory around the room without dizziness, lightheadedness or breathing difficulty. Review of Systems Review of Systems: Per HPI Physical Exam Physical Exam: The patient is alert and oriented. Mood and affect appeared normal. He answered all questions appropriately. HEENT: Pupils are equal and reactive to light and accommodation. Extraocular movements are intact. The sclerae are anicteric. Neuro: Cranial nerves intact Chest: Evaluation of the device implant site did not reveal any evidence of hematoma, ecchymosis, erythema or tenderness. Lungs: Clear to auscultation bilaterally. He has good air movement without use of accessory muscles. No rales wheezes or rhonchi. Cardiac: Heart demonstrates a regular rate and rhythm. Normal S1 and S2. No rubs. Pulses: The patient has palpable radial pulses bilaterally that are equal in intensity Extremities: There was no evidence of hypoperfusion. There is no cyanosis or clubbing. There is no edema. Skin: I did not appreciate any rashes on examination today. Results & Data Vital Signs (Past 12 Hours) Vital Signs Temp Pulse Pulse Resp BP Pulse Ox O2 Del Method 06/08/22 12:11 36.9 C 78 18 110/64 93 Room Air 06/08/22 08:00 87 06/08/22 08:00 Room Air 06/08/22 08:22 36.7 C 75 17 91/53 L 93 Room Air 06/08/22 04:16 36.9 C 82 18 109/63 92 Room Air Laboratory Results Abnormal Lab Results 06/07/22 06/07/22 06/07/22 16:51 18:03 18:45 WBC RBC Hgb Hct MCV MCH MCHC RDW Std Deviation RDW Coeff of [place] Plt Count MPV Immature Gran % (Auto) Neut % (Auto) Lymph % (Auto) [place] % (Auto) Eos % (Auto) Baso % (Auto) Neut # (Auto) Lymph # (Auto) [place] # (Auto) Eos # (Auto) Baso # (Auto) Immature Gran # (Auto) Sodium Potassium Chloride Carbon Dioxide Anion Gap BUN Creatinine Est Cr Clr Drug Dosing Est GFR ( Amer) Est GFR (Non-Af Amer) BUN/Creatinine Ratio Glucose POC Glucose 141 H Calcium Magnesium Troponin I High Sens 6.8 Urine Color Yellow Urine Appearance Clear Urine pH 5.5 Ur Specific [place] > 1.045 H Urine Protein Negative Urine Glucose (UA) Negative Urine Ketones Negative Urine Blood Negative Urine Nitrite Negative Urine Bilirubin Negative Urine Urobilinogen Negative Ur Leukocyte Esterase Negative 06/07/22 06/08/22 06/08/22 20:23 05:42 05:42 WBC 8.12 RBC 3.08 L Hgb 10.6 L Hct 31.0 L MCV 100.6 H MCH 34.4 H MCHC 34.2 RDW Std Deviation 45.3 RDW Coeff of [place] 12.2 Plt Count 169 MPV 9.8 Immature Gran % (Auto) 0.5 Neut % (Auto) 75.3 Lymph % (Auto) 14.5 [place] % (Auto) 9.2 Eos % (Auto) 0.1 Baso % (Auto) 0.4 Neut # (Auto) 6.11 Lymph # (Auto) 1.18 L [place] # (Auto) 0.75 H Eos # (Auto) 0.01 Baso # (Auto) 0.03 Immature Gran # (Auto) 0.04 Sodium 133 L Potassium 4.3 Chloride 106 Carbon Dioxide 23 Anion Gap 4 BUN 19 Creatinine 0.91 Est Cr Clr Drug Dosing 61.5 Est GFR ( Amer) 92.6 Est GFR (Non-Af Amer) 79.9 BUN/Creatinine Ratio 20.9 H Glucose 149 H POC Glucose 169 H Calcium 8.4 L Magnesium 2.2 Troponin I High Sens Urine Color Urine Appearance Urine pH Ur Specific [place] Urine Protein Urine Glucose (UA) Urine Ketones Urine Blood Urine Nitrite Urine Bilirubin Urine Urobilinogen Ur Leukocyte Esterase 06/08/22 06/08/22 07:26 11:55 WBC RBC Hgb Hct MCV MCH MCHC RDW Std Deviation RDW Coeff of [place] Plt Count MPV Immature Gran % (Auto) Neut % (Auto) Lymph % (Auto) [place] % (Auto) Eos % (Auto) Baso % (Auto) Neut # (Auto) Lymph # (Auto) [place] # (Auto) Eos # (Auto) Baso # (Auto) Immature Gran # (Auto) Sodium Potassium Chloride Carbon Dioxide Anion Gap BUN Creatinine Est Cr Clr Drug Dosing Est GFR ( Amer) Est GFR (Non-Af Amer) BUN/Creatinine Ratio Glucose POC Glucose 147 H 130 H Calcium Magnesium Troponin I High Sens Urine Color Urine Appearance Urine pH Ur Specific [place] Urine Protein Urine Glucose (UA) Urine Ketones Urine Blood Urine Nitrite Urine Bilirubin Urine Urobilinogen Ur Leukocyte Esterase Diagnostic Findings CT angiogram performed yesterday did reveal evidence of small pericardial effusion Echocardiogram performed today did reveal small to moderate pericardial effusion. Device interrogation today revealed normal device function on the atrial and ventricular leads. No significant changes in impedance or threshold. ECG Additional Comments: EKG obtained the time admission revealed normal sinus rhythm with occasional atrial ectopy. (2) Chest pain Chest pain type: unspecified Qualified Code(s): R07.9 - Chest pain, unspecified
--- NOTE | 2022-06-08 17:40 | Electrocardiogram Report ---
Test Reason : Blood Pressure : / mmHG Vent. Rate : 110 BPM Atrial Rate : 125 BPM P-R Int : 000 ms QRS Dur : 082 ms QT Int : 338 ms P-R-T Axes : 000 -50 031 degrees QTc Int : 457 ms Atrial fibrillation with rapid ventricular response Left anterior fascicular block Abnormal ECG When compared with ECG of 07-JUN-2022 07:15, Atrial fibrillation has replaced Sinus rhythm Confirmed by Gabe Irene ([id number]) on 06/08/2022 5:39:46 PM Referred By: REFERRED SELF Confirmed By:Lalo Irene
--- NOTE | 2022-06-08 17:43 | Electrocardiogram Report ---
Test Reason : Blood Pressure : / mmHG Vent. Rate : 084 BPM Atrial Rate : 084 BPM P-R Int : 198 ms QRS Dur : 088 ms QT Int : 376 ms P-R-T Axes : 036 -46 046 degrees QTc Int : 444 ms Sinus rhythm with Premature atrial complexes Low voltage QRS Left anterior fascicular block Abnormal ECG When compared with ECG of 07-JUN-2022 19:49, (unconfirmed) Sinus rhythm has replaced Atrial fibrillation Confirmed by Gabe Irene ([id number]) on 06/08/2022 5:43:24 PM Referred By: REFERRED SELF Confirmed By:Lalo Irene
[2022-06-08] MEDS ORDERED: ONDANSETRON ORAL SOLN 0.8 MG/1 ML PO STA (19:16)
[2022-06-08] MEDS ORDERED: SODIUM CHLORIDE 0.9% 250 ML IV ONE (20:46)
[2022-06-09 06:38] LABS: Basophils % (auto) 0.3 %; Eosinophils % (auto) 0.3 %; Hematocrit (blood only) 28.8 % (42.0-52.0); Immature Granulocytes % (auto) 0.6 %; Lymphocytes # (auto) 0.88 K/uL (1.2-3.4); Lymphocytes % (auto) 12.2 %; Mean Corpuscular Hemoglobin 35.1 pg (25.0-34.0); Mean Corpuscular Hgb Conc 34.7 g/dL (32.0-36.0); Mean Corpuscular Volume 101.1 fL (80.0-100.0); Mean Platelet Volume 9.9 fL (9.4-12.4); Monocytes % (auto) 7.7 %; Neutrophils # (auto) 5.72 K/uL (1.40-6.50); Neutrophils % (auto) 78.9 %; Platelet Count 188 K/uL (130-400); RDW Coefficient of Variation 11.8 % (11.5-14.5); RDW Standard Deviation 43.4 fL (36.4-46.3); Red Blood Count 2.85 M/uL (4.70-6.10); White Blood Count 7.24 K/ul (4.8-10.8)
[2022-06-09 06:39] LABS: Basophils # (auto) 0.02 K/uL (0-0.2); Eosinophils # (auto) 0.02 K/uL (0-0.50); Immature Granulocytes # (auto) 0.04 K/uL (0.01-0.20); Monocytes # (auto) 0.56 K/uL (0.11-0.59)
[2022-06-09 07:00] LABS: BUN Creatinine Ratio 25.9 (10-20); Calcium 8.1 mg/dl (8.6-10.3); Creatinine Clr Calc Pharmacy 69.1 ml/min; Est GFR (Non-African American) 84.5 ml/min; Potassium 3.6 mmol/L (3.5-5.1)
[2022-06-09] MEDS: INSULIN ASPART PER UNIT CHARGE SC SCH ×4 (09:02→20:47)
[2022-06-09] MEDS: MAGNESIUM CHLORIDE W/CALCIUM 64MG DELAYED REL TAB PO SCH ×2 (09:03→20:51)
[2022-06-09] MEDS: IBUPROFEN 600 MG TAB PO SCH ×3 (09:03→20:51)
[2022-06-09] MEDS: PANTOprazole 40 MG TAB PO SCH ×2 (09:03→20:51)
[2022-06-09] MEDS: AMIODARONE 200 MG TAB PO SCH ×2 (09:04→17:32)
[2022-06-09] MEDS: COLCHICINE 0.6 MG TAB PO SCH (09:04)
--- NOTE | 2022-06-09 10:53 | Electrocardiogram Report ---
Test Reason : Blood Pressure : / mmHG Vent. Rate : 080 BPM Atrial Rate : 080 BPM P-R Int : 196 ms QRS Dur : 092 ms QT Int : 392 ms P-R-T Axes : 026 -44 051 degrees QTc Int : 452 ms Normal sinus rhythm Left axis deviation Incomplete right bundle branch block Nonspecific T wave abnormality Abnormal ECG When compared with ECG of 08-JUN-2022 05:15, Premature atrial complexes are no longer Present Confirmed by Gabe Irene ([id number] on 06/09/2022 10:53:17 AM Referred By: REFERRED SELF Confirmed By:Lalo Irene
[2022-06-09] MEDS: busPIRone 5 MG TAB PO PRN (12:21)
--- NOTE | 2022-06-09 14:01 | Cardiology Progress Note ---
Date of Service June 09, 2022 Assessment & Plan (1) Pericardial effusion: (2) Chest pain: (3) Paroxysmal atrial fibrillation: (4) Pacemaker: Plan 1. Pericardial effusion: Likely related to small perforation of the atrial lead. Possibly simply related to pericardial irritation. This is all consistent with the sudden onset early Wednesday morning. Overall symptoms improving. No significant hypotension. No tachycardia. No increased pulsus paradoxus. I think we will re-evaluate the size of the effusion tomorrow now that he has been off his anticoagulation for a few days. If there is some evidence of improvement may be stable enough for discharge. For an enlarging effusion we may need to consider pericardiocentesis. 2. Chest pain: Pleuritic in nature. Likely related to pericardial irritation either from pericarditis or the atrial lead. Resolved currently. Will continue colchicine for few months. Ibuprofen for a few weeks. 3. Atrial fibrillation: Paroxysmal. No symptoms. Currently holding Eliquis given his effusion. 4. Normally functioning dual-chamber permanent pacemaker 5. Fever: No recurrence. No obvious source of infection. 6. Anemia: He appears to have had a mild anemia for some time. More significant today. Macrocytic. Very likely some blood in the pericardial space. Will need to be vigilant for other sources of bleeding especially gastrointestinal. Admission and Anticipated Discharge Date Admission Date: June 07, 2022 Subjective This morning the patient reported some abdominal discomfort last night and diarrhea. The symptoms appear to have resolved. He does report less of an appetite currently but was able to eat most of his breakfast. His pleuritic chest pain seem to have resolved entirely. No symptoms with deep inspiration currently. He has been ambulatory without dizziness, shortness of breath or exertional chest pain. Review of Systems Review of Systems: Per HPI Physical Exam Physical Exam: The patient is alert and oriented. Mood and affect appeared normal. He answered all questions appropriately. HEENT: Pupils are equal and reactive to light and accommodation. Extraocular movements are intact. The sclerae are anicteric. Neuro: Cranial nerves intact Chest: Evaluation of the device implant site did not reveal any evidence of hematoma, ecchymosis, erythema or tenderness. Lungs: Clear to auscultation bilaterally. He has good air movement without use of accessory muscles. No rales wheezes or rhonchi. Cardiac: Heart demonstrates a regular rate and rhythm. Normal S1 and S2. No rubs. Pulses: The patient has palpable radial pulses bilaterally that are equal in intensity Extremities: There was no evidence of hypoperfusion. There is no cyanosis or clubbing. There is no edema. Skin: I did not appreciate any rashes on examination today. Manual blood pressure was obtained. No increased pulses paradoxus (<10mmHg). Results & Data Vital Signs (Past 12 Hours) Vital Signs Temp Pulse Pulse Resp BP Pulse Ox O2 Del Method 06/09/22 11:13 36.5 C 66 19 105/62 99 Room Air 06/09/22 09:27 80 06/09/22 07:17 36.7 C 80 19 106/66 97 Room Air 06/09/22 03:41 36.7 C 105 H 18 103/66 95 Room Air Laboratory Results Abnormal Lab Results 06/08/22 06/08/22 06/09/22 16:53 20:45 05:40 WBC 7.24 RBC 2.85 L Hgb 10.0 L Hct 28.8 L MCV 101.1 H MCH 35.1 H MCHC 34.7 RDW Std Deviation 43.4 RDW Coeff of [place] 11.8 Plt Count 188 MPV 9.9 Immature Gran % (Auto) 0.6 Neut % (Auto) 78.9 Lymph % (Auto) 12.2 [place] % (Auto) 7.7 Eos % (Auto) 0.3 Baso % (Auto) 0.3 Neut # (Auto) 5.72 Lymph # (Auto) 0.88 L [place] # (Auto) 0.56 Eos # (Auto) 0.02 Baso # (Auto) 0.02 Immature Gran # (Auto) 0.04 Sodium Potassium Chloride Carbon Dioxide Anion Gap BUN Creatinine Est Cr Clr Drug Dosing Est GFR ( Amer) Est GFR (Non-Af Amer) BUN/Creatinine Ratio Glucose POC Glucose 155 H 199 H Calcium 06/09/22 06/09/22 06/09/22 05:40 07:56 11:57 WBC RBC Hgb Hct MCV MCH MCHC RDW Std Deviation RDW Coeff of [place] Plt Count MPV Immature Gran % (Auto) Neut % (Auto) Lymph % (Auto) [place] % (Auto) Eos % (Auto) Baso % (Auto) Neut # (Auto) Lymph # (Auto) [place] # (Auto) Eos # (Auto) Baso # (Auto) Immature Gran # (Auto) Sodium 133 L Potassium 3.6 Chloride 104 Carbon Dioxide 20 L Anion Gap 9 BUN 21 Creatinine 0.81 Est Cr Clr Drug Dosing 69.1 Est GFR ( Amer) 98.0 Est GFR (Non-Af Amer) 84.5 BUN/Creatinine Ratio 25.9 H Glucose 191 H POC Glucose 210 H 122 H Calcium 8.1 L (2) Chest pain Chest pain type: unspecified Qualified Code(s): R07.9 - Chest pain, unspecified
--- NOTE | 2022-06-09 19:22 | Hospitalist Progress Note ---
Date of Service June 09, 2022 Assessment & Plan (1) Pericardial effusion: Plan: acute chest pain , pericardial effusion no evidence of tamponade CT scan of the chest negative for pulmonary embolus but incidental finding of pericardial effusion. No significant improvement with 8 mg of IV morphine. colchicine may be causing diarrhea this will be held he will continue on ibuprofen Troponin negative x [address] changes on EKG. Cardiology has been consulted, Dr. Teto gacria Eliquis for atrial fibrillation. Will resume Eliquis at time of discharge once reassured procedure has been ruled out With regard to diarrhea which may be from his colchicine we will have infectious etiologies ruled out by PCR and C. difficile testing atrial fibrillation chronic and rate controlled continue amiodarone * patient currently rate controlled (2) DM II (diabetes mellitus, type II), controlled: Plan: Chronic stable patient reports that this is diet controlled * has ssi if needed Laboratory Tests 05/26/22 05:29 Hemoglobin A1c 5.9 H (3) Anemia: Plan: * chronic and stable, macrocytic , b12 normal 02/12, folate normal 11/13 (4) Hypomagnesemia: Plan: replete Plan DVT prophylaxis: Hold Eliquis pending evaluation for pericardial effusion. WANDA martin and SCDs bilaterally knee-high CODE STATUS: Patient desires to be a full resuscitation Admission and Anticipated Discharge Date Admission Date: June 07, 2022 Subjective Patient's had improvement of his pleuritic pain he was however having diarrhea which may be a side effect of the colchicine. Subsequently colchicine is held. Patient will have diarrhea check for infectious diarrhea etiologies. Patient encouraged to walk the hallways will remain on nonsteroidals Physical Exam Physical Exam: pt is laying flat, no jvd cardiac is regular no rubs, not distant lungs are clear abd is soft and non tender Results & Data Results & Data Vital Signs (Past 12 Hours) Vital Signs Temp Pulse Pulse Resp BP Pulse Ox O2 Del Method 06/09/22 16:35 81 06/09/22 15:43 97.5 F L 87 19 142/87 H 98 Room Air 06/09/22 11:13 97.7 F 66 19 105/62 99 Room Air 06/09/22 09:27 80 Laboratory Results Reviewed CBC Reviewed PRP PG Care Time/CCT Total # of Minutes Spent Total Time Spent with Patient: Total time spent is greater than 50% in coordination of care (as documented) at patient's floor/unit and/or counseling patient: Coding Level of Care Code 16488 SUB INP/OBS CARE MIN Diagnoses Pericardial effusion I31.39 DM II (diabetes mellitus, type II), controlled E11.9 Anemia D64.9 Hypomagnesemia E83.42
[2022-06-09] MEDS ORDERED: MELATONIN 3 MG TAB PO PRN (20:52)
[2022-06-10 07:46] LABS: Basophils # (auto) 0.02 K/uL (0-0.2); Basophils % (auto) 0.4 %; Eosinophils # (auto) 0.09 K/uL (0-0.50); Eosinophils % (auto) 1.6 %; Hematocrit (blood only) 27.7 % (42.0-52.0); Hemoglobin 9.5 g/dl (14.0-18.0); Immature Granulocytes # (auto) 0.03 K/uL (0.01-0.20); Immature Granulocytes % (auto) 0.5 %; Lymphocytes # (auto) 0.87 K/uL (1.2-3.4); Lymphocytes % (auto) 15.6 %; Mean Corpuscular Hemoglobin 34.3 pg (25.0-34.0); Mean Corpuscular Hgb Conc 34.3 g/dL (32.0-36.0); Mean Platelet Volume 9.9 fL (9.4-12.4); Monocytes # (auto) 0.49 K/uL (0.11-0.59); Monocytes % (auto) 8.8 %; Neutrophils # (auto) 4.08 K/uL (1.40-6.50); Neutrophils % (auto) 73.1 %; Platelet Count 190 K/uL (130-400); RDW Coefficient of Variation 11.9 % (11.5-14.5); RDW Standard Deviation 43.8 fL (36.4-46.3); Red Blood Count 2.77 M/uL (4.70-6.10); White Blood Count 5.58 K/ul (4.8-10.8)
[2022-06-10 07:56] LABS: BUN Creatinine Ratio 21.4 (10-20); Calcium 8.3 mg/dl (8.6-10.3); Creatinine Clr Calc Pharmacy 57.1 ml/min; Est GFR (African American) 84.6 ml/min; Potassium 3.8 mmol/L (3.5-5.1)
[2022-06-10] MEDS: INSULIN ASPART PER UNIT CHARGE SC SCH ×4 (08:43→20:30)
[2022-06-10] MEDS: IBUPROFEN 600 MG TAB PO SCH ×3 (08:44→20:37)
[2022-06-10] MEDS: AMIODARONE 200 MG TAB PO SCH ×2 (08:44→17:13)
[2022-06-10] MEDS: MAGNESIUM CHLORIDE W/CALCIUM 64MG DELAYED REL TAB PO SCH ×2 (08:45→20:37)
[2022-06-10] MEDS: PANTOprazole 40 MG TAB PO SCH ×2 (08:45→20:37)
--- NOTE | 2022-06-10 12:58 | XCELERA ---
[id number]
--- NOTE | 2022-06-10 17:12 | Cardiology Progress Note ---
Date of Service June 10, 2022 Assessment & Plan (1) Pericardial effusion: (2) Chest pain: (3) Paroxysmal atrial fibrillation: (4) Pacemaker: Plan 1. Pericardial effusion: Clinically improving. Repeat echocardiogram today demonstrated effusion similar in size. No evidence of tamponade on echo. IVC was not dilated. Think we want to be confident that there is no progression of the effusion prior to discharge. Perhaps another day or 2 with repeat echo evaluation would give us some confidence in this regard. Do not think there is an indication for drainage at this point 2. Chest pain: Resolved 3. Atrial fibrillation: Paroxysmal. No symptoms. He did have a brief period of atrial fibrillation earlier today. Rate control was adequate. Currently holding Eliquis given his effusion. 4. Normally functioning dual-chamber permanent pacemaker 5. Fever: No recurrence. No obvious source of infection. Antibiotics discontinued. Blood cultures negative. 6. Anemia: Likely some blood loss in the pericardial space. Admission and Anticipated Discharge Date Admission Date: June 07, 2022 Subjective This afternoon the patient claimed he feeling well. He reports ambulating around the [place] yesterday evening without limitation. No dizziness. No breathing difficulty. Chest pain appears to have resolved. Review of Systems Review of Systems: Per HPI Physical Exam Physical Exam: The patient is alert and oriented. Mood and affect appeared normal. He answered all questions appropriately. HEENT: Pupils are equal and reactive to light and accommodation. Extraocular movements are intact. The sclerae are anicteric. Neuro: Cranial nerves intact Chest: Evaluation of the device implant site did not reveal any evidence of hematoma, ecchymosis, erythema or tenderness. Lungs: Clear to auscultation bilaterally. He has good air movement without use of accessory muscles. No rales wheezes or rhonchi. Cardiac: Heart demonstrates a regular rate and rhythm. Normal S1 and S2. No rubs. Pulses: The patient has palpable radial pulses bilaterally that are equal in intensity Extremities: There was no evidence of hypoperfusion. There is no cyanosis or clubbing. There is no edema. Skin: I did not appreciate any rashes on examination today. Manual blood pressure was obtained. No increased pulses paradoxus (<10mmHg). Results & Data Vital Signs (Past 12 Hours) Vital Signs Temp Pulse Pulse Resp BP BP Pulse Ox 06/10/22 15:36 36.6 C 80 18 128/73 98 06/10/22 12:19 36.6 C 78 18 100/65 94 06/10/22 08:00 60 06/10/22 08:22 36.6 C 91 H 17 108/72 97 O2 Del Method 06/10/22 15:36 Room Air 06/10/22 12:19 Room Air 06/10/22 08:00 06/10/22 08:22 Room Air Laboratory Results Abnormal Lab Results 06/09/22 06/10/22 06/10/22 20:45 06:48 06:48 WBC 5.58 RBC 2.77 L Hgb 9.5 L Hct 27.7 L MCV 100.0 MCH 34.3 H MCHC 34.3 RDW Std Deviation 43.8 RDW Coeff of [place] 11.9 Plt Count 190 MPV 9.9 Immature Gran % (Auto) 0.5 Neut % (Auto) 73.1 Lymph % (Auto) 15.6 [place] % (Auto) 8.8 Eos % (Auto) 1.6 Baso % (Auto) 0.4 Neut # (Auto) 4.08 Lymph # (Auto) 0.87 L [place] # (Auto) 0.49 Eos # (Auto) 0.09 Baso # (Auto) 0.02 Immature Gran # (Auto) 0.03 Sodium 136 Potassium 3.8 Chloride 107 Carbon Dioxide 22 Anion Gap 7 BUN 21 Creatinine 0.98 Est Cr Clr Drug Dosing 57.1 Est GFR ( Amer) 84.6 Est GFR (Non-Af Amer) 73.0 BUN/Creatinine Ratio 21.4 H Glucose 145 H POC Glucose 138 H Calcium 8.3 L 06/10/22 06/10/22 06/10/22 08:04 12:06 16:58 WBC RBC Hgb Hct MCV MCH MCHC RDW Std Deviation RDW Coeff of [place] Plt Count MPV Immature Gran % (Auto) Neut % (Auto) Lymph % (Auto) [place] % (Auto) Eos % (Auto) Baso % (Auto) Neut # (Auto) Lymph # (Auto) [place] # (Auto) Eos # (Auto) Baso # (Auto) Immature Gran # (Auto) Sodium Potassium Chloride Carbon Dioxide Anion Gap BUN Creatinine Est Cr Clr Drug Dosing Est GFR ( Amer) Est GFR (Non-Af Amer) BUN/Creatinine Ratio Glucose POC Glucose 178 H 163 H 146 H Calcium PG Care Time/CCT Total # of Minutes Spent Total Time Spent with Patient: Total time spent is greater than 50% in coordination of care (as documented) at patient's floor/unit and/or counseling patient: Coding Level of Care Code 91321 SUB INP/OBS CARE 2/35MIN Diagnoses Pericardial effusion I31.39 Chest pain R07.9 Chest pain type: unspecified Paroxysmal atrial fibrillation I48.0 Pacemaker Z95.0 (2) Chest pain Chest pain type: unspecified Qualified Code(s): R07.9 - Chest pain, unspecified
[2022-06-10] MEDS ORDERED: FUROSEMIDE INJ 20 MG/2 ML VIAL IV ONE (19:53)
--- NOTE | 2022-06-10 19:54 | Hospitalist Progress Note ---
Date of Service June 10, 2022 Assessment & Plan (1) Pericardial effusion: Plan: acute chest pain , pericardial effusion no evidence of tamponade CT scan of the chest negative for pulmonary embolus but incidental finding of pericardial effusion. No significant improvement with 8 mg of IV morphine. colchicine may be causing diarrhea this will be held he will continue on ibuprofen Troponin negative x [address] changes on EKG. Cardiology has been consulted, Dr. Irene wishes to have the patient reevaluated by a limited echocardiogram on the . We will give 1 dose of Lasix in the evening of the attempt to try to reduce his ro[place]ia cardial effusion will be evaluated by repeat echocardiogram chronic Eliquis for atrial fibrillation. Will resume Eliquis at time of discharge once reassured procedure has been ruled out With regard to diarrhea which may be from his colchicine we will have infectious etiologies ruled out by PCR and C. difficile testing atrial fibrillation chronic and rate controlled continue amiodarone * patient currently rate controlled (2) DM II (diabetes mellitus, type II), controlled: Plan: Chronic stable patient reports that this is diet controlled * has ssi if needed Laboratory Tests 05/26/22 05:29 Hemoglobin A1c 5.9 H (3) Anemia: Plan: * chronic and stable, macrocytic , b12 normal 02/12, folate normal 11/13 (4) Hypomagnesemia: Plan: replete Plan DVT prophylaxis: Hold Eliquis pending evaluation for pericardial effusion. WANDA martin and SCDs bilaterally knee-high CODE STATUS: Patient desires to be a full resuscitation Admission and Anticipated Discharge Date Admission Date: June 07, 2022 Subjective This afternoon the patient claimed he feeling well. He reports ambulating around the [place] yesterday evening without limitation. No dizziness. No breathing difficulty. Chest pain appears to have resolved. Diarrhea improved with stopping colchicine Cardiology wishes to retain in the hospital and repeat echocardiogram in day or 2 Physical Exam Physical Exam: pt is laying flat, no jvd cardiac is regular no rubs, not distant lungs are clear abd is soft and non tender Results & Data Results & Data Vital Signs (Past 12 Hours) Vital Signs Temp Pulse Pulse Resp BP BP Pulse Ox 06/10/22 19:52 98.4 F 81 18 131/75 97 06/10/22 15:36 97.9 F 80 18 128/73 98 06/10/22 12:19 97.9 F 78 18 100/65 94 06/10/22 08:00 60 06/10/22 08:22 97.9 F 91 H 17 108/72 97 O2 Del Method 06/10/22 19:52 Room Air 06/10/22 15:36 Room Air 06/10/22 12:19 Room Air 06/10/22 08:00 06/10/22 08:22 Room Air PG Care Time/CCT Total # of Minutes Spent Total Time Spent with Patient: Total time spent is greater than 50% in coordination of care (as documented) at patient's floor/unit and/or counseling patient: Coding Level of Care Code 70093 SUB INP/OBS CARE 2/35MIN Diagnoses Pericardial effusion I31.39 DM II (diabetes mellitus, type II), controlled E11.9 Anemia D64.9 Hypomagnesemia E83.42
[2022-06-11] MEDS: busPIRone 5 MG TAB PO PRN (00:08)
[2022-06-11] MEDS: MELATONIN 3 MG TAB PO PRN ×2 (00:08→23:22)
[2022-06-11] MEDS: AMIODARONE 200 MG TAB PO SCH ×2 (08:59→17:23)
[2022-06-11] MEDS: PANTOprazole 40 MG TAB PO SCH ×2 (08:59→19:51)
[2022-06-11] MEDS: MAGNESIUM CHLORIDE W/CALCIUM 64MG DELAYED REL TAB PO SCH ×2 (08:59→19:51)
[2022-06-11] MEDS: IBUPROFEN 600 MG TAB PO SCH ×3 (09:00→19:51)
[2022-06-11] MEDS: INSULIN ASPART PER UNIT CHARGE SC SCH ×4 (09:01→23:23)
--- NOTE | 2022-06-11 12:10 | Hospitalist Progress Note ---
Date of Service June 11, 2022 Assessment & Plan (1) Pericardial effusion: Plan: acute chest pain , pericardial effusion no evidence of tamponade CT scan of the chest negative for pulmonary embolus but incidental finding of pericardial effusion. No significant improvement with 8 mg of IV morphine. colchicine may be causing diarrhea this will be held he will continue on ibuprofen Troponin negative x [address] changes on EKG. Cardiology has been consulted, Dr. Irene wishes to have the patient reevaluated by a limited echocardiogram on the . We will give 1 dose of Lasix in the evening of the attempt to try to reduce his rosalia cardial effusion will be evaluated by repeat echocardiogram. Plan to obtain repeat echo on 06/12 If shows improvement, will discharge. D/W Dr. Irene reviewed progress note, discussed with previous hospitalist. chronic Eliquis for atrial fibrillation. Will resume Eliquis at time of discharge once reassured procedure has been ruled out With regard to diarrhea which may be from his colchicine we will have infectious etiologies ruled out by PCR and C. difficile testing atrial fibrillation chronic and rate controlled continue amiodarone * patient currently rate controlled (2) DM II (diabetes mellitus, type II), controlled: Plan: Chronic stable patient reports that this is diet controlled * has ssi if needed Laboratory Tests 05/26/22 05:29 Hemoglobin A1c 5.9 H (3) Anemia: Plan: * chronic and stable, macrocytic , b12 normal 02/12, folate normal 11/13 (4) Hypomagnesemia: Plan: replete Plan DVT prophylaxis: Hold Eliquis pending evaluation for pericardial effusion. WANDA karle and SCDs bilaterally knee-high CODE STATUS: Patient desires to be a full resuscitation Admission and Anticipated Discharge Date Admission Date: June 07, 2022 Subjective 81 yo male reports no new symptoms. Review of Systems Review of Systems: All systems reviewed & are unremarkable except as noted in HPI & below Physical Exam Physical Exam: pt is laying flat, no jvd cardiac is regular no rubs, not distant lungs are clear abd is soft and non tender Results & Data Results & Data Vital Signs (Past 12 Hours) Vital Signs Temp Pulse Pulse Resp BP Pulse Ox O2 Del Method 06/11/22 07:37 36.6 C 79 18 128/75 97 Room Air 06/11/22 07:11 60 06/11/22 03:00 36.6 C 63 21 106/62 99 Room Air PG Care Time/CCT Total # of Minutes Spent Total Time Spent with Patient: Total time spent is greater than 50% in coordination of care (as documented) at patient's floor/unit and/or counseling patient: Coding Level of Care Code 53895 SUB INP/OBS CARE 3/50MIN Diagnoses Pericardial effusion I31.39 DM II (diabetes mellitus, type II), controlled E11.9 Anemia D64.9 Hypomagnesemia E83.42
--- NOTE | 2022-06-11 18:50 | Cardiology Progress Note ---
Date of Service June 11, 2022 Assessment & Plan (1) Pericardial effusion: (2) Chest pain: (3) Paroxysmal atrial fibrillation: (4) Pacemaker: Plan 1. Pericardial effusion: Clinically doing quite well. No tachycardia or hypotension. No recurrent symptoms of pericardial irritation. We will recheck the effusion tomorrow with limited echocardiogram. If there is no evidence of progression we can likely discharge him with outpatient follow-up. 2. Chest pain: Resolved 3. Atrial fibrillation: Paroxysmal. No symptoms. He has some episodes of atrial fibrillation on telemetry. Rates appear to be well controlled. No symptoms. Holding Eliquis currently due to his pericardial effusion. 4. Normally functioning dual-chamber permanent pacemaker 5. Fever: No recurrence. No obvious source of infection. Antibiotics discontinued. Blood cultures negative. Admission and Anticipated Discharge Date Admission Date: June 07, 2022 Subjective This afternoon the patient clinically feeling well. No recurrent chest pain. He reported being ambulatory. No dizziness or breathing difficulty. No sense of palpitation. Review of Systems Review of Systems: Per HPI Physical Exam Physical Exam: The patient is alert and oriented. Mood and affect appeared normal. He answered all questions appropriately. HEENT: Pupils are equal and reactive to light and accommodation. Extraocular movements are intact. The sclerae are anicteric. Neuro: Cranial nerves intact Chest: Evaluation of the device implant site did not reveal any evidence of hematoma, ecchymosis, erythema or tenderness. Lungs: Clear to auscultation bilaterally. He has good air movement without use of accessory muscles. No rales wheezes or rhonchi. Cardiac: Heart demonstrates a regular rate and rhythm. Normal S1 and S2. No rubs. Pulses: The patient has palpable radial pulses bilaterally that are equal in intensity Extremities: There was no evidence of hypoperfusion. There is no cyanosis or clubbing. There is no edema. Skin: I did not appreciate any rashes on examination today. Results & Data Vital Signs (Past 12 Hours) Vital Signs Temp Pulse Pulse Resp BP Pulse Ox O2 Del Method 06/11/22 16:01 62 06/11/22 11:20 36.8 C 58 L 18 115/78 96 Room Air 06/11/22 15:43 36.6 C 62 17 123/71 98 Room Air 06/11/22 07:37 36.6 C 79 18 128/75 97 Room Air 06/11/22 07:11 60 Laboratory Results Abnormal Lab Results 04/19/23 04/20/23 04/20/23 20:07 07:48 12:10 POC Glucose 151 H 153 H 183 H 06/11/22 17:16 POC Glucose 136 H PG Care Time/CCT Total # of Minutes Spent Total Time Spent with Patient: Total time spent is greater than 50% in coordination of care (as documented) at patient's floor/unit and/or counseling patient: Coding Level of Care Code 49034 SUB INP/OBS CARE 2/35MIN Diagnoses Pericardial effusion I31.39 Chest pain R07.9 Chest pain type: unspecified Paroxysmal atrial fibrillation I48.0 Pacemaker Z95.0 (2) Chest pain Chest pain type: unspecified Qualified Code(s): R07.9 - Chest pain, unspecified
[2022-06-11] MEDS: MIRTAZAPINE TAB 15 MG TAB PO SCH (23:21)
[2022-06-12 06:19] LABS: Calcium 8.5 mg/dl (8.6-10.3); Creatinine Clr Calc Pharmacy 60.9 ml/min; Est GFR (African American) 91.4 ml/min; Est GFR (Non-African American) 78.8 ml/min; Potassium 3.8 mmol/L (3.5-5.1)
[2022-06-12] MEDS: INSULIN ASPART PER UNIT CHARGE SC SCH ×4 (08:17→20:25)
[2022-06-12] MEDS: PANTOprazole 40 MG TAB PO SCH ×2 (08:18→23:04)
[2022-06-12] MEDS: IBUPROFEN 600 MG TAB PO SCH (08:18)
[2022-06-12] MEDS: MAGNESIUM CHLORIDE W/CALCIUM 64MG DELAYED REL TAB PO SCH ×2 (08:18→23:04)
[2022-06-12] MEDS: AMIODARONE 200 MG TAB PO SCH ×2 (09:06→17:14)
--- NOTE | 2022-06-12 14:12 | XCELERA ---
[id number] \\[id number]
--- NOTE | 2022-06-12 14:15 | Pre Anesthesia Assessment ---
Date of Service June 12, 2022 Pre Sedation Assessment Vital Signs Temp Pulse Pulse Pulse Resp BP Pulse Ox 06/12/22 11:15 36.7 C 62 14 103/61 99 06/12/22 07:50 85 06/12/22 07:40 36.7 C 80 14 109/67 95 06/12/22 04:00 36.6 C 80 18 126/69 95 06/11/22 22:51 36.6 C 81 18 114/71 95 06/11/22 19:35 36.6 C 60 20 107/64 99 06/11/22 16:01 62 06/11/22 15:43 36.6 C 62 17 123/71 98 O2 Del Method 06/12/22 11:15 Room Air 06/12/22 07:50 06/12/22 07:40 Room Air 06/12/22 04:00 Room Air 06/11/22 22:51 Room Air 06/11/22 19:35 Room Air 06/11/22 16:01 06/11/22 15:43 Room Air Cardiovascular + regular rate and + regular rhythm Respiratory + respiratory effort normal Pre-Sedation Airway Assessment Smoking Status: Never smoker Hx Sleep Apnea: No Hx Difficult Intubation: No Short, Thick Neck: No Thyromental Distance: > or= 3.5 Finger Breadths Oral Cavity: + WNL Mallampati Class: III ASA: ASA3 Procedure Planning Contraindications for Sedation: none Current Medications Reviewed: Yes Notes The planned sedation has been discussed with the patient. Informed Consent was obtained. I have identified the patient, determined the appropriateness of sedation and have assessed the patient immediately prior to the procedure. All medicine(s) and interventions are by my order.
[2022-06-12] MEDS ORDERED: MIDAZOLAM HCL 1 MG/ML 2ML VIAL ONE (14:47)
[2022-06-12] MEDS ORDERED: fentaNYL citrate PF 100 MCG/2 ML VIAL ONE (14:48)
--- NOTE | 2022-06-12 15:35 | Cardiac Catheterization ---
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 Clinical evaluation leading to the procedure CAD Presenation: Sx unlikely to be ischemic Diagnostic Physicians Name: Gabe Irene MD Closure Device Recommendations: Management Recommendatons Cardiac Cath Procedure Full Procedure Date June 12, 2022 Pre-Procedure Diagnosis Pre-Procedure Diagnosis: Cardiothoracic Symptom AUC Score AUC Score: 7 Post-Procedure Diagnosis Post-Procedure Diagnosis: Cardiothoracic Finding Procedure(s) Performed Procedure(s) Performed: Pericardiocentesis Secondary Special Education Teacher Gabe Irene MD Test Automation Architect(s) none Estimated Blood Loss Estimated Blood Loss: None Medication(s) Medication(s): Fentanyl, Lidocaine 1% and Versed Summary of Findings Procedure performed: Pericardiocentesis Staff oracle applications developer: Gabe Irene MD Indication: The patient is a 81-year-old gentleman who previously undergone implantation dual-chamber permanent pacemaker 5 days after implant the patient noticed the acute onset of chest pain and was noted to have pericardial effusion. Pericardial effusion has been enlarging in size and he was referred for drainage today. Procedure detail: The patient was informed the risks benefits and alternatives to the intended procedure. He understood which proceed. He was brought to the cardiac catheterization suite in a fasting state. Conscious sedation was administered per protocol the patient was monitored electrocardiographically throughout today's procedure. The subxiphoid area was prepped and draped in usual sterile fashion. This area was anesthetized using subcutaneous menstruation of lidocaine solution. Under ultrasound guidance a needle was advanced into the pericardial space. Position of the needle was confirmed with agitated saline and ultrasound imaging. A wire was subsequently advanced into the pericardial space and confirmed in the pericardial space with fluoroscopy. A sheath and a drainage catheter were subsequently advanced over the wire. The pericardial fluid was subsequently removed. The catheter was sutured into place and a ken rile dressing was applied. The patient tolerated procedure well. There were no immediate complications. Impression: Successful placement of pericardial drain and drainage of 500 cc dark sanguinous fluid. Hemodynamics Rest Ao:: n/a Final Ao: n/a LV: n/a Recommendations Recommendations: Management Recommendatons Specimens Specimens: Pericardial fluid Radiation Exposure (mGy) 54 Contrast (mls) 0 Drains Drains: pigtail pericardial to suction Procedural Complication(s) None Disposition ICU I attest to the content of the Intraoperative Record and any orders documented therein. Any exceptions are noted below. [facility] Card Cath Procedure Codes Therapeutic Services & Ancillary Procedure 1: Cardiovascular Tx and Anc Procedures: 61734 Pericardiocentesis w / Imaging Moderate Sedation Procedure 1: Sedation/Anesthesia: 35645 Mod Sedation by the same physician;Init15 Min Child Age 5 & Up Procedure 2: Sedation/Anesthesia: 91032 Mod Sedation by the same physician; Ea [id number] Minutes PG Care Time/CCT Total # of Minutes Spent Total Time Spent with Patient: Total time spent is greater than 50% in coordination of care (as documented) at patient's floor/unit and/or counseling patient:
--- NOTE | 2022-06-12 15:36 | Post Anesthesia Assessment ---
Date of Service June 12, 2022 Post Sedation Assessment Vital Signs Temp Pulse Pulse Pulse Resp BP Pulse Ox 06/12/22 14:34 63 16 129/74 96 06/12/22 11:15 36.7 C 62 14 103/61 99 06/12/22 07:50 85 06/12/22 07:40 36.7 C 80 14 109/67 95 06/12/22 04:00 36.6 C 80 18 126/69 95 06/11/22 22:51 36.6 C 81 18 114/71 95 06/11/22 19:35 36.6 C 60 20 107/64 99 06/11/22 16:01 62 06/11/22 15:43 36.6 C 62 17 123/71 98 O2 Del Method 06/12/22 14:34 Room Air 06/12/22 11:15 Room Air 06/12/22 07:50 06/12/22 07:40 Room Air 06/12/22 04:00 Room Air 06/11/22 22:51 Room Air 06/11/22 19:35 Room Air 06/11/22 16:01 06/11/22 15:43 Room Air Recovery Score Activity: Moves 4 extremities Respiration: Deep Breath/Cough Circulation: +/-20% PreAnes Value Consciousness: Fully Awake Oxygen Saturation: > 92% On Room Air Discharge Sedation Level of Care: Fast Track Phase II Post Sedation Plan On clinical assessment, the patient appears to have tolerated the sedation without complications. Patient is recovering as anticipated. Patient will continue to be monitored by nursing and may be discharged when sedation discharge criteria are met per below protocol. Upon Completions of procedure up to 15 minutes continue every 5 minute vital signs and the P.A.R. score; then discharge to a Phase I or Fast Track to Phase II per the following guidelines: * Discharge Patient to appropriate Phase II area if PAR is 8 or greater or return to pre- procedure baseline. The post - procedure orders will be as directed. * If PAR score is less than 8 or not return to pre-procedure baseline then patient will follow Phase I monitoring till PAR is reached for Phase II. The Phase I may be done in procedure room or may call to secure a Phase I area. * If naloxone or flumazenil are used for reversal, hold in Phase I for continued monitoring from when last reversal dose was given for a minimum of 60 minutes or longer pending the nurse and/or physician discretion of patient condition before discharge to Phase II. Please call the Sedation Physician to re-evaluate and complete post-note for discharge to Phase II area. Do NOT discharge from procedure sedation or Phase 1 until post- sedation evaluation note is complete by procedure /sedation MD Sedation Discharge Instructions to be given to the patient at discharge to home.
--- NOTE | 2022-06-12 17:30 | XCELERA ---
[id number] \\[facility]CV[email or web address]\[email or web address]_[id number]
[2022-06-12] MEDS: ACETAMINOPHEN 325 MG TAB PO PRN ×2 (17:58→23:03)
--- NOTE | 2022-06-12 18:49 | Cardiology Progress Note ---
Date of Service June 12, 2022 Assessment & Plan (1) Pericardial effusion: (2) Chest pain: (3) Paroxysmal atrial fibrillation: (4) Pacemaker: Plan 1. Pericardial effusion: There is been continuous enlargement of the pericardial fluid. I discussed drainage with the patient and will plan on proceeding later today. We will be able to better track continued drainage in the need for additional interventions such as lead revision. I stopped his ibuprofen. Colchicine has been stopped previously. Do not believe the etiology of his presenting pain was pericarditis, rather micro perforation of the right atrium. Perhaps stopping the nonsteroidal medication will result in faster healing and less bleeding. 2. Chest pain: Resolved 3. Atrial fibrillation: Paroxysmal. No symptoms. He continues to have some episodes of atrial fibrillation that do not produce symptoms. Rate control appears adequate. Continue to hold Eliquis. 4. Normally functioning dual-chamber permanent pacemaker 5. Fever: No recurrence. No obvious source of infection. Antibiotics discontinued. Blood cultures negative. Admission and Anticipated Discharge Date Admission Date: June 07, 2022 Subjective This afternoon the patient claimed he feeling well. He reported being ambulatory. He denies significant dizziness, lightheadedness or recurrent chest pain. No palpitations. No breathing difficulty. Review of Systems Review of Systems: Per HPI Physical Exam Physical Exam: The patient is alert and oriented. Mood and affect appeared normal. He answered all questions appropriately. HEENT: Pupils are equal and reactive to light and accommodation. Extraocular movements are intact. The sclerae are anicteric. Neuro: Cranial nerves intact Chest: Evaluation of the device implant site did not reveal any evidence of hematoma, ecchymosis, erythema or tenderness. Lungs: Clear to auscultation bilaterally. He has good air movement without use of accessory muscles. No rales wheezes or rhonchi. Cardiac: Heart demonstrates an irregular rhythm. Normal S1 and S2. No rubs. Pulses: The patient has palpable radial pulses bilaterally that are equal in intensity Extremities: There was no evidence of hypoperfusion. There is no cyanosis or clubbing. There is no edema. Skin: I did not appreciate any rashes on examination today. ENMT: Mallampati Class: III Respiratory: normal respiratory effort Cardiovascular: Rate/Rhythm: regular rate and regular rhythm Results & Data Vital Signs (Past 12 Hours) Vital Signs Temp Pulse Pulse Resp BP Pulse Ox O2 Del Method 06/12/22 16:45 36.3 C L 102 H 20 90/68 L 96 Room Air 06/12/22 16:42 80 06/12/22 16:00 66 16 115/60 98 Room Air 06/12/22 15:45 65 14 117/58 L 98 Room Air 06/12/22 15:30 66 16 122/62 98 Room Air 06/12/22 14:34 63 16 129/74 96 Room Air 06/12/22 11:15 36.7 C 62 14 103/61 99 Room Air 06/12/22 07:50 85 06/12/22 07:40 36.7 C 80 14 109/67 95 Room Air Laboratory Results Abnormal Lab Results 06/11/22 06/12/22 06/12/22 20:30 05:30 07:28 Sodium 140 Potassium 3.8 Chloride 109 H Carbon Dioxide 25 Anion Gap 6 BUN 23 Creatinine 0.92 Est Cr Clr Drug Dosing 60.9 Est GFR ( Amer) 91.4 Est GFR (Non-Af Amer) 78.8 BUN/Creatinine Ratio 25.0 H Glucose 128 H POC Glucose 118 H 146 H Calcium 8.5 L 06/12/22 06/12/22 11:36 16:35 Sodium Potassium Chloride Carbon Dioxide Anion Gap BUN Creatinine Est Cr Clr Drug Dosing Est GFR ( Amer) Est GFR (Non-Af Amer) BUN/Creatinine Ratio Glucose POC Glucose 145 H 111 H Calcium Diagnostic Findings Repeat limited echocardiogram performed this morning revealed an enlarging pericardial effusion. PG Care Time/CCT Total # of Minutes Spent Total Time Spent with Patient: Total time spent is greater than 50% in coordination of care (as documented) at patient's floor/unit and/or counseling patient: Coding Level of Care Code 70658 SUB INP/OBS CARE 2/35MIN Diagnoses Pericardial effusion I31.39 Chest pain R07.9 Chest pain type: unspecified Paroxysmal atrial fibrillation I48.0 Pacemaker Z95.0 (2) Chest pain Chest pain type: unspecified Qualified Code(s): R07.9 - Chest pain, unspecified
--- NOTE | 2022-06-12 19:09 | XRay Report ---
SINGLE VIEW CHEST CLINICAL HISTORY: Status post pericardiocentesis and drain. FINDINGS: 2 AP, portable, upright chest radiographs are compared to chest x-ray and chest CT dated . A 2-lead cardiac pacemaker is unchanged in position and partially obscures the left upper l obe. A pericardial drain projects over the left lung base. The heart is enlarged noting atherosclerot ic calcification of the thoracic aorta. The pulmonary vasculature is noncongested. Scarring/atelectas is is noted at the lung bases. No airspace consolidation or large pleural effusion is identified. No pneumothorax is seen. The skeletal structures are osteopenic. The bony thorax is grossly intact. IMPRESSION: 1. A pericardial drain has been placed and projects over the left lung base. 2. Cardiomegaly and cardiac pacemaker without radiographic evidence of congestive failure. 3. No airspace consolidation or large pleural effusion is identified. ACT 112: Negative or not required by law. Electronically signed by: Elia Rebollar M.D. 06/12/2022 7:07 PM
--- NOTE | 2022-06-12 22:40 | Hospitalist Progress Note ---
Date of Service June 12, 2022 Assessment & Plan (1) Pericardial effusion: Plan: acute chest pain , pericardial effusion no evidence of tamponade CT scan of the chest negative for pulmonary embolus but incidental finding of pericardial effusion. No significant improvement with 8 mg of IV morphine. colchicine may be causing diarrhea this will be held he will continue on ibuprofen Troponin negative x [address] changes on EKG. Cardiology has been consulted, Dr. Irene wishes to have the patient reevaluated by a limited echocardiogram on the . We will give 1 dose of Lasix in the evening of the attempt to try to reduce his rosalia cardial effusion will be evaluated by repeat echocardiogram. repeat echo showed worsening fluid, required pericardial window and drainage. now in ICU for monitoring. chronic Eliquis for atrial fibrillation. Will resume Eliquis at time of discharge once reassured procedure has been ruled out With regard to diarrhea which may be from his colchicine we will have infectious etiologies ruled out by PCR and C. difficile testing atrial fibrillation chronic and rate controlled continue amiodarone * patient currently rate controlled (2) DM II (diabetes mellitus, type II), controlled: Plan: Chronic stable patient reports that this is diet controlled * has ssi if needed Laboratory Tests 05/26/22 05:29 Hemoglobin A1c 5.9 H (3) Anemia: Plan: * chronic and stable, macrocytic , b12 normal 02/12, folate normal 11/13 (4) Hypomagnesemia: Plan: replete Plan DVT prophylaxis: Hold Eliquis pending evaluation for pericardial effusion. WANDA karle and SCDs bilaterally knee-high CODE STATUS: Patient desires to be a full resuscitation Admission and Anticipated Discharge Date Admission Date: June 07, 2022 Subjective Patient reports having pain in his left shoulder after the procedure. Review of Systems Review of Systems: All systems reviewed & are unremarkable except as noted in HPI & below Physical Exam Physical Exam: pt is laying flat, no jvd cardiac is regular no rubs, not distant lungs are clear abd is soft and non tender Results & Data Results & Data Vital Signs (Past 12 Hours) Vital Signs Temp Pulse Pulse Resp BP BP Pulse Ox 06/12/22 21:30 60 23 95 06/12/22 21:00 60 23 95 06/12/22 20:30 61 22 94 06/12/22 20:00 80 19 95 06/12/22 20:00 108/51 L 06/12/22 19:30 65 21 94 06/12/22 19:01 80 14 113/76 98 06/12/22 19:01 69 21 98 06/12/22 19:00 69 17 97 06/12/22 18:30 100 H 19 96 06/12/22 18:00 93 H 20 96 06/12/22 17:56 90/68 L 06/12/22 17:56 91 H 25 H 97 06/12/22 17:30 89 26 H 96 06/12/22 17:00 83 18 96 06/12/22 16:35 74 19 98 06/12/22 16:35 165/86 H 06/12/22 16:34 80 19 06/12/22 14:00 63 06/12/22 13:30 63 06/12/22 13:00 81 06/12/22 12:30 79 06/12/22 12:00 88 06/12/22 11:30 82 06/12/22 11:00 60 06/12/22 19:12 36.9 C 06/12/22 16:45 36.3 C L 102 H 20 90/68 L 96 06/12/22 16:42 80 06/12/22 16:00 66 16 115/60 98 06/12/22 15:45 65 14 117/58 L 98 06/12/22 15:30 66 16 122/62 98 06/12/22 14:34 63 16 129/74 96 06/12/22 11:15 36.7 C 62 14 103/61 99 O2 Del Method 06/12/22 21:30 06/12/22 21:00 06/12/22 20:30 06/12/22 20:00 06/12/22 20:00 06/12/22 19:30 06/12/22 19:01 06/12/22 19:01 06/12/22 19:00 06/12/22 18:30 06/12/22 18:00 06/12/22 17:56 06/12/22 17:56 06/12/22 17:30 06/12/22 17:00 06/12/22 16:35 06/12/22 16:35 06/12/22 16:34 06/12/22 14:00 06/12/22 13:30 06/12/22 13:00 06/12/22 12:30 06/12/22 12:00 06/12/22 11:30 06/12/22 11:00 06/12/22 19:12 06/12/22 16:45 Room Air 06/12/22 16:42 06/12/22 16:00 Room Air 06/12/22 15:45 Room Air 06/12/22 15:30 Room Air 06/12/22 14:34 Room Air 06/12/22 11:15 Room Air PG Care Time/CCT Total # of Minutes Spent Total Time Spent with Patient: Total time spent is greater than 50% in coordination of care (as documented) at patient's floor/unit and/or counseling patient: Coding Level of Care Code 00855 SUB INP/OBS CARE 3/50MIN Diagnoses Pericardial effusion I31.39 DM II (diabetes mellitus, type II), controlled E11.9 Anemia D64.9 Hypomagnesemia E83.42
[2022-06-12] MEDS: busPIRone 5 MG TAB PO PRN (23:03)
[2022-06-12] MEDS: MELATONIN 3 MG TAB PO PRN (23:03)
[2022-06-12] MEDS: MIRTAZAPINE TAB 15 MG TAB PO SCH (23:34)
[2022-06-13] MEDS: INSULIN ASPART PER UNIT CHARGE SC SCH ×4 (07:38→20:20)
[2022-06-13] MEDS: MAGNESIUM CHLORIDE W/CALCIUM 64MG DELAYED REL TAB PO SCH ×2 (07:39→22:07)
[2022-06-13] MEDS: AMIODARONE 200 MG TAB PO SCH ×2 (07:39→16:52)
[2022-06-13] MEDS: CHOLECALCIFEROL 1,000 UNITS 25 MCG TAB PO SCH (07:39)
[2022-06-13] MEDS: PANTOprazole 40 MG TAB PO SCH ×2 (07:39→22:08)
[2022-06-13] MEDS: ACETAMINOPHEN 325 MG TAB PO PRN ×2 (07:41→22:08)
[2022-06-13] MEDS: busPIRone 5 MG TAB PO PRN ×2 (07:52→22:08)
--- NOTE | 2022-06-13 08:26 | Cardiology Progress Note ---
Date of Service June 13, 2022 Assessment & Plan (1) Pericardial effusion: (2) Chest pain: (3) Paroxysmal atrial fibrillation: (4) Pacemaker: Plan 1. Pericardial effusion: Effusion drained yesterday. About 30-40cc drainage overnight. NO drainage with manual extraction this morning. Catheter was flushed. Still no additional drainage. WIll leave to suction and monitor drainage over the course of the day. WIll remove if no further drainage. 2. Chest pain: Resolved (some left shoulder pain from pericardial drain) 3. Atrial fibrillation: Paroxysmal. No symptoms. He continues to have some episodes of atrial fibrillation that do not produce symptoms. Rate control appears adequate. Continue to hold Eliquis. 4. Normally functioning dual-chamber permanent pacemaker 5. Fever: No recurrence. No obvious source of infection. Antibiotics discontinued. Blood cultures negative. Admission and Anticipated Discharge Date Admission Date: June 07, 2022 Subjective This morning he is feeling well. Some left shoulder discomfort. No breathing trouble. NO dizziness. No palpitations Review of Systems Review of Systems: per HPI. Slept well Physical Exam Physical Exam: The patient is alert and oriented. Mood and affect appeared normal. He answered all questions appropriately. HEENT: Pupils are equal and reactive to light and accommodation. Extraocular movements are intact. The sclerae are anicteric. Neuro: Cranial nerves intact Chest: Evaluation of the device implant site did not reveal any evidence of hematoma, ecchymosis, erythema or tenderness. Lungs: normal respiratory effort Cardiac: Heart demonstrates an irregular rhythm. Normal S1 and S2. No rubs. Chest: Pericardial drain in the subxyphoid location. No drainage, erythema or bleeding Pulses: The patient has palpable radial pulses bilaterally that are equal in intensity Extremities: There was no evidence of hypoperfusion. There is no cyanosis or clubbing. There is no edema. Skin: I did not appreciate any rashes on examination today. ENMT: Mallampati Class: III Respiratory: normal respiratory effort Cardiovascular: Rate/Rhythm: regular rate and regular rhythm Results & Data Vital Signs (Past 12 Hours) Vital Signs Temp Pulse Resp BP Pulse Ox 06/13/22 06:00 88 23 95 06/13/22 06:00 116/60 06/13/22 05:30 102 H 24 94 06/13/22 05:00 83 21 94 06/13/22 05:00 95/62 L 06/13/22 04:30 85 23 93 06/13/22 04:00 86 12 93 06/13/22 04:00 100/59 L 06/13/22 03:30 84 21 93 06/13/22 03:00 79 20 92 06/13/22 03:00 94/54 L 06/13/22 02:30 87 19 94 06/13/22 02:00 78 22 97 06/13/22 02:00 95/71 L 06/13/22 01:30 81 21 95 06/13/22 01:00 87 25 H 91 06/13/22 01:00 94/54 L 06/13/22 00:30 81 10 L 94 06/13/22 00:00 104 H 19 91 06/13/22 00:00 102/64 06/12/22 23:30 60 22 95 06/12/22 23:10 78 18 96 06/12/22 23:10 117/88 06/12/22 23:00 103 H 18 95 06/12/22 22:30 80 19 93 06/12/22 22:00 60 25 H 92 06/12/22 23:57 81 06/12/22 23:46 36.7 C 06/12/22 21:30 60 23 95 06/12/22 21:00 60 23 95 06/12/22 20:30 61 22 94 Laboratory Results Abnormal Lab Results 06/12/22 06/12/22 06/12/22 11:36 16:35 20:22 POC Glucose 145 H 111 H 172 H 06/13/22 07:36 POC Glucose 153 H PG Care Time/CCT Total # of Minutes Spent Total Time Spent with Patient: Total time spent is greater than 50% in coordination of care (as documented) at patient's floor/unit and/or counseling patient: Coding Level of Care Code 63240 SUB INP/OBS CARE 2MIN Diagnoses Pericardial effusion I31.39 Chest pain R07.9 Chest pain type: unspecified Paroxysmal atrial fibrillation I48.0 Pacemaker Z95.0 (2) Chest pain Chest pain type: unspecified Qualified Code(s): R07.9 - Chest pain, unspecified
[2022-06-13] MEDS: MIRTAZAPINE TAB 15 MG TAB PO SCH (22:08)
[2022-06-13] MEDS: MELATONIN 3 MG TAB PO PRN (22:09)
--- NOTE | 2022-06-13 22:32 | Hospitalist Progress Note ---
Date of Service June 13, 2022 Assessment & Plan (1) Pericardial effusion: Plan: acute chest pain , pericardial effusion no evidence of tamponade CT scan of the chest negative for pulmonary embolus but incidental finding of pericardial effusion. No significant improvement with 8 mg of IV morphine. colchicine may be causing diarrhea this will be held he will continue on ibuprofen Troponin negative x [address] changes on EKG. Cardiology has been consulted, Dr. Irnee wishes to have the patient reevaluated by a limited echocardiogram on the . We will give 1 dose of Lasix in the evening of the attempt to try to reduce his rosalia cardial effusion will be evaluated by repeat echocardiogram. repeat echo showed worsening fluid, required pericardial window and drainage. now in ICU for monitoring. Amount of draingae has decreased on 06/13 chronic Eliquis for atrial fibrillation. Will resume Eliquis at time of discharge once reassured procedure has been ruled out With regard to diarrhea which may be from his colchicine we will have infectious etiologies ruled out by PCR and C. difficile testing atrial fibrillation chronic and rate controlled continue amiodarone * patient currently rate controlled (2) DM II (diabetes mellitus, type II), controlled: Plan: Chronic stable patient reports that this is diet controlled * has ssi if needed Laboratory Tests 05/26/22 05:29 Hemoglobin A1c 5.9 H (3) Anemia: Plan: * chronic and stable, macrocytic , b12 normal 02/12, folate normal 11/13 (4) Hypomagnesemia: Plan: replete Plan DVT prophylaxis: Hold Eliquis pending evaluation for pericardial effusion. WANDA hose and SCDs bilaterally knee-high CODE STATUS: Patient desires to be a full resuscitation Admission and Anticipated Discharge Date Admission Date: June 07, 2022 Subjective 81 yo male reports no new symptoms. Review of Systems Review of Systems: All systems reviewed & are unremarkable except as noted in HPI & below Physical Exam Physical Exam: pt is laying flat, no jvd cardiac is regular no rubs, not distant lungs are clear abd is soft and non tender Results & Data Results & Data Vital Signs (Past 12 Hours) Vital Signs Temp Pulse Resp BP Pulse Ox O2 Del Method 06/13/22 19:00 62 14 107/53 L 94 06/13/22 18:01 118/60 06/13/22 18:01 80 25 H 95 06/13/22 19:19 37.0 C 04/22/23 18:00 64 23 118/60 93 06/13/22 17:00 80 22 97 06/13/22 17:00 146/74 H 06/13/22 16:00 60 21 94 06/13/22 15:42 60 06/13/22 15:00 60 14 109/48 L 98 Room Air 06/13/22 14:00 60 21 95 06/13/22 14:00 109/49 L 06/13/22 13:00 80 21 06/13/22 12:00 90 22 97 Room Air 06/13/22 12:00 118/61 06/13/22 11:00 60 16 94 06/13/22 11:00 103/47 L 06/13/22 12:23 36.6 C PG Care Time/CCT Total # of Minutes Spent Total Time Spent with Patient: Total time spent is greater than 50% in coordination of care (as documented) at patient's floor/unit and/or counseling patient: Coding Level of Care Code 87812 SUB INP/OBS CARE 235MIN Diagnoses Pericardial effusion I31.39 DM II (diabetes mellitus, type II), controlled E11.9 Anemia D64.9 Hypomagnesemia E83.42
[2022-06-14] MEDS: AMIODARONE 200 MG TAB PO SCH ×2 (07:39→16:23)
[2022-06-14] MEDS: MAGNESIUM CHLORIDE W/CALCIUM 64MG DELAYED REL TAB PO SCH ×2 (07:39→23:02)
[2022-06-14] MEDS: CHOLECALCIFEROL 1,000 UNITS 25 MCG TAB PO SCH (07:39)
[2022-06-14] MEDS: PANTOprazole 40 MG TAB PO SCH ×2 (07:39→23:02)
[2022-06-14] MEDS: busPIRone 5 MG TAB PO PRN ×2 (07:40→23:02)
[2022-06-14] MEDS: ACETAMINOPHEN 325 MG TAB PO PRN ×3 (07:49→23:02)
[2022-06-14] MEDS: INSULIN ASPART PER UNIT CHARGE SC SCH ×4 (07:50→20:28)
--- NOTE | 2022-06-14 13:21 | XCELERA ---
[id number] \\[id number]
--- NOTE | 2022-06-14 21:03 | Hospitalist Progress Note ---
Date of Service June 14, 2022 Assessment & Plan (1) Pericardial effusion: Plan: acute chest pain , pericardial effusion no evidence of tamponade CT scan of the chest negative for pulmonary embolus but incidental finding of pericardial effusion. No significant improvement with 8 mg of IV morphine. colchicine may be causing diarrhea this will be held he will continue on ibuprofen Troponin negative x [address] changes on EKG. Cardiology has been consulted, Dr. Irene wishes to have the patient reevaluated by a limited echocardiogram on the . We will give 1 dose of Lasix in the evening of the attempt to try to reduce his rosalia cardial effusion will be evaluated by repeat echocardiogram. repeat echo showed worsening fluid, required pericardial window and drainage. now in ICU for monitoring. Drainage appears nonexistent. chronic Eliquis for atrial fibrillation. Will resume Eliquis at time of discharge once reassured procedure has been ruled out With regard to diarrhea which may be from his colchicine we will have infectious etiologies ruled out by PCR and C. difficile testing atrial fibrillation chronic and rate controlled continue amiodarone * patient currently rate controlled (2) DM II (diabetes mellitus, type II), controlled: Plan: Chronic stable patient reports that this is diet controlled * has ssi if needed Laboratory Tests 05/26/22 05:29 Hemoglobin A1c 5.9 H (3) Anemia: Plan: * chronic and stable, macrocytic , b12 normal 02/12, folate normal 11/13 (4) Hypomagnesemia: Plan: replete Plan DVT prophylaxis: Hold Eliquis pending evaluation for pericardial effusion. WANDA hose and SCDs bilaterally knee-high CODE STATUS: Patient desires to be a full resuscitation Admission and Anticipated Discharge Date Admission Date: June 07, 2022 Subjective 81 yo male reports no new symptoms. Review of Systems Review of Systems: All systems reviewed & are unremarkable except as noted in HPI & below Physical Exam Physical Exam: pt is laying flat, no jvd cardiac is regular no rubs, not distant lungs are clear abd is soft and non tender Results & Data Results & Data Vital Signs (Past 12 Hours) Vital Signs Temp Pulse Resp BP Pulse Ox O2 Del Method 06/14/22 19:00 63 24 111/55 L 96 Room Air 06/14/22 16:00 80 22 98 06/14/22 16:00 144/70 H 06/14/22 16:01 36.9 C 06/14/22 15:00 63 24 97 06/14/22 15:00 111/51 L 06/14/22 14:00 64 23 98 06/14/22 14:00 110/52 L 06/14/22 13:00 80 20 95 06/14/22 13:00 113/57 L 06/14/22 12:10 73 23 97 06/14/22 12:10 135/78 06/14/22 12:00 80 23 06/14/22 11:00 60 21 97 06/14/22 11:00 105/59 L 06/14/22 12:00 36.8 C 06/14/22 16:00 80 06/14/22 10:00 80 20 97 06/14/22 10:00 118/82 PG Care Time/CCT Total # of Minutes Spent Total Time Spent with Patient: Total time spent is greater than 50% in coordination of care (as documented) at patient's floor/unit and/or counseling patient: Coding Level of Care Code 60696 SUB INP/OBS CARE 2/35MIN Diagnoses Pericardial effusion I31.39 DM II (diabetes mellitus, type II), controlled E11.9 Anemia D64.9 Hypomagnesemia E83.42
[2022-06-14] MEDS ORDERED: diphenhydrAMINE Capsule 25 MG CAP PO ONE (21:22)
--- NOTE | 2022-06-14 22:13 | Communication Note ---
Date of Service: June 14, 2022 Pericardial drain removed. Sterile dressing applied. No significant drainage for 2 days. Echocardiogram did not demonstrate re- accumulation
[2022-06-14] MEDS: MIRTAZAPINE TAB 15 MG TAB PO SCH (23:02)
[2022-06-15 05:00] LABS: Basophils # (auto) 0.05 K/uL (0-0.2); Basophils % (auto) 0.9 %; Eosinophils # (auto) 0.14 K/uL (0-0.50); Eosinophils % (auto) 2.5 %; Hematocrit (blood only) 29.8 % (42.0-52.0); Hemoglobin 9.9 g/dl (14.0-18.0); Immature Granulocytes # (auto) 0.08 K/uL (0.01-0.20); Immature Granulocytes % (auto) 1.4 %; Lymphocytes # (auto) 1.65 K/uL (1.2-3.4); Lymphocytes % (auto) 29.2 %; Mean Corpuscular Hemoglobin 34.3 pg (25.0-34.0); Mean Corpuscular Hgb Conc 33.2 g/dL (32.0-36.0); Mean Corpuscular Volume 103.1 fL (80.0-100.0); Mean Platelet Volume 9.2 fL (9.4-12.4); Monocytes # (auto) 0.46 K/uL (0.11-0.59); Monocytes % (auto) 8.1 %; Neutrophils # (auto) 3.28 K/uL (1.40-6.50); Neutrophils % (auto) 57.9 %; Platelet Count 228 K/uL (130-400); RDW Coefficient of Variation 12.2 % (11.5-14.5); RDW Standard Deviation 46.4 fL (36.4-46.3); Red Blood Count 2.89 M/uL (4.70-6.10); White Blood Count 5.66 K/ul (4.8-10.8)
[2022-06-15 05:11] LABS: BUN Creatinine Ratio 20.5 (10-20); Calcium 8.3 mg/dl (8.6-10.3); Creatinine Clr Calc Pharmacy 71.8 ml/min; Est GFR (African American) 99.5 ml/min; Est GFR (Non-African American) 85.9 ml/min; Potassium 4.2 mmol/L (3.5-5.1)
[2022-06-15] MEDS: INSULIN ASPART PER UNIT CHARGE SC SCH ×2 (07:25→11:45)
[2022-06-15] MEDS: AMIODARONE 200 MG TAB PO SCH (07:26)
[2022-06-15] MEDS: CHOLECALCIFEROL 1,000 UNITS 25 MCG TAB PO SCH (07:26)
[2022-06-15] MEDS: MAGNESIUM CHLORIDE W/CALCIUM 64MG DELAYED REL TAB PO SCH (07:26)
[2022-06-15] MEDS: PANTOprazole 40 MG TAB PO SCH (07:26)
[2022-06-15] MEDS: busPIRone 5 MG TAB PO PRN (07:26)
--- NOTE | 2022-06-15 15:12 | Cardiology Progress Note ---
Date of Service June 15, 2022 Assessment & Plan (1) Pericardial effusion: (2) Chest pain: (3) Paroxysmal atrial fibrillation: (4) Pacemaker: Plan 1. Pericardial effusion: Echocardiogram yesterday revealed resolution of the pericardial effusion. Drain was pulled last night. Hemodynamically stable. I think we can reassess the effusion in the outpatient setting in another week. 2. Chest pain: Resolved 3. Atrial fibrillation: Paroxysmal. No symptoms. He continues to have some episodes of atrial fibrillation that do not produce symptoms. Rate control appears adequate. 4. Normally functioning dual-chamber permanent pacemaker 5. Fever: No recurrence. No obvious source of infection. Antibiotics discontinued. Blood cultures negative. I think he is ambulatory would be safe for discharge. Will reassess the pericardial effusion in a week. He should continue to hold Eliquis until Wednesday. He could resume the remainder of his medications. He should refrain from lifting left arm above the shoulder behind the neck for another 4 weeks. No other activity restrictions or wound care instructions. Admission and Anticipated Discharge Date Admission Date: June 07, 2022 Subjective Continue the patient claims to be feeling well. He reported being up in chair briefly. No significant discomfort at the drain site. No chest pain. No dizziness lightheadedness. No sense of palpitation. Physical Exam Physical Exam: The patient is alert and oriented. Mood and affect appeared normal. He answered all questions appropriately. HEENT: Pupils are equal and reactive to light and accommodation. Extraocular movements are intact. The sclerae are anicteric. Neuro: Cranial nerves intact Lungs: normal respiratory effort Cardiac: Regular rhythm Chest: well-healed device implant site in left upper pectoral area. No erythema. No hematoma. Pulses: The patient has palpable radial pulses bilaterally that are equal in intensity Extremities: There was no evidence of hypoperfusion. There is no cyanosis or clubbing. There is no edema. Skin: I did not appreciate any rashes on examination today. ENMT: Mallampati Class: III Respiratory: normal respiratory effort Cardiovascular: Rate/Rhythm: regular rate and regular rhythm Results & Data Vital Signs (Past 12 Hours) Vital Signs Temp Pulse Resp BP Pulse Ox O2 Del Method 06/15/22 12:00 36.6 C 06/15/22 12:00 80 18 06/15/22 11:47 21 96 06/15/22 11:47 138/83 06/15/22 08:00 60 18 06/15/22 07:22 80 16 96 Room Air 06/15/22 07:22 128/72 06/15/22 08:04 36.7 C 06/15/22 04:00 60 17 104/59 L 96 (2) Chest pain Chest pain type: unspecified Qualified Code(s): R07.9 - Chest pain, unspecified
[2022-06-24 10:37] LABS: Fluid Appearance BLOODY; Fluid Basophil % 0 %; Fluid Color RED; Fluid Comment DNR; Fluid Eosinophil % 1 %; Fluid Lymphocytes % 34 %; Fluid Mesothelial % 0 %; Fluid Monocyte/Macrophage % 14 %; Fluid Neutrophil % 51 %; Fluid Total Nucleated Cell Ct 350 cells/uL; Fluid Type PERICARDIAL; Pericardial Fld,Total Protein 8.7 g/dL; Pericardial Fluid, Glucose 90 mg/dL
--- NOTE | 2022-06-26 12:00 | Discharge Summary ---
Date of Service June 15, 2022 Admission HPI Per Admitting Provider Attending: Dr. Cota This is a 81 yo male that has a past medical history including atrial fibrillation with RVR, recent acute arrhythmia, recent pacemaker placement 06/02/2022, hypomagnesemia, hypokalemia, hyperglycemia, history of COVID infection, erectile dysfunction, history of nephrolithiasis, vitamin D deficiency, vitamin B12 deficiency, hypertension, anemia, controlled diabetes mellitus type 2, history of near syncope. Patient was in his usual state of health on Wednesday evening. He went to bed without any complication or complaint. At 2 AM he awoke with chest pain. He had previously taken Tylenol with Benadryl and thought that the chest pain will go away. He waited 4 hours and then presented to the emergency department for evaluation. Due to the patient's recent pacemaker placement and due to the fact that Eliquis was held for the procedure, a CTA of the chest was performed to rule out pulmonary embolus. Patient was found to have a small pericardial effusion with no evidence of tamponade. Troponin was negative. EKG had no new changes. Patient has no elevation of white cells. Patient was empirically started on cefepime and vancomycin and treated with 4 mg of morphine sulfate IV x2 doses for total of 8 mg with no significant improvement in his pain. Patient did have a drop in his blood pressure down to 101 systolically. Typically runs in the 1 30-1 40 range. Patient is bradycardic on exam. During the course of my examination the patient's heart rate did go to 72 bpm. Patient describes chest pain in the precordial region with no extension and no radiation to the neck jaw or arm. Patient has no nausea or vomiting. He did have a loose stool this morning. He does have fever on presentation with a Tmax of 38 9 Celsius. He reports feeling warm at home but did not document any fever. Patient has no other acute complaints. Patient is up-to-date with his COVID vaccination with 2+1 booster current with influenza vaccination as well as pneumococcal vaccination patient is a lifetime non-smoker patient is single with no children. Case reviewed with Dr. Irene and cardiology consult requested. Principal Diagnosis pericardial effusion Discharge Exam pt is laying flat, no jvd cardiac is regular no rubs, not distant lungs are clear abd is soft and non tender Discharge Data Allergies Allergy/AdvReac Type Severity Reaction Status Date / Time No Known Allergies Allergy Verified 06/22/22 08:38 Consultations 06/07/22 10:34 ED Decision to Admit Stat 06/07/22 14:30 Consult Cardiology Routine Procedures Performed Operation Date: 06/12/22 15:00 Actual Procedures p Pericardiocentesis - Gabe Irene MD s Cineradiography w/Routine Exam - Gabe Irene MD s Echo Color Flow - Gabe Irene MD p Cath, Left with Cors and Vent - Gabe Irene MD Ordered Studies 06/07/22 08:41 CT angio chest PE protocol Stat 06/12/22 14:36 CL Cath Imgs for PACS use only Routine Hospital Course (1) Pericardial effusion: acute chest pain , pericardial effusion no evidence of tamponade CT scan of the chest negative for pulmonary embolus but incidental finding of pericardial effusion. No significant improvement with 8 mg of IV morphine. colchicine may be causing diarrhea this will be held he will continue on ibuprofen Troponin negative x [address] changes on EKG. Cardiology has been consulted, Dr. Irene wishes to have the patient reevaluated by a limited echocardiogram on the of the . We will give 1 dose of Lasix in the evening of the attempt to try to reduce his pericardial effusion will be evaluated by repeat echocardiogram. repeat echo showed worsening fluid, required pericardial window and drainage. requied ICU for monitoring. Drainage appears nonexistent. Echocardiogram yesterday revealed resolution of the pericardial effusion. Drain was pulled last night. Hemodynamically stable. I think we can reassess the effusion in the outpatient setting in another week. Will reassess the pericardial effusion in a week. He should continue to hold Eliquis until Wednesday. He could resume the remainder of his medications. He should refrain from lifting left arm above the shoulder behind the neck for another 4 weeks. No other activity restrictions or wound care instructions. chronic Eliquis for atrial fibrillation. atrial fibrillation chronic and rate controlled continue amiodarone * patient currently rate controlled (2) DM II (diabetes mellitus, type II), controlled: Chronic stable patient reports that this is diet controlled * has ssi if needed Laboratory Tests 05/26/22 05:29 Hemoglobin A1c 5.9 H (3) Anemia: * chronic and stable, macrocytic , b12 normal 02/12, folate normal 11/13 (4) Hypomagnesemia: replete Plan Total Time Total Time Spent Total Time Spent (In Minutes): 32 Discharge Plan Discharge Items Patient Disposition: Home - Home Health Services Reason For Visit: CHEST PAIN SECONDARY TO PERICARDIAL EFFUSION Discharge Diagnosis: Pleuritic chest pain pericardial effusion Activity: Per Instructions section Activity Comment: slowly increase activity Lifting Comment: No lifting left arm above shoulder behind neck for 4 weeks Bathing: No limitations Non-emergency contact: Primary Care Provider and Truck 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 Call non-emergency contact if: your symptoms worsen Follow-up/Referrals: Davon Tabor MD [Physician] - 06/16/22 2:30 pm (After PCP appointment ) Carmelo Mason MD [Primary Care Provider] - 06/16/22 1:00 pm (appointment with Jory BRUNO Please arrive 15 minutes prior to appointment time) Diet: Regular Addtl Attending Provider Instructions: take ibuprofen 600mg three times a day until seen by cardiology in follow up, if you start getting a stomach ache, contact cardiology or family medicine for advice while on the ibuprofen take omeprazole 20 mg twice a day to help protect your stomach 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 Please continue to hold Eliquis until Wednesday. Please resume the remainder of his medications. You should refrain from lifting left arm above the shoulder behind the neck for another 4 weeks. No other activity restrictions or wound care instructions. Pending Studies at Discharge: No Stand-Alone Forms: [employer], Smoking Cessation Medications and DC Order Prescriptions: Continued cholecalciferol (vitamin D3) 1,000 unit capsule 1,000 units PO QAM cyanocobalamin (vitamin B-12) 1,000 mcg tablet 1,000 mcg PO QAM Qty: 30 psyllium husk 3.4 gram/5.4 gram powder 2 tbs PO QAM buspirone 5 mg tablet 5 mg PO TID PRN (Reason: anxiety) Qty: 90 3RF potassium gluconate 595 mg (99 mg) Tablet 595 mg PO QAM Eliquis 5 mg Tablet 5 mg PO BID Qty: 60 0RF Rx Instructions: restart on Wednesday calcium carbonate [Calcium 600] 600 mg calcium (1,500 mg) Tablet 600 mg PO DAILY amiodarone 200 mg Tablet 200 mg PO BIDM Qty: 60 0RF Mag 64 64 mg Tablet,Delayed Release (Dr/Ec) 64 mg PO BID Qty: 60 0RF acetaminophen 500 mg capsule 500 mg PO Q6H PRN (Reason: pain) Qty: 30 0RF Rx Instructions: OTC Changed omeprazole 20 mg capsule,delayed release(DR/EC) 20 mg PO BID Qty: 90 3RF Discharge Orders: Discharge Order (Routine); Ordered 06/15/22 Ordered By: Paul Candelaria Admission Data Admit Date/Time: 06/07/22 12:28 Attending Provider: Paul Candelaria Admit Provider: Art Cota Primary Care Provider: Carmelo Mason Other Providers: Art Cota ; Gabe Irene Other Interventions: Discharge Summary Assessment (RN) Last Done: 06/15/22 15:57 Coding Level of Care Code 96494 INP/OBS DISCH >30 MIN Diagnoses Pericardial effusion I31.39 DM II (diabetes mellitus, type II), controlled E11.9 Anemia D64.9 Hypomagnesemia E83.42
== END 2022-06-15 17:34 | disposition home health service (06) | DRG 309 ==
LOC: ED 07:11 → SUATTDRO 12:28 → 4W 12:28 → 1E 06-12 16:39 → 2S 06-15 14:21

== ENCOUNTER 2022-10-12 09:36 | Inpatient (IN) ==
[2022-10-12 10:38] LABS: Basophils # (auto) 0.03 K/uL (0-0.2); Basophils % (auto) 0.5 %; Eosinophils # (auto) 0.05 K/uL (0-0.50); Eosinophils % (auto) 0.9 %; Hematocrit (blood only) 37.3 % (42.0-52.0); Hemoglobin 12.6 g/dl (14.0-18.0); Immature Granulocytes # (auto) 0.04 K/uL (0.01-0.20); Immature Granulocytes % (auto) 0.7 %; Lymphocytes # (auto) 1.39 K/uL (1.2-3.4); Lymphocytes % (auto) 25.1 %; Mean Corpuscular Hemoglobin 33.6 pg (25.0-34.0); Mean Corpuscular Hgb Conc 33.8 g/dL (32.0-36.0); Mean Corpuscular Volume 99.5 fL (80.0-100.0); Mean Platelet Volume 9.3 fL (9.4-12.4); Monocytes # (auto) 0.29 K/uL (0.11-0.59); Monocytes % (auto) 5.2 %; Neutrophils # (auto) 3.73 K/uL (1.40-6.50); Neutrophils % (auto) 67.6 %; Platelet Count 195 K/uL (130-400); RDW Coefficient of Variation 13.9 % (11.5-14.5); RDW Standard Deviation 50.8 fL (36.4-46.3); Red Blood Count 3.75 M/uL (4.70-6.10); White Blood Count 5.53 K/ul (4.8-10.8)
[2022-10-12 10:55] LABS: Albumin Globulin Ratio 1.5 (0.9-2); Albumin Level 4.3 gm/dl (3.4-5.0); BUN Creatinine Ratio 15.5 (10-20); Bilirubin,Total 0.7 mg/dl (0.2-1.0); Calcium 9.4 mg/dl (8.6-10.3); Creatinine Clr Calc Pharmacy 42.7 ml/min; Est GFR (African American) 60.3 ml/min; Globulin 2.8 gm/dl (2.5-4.0); Potassium 4.5 mmol/L (3.5-5.1); Total Protein 7.1 gm/dl (6.0-8.3)
[2022-10-12 11:07] LABS: Partial Thromboplastin Time 28.8 Seconds (21.0-31.0); Prothrombin Time 11.3 Seconds (9.0-12.0)
--- NOTE | 2022-10-12 11:19 | XRay Report ---
SINGLE VIEW CHEST CLINICAL HISTORY: Atypical chest pain FINDINGS: An AP, portable, upright chest radiograph is compared to study dated 06/12/2022 and correlat ed with chest CT dated 06/07/2022. A 2-lead cardiac pacemaker is unchanged in position and partially o bscures the left mid chest. The heart is mildly enlarged noting atherosclerotic calcification of the thoracic aorta. The pulmonary vasculature is noncongested. Mild emphysema and chronic interstitial th ickening is similar to previous. There is bibasilar scarring/atelectasis. No airspace consolidation o r large pleural effusion is identified. No pneumothorax is seen. The skeletal structures are osteopen ic. The bony thorax is grossly intact. IMPRESSION: 1. Cardiomegaly and cardiac pacemaker without radiographic evidence of congestive failure. 2. Emphysema. 3. No airspace consolidation or large pleural effusion is identified. ACT 112: Negative or not required by law. Electronically signed by: Elia Rebollar M.D. 10/12/2022 11:17 AM
--- NOTE | 2022-10-12 11:35 | Emergency Department Note ---
History of Present Illness General Chief complaint: Syncope Stated complaint: SYNCOPE AFTER HAVING PACEMAKER INSERTED Time Seen by Provider: 10/12/22 11:04 History of Present Illness Provider complaint: Syncope Onset (ago): week(s) 1 82-year-old male on Eliquis presents emergency department for syncope. Patient reports he has passed out 3 times in the last week. He reports feeling increasingly fatigued. Patient states he begins feeling increasingly fatigued gets a spasm in his chest starts shaking and then passes out. Patient states he fell today and bumped his arm. He reports no arm pain. He reports no chest pain or difficulty breathing. He reports no headache. Home Medications Medication Instructions Recorded Confirmed Type cholecalciferol (vitamin D3) 25 1,000 units PO QAM 10/06/18 09/30/22 History mcg (1,000 unit) capsule cyanocobalamin (vitamin B-12) 1,000 mcg PO QAM #30 tabs 10/06/18 09/30/22 History 1,000 mcg tablet psyllium husk 3.4 gram/5.4 gram 2 tbs PO QAM 10/06/18 09/30/22 History oral powder potassium gluconate 595 mg (99 mg) 595 mg PO QAM 11/14/19 09/30/22 History tablet calcium carbonate 600 mg calcium 600 mg PO DAILY 05/25/22 09/30/22 History (1,500 mg) tablet (Calcium) magnesium chloride 64 mg 64 mg PO BID #60 tabs 05/27/22 09/30/22 Rx (magnesium chloride) tablet,delayed release (Mag 64) omeprazole 20 mg capsule,delayed 20 mg PO BID #90 caps 06/10/22 09/30/22 Rx release apixaban 5 mg tablet (Eliquis) 5 mg PO BID #180 tabs 07/03/22 09/30/22 Rx buspirone 5 mg tablet 5 mg PO TID PRN anxiety #90 tabs 07/13/22 09/30/22 Rx amiodarone 200 mg tablet 200 mg PO DAILY #90 tabs 09/04/22 09/30/22 Rx duloxetine 30 mg capsule,delayed 30 mg PO DAILY #30 caps 09/30/22 09/30/22 Rx release ramelteon 8 mg tablet (Rozerem) 8 mg PO ONCE #30 tabs 09/30/22 09/30/22 Rx Allergies Allergy/AdvReac Type Severity Reaction Status Date / Time No Known Allergies Allergy Verified 09/30/22 10:10 Past Med/Surg History Medical History Acute diverticulitis (08/08/13) hx Chronic back pain Diverticulosis of colon Hepatic steatosis Hiatal hernia History of esophageal dilatation Hypercholesterolemia hx of / pt not sure currently Hypokalemia Hypomagnesemia Left leg DVT pt unsure of details. Osteoarthritis Osteopenia Pacemaker Pericardial effusion Schatzki's ring Sleep trouble Small bowel obstruction (2014) Type 2 diabetes mellitus no medications currently. monitoring with PCP. Surgical History History of colostomy History of colostomy reversal History of esophagogastroduodenoscopy (EGD) Hx of appendectomy Hx of colectomy Hx of colonoscopy Hx of inguinal hernia repair Hx of tonsillectomy Family History Family/Other Aorta aneurysm Perceptive hearing loss or deafness Mother Alcoholism /alcohol abuse Lung cancer Lung disease Father Alcoholism /alcohol abuse Lung disease Brother Primary hemochromatosis Denies family history of Colon cancer Ovarian cancer Prostate cancer Myocardial infarction Breast cancer Colorectal cancer Hypertension Stroke Asthma Social History Smoking Status: Never smoker Second Hand Exposure: No; Do You Dip or Chew Tobacco: No; Hx Alcohol Use: No Hx Substance Use: No Preferred Language: Lao Communication Ability: Effective Visual Impairment: No Limitations 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: Normal Scene Painter Required: No Beliefs That Will Affect Care: None marital status: Single Current Living Situation: Alone Current Living Situation Comment: House current occupational status: retired current occupation: [employer] Feels Safe at Home: Yes Dental Care, Regularly: No Physical Activity Frequency: 1-2 Times per Week Seatbelt Use: always Assistive Devices: None Physical Exam Vital Signs Vital Signs - 24 hr 10/12/22 09:53 10/12/22 10:10 10/12/22 10:20 Temperature 36.8 C Temperature Source Oral Pulse Rate 104 H 69 67 Respiratory Rate 18 14 16 Blood Pressure 167/118 H 155/90 H Blood Pressure Mean 134 111 Blood Pressure Position Sitting Pulse Oximetry 99 98 Oxygen Delivery Method Room Air Sepsis Recent Fever Within 48 Hours No Sepsis New/Unexplained Change in Mental Status No Sepsis Action Taken by Nursing No Action Required 10/12/22 10:23 10/12/22 10:30 10/12/22 10:30 Temperature Temperature Source Pulse Rate 67 65 Respiratory Rate 14 Blood Pressure 143/73 H Blood Pressure Mean 94 Blood Pressure Position Pulse Oximetry Oxygen Delivery Method Sepsis Recent Fever Within 48 Hours Sepsis New/Unexplained Change in Mental Status Sepsis Action Taken by Nursing 10/12/22 10:40 10/12/22 10:50 10/12/22 11:00 Temperature Temperature Source Pulse Rate 63 80 Respiratory Rate 16 17 Blood Pressure 121/65 Blood Pressure Mean 81 Blood Pressure Position Pulse Oximetry Oxygen Delivery Method Sepsis Recent Fever Within 48 Hours Sepsis New/Unexplained Change in Mental Status Sepsis Action Taken by Nursing 10/12/22 11:00 10/12/22 11:10 10/12/22 11:20 Temperature Temperature Source Pulse Rate 80 80 Respiratory Rate 18 14 18 Blood Pressure Blood Pressure Mean Blood Pressure Position Pulse Oximetry 98 Oxygen Delivery Method Sepsis Recent Fever Within 48 Hours Sepsis New/Unexplained Change in Mental Status Sepsis Action Taken by Nursing 10/12/22 11:30 10/12/22 11:30 10/12/22 11:40 Temperature Temperature Source Pulse Rate 80 80 Respiratory Rate 13 19 Blood Pressure 152/81 H Blood Pressure Mean 94 Blood Pressure Position Pulse Oximetry Oxygen Delivery Method Sepsis Recent Fever Within 48 Hours Sepsis New/Unexplained Change in Mental Status Sepsis Action Taken by Nursing 10/12/22 11:53 10/12/22 12:00 10/12/22 12:00 Temperature Temperature Source Pulse Rate 78 63 Respiratory Rate 17 16 Blood Pressure 149/101 H Blood Pressure Mean 107 Blood Pressure Position Pulse Oximetry 98 99 Oxygen Delivery Method Sepsis Recent Fever Within 48 Hours Sepsis New/Unexplained Change in Mental Status Sepsis Action Taken by Nursing 10/12/22 12:10 Temperature Temperature Source Pulse Rate 80 Respiratory Rate 15 Blood Pressure Blood Pressure Mean Blood Pressure Position Pulse Oximetry Oxygen Delivery Method Sepsis Recent Fever Within 48 Hours Sepsis New/Unexplained Change in Mental Status Sepsis Action Taken by Nursing Physical Exam GENERAL: oriented to person, place, and time. appears well-developed and well- nourished. HENT: Exam performed. - Head: Normocephalic and atraumatic. EYES: Conjunctivae and EOM are normal. Right eye exhibits no discharge. Left eye exhibits no discharge. No scleral icterus. NECK: Normal range of motion. Neck supple. No JVD present. CV: Normal rate, regular rhythm, normal heart sounds and intact distal pulses. There is no peripheral edema. Palpable radial pulses bue. PULM/CHEST: Effort normal and breath sounds normal. No respiratory distress. No stridor. no wheezes. no rales. ABD: The abdomen is soft. There is no tenderness. NEURO: Motor and sensation grossly intact. SKIN: Skin tears bilateral upper extremities Course Course 1104: The patient was evaluated in room B6. A complete history and physical exam was performed Cardiac monitoring: An order was placed for continuous cardiac monitoring. The monitor shows a rate of 80 with paced rhythm interpreted by me 1132: [id number] bedside ultrasound shows a trace pericardial effusion with no pericardial tamponade. 1231: Vital signs stable. Labs and imaging within normal limits. Discussed with Dr. Giovanni Howell on-call cardiology who states that the EKG appears appropriate from 1001 but given the patient's recurrent episodes of syncope he does agree that the patient should be admitted to the hospitalist team and cardiology can be on consult. Dr. Levi [facility] hospitalist team will be made aware. 1241: Spoke with [employer] claims service representative who states that the patient has had SVT runs less than 30 seconds multiple today. He states that the patient usually only ventricularly paced 24% time and usually only atrial paces 50% of the time. He states the device is working okay on his own. Given this I think it is important to rule out noncardiac causes of his syncope also. Discussed sue e with Dr. Levi and his team and they will evaluate the patient for admission. Medical Decision Making Medical Records Attestation: I reviewed the patient's medical records. External medical records were reviewed. Patient had a pacemaker placed in May 2022 and on subsequent visits developed a pericardial effusion as result of the pacemaker placement. The patient's last echo was on August 17, 2022 which showed a trivial pericardial effusion. Laboratory Data Attestation: I reviewed the patient's lab results. 10/12/22 10:10 10/12/22 10:10 Lab Results 10/12/22 10/12/22 10/12/22 Range/Units 10:10 10:10 10:10 WBC 5.53 (4.8-10.8) K/ul RBC 3.75 L (4.70-6.10) M/uL Hgb 12.6 L (14.0-18.0) g/dl Hct 37.3 L (42.0-52.0) % MCV 99.5 (80.0-100.0) fL MCH 33.6 (25.0-34.0) pg MCHC 33.8 (32.0-36.0) g/dL RDW Std Deviation 50.8 H (36.4-46.3) fL RDW Coeff of [place] 13.9 (11.5-14.5) % Plt Count 195 (130-400) K/uL MPV 9.3 L (9.4-12.4) fL Immature Gran % (Auto) 0.7 % Neut % (Auto) 67.6 % Lymph % (Auto) 25.1 % [place] % (Auto) 5.2 % Eos % (Auto) 0.9 % Baso % (Auto) 0.5 % Neut # (Auto) 3.73 (1.40-6.50) K/uL Lymph # (Auto) 1.39 (1.2-3.4) K/uL [place] # (Auto) 0.29 (0.11-0.59) K/uL Eos # (Auto) 0.05 (0-0.50) K/uL Baso # (Auto) 0.03 (0-0.2) K/uL Immature Gran # (Auto) 0.04 (0.01-0.20) K/uL PT 11.3 (9.0-12.0) Seconds INR 1.0 (0.9-1.1) APTT 28.8 (21.0-31.0) Seconds PTT Ratio 1.0 Sodium 134 L (136-145) mmol/L Potassium 4.5 (3.5-5.1) mmol/L Chloride 101 (98-107) mmol/L Carbon Dioxide 22 (21-32) mmol/L Anion Gap 11 (3-11) BUN 20 (6-23) mg/dl Creatinine 1.29 (0.6-1.4) mg/dl Est Cr Clr Drug Dosing 42.7 ml/min Est GFR ( Amer) 60.3 ml/min Est GFR (Non-Af Amer) 52.0 ml/min BUN/Creatinine Ratio 15.5 (10-20) Glucose 234 H (70-99(Fasting)) mg/dl Calcium 9.4 (8.6-10.3) mg/dl Total Bilirubin 0.7 (0.2-1.0) mg/dl AST 18 (13-39) U/L ALT 14 (7-52) U/L Alkaline Phosphatase 86 (34-104) U/L Troponin I High Sens 5.0 (0-20) pg/ml Total Protein 7.1 (6.0-8.3) gm/dl Albumin 4.3 (3.4-5.0) gm/dl Globulin 2.8 (2.5-4.0) gm/dl Albumin/Globulin Ratio 1.5 (0.9-2) SARS-CoV-2 (PCR) (Negative) SARS-CoV-2 RNA (MARIELA) 10/12/22 10/12/22 Range/Units 11:35 11:35 WBC (4.8-10.8) K/ul RBC (4.70-6.10) M/uL Hgb (14.0-18.0) g/dl Hct (42.0-52.0) % MCV (80.0-100.0) fL MCH (25.0-34.0) pg MCHC (32.0-36.0) g/dL RDW Std Deviation (36.4-46.3) fL RDW Coeff of [place] (11.5-14.5) % Plt Count (130-400) K/uL MPV (9.4-12.4) fL Immature Gran % (Auto) % Neut % (Auto) % Lymph % (Auto) % [place] % (Auto) % Eos % (Auto) % Baso % (Auto) % Neut # (Auto) (1.40-6.50) K/uL Lymph # (Auto) (1.2-3.4) K/uL [place] # (Auto) (0.11-0.59) K/uL Eos # (Auto) (0-0.50) K/uL Baso # (Auto) (0-0.2) K/uL Immature Gran # (Auto) (0.01-0.20) K/uL PT (9.0-12.0) Seconds INR (0.9-1.1) APTT (21.0-31.0) Seconds PTT Ratio Sodium (136-145) mmol/L Potassium (3.5-5.1) mmol/L Chloride (98-107) mmol/L Carbon Dioxide (21-32) mmol/L Anion Gap (3-11) BUN (6-23) mg/dl Creatinine (0.6-1.4) mg/dl Est Cr Clr Drug Dosing ml/min Est GFR ( Amer) ml/min Est GFR (Non-Af Amer) ml/min BUN/Creatinine Ratio (10-20) Glucose (70-99(Fasting)) mg/dl Calcium (8.6-10.3) mg/dl Total Bilirubin (0.2-1.0) mg/dl AST (13-39) U/L ALT (7-52) U/L Alkaline Phosphatase (34-104) U/L Troponin I High Sens (0-20) pg/ml Total Protein (6.0-8.3) gm/dl Albumin (3.4-5.0) gm/dl Globulin (2.5-4.0) gm/dl Albumin/Globulin Ratio (0.9-2) SARS-CoV-2 (PCR) NEGATIVE (Negative) SARS-CoV-2 RNA (MARIELA) Cancelled Imaging Data Attestation: I personally reviewed and interpreted this imaging study as follows: My Impression: Chest x-ray negative. Airway clear. No pneumothorax. No consolidation. No cardiomegaly or cephalization.. No free air under the diaphragm. No fractures of the skeletal structures. Pacemaker is present with no apparent fracture of the leads Radiologist's Impression: Chest X-Ray 10/12/22 10:15 SINGLE VIEW CHEST CLINICAL HISTORY: Atypical chest pain FINDINGS: An AP, portable, upright chest radiograph is compared to study dated 06/12/2022 and correlated with chest CT dated 06/07/2022. A 2-lead cardiac pacemaker is unchanged in position and partially obscures the left mid chest. The heart is mildly enlarged noting atherosclerotic calcification of the thoracic aorta. The pulmonary vasculature is noncongested. Mild emphysema and chronic interstitial thickening is similar to previous. There is bibasilar scarring/atelectasis. No airspace consolidation or large pleural effusion is identified. No pneumothorax is seen. The skeletal structures are osteopenic. The bony thorax is grossly intact. IMPRESSION: 1. Cardiomegaly and cardiac pacemaker without radiographic evidence of congestive failure. 2. Emphysema. 3. No airspace consolidation or large pleural effusion is identified. ACT 112: Negative or not required by law. Electronically signed by: Elia Rebollar M.D. 10/12/2022 11:[address] 10/12/22 11:14 CT head/brain wo con CLINICAL HISTORY: 82 years-old Male with syncope. Acute syncope TECHNIQUE: Multiple axial CT images of the head were obtained without contrast. A dose lowering technique was utilized adhering to the principles of ALARA. CT DOSE: 547.75 mGy.cm COMPARISON: 11/10/2021 FINDINGS: No acute intracranial hemorrhage, midline shift, intracranial mass, hydrocephalus, territorial ischemia or abnormal extra-axial collection. Involutional changes with chronic microvascular ischemic disease. Chronic left caudate nuclear lacunar infarct. Cerebral vascular calcifications. The calvarium is intact. Bilateral lens repair. The paranasal sinuses, mastoid air cells, and middle ear cavities are clear. IMPRESSION: No acute intracranial abnormality. ACT 112: Negative or not required by law. The above report was generated using voice recognition software. It may contain grammatical, syntax or spelling errors. Electronically signed by: Joe Cortez M.D. 10/12/2022 12:14 PM ECG Data Attestation: I personally reviewed and interpreted this ECG as follows: Additional Comments: Intermittently paced rhythm with an underlying atrial flutter. Ventricular rate 74. MI 136 QRS [address] elevation or ST depression. [facility] Narrative 1104: The patient was evaluated in room B6. A complete history and physical exam was performed Cardiac monitoring: An order was placed for continuous cardiac monitoring. The monitor shows a rate of 80 with paced rhythm interpreted by fl 1132: [id number] bedside ultrasound shows a trace pericardial effusion with no pericardial tamponade. 1231: Vital signs stable. Labs and imaging within normal limits. Discussed with Dr. Giovanni Howell on-call cardiology who states that the EKG appears appropriate from 1001 but given the patient's recurrent episodes of syncope he does agree that the patient should be admitted to the hospitalist team and cardiology can be on consult. Dr. Amita Rowley hospitalist team will be made aware. 1241: Spoke with [employer] claims service representative who states that the patient has had SVT runs less than 30 seconds multiple today. He states that the patient usually only ventricularly paced 24% time and usually only atrial paces 50% of the time. He states the device is working okay on his own. Given this I think it is important to rule out noncardiac causes of his syncope also. Discussed case with Dr. Levi and his team and they will evaluate the patient for admission. Impression & Plan Syncope and collapse Discharge Plan Visit Data Chief Complaint: Syncope Stated Complaint: SYNCOPE AFTER HAVING PACEMAKER INSERTED ED Provider: Eldon Lyon Discharge Problem: Syncope and collapse Patient Disposition: Admitted As Inpatient Forms Stand Alone Forms: My [facility] Prescriptions Prescriptions: No Action buspirone 5 mg tablet 5 mg PO TID PRN (Reason: anxiety) Qty: 90 3RF amiodarone 200 mg tablet 200 mg PO DAILY Qty: 90 3RF cholecalciferol (vitamin D3) 1,000 unit capsule 1,000 units PO QAM cyanocobalamin (vitamin B-12) 1,000 mcg tablet 1,000 mcg PO QAM Qty: 30 psyllium husk 3.4 gram/5.4 gram powder 2 tbs PO QAM Eliquis 5 mg tablet 5 mg PO BID Qty: 180 3RF Rx Instructions: restart on Wednesday ramelteon [Rozerem] 8 mg tablet 8 mg PO ONCE Qty: 30 0RF duloxetine 30 mg capsule,delayed release(DR/EC) 30 mg PO DAILY Qty: 30 2RF potassium gluconate 595 mg (99 mg) Tablet 595 mg PO QAM omeprazole 20 mg capsule,delayed release(DR/EC) 20 mg PO BID Qty: 90 3RF calcium carbonate [Calcium 600] 600 mg calcium (1,500 mg) Tablet 600 mg PO DAILY Mag 64 64 mg Tablet,Delayed Release (Dr/Ec) 64 mg PO BID Qty: 60 0RF Referrals Referrals: ProCarmelo MD [Primary Care Provider] -
--- NOTE | 2022-10-12 12:15 | CT Scan Report ---
CT head/brain wo con CLINICAL HISTORY: 82 years-old Male with syncope. Acute syncope TECHNIQUE: Multiple axial CT images of the head were obtained without contrast. A dose lowering tech nique was utilized adhering to the principles of ALARA. CT DOSE: 547.75 mGy.cm COMPARISON: 11/10/2021 FINDINGS: No acute intracranial hemorrhage, midline shift, intracranial mass, hydrocephalus, territorial ischem ia or abnormal extra-axial collection. Involutional changes with chronic microvascular ischemic disea se. Chronic left caudate nuclear lacunar infarct. Cerebral vascular calcifications. The calvarium is intact. Bilateral lens repair. The paranasal sinuses, mastoid air cells, and middle ear cavities are clear. IMPRESSION: No acute intracranial abnormality. ACT 112: Negative or not required by law. The above report was generated using voice recognition software. It may contain grammatical, syntax o r spelling errors. Electronically signed by: Joe Cortez M.D. 10/12/2022 12:14 PM
--- NOTE | 2022-10-12 12:29 | Electrocardiogram Report ---
Test Reason : Blood Pressure : / mmHG Vent. Rate : 074 BPM Atrial Rate : 074 BPM P-R Int : 136 ms QRS Dur : 108 ms QT Int : 412 ms P-R-T Axes : 019 -48 024 degrees QTc Int : 457 ms Sinus rhythm with frequent AV dual-paced complexes Low voltage QRS Incomplete right bundle branch block Nonspecific ST and T wave abnormality Abnormal ECG When compared with ECG of 09-JUN-2022 06:10, Electronic ventricular pacemaker has replaced Sinus rhythm Confirmed by Nico Barnett ([id number]) on 10/12/2022 12:28:47 PM Referred By: Confirmed By:Nico Barnett
--- NOTE | 2022-10-12 12:44 | History & Physical Report ---
Date of Service October 12, 2022 Assessment & Plan (1) Syncope and collapse: Plan: -Admit to med/tele -Currently stable and asymptomatic at rest -Patient reports multiple episodes of near syncope and complete syncope over the past 3-4 weeks -Episodes of near syncope occur with position changes while complete syncope is associated with activity while standing -No postictal state or other signs of possible seizure, no focal neuro defects on exam -CT of the head is negative for acute findings today -ED staff spoke with Cardiology who recommended admission for further evaluation, Cardiology consult placed -Will obtain Limited TTE as recommended by Cardiology -If cardiology workup is negative for his pre-syncopal/syncopal episodes then would obtain imaging of his neck for possible causes -BL Carotid dopplers? -Will give 1L LR on admission as the patient may be dehydrated, exacerbating his symptoms -Fall precautions ordered, patient instructed to change positions slowly and wait for assistance from nursing staff to stand -Will ordered daily am orthostatic vitals starting tomorrow -Continue home Eliquis for DVT PPX -DMII and HH diet -AM CBC, BMP, mag, PT/INR (2) Pacemaker: Plan: -Interrogated in the ED -Follow Cardiology Consult (3) Neck pain: Plan: -Patient has been experiencing generalized cervical neck pain over the past 2-3 weeks -Has full ROM without significant pain and no significant pain on palpation -Neck pain has not been consistent with pre-syncopal or syncopal episodes per the patient -Would obtain imaging if his pain progresses/changes and/or his cardiac workup for syncope is negative -Tylenol and lidcoaine patch for now (4) Hypertension: Plan: -Stable -Conitnue to monitor (5) DM II (diabetes mellitus, type II), controlled: Plan: -Diet controlled -Last A1c was 6.1 on 09/16/22 -For now will monitor BSG ACHS, goal is 110-160 -DMII and HH diet for now -Continue to monitor (6) Paroxysmal A-fib: Plan: -Stable -Continue Eliquis -Continue amiodarone unless instructed otherwise by Cardiology Plan The patient was discussed with Dr. 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 Vitals remained stable in the ED. Labs including CBC, CMP, and high sen trop were unremarkable. CT of the head wo con was read as "No acute intracranial abnormality.". Chest xray was read as "1. Cardiomegaly and cardiac pacemaker without radiographic evidence of congestive failure. 2. Emphysema. 3. No airspace consolidation or large pleural effusion is identified.". The patient was given no medications/treatment prior to admission. At the time of the exam the patient was sitting in bed in no acute distress. He states that since his pacemaker placement and subsequent hospitalization for pericardial effusion he has been experiencing recurrent episodes of near syncope and complete syncope. He states that he will experience lightheadedness/dizziness and shaking when he changes positions quickly. During these episodes he does not lose consciousness and is not confused, they will resolve with rest. Over the past 2 weeks he has experienced approximately 4 episodes of complete syncope. These occur with exertion and/or while standing and being active. He denies sensing these episodes starting/sveta symptoms. He states he will suddenly lose consciousness and collapse. Upon waking he regains consciousness within 1-2 seconds and does not appear to have postictal symptoms. He denies losing control of his bowels or bladder as well. His last episode of complete syncope occurred this am. He woke in his normal state of health and took his am medications. He was standing in his kitchen after washing dishes and began to walk out of the kitchen when he suddenly lost consciousness. He quickly woke after the episode and denies hitting his head. Of note, he does complain of some cervical neck pain over the past few weeks. The pain is exacerbated with movement and does not appear to be associated with his syncopal/near syncopal episodes. He recently started new prescriptions for Cymbalta and Ramelteon, both filled on 09/30 for anxiety and sleep. He only took 2 doses of the Ramelteon then stopped as he was concerned this was causing his symptoms, he is still taking the Cymbalta daily. 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 He mowed 3 yards specifically yesterday. When asked, he states he does not drink water frequently, he does drink large amounts of iced tea. He discussed code status, he wishes to be a full code and for his Nephew, Antonio Robertson, to make medical decisions for him if he could not make them himself. Please refer to Dr. Levi's attestation for any changes to the treatment plan Allergies Allergy/AdvReac Type Severity Reaction Status Date / Time No Known Allergies Allergy Verified 09/30/22 10:10 Home Medications Medication Instructions Recorded Confirmed Type cholecalciferol (vitamin D3) 25 1,000 units PO QAM 10/06/18 10/12/22 History mcg (1,000 unit) capsule cyanocobalamin (vitamin B-12) 1,000 mcg PO QAM #30 tabs 10/06/18 10/12/22 History 1,000 mcg tablet psyllium husk 3.4 gram/5.4 gram 2 tbs PO QAM 10/06/18 10/12/22 History oral powder potassium gluconate 595 mg (99 mg) 595 mg PO QAM 11/14/19 10/12/22 History tablet calcium carbonate 600 mg calcium 600 mg PO DAILY 05/25/22 10/12/22 History (1,500 mg) tablet (Calcium) magnesium chloride 64 mg 64 mg PO BID #60 tabs 05/27/22 10/12/22 Rx (magnesium chloride) tablet,delayed release (Mag 64) omeprazole 20 mg capsule,delayed 20 mg PO BID #90 caps 06/10/22 10/12/22 Rx release apixaban 5 mg tablet (Eliquis) 5 mg PO BID #180 tabs 07/03/22 10/12/22 Rx amiodarone 200 mg tablet 200 mg PO DAILY #90 tabs 09/04/22 10/12/22 Rx duloxetine 30 mg capsule,delayed 30 mg PO DAILY #30 caps 09/30/22 10/12/22 Rx release fludrocortisone 0.1 mg tablet 0.1 mg PO QAM 30 days #30 tabs 10/16/22 Rx sodium chloride 1,000 mg soluble 1,000 mg PO BID 30 days #60 tabs 10/16/22 Rx tablet Past Med/Surg History Medical History Acute diverticulitis (08/08/13) hx Chronic back pain Diverticulosis of colon Hepatic steatosis Hiatal hernia History of esophageal dilatation Hypercholesterolemia hx of / pt not sure currently Hypokalemia Hypomagnesemia Left leg DVT pt unsure of details. Osteoarthritis Osteopenia Pacemaker Pericardial effusion Schatzki's ring Sleep trouble Small bowel obstruction (2015) Type 2 diabetes mellitus no medications currently. monitoring with PCP. Surgical History History of colostomy History of colostomy reversal History of esophagogastroduodenoscopy (EGD) Hx of appendectomy Hx of colectomy Hx of colonoscopy Hx of inguinal hernia repair Hx of tonsillectomy Family History Family/Other Aorta aneurysm Perceptive hearing loss or deafness Mother Alcoholism /alcohol abuse Lung cancer Lung disease Father Alcoholism /alcohol abuse Lung disease Brother Primary hemochromatosis Denies family history of Colon cancer Ovarian cancer Prostate cancer Myocardial infarction Breast cancer Colorectal cancer Hypertension Stroke Asthma Social History Smoking Status: Never smoker Second Hand Exposure: No; Do You Dip or Chew Tobacco: No; Hx Alcohol Use: No Hx Substance Use: No Preferred Language: Albanian Communication Ability: Effective Visual Impairment: No Limitations 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: Normal 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 Beliefs That Will Affect Care: None marital status: Single Current Living Situation: Alone Current Living Situation Comment: House current occupational status: retired current occupation: [employer] Feels Safe at Home: Yes Dental Care, Regularly: No Physical Activity Frequency: 1-2 Times per Week Seatbelt Use: always Assistive Devices: None Physical Exam Physical Exam: Physical Exam: General: In no acute distress, stated age, well-nourished, non-toxic appearing HEENT: Normocephalic, atraumatic, no scleral icterus, pupils around round, symmetrical, and reactive to light, moist mucus membranes, trachea midline, no thyromegaly Chest/Pulm: Pacemaker located in the left upper chest without signs of infection, No respiratory distress, symmetrical chest expansion, clear breath sounds throughout Cardiac: RRR, no murmurs noted Abdomen: Negative for ascites and bruising, normoactive bowel sounds, soft, non-tender to palpation throughout Musculoskeletal: Patient without significant tenderness to palpation of the cervical spine or paraspinal muscles, able to flex chin to chest and turn head laterally without significant pain or neurologic symptoms, Symmetrical and wi thout signs of acute trauma, upper and lower extremities with full ROM, no atrophy, spasticity, or flaccidity Extremities: Radial, dorsalis pedis, and posterior tibial pulses are intact and symmetrical, no edema noted in the BL LE's Skin: Warm, dry, no rashes , lesions, or scars noted Neuro: Alert and oriented to person, place, month, year, and president, no focal defects, no tremors noted Psych: No acute distress, calm and cooperative during the exam Results & Data Results & Data Vital Signs (Past 12 Hours) Vital Signs Temp Pulse Resp BP Pulse Ox O2 Del Method 10/12/22 12:10 80 15 10/12/22 12:00 63 16 99 10/12/22 12:00 149/101 H 10/12/22 11:53 78 17 98 10/12/22 11:40 80 19 10/12/22 11:30 80 13 10/12/22 11:30 152/81 H 10/12/22 11:20 80 18 10/12/22 11:10 14 10/12/22 11:00 80 18 98 10/12/22 11:00 121/65 10/12/22 10:50 80 17 10/12/22 10:40 63 16 10/12/22 10:30 65 14 10/12/22 10:30 143/73 H 10/12/22 10:23 67 10/12/22 10:20 67 16 10/12/22 10:10 69 14 155/90 H 98 10/12/22 09:53 36.8 C 104 H 18 167/118 H 99 Room Air Laboratory Results Abnormal lab results 10/12/22 10/12/22 Range/Units 10:10 10:10 RBC 3.75 L (4.70-6.10) M/uL Hgb 12.6 L (14.0-18.0) g/dl Hct 37.3 L (42.0-52.0) % RDW Std Deviation 50.8 H (36.4-46.3) fL MPV 9.3 L (9.4-12.4) fL Sodium 134 L (136-145) mmol/L Glucose 234 H (70-99(Fasting)) mg/dl Diagnostic Findings Chest X-Ray 10/12/22 10:15 SINGLE VIEW CHEST CLINICAL HISTORY: Atypical chest pain FINDINGS: An AP, portable, upright chest radiograph is compared to study dated 06/12/2022 and correlated with chest CT dated 06/07/2022. A 2-lead cardiac pacemaker is unchanged in position and partially obscures the left mid chest. The heart is mildly enlarged noting atherosclerotic calcification of the thoracic aorta. The pulmonary vasculature is noncongested. Mild emphysema and chronic interstitial thickening is similar to previous. There is bibasilar scarring/atelectasis. No airspace consolidation or large pleural effusion is identified. No pneumothorax is seen. The skeletal structures are osteopenic. The bony thorax is grossly intact. IMPRESSION: 1. Cardiomegaly and cardiac pacemaker without radiographic evidence of congestive failure. 2. Emphysema. 3. No airspace consolidation or large pleural effusion is identified. ACT 112: Negative or not required by law. Electronically signed by: Elia Rebollar M.D. 10/12/2022 11:[address] 10/12/22 11:14 CT head/brain wo con CLINICAL HISTORY: 82 years-old Male with syncope. Acute syncope TECHNIQUE: Multiple axial CT images of the head were obtained without contrast. A dose lowering technique was utilized adhering to the principles of ALARA. CT DOSE: 547.75 mGy.cm COMPARISON: 11/10/2021 FINDINGS: No acute intracranial hemorrhage, midline shift, intracranial mass, hydrocephalus, territorial ischemia or abnormal extra-axial collection. Involutional changes with chronic microvascular ischemic disease. Chronic left caudate nuclear lacunar infarct. Cerebral vascular calcifications. The calvarium is intact. Bilateral lens repair. The paranasal sinuses, mastoid air cells, and middle ear cavities are clear. IMPRESSION: No acute intracranial abnormality. ACT 112: Negative or not required by law. The above report was generated using voice recognition software. It may contain grammatical, syntax or spelling errors. Electronically signed by: Joe Cortez M.D. 10/12/2022 12:14 PM ECG Additional Comments: Sinus rhythm with frequent AV dual-paced complexes Low voltage QRS Incomplete right bundle branch block Nonspecific ST and T wave abnormality Abnormal ECG When compared with ECG of 09-JUN-2022 06:10, Electronic ventricular pacemaker has replaced Sinus rhythm Confirmed by Nico Barnett ([id number]) on 10/12/2022 12:28:47 PM Code Status & VTE Plan Code Status Full code VTE Prophylaxis Plan VTE Prophylaxis will be ordered: Yes Supervising Physician Co-Signing Physician Notes I personally saw and examined the patient. I verified all rojas points and agree with Tex Hansen PA-C with the following exceptions and/or additions: 82 year old male presents to the ER with syncopal episode,no preceding dizziness. Occurs while exerting himself. O/E A&Ox3, HS RRR, no murmurs, Chest CTAB, Abdo SNT A/P Syncope - sudden onset concerning for cardiac arrhythmia. Will get cardiology consult and pacemaker interrogation prior to further workup PG Care Time/CCT Total # of Minutes Spent Total Time Spent with Patient: Total time spent is greater than 50% in coordination of care (as documented) at patient's floor/unit and/or counseling patient: C[place] [address] INT INP/OBS CARE 3/75MIN Patient Type Established Medical Decision Making High Complexity Diagnoses Syncope and collapse R55 Pacemaker Z95.0 Neck pain M54.2 Hypertension I10 DM II (diabetes mellitus, type II), controlled E11.9 Paroxysmal A-fib I48.0
[2022-10-12 13:19] LABS: Magnesium 2.1 mg/dl (1.7-2.4)
[2022-10-12] MEDS ORDERED: LACTATED RINGER'S 1,000 ML IV ONE (13:27)
[2022-10-12] MEDS ORDERED: LIDOCAINE 5% 1 PATCH TD STA (13:34)
[2022-10-12] MEDS ORDERED: CARBOHYDRATES FOR HYPOGLYCEMIA PO PRN (13:42)
[2022-10-12] MEDS ORDERED: GLUCOSE 10 TAB/TUBE PO PRN (13:42)
[2022-10-12] MEDS ORDERED: GLUCAGON FOR INJ 1 MG VIAL SQ PRN (13:42)
[2022-10-12] MEDS ORDERED: DEXTROSE 50% 50 ML SYRINGE IV PRN (13:42)
[2022-10-12] MEDS ORDERED: GLUCOSE 40% GEL 15 GM TUBE PO PRN (13:42)
[2022-10-12] MEDS ORDERED: ACETAMINOPHEN 325 MG TAB PO PRN (15:34)
--- NOTE | 2022-10-12 16:03 | XCELERA ---
[id number] \\[id number]
[2022-10-12] MEDS: PANTOprazole 40 MG TAB PO SCH (20:28)
[2022-10-12] MEDS: APIXABAN 5 MG TABLET PO SCH (20:29)
[2022-10-12] MEDS: MAGNESIUM CHLORIDE W/CALCIUM 64MG DELAYED REL TAB PO SCH (20:29)
[2022-10-13 08:07] LABS: Basophils # (auto) 0.03 K/uL (0-0.2); Basophils % (auto) 0.6 %; Eosinophils # (auto) 0.07 K/uL (0-0.50); Eosinophils % (auto) 1.5 %; Hematocrit (blood only) 34.6 % (42.0-52.0); Hemoglobin 11.6 g/dl (14.0-18.0); Immature Granulocytes # (auto) 0.03 K/uL (0.01-0.20); Immature Granulocytes % (auto) 0.6 %; Lymphocytes # (auto) 1.55 K/uL (1.2-3.4); Lymphocytes % (auto) 33.5 %; Mean Corpuscular Hemoglobin 33.5 pg (25.0-34.0); Mean Corpuscular Hgb Conc 33.5 g/dL (32.0-36.0); Mean Platelet Volume 9.2 fL (9.4-12.4); Monocytes # (auto) 0.36 K/uL (0.11-0.59); Monocytes % (auto) 7.8 %; Neutrophils # (auto) 2.59 K/uL (1.40-6.50); Platelet Count 171 K/uL (130-400); RDW Coefficient of Variation 13.6 % (11.5-14.5); RDW Standard Deviation 50.1 fL (36.4-46.3); Red Blood Count 3.46 M/uL (4.70-6.10); White Blood Count 4.63 K/ul (4.8-10.8)
[2022-10-13 08:16] LABS: Prothrombin Time 11.2 Seconds (9.0-12.0)
[2022-10-13] MEDS: MAGNESIUM CHLORIDE W/CALCIUM 64MG DELAYED REL TAB PO SCH ×2 (08:17→20:25)
[2022-10-13] MEDS: LIDOCAINE 5% 1 PATCH TD SCH (08:18)
[2022-10-13] MEDS: AMIODARONE 200 MG TAB PO SCH (08:18)
[2022-10-13] MEDS: PANTOprazole 40 MG TAB PO SCH ×2 (08:18→20:25)
[2022-10-13] MEDS: APIXABAN 5 MG TABLET PO SCH ×2 (08:18→20:25)
[2022-10-13 08:29] LABS: Creatinine Clr Calc Pharmacy 60.5 ml/min; Est GFR (African American) 91.9 ml/min; Est GFR (Non-African American) 79.3 ml/min
[2022-10-13 08:30] LABS: BUN Creatinine Ratio 18.7 (10-20); Calcium 8.6 mg/dl (8.6-10.3); Magnesium 2.1 mg/dl (1.7-2.4); Potassium 4.5 mmol/L (3.5-5.1)
[2022-10-13] MEDS ORDERED: NON-FORMULARY MEDICATION (Potassium Gluconate 595 mg (99 mg) Tablet) PO SCH (09:00)
[2022-10-13] MEDS: SODIUM CHLORIDE 0.9% 500 ML IV SCH ×2 (09:01→15:36)
[2022-10-13] MEDS: SODIUM CHLORIDE 0.9% 1,000 ML IV SCH (15:00)
--- NOTE | 2022-10-13 16:14 | Cardiology Consultation ---
Date of Consultation October 13, 2022 Assessment & Plan (1) Syncope and collapse: Patient has a longstanding history of intermittently recurring presyncope and syncope. In May 2022, an event was witnessed in the ER and was related to a conversion pause (when spontaneously reverting from atrial fibrillation to sinus) prompted pacemaker placement at that time. He did well for quite some time, but has had multiple episodes very recently which are more consistent with orthostatic hypotension induced syncope than rhythm related. Pacemaker interrogation does not show any tachydysrhythmias to suggest atrial fibrillation and there was no pacemaker dysfunction which would allow for bradycardia dysrhythmias. (2) Orthostatic hypotension: He is not on any vasopressor medications but does take amiodarone for rhythm control. Pacemaker was adjusted to allow for more vigorous rate response to activity, but this would not help if he has orthostasis upon simple standing. Recommended liberalizing his salt/sodium intake, in the absence of marked hypertension would even consider sodium chloride 1 g daily or twice daily if he remains orthostatic prior to discharge. He did receive a liter of intravenous saline, so his near term orthostasis may be corrected. (3) History of permanent cardiac pacemaker placement: Pacemaker interrogation showed atrial oversensing as an incidental finding, this may have caused his dysphoric sensation during activity but would not be a plausible reason for syncope. Sensing parameters corrected and rate response adjusted. (4) Paroxysmal atrial fibrillation: Continue amiodarone for rhythm control and apixaban for antithrombotic prophylaxis. Plan Patient should follow-up with me in 2-4 weeks for office visit and with Dr. Irene for pacemaker re-check in 2-3 months. History of Present Illness Reason for Consultation: recurrent syncope, S/P pacemaker placement Requesting Physician: Berry Lambert MD Attending Physician: Berry Lambert MD History of Present Illness 82-year-old man with paroxysmal atrial fibrillation (amiodarone/apixaban) and conversion pauses, ultimately underwent dual-chamber pacemaker placement with subsequent pericardial effusion/pericardiocentesis, who was admitted 10/12/2022 after 4 episodes of syncope. He had a single episode of presyncope about a year ago, no symptoms until May 2022 when he had recurrent presyncope felt secondary to conversion pauses when he would convert from atrial fibrillation to sinus rhythm ultimately resulting in pacemaker placement. At an office visit August 2022 he had been doing well with no presyncope or syncope. However, over the past week he had 4 episodes of complete syncope, all occurred while standing or with activity. He notes a b rief prodrome and then loses consciousness and collapses, but he denies any traumatic injury. Separate from the syncopal episodes, he notes feeling "jitteriness" when he walks to the mailbox. He denies any anginal type chest pain, subjective palpitations, orthopnea, PND, or leg edema. 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 Of note, his nurse today stated that his systolic blood pressure dropped from 150 mmHg to 70 mmHg upon standing and he became shaky. Telemetry overnight showed intermittent electronic atrial and/or ventricular pacing, no dysrhythmias. At the time of my evaluation this morning, he was comfortable and had no somatic complaints. Allergies Allergy/AdvReac Type Severity Reaction Status Date / Time No Known Allergies Allergy Verified 09/30/22 10:10 Home Medications Medication Instructions Recorded Confirmed Type cholecalciferol (vitamin D3) 25 1,000 units PO QAM 10/06/18 10/12/22 History mcg (1,000 unit) capsule cyanocobalamin (vitamin B-12) 1,000 mcg PO QAM #30 tabs 10/06/18 10/12/22 History 1,000 mcg tablet psyllium husk 3.4 gram/5.4 gram 2 tbs PO QAM 10/06/18 10/12/22 History oral powder potassium gluconate 595 mg (99 mg) 595 mg PO QAM 11/14/19 10/12/22 History tablet calcium carbonate 600 mg calcium 600 mg PO DAILY 05/25/22 10/12/22 History (1,500 mg) tablet (Calcium) magnesium chloride 64 mg 64 mg PO BID #60 tabs 05/27/22 10/12/22 Rx (magnesium chloride) tablet,delayed release (Mag 64) omeprazole 20 mg capsule,delayed 20 mg PO BID #90 caps 06/10/22 10/12/22 Rx release apixaban 5 mg tablet (Eliquis) 5 mg PO BID #180 tabs 07/03/22 10/12/22 Rx amiodarone 200 mg tablet 200 mg PO DAILY #90 tabs 09/04/22 10/12/22 Rx duloxetine 30 mg capsule,delayed 30 mg PO DAILY #30 caps 09/30/22 10/12/22 Rx release Patient History Medical History Acute diverticulitis (08/08/13) hx Chronic back pain Diverticulosis of colon Hepatic steatosis Hiatal hernia History of esophageal dilatation Hypercholesterolemia hx of / pt not sure currently Hypokalemia Hypomagnesemia Left leg DVT pt unsure of details. Osteoarthritis Osteopenia Pacemaker Pericardial effusion Schatzki's ring Sleep trouble Small bowel obstruction (2014) Type 2 diabetes mellitus no medications currently. monitoring with PCP. Surgical History History of colostomy History of colostomy reversal History of esophagogastroduodenoscopy (EGD) Hx of appendectomy Hx of colectomy Hx of colonoscopy Hx of inguinal hernia repair Hx of tonsillectomy Family History Family/Other Aorta aneurysm Perceptive hearing loss or deafness Mother Alcoholism /alcohol abuse Lung cancer Lung disease Father Alcoholism /alcohol abuse Lung disease Brother Primary hemochromatosis Denies family history of Colon cancer Ovarian cancer Prostate cancer Myocardial infarction Breast cancer Colorectal cancer Hypertension Stroke Asthma Social History Smoking Status: Never smoker Second Hand Exposure: No; Do You Dip or Chew Tobacco: No; Hx Alcohol Use: No Hx Substance Use: No Preferred Language: Lao Communication Ability: Effective Visual Impairment: No Limitations 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: Normal 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 Weight stable recently. BP 149/78 mmHg. as per HPI, patient had marked orthostasis upon standing. Pulse 68 bpm and regular. Skin: no ecchymoses or generalized lesions. HEENT: unremarkable. Neck: no JVD or carotid bruits. Lungs: clear. Chest: Healed left infraclavicular pacemaker incision, no erythema or drainage. Cardiac: regular rhythm, normal S1-S2, no murmur or gallop. Abdomen: benign. Extremities: no edema, pulses intact. Neurologic: normal affect and conversation, nonfocal. Results & Data Vital Signs (Past 12 Hours) Vital Signs Temp Pulse Resp BP Pulse Ox O2 Del Method 10/13/22 11:13 97.7 F 79 18 136/77 97 Room Air 10/13/22 07:39 97.7 F 58 L 18 151/70 H 98 Room Air Laboratory Results Troponin negative. Normal electrolytes, BUN 17, creatinine 0.91. Diagnostic Findings Admission ECG showed AV sequential pacing as well as intermittent sinus rhythm without pacing, and atrial sensing ventricular pacing. Chest x-ray showed cardiomegaly with pacemaker but no CHF, there was evidence of emphysema. Echocardiogram yesterday showed normal systolic function, septal motion consistent with IVCD, no significant valve disease, no pericardial effusion. PG Care Time/CCT Total # of Minutes Spent Total Time Spent with Patient: Total time spent is greater than 50% in coordination of care (as documented) at patient's floor/unit and/or counseling patient: Coding Level of Care Code 39173 INT INP/OBS CARE 3/75MIN Diagnoses Syncope and collapse R55 Orthostatic hypotension I95.1 History of permanent cardiac pacemaker placement Z95.0 Paroxysmal atrial fibrillation I48.0
--- NOTE | 2022-10-13 16:36 | Hospitalist Progress Note ---
Date of Service October 13, 2022 Assessment & Plan (1) Syncope and collapse: Plan: Patient is orthostatic Patient admits to not drinking water as much. He says that he drinks tea all day and works in the yard. He may be clinically dehydrated for which I will hydrate him gently I will recheck his orthostatic vital signs and if he still remains orthostatic, I will consider giving him salt tablets Liberalize his diet to remove heart healthy Echocardiogram unremarkable Cardiology on board Pacemaker interrogated, no tacky arrhythmias found that would be responsible for his syncope -Fall precautions ordered, patient instructed to change positions slowly and wait for assistance from nursing staff to stand Continue daily orthostatic vital sign checks -Continue home Eliquis for DVT PPX -AM CBC, BMP, mag, PT/INR (2) Pacemaker: Plan: -Interrogated in the ED -Appreciate cardiology input (3) Neck pain: Plan: -Patient has been experiencing generalized cervical neck pain over the past 2-3 weeks -Has full ROM without significant pain and no significant pain on palpation -Neck pain has not been consistent with pre-syncopal or syncopal episodes per the patient -Tylenol and lidcoaine patch for now (4) Hypertension: Plan: -Stable -Conitnue to monitor (5) DM II (diabetes mellitus, type II), controlled: Plan: -Diet controlled -Last A1c was 6.1 on 09/16/22 -For now will monitor BSG ACHS, goal is 110-160 -DMII and HH diet for now -Continue to monitor (6) Paroxysmal A-fib: Plan: -Stable -Continue Eliquis -Continue amiodarone Plan DVT prophylaxis: Eliquis Full code Admission and Anticipated Discharge Date Admission Date: October 12, 2022 Subjective Patient had positive orthostatic vital signs today. He did not feel dizzy or lightheaded when he was tested. He says that over the past 2 weeks he has had positional dizziness. He has also had episodes when he passed out without any warning signs. He says that he only drinks tea all day. Does not drink much water at all. He has been working outdoors, mowing lawns in the heat. Review of Systems Review of Systems: All systems reviewed & are unremarkable except as noted in Subjective Physical Exam Physical Exam: General: Awake, conversant Heart: S1, S2/regular rate and rhythm, no murmur rubs or gallops Lungs: Clear to auscultation bilaterally. Normal effort Abdomen: Soft/nontender/nondistended. No hepatosplenomegaly Extremities: No clubbing/cyanosis. No edema Behavior: Appropriate, cooperative Results & Data Results & Data Vital Signs (Past 12 Hours) Vital Signs Temp Pulse Resp BP Pulse Ox O2 Del Method 10/13/22 15:10 36.6 C 68 16 149/78 H 96 Room Air 10/13/22 11:13 36.5 C 79 18 136/77 97 Room Air 10/13/22 07:39 36.5 C 58 L 18 151/70 H 98 Room Air PG Care Time/CCT Total # of Minutes Spent Total Time Spent with Patient: Total time spent is greater than 50% in coordination of care (as documented) at patient's floor/unit and/or counseling patient: Coding Level of Care Code 38721 SUB INP/OBS CARE 2/35MIN Diagnoses Syncope and collapse R55 Pacemaker Z95.0 Neck pain M54.2 Hypertension I10 DM II (diabetes mellitus, type II), controlled E11.9 Paroxysmal A-fib I48.0 Time Spent (min) 35
[2022-10-14] MEDS: SODIUM CHLORIDE 0.9% 1,000 ML IV SCH ×2 (01:17→12:10)
[2022-10-14 07:54] LABS: Basophils # (auto) 0.02 K/uL (0-0.2); Basophils % (auto) 0.5 %; Eosinophils # (auto) 0.06 K/uL (0-0.50); Eosinophils % (auto) 1.5 %; Hematocrit (blood only) 31.7 % (42.0-52.0); Hemoglobin 10.6 g/dl (14.0-18.0); Immature Granulocytes # (auto) 0.02 K/uL (0.01-0.20); Immature Granulocytes % (auto) 0.5 %; Lymphocytes # (auto) 1.35 K/uL (1.2-3.4); Lymphocytes % (auto) 34.2 %; Mean Corpuscular Hemoglobin 33.7 pg (25.0-34.0); Mean Corpuscular Hgb Conc 33.4 g/dL (32.0-36.0); Mean Corpuscular Volume 100.6 fL (80.0-100.0); Mean Platelet Volume 9.2 fL (9.4-12.4); Monocytes # (auto) 0.29 K/uL (0.11-0.59); Monocytes % (auto) 7.3 %; Neutrophils # (auto) 2.21 K/uL (1.40-6.50); Platelet Count 159 K/uL (130-400); RDW Coefficient of Variation 13.7 % (11.5-14.5); RDW Standard Deviation 50.7 fL (36.4-46.3); Red Blood Count 3.15 M/uL (4.70-6.10); White Blood Count 3.95 K/ul (4.8-10.8)
[2022-10-14 08:14] LABS: BUN Creatinine Ratio 14.9 (10-20); Calcium 8.2 mg/dl (8.6-10.3); Creatinine Clr Calc Pharmacy 63.3 ml/min; Est GFR (African American) 94.5 ml/min; Est GFR (Non-African American) 81.5 ml/min; Potassium 4.1 mmol/L (3.5-5.1)
[2022-10-14] MEDS: AMIODARONE 200 MG TAB PO SCH (09:14)
[2022-10-14] MEDS: APIXABAN 5 MG TABLET PO SCH ×2 (09:14→20:38)
[2022-10-14] MEDS: MAGNESIUM CHLORIDE W/CALCIUM 64MG DELAYED REL TAB PO SCH ×2 (09:14→20:38)
[2022-10-14] MEDS: PANTOprazole 40 MG TAB PO SCH ×2 (09:14→20:38)
[2022-10-14] MEDS: LIDOCAINE 5% 1 PATCH TD SCH (09:15)
[2022-10-14] MEDS: INSULIN ASPART PER UNIT CHARGE SC SCH ×3 (13:34→21:18)
--- NOTE | 2022-10-14 14:22 | Hospitalist Progress Note ---
Date of Service October 14, 2022 Assessment & Plan (1) Syncope and collapse: Plan: Patient is orthostatic Patient admits to not drinking water as much. He says that he drinks tea all day and works in the yard. He may be clinically dehydrated for which I Hydrated him. He seems euvolemic today. However he is still having orthostatic drops. I will discontinue IV fluids and start him on salt tablets. Liberalize his diet to remove heart healthy Echocardiogram unremarkable Cardiology on board Pacemaker interrogated, no Tachy or elisabeth -arrhythmias found that would be responsible for his syncope -Fall precautions ordered, patient instructed to change positions slowly and wait for assistance from nursing staff to stand Continue daily orthostatic vital sign checks -Continue home Eliquis for DVT PPX -AM CBC, BMP, mag, PT/INR Patient will need to follow-up with Dr. Tabor in 2 to [address] Irene in 2 to 3 months (2) Pacemaker: Plan: -Interrogated in the ED -Appreciate cardiology input (3) Neck pain: Plan: -Patient has been experiencing generalized cervical neck pain over the past 2-3 weeks -Has full ROM without significant pain and no significant pain on palpation -Neck pain has not been consistent with pre-syncopal or syncopal episodes per the patient -Tylenol and lidcoaine patch for now (4) Hypertension: Plan: -Stable -Conitnue to monitor (5) DM II (diabetes mellitus, type II), controlled: Plan: -Diet controlled -Last A1c was 6.1 on 09/16/22 -For now will monitor BSG ACHS, goal is 110-160 -DMII and HH diet for now -Continue to monitor (6) Paroxysmal A-fib: Plan: -Stable -Continue Eliquis -Continue amiodarone Plan DVT prophylaxis: Eliquis Full code Admission and Anticipated Discharge Date Admission Date: October 14, 2022 Subjective patient says that he did not feel dizzy when his orthostatic vital signs were checked this morning. However they were strongly positive still. Review of Systems Review of Systems: All systems reviewed & are unremarkable except as noted in Subjective Physical Exam Physical Exam: General: Awake, conversant Heart: S1, S2/regular rate and rhythm, no murmur rubs or gallops Lungs: Clear to auscultation bilaterally. Normal effort Abdomen: Soft/nontender/nondistended. No hepatosplenomegaly Extremities: No clubbing/cyanosis. No edema Behavior: Appropriate, cooperative Results & Data Results & Data Vital Signs (Past 12 Hours) Vital Signs Temp Pulse Pulse Resp BP Pulse Ox O2 Del Method 10/14/22 11:23 36.5 C 16 98 Room Air 10/14/22 07:00 36.7 C 63 16 137/69 98 Room Air 10/14/22 08:09 64 10/14/22 03:00 36.6 C 63 20 153/75 H 98 Room Air PG Care Time/CCT Total # of Minutes Spent Total Time Spent with Patient: Total time spent is greater than 50% in coordination of care (as documented) at patient's floor/unit and/or counseling patient: Coding Level of Care Code 08532 SUB INP/OBS CARE 2/35MIN Diagnoses Syncope and collapse R55 Pacemaker Z95.0 Neck pain M54.2 Hypertension I10 DM II (diabetes mellitus, type II), controlled E11.9 Paroxysmal A-fib I48.0 Time Spent (min) 35
[2022-10-14] MEDS: SODIUM CHLORIDE 1 GM TABLET PO SCH (15:32)
--- NOTE | 2022-10-14 16:15 | Cardiology Progress Note ---
Date of Service October 14, 2022 Assessment & Plan (1) Syncope and collapse: Plan: Patient has a longstanding history of intermittently recurring presyncope and syncope. In May 2022, an event was witnessed in the ER and was related to a conversion pause (when spontaneously reverting from atrial fibrillation to sinus) prompted pacemaker placement at that time. He did well for quite some time, but has had multiple episodes very recently which are more consistent with orthostatic hypotension induced syncope than rhythm related. Pacemaker interrogation does not show any tachydysrhythmias to suggest atrial fibrillation and there was no pacemaker dysfunction which would allow for bradycardia dysrhythmias. Here in the hospital at [facility] he has had no arrhythmia identified and no symptoms but he has not been out of bed. (2) Orthostatic hypotension: Plan: He is not on any vasopressor medications but does take amiodarone for rhythm control. Pacemaker was adjusted to allow for more vigorous rate response to activity, but this would not help if he has orthostasis upon simple standing. Recommended liberalizing his salt/sodium intake, in the absence of marked hypertension would even consider sodium chloride 1 g daily or twice daily if he remains orthostatic prior to discharge. He did receive a liter of intravenous saline, so his near term orthostasis may be corrected. We should allow him to ambulate, with assistance, to see whether this has improved his symptoms. If not we need to consider other treatments such as Florinef. (3) History of permanent cardiac pacemaker placement: Plan: Pacemaker interrogation showed atrial oversensing as an incidental finding, this may have caused his dysphoric sensation during activity but would not be a plausible reason for syncope. Sensing parameters corrected and rate response adjusted. We will know the benefit of this until he can be more active, but this probably is not related to his syncope. (4) Paroxysmal atrial fibrillation: Plan: Continue amiodarone for rhythm control and apixaban for antithrombotic prophylaxis. Plan Patient should follow-up with Dr. Tabor in 2-4 weeks for office visit and with Dr. Irene for pacemaker re-check in 2-3 months. Admission and Anticipated Discharge Date Admission Date: October 14, 2022 Subjective He has not been getting out of bed, but in bed he has had no recurrence of his symptoms. No other cardiovascular complaints. Physical Exam Physical Exam: Constitutional: Alert, cooperative and in no distress. Pulmonary: Clear to auscultation bilaterally. Cardiac: Regular rhythm with no murmur, gallop or rub. Abdomen: Soft, nontender with normal bowel sounds. Extremities: No edema. Skin: No rash, ecchymoses or petechiae. Results & Data Vital Signs (Past 12 Hours) Vital Signs Temp Pulse Pulse Resp BP Pulse Ox O2 Del Method 10/14/22 16:00 66 10/14/22 14:45 36.5 C 67 16 137/79 97 Room Air 10/14/22 11:23 36.5 C 16 98 Room Air 10/14/22 07:00 36.7 C 63 16 137/69 98 Room Air 10/14/22 08:09 64 Diagnostic Findings CBC 10/14/22 Range/Units 07:05 WBC 3.95 L (4.8-10.8) K/ul RBC 3.15 L (4.70-6.10) M/uL Hgb 10.6 L (14.0-18.0) g/dl Hct 31.7 L (42.0-52.0) % Plt Count 159 (130-400) K/uL Neut # (Auto) 2.21 (1.40-6.50) K/uL Lymph # (Auto) 1.35 (1.2-3.4) K/uL [place] # (Auto) 0.29 (0.11-0.59) K/uL Eos # (Auto) 0.06 (0-0.50) K/uL Baso # (Auto) 0.02 (0-0.2) K/uL Comprehensive Metabolic Panel 10/14/22 Range/Units 07:05 Sodium 137 (136-145) mmol/L Potassium 4.1 (3.5-5.1) mmol/L Chloride 108 H (98-107) mmol/L Carbon Dioxide 24 (21-32) mmol/L BUN 13 (6-23) mg/dl Creatinine 0.87 (0.6-1.4) mg/dl Glucose 139 H (70-99(Fasting)) mg/dl Calcium 8.2 L (8.6-10.3) mg/dl Intake and Output 10/14/22 10/14/22 10/14/22 06:59 14:59 22:59 Intake Total 999 / 2099 Balance 1000 / 1800 2240 / 2240 Intake: IV 1000 / 1500 112 / 1120 Sodium Chloride 0.9% 1,000 ml @ 1000 / 1000 1120 / 1120 100 mls/hr IV .Q10H PATRICIA Rx#: [id number] Oral 1119 Other: Other Intake Source sips # Unmeasured Voids 2 Weight 71.7 kg PG Care Time/CCT Total # of Minutes Spent Total Time Spent with Patient: Total time spent is greater than 50% in coordination of care (as documented) at patient's floor/unit and/or counseling patient: Coding Level of Care Code 28056 SUB INP/OBS CARE 2/35MIN Diagnoses Syncope and collapse R55 Orthostatic hypotension I95.1 History of permanent cardiac pacemaker placement Z95.0 Paroxysmal atrial fibrillation I48.0
[2022-10-14] MEDS ORDERED: diphenhydrAMINE Capsule 25 MG CAP PO ONE (22:06)
[2022-10-15 06:33] LABS: Basophils # (auto) 0.03 K/uL (0.00-0.20); Basophils % (auto) 0.6 %; Eosinophils # (auto) 0.07 K/uL (0.00-0.50); Eosinophils % (auto) 1.5 %; Hematocrit (blood only) 31.8 % (42.0-52.0); Hemoglobin 10.8 g/dl (14.0-18.0); Immature Granulocytes # (auto) 0.02 K/uL (0.01-0.20); Immature Granulocytes % (auto) 0.4 %; Lymphocytes # (auto) 1.74 K/uL (1.20-3.40); Lymphocytes % (auto) 36.2 %; Mean Corpuscular Hemoglobin 33.4 pg (25.0-34.0); Mean Corpuscular Volume 98.5 fL (80.0-100.0); Mean Platelet Volume 9.4 fL (9.4-12.4); Monocytes # (auto) 0.37 K/uL (0.11-0.59); Monocytes % (auto) 7.7 %; Neutrophils # (auto) 2.58 K/uL (1.40-6.50); Neutrophils % (auto) 53.6 %; Platelet Count 170 K/uL (130-400); RDW Coefficient of Variation 13.3 % (11.5-14.5); RDW Standard Deviation 47.9 fL (36.4-46.3); Red Blood Count 3.23 M/uL (4.70-6.10); White Blood Count 4.81 K/ul (4.8-10.8)
[2022-10-15 06:47] LABS: BUN Creatinine Ratio 17.9 (10-20); Calcium 8.6 mg/dl (8.6-10.3); Creatinine Clr Calc Pharmacy 65.6 ml/min; Est GFR (African American) 95.8 ml/min; Est GFR (Non-African American) 82.7 ml/min; Potassium 4.1 mmol/L (3.5-5.1)
[2022-10-15] MEDS: SODIUM CHLORIDE 1 GM TABLET PO SCH ×2 (08:39→20:11)
[2022-10-15] MEDS: PANTOprazole 40 MG TAB PO SCH ×2 (08:40→20:11)
[2022-10-15] MEDS: MAGNESIUM CHLORIDE W/CALCIUM 64MG DELAYED REL TAB PO SCH ×2 (08:40→20:11)
[2022-10-15] MEDS: LIDOCAINE 5% 1 PATCH TD SCH ×2 (08:40→08:59)
[2022-10-15] MEDS: AMIODARONE 200 MG TAB PO SCH (08:40)
[2022-10-15] MEDS: APIXABAN 5 MG TABLET PO SCH ×2 (08:40→20:11)
[2022-10-15] MEDS: INSULIN ASPART PER UNIT CHARGE SC SCH ×4 (08:59→21:10)
--- NOTE | 2022-10-15 12:05 | Cardiology Progress Note ---
Date of Service October 15, 2022 Assessment & Plan (1) Orthostatic hypotension: Plan: Still orthostatic, although he is tolerating it without lightheadedness. Recommend increasing sodium chloride to 1 g twice daily and adding Florinef 0.1 mg daily. (2) Syncope and collapse: Plan: Most likely secondary to orthostasis, as pacemaker function is appropriate. (3) Pacemaker: Plan: Minor adjustments upon admission, function appropriate. (4) Paroxysmal atrial fibrillation: Plan: Sinus during this hospitalization, continue amiodarone for rhythm control and apixaban for antithrombotic prophylaxis. Plan Case discussed with Dr. Lamebrt. Patient will be observed overnight and hopefully discharge tomorrow if symptom-free and orthostatic vitals have improved. Admission and Anticipated Discharge Date Admission Date: October 14, 2022 Subjective Uneventful night. Patient denies any chest pain, dyspnea, subjective palpitations, or other complaints. No lightheadedness, but he has only walked to the bathroom and back. Telemetry showed intermittent paced rhythm, predominantly at 60 bpm. Physical Exam Physical Exam: Appears comfortable. Weight stable recently. BP by MD 144/80 mmHg supine, 90/70 mmHg seated, 80/60 mmHg upon standing (no symptoms). Pulse 60 bpm and regular. Skin: no ecchymoses or generalized lesions. HEENT: unremarkable. Neck: no JVD or carotid bruits. Lungs: clear. Chest: Healed left infraclavicular pacemaker site. Cardiac: regular rhythm, normal S1-S2, no murmur or gallop. Abdomen: benign. Extremities: no edema, pulses intact. Neurologic: normal affect and conversation, nonfocal. Results & Data Vital Signs (Past 12 Hours) Vital Signs Temp Pulse Pulse Resp BP Pulse Ox O2 Del Method 10/15/22 10:05 60 10/15/22 09:08 98.1 F 62 18 135/67 97 Room Air 10/15/22 03:02 98.1 F 64 18 118/67 97 Room Air PG Care Time/CCT Total # of Minutes Spent Total Time Spent with Patient: Total time spent is greater than 50% in coordination of care (as documented) at patient's floor/unit and/or counseling patient: Coding Level of Care Code 16434 SUB INP/OBS CARE 3/50MIN Diagnoses Orthostatic hypotension I95.1 Syncope and collapse R55 Pacemaker Z95.0 Paroxysmal atrial fibrillation I48.0
[2022-10-15] MEDS: FLUDROCORTISONE ACETATE 0.1 MG TAB PO SCH (13:21)
--- NOTE | 2022-10-15 14:42 | Hospitalist Progress Note ---
Date of Service October 15, 2022 Assessment & Plan (1) Syncope and collapse: Plan: Patient is orthostatic Patient admits to not drinking water as much. He says that he drinks tea all day and works in the yard. He may be clinically dehydrated for which I Hydrated him. He seems euvolemic today. However he is still having orthostatic drops. I started him on salt tablets. I will increase the frequency to twice a day I have also started him on Florinef today Recheck orthostatic vital signs tomorrow Echocardiogram unremarkable Cardiology on board Pacemaker interrogated, no Tachy or elisabeth -arrhythmias found that would be responsible for his syncope -Fall precautions ordered, patient instructed to change positions slowly and wait for assistance from nursing staff to stand Continue daily orthostatic vital sign checks -Continue home Eliquis for DVT PPX -AM CBC, BMP, mag, PT/INR Patient will need to follow-up with Dr. Tabor in 2 to [address] Irene in 2 to 3 months (2) Pacemaker: Plan: -Interrogated in the ED -Appreciate cardiology input (3) Neck pain: Plan: -Patient has been experiencing generalized cervical neck pain over the past 2-3 weeks -Has full ROM without significant pain and no significant pain on palpation -Neck pain has not been consistent with pre-syncopal or syncopal episodes per the patient -Tylenol and lidcoaine patch for now (4) Hypertension: Plan: -Stable -Conitnue to monitor (5) DM II (diabetes mellitus, type II), controlled: Plan: -Diet controlled -Last A1c was 6.1 on 09/16/22 -For now will monitor BSG ACHS, goal is 110-160 -DMII and HH diet for now -Continue to monitor (6) Paroxysmal A-fib: Plan: -Stable -Continue Eliquis -Continue amiodarone Plan DVT prophylaxis: Eliquis Full code Admission and Anticipated Discharge Date Admission Date: October 14, 2022 Subjective Patient feels well But still having orthostatic drops. Denies feeling dizzy during blood pressure checks. No chest pain or shortness of breath Review of Systems Review of Systems: All systems reviewed & are unremarkable except as noted in Subjective Physical Exam Physical Exam: General: Awake, conversant Heart: S1, S2/regular rate and rhythm, no murmur rubs or gallops Lungs: Clear to auscultation bilaterally. Normal effort Abdomen: Soft/nontender/nondistended. No hepatosplenomegaly Extremities: No clubbing/cyanosis. No edema Behavior: Appropriate, cooperative Results & Data Results & Data Vital Signs (Past 12 Hours) Vital Signs Temp Pulse Pulse Resp BP Pulse Ox O2 Del Method 10/15/22 12:37 36.6 C 63 18 116/71 97 Room Air 10/15/22 10:05 60 10/15/22 09:08 36.7 C 62 18 135/67 97 Room Air 10/15/22 03:02 36.7 C 64 18 118/67 97 Room Air PG Care Time/CCT Total # of Minutes Spent Total Time Spent with Patient: Total time spent is greater than 50% in coordination of care (as documented) at patient's floor/unit and/or counseling patient: Coding Level of Care Code 03821 SUB INP/OBS CARE 2/35MIN Diagnoses Syncope and collapse R55 Pacemaker Z95.0 Neck pain M54.2 Hypertension I10 DM II (diabetes mellitus, type II), controlled E11.9 Paroxysmal A-fib I48.0 Time Spent (min) 35
[2022-10-16 08:47] VITALS: BP 124/87; PULSE 65; TEMP 98.2; O2SAT 98
[2022-10-16] MEDS: SODIUM CHLORIDE 1 GM TABLET PO SCH (08:50)
[2022-10-16] MEDS: PANTOprazole 40 MG TAB PO SCH (08:50)
[2022-10-16] MEDS: INSULIN ASPART PER UNIT CHARGE SC SCH ×2 (08:50→12:46)
[2022-10-16] MEDS: AMIODARONE 200 MG TAB PO SCH (08:50)
[2022-10-16] MEDS: MAGNESIUM CHLORIDE W/CALCIUM 64MG DELAYED REL TAB PO SCH (08:50)
[2022-10-16] MEDS: APIXABAN 5 MG TABLET PO SCH (08:50)
[2022-10-16] MEDS: FLUDROCORTISONE ACETATE 0.1 MG TAB PO SCH (08:50)
[2022-10-16] MEDS: LIDOCAINE 5% 1 PATCH TD SCH (08:51)
--- NOTE | 2022-10-16 10:03 | Discharge Summary ---
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 Vitals remained stable in the ED. Labs including CBC, CMP, and high sen trop were unremarkable. CT of the head wo con was read as "No acute intracranial abnormality.". Chest xray was read as "1. Cardiomegaly and cardiac pacemaker without radiographic evidence of con gestive failure. 2. Emphysema. 3. No airspace consolidation or large pleural effusion is identified.". The patient was given no medications/treatment prior to admission. At the time of the exam the patient was sitting in bed in no acute distress. He states that since his pacemaker placement and subsequent hospitalization for pericardial effusion he has been experiencing recurrent episodes of near syncope and complete syncope. He states that he will experience lightheadedness/dizziness and shaking when he changes positions quickly. During these episodes he does not lose consciousness and is not confused, they will resolve with rest. Over the past 2 weeks he has experienced approximately 4 episodes of complete syncope. These occur with exertion and/or while standing and being active. He denies sensing these episodes starting/sveta symptoms. He states he will suddenly lose consciousness and collapse. Upon waking he regains consciousness within 1-2 seconds and does not appear to have postictal symptoms. He denies losing control of his bowels or bladder as well. His last episode of complete syncope occurred this am. He woke in his normal state of health and took his am medications. He was standing in his kitchen after washing dishes and began to walk out of the kitchen when he suddenly lost consciousness. He quickly woke after the episode and denies hitting his head. Of note, he does complain of some cervical neck pain over the past few weeks. The pain is exacerbated with movement and does not appear to be associated with his syncopal/near syncopal episodes. He recently started new prescriptions for Cymbalta and Ramelteon, both filled on 09/30 for anxiety and sleep. He only took 2 doses of the Ramelteon then stopped as he was concerned this was causing his symptoms, he is still taking the Cymbalta daily. 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 He mowed 3 yards specifically yesterday. When asked, he states he does not drink water frequently, he does drink large amounts of iced tea. He discussed code status, he wishes to be a full code and for his Nephew, Antonio Robertson, to make medical decisions for him if he could not make them h imself. Please refer to Dr. Levi's attestation for any changes to the treatment plan Admission Exam Per Admitting Provider General:In no acute distress, stated age, well-nourished, non-toxic appearing HEENT:Normocephalic, atraumatic, no scleral icterus, pupils around round, symmetrical, and reactive to light, moist mucus membranes, trachea midline, no thyromegaly Chest/Pulm:Pacemaker located in the left upper chest without signs of infection,No respiratory distress, symmetrical chest expansion, clear breath sounds throughout Cardiac:RRR, no murmurs noted Abdomen:Negative for ascites and bruising, normoactive bowel sounds, soft, non-tender to palpation throughout Musculoskeletal:Patient without significant tenderness to palpation of the cervical spine or paraspinal muscles, able to flex chin to chest and turn head laterally without significant pain or neurologic symptoms, Symmetrical and without signs of acute trauma, upper and lower extremities with full ROM, no atrophy, spasticity, or flaccidity Extremities:Radial, dorsalis pedis, and posterior tibial pulses are intact and symmetrical, no edema noted in the BL LE's Skin:Warm, dry, no rashes , lesions, or scars noted Neuro:Alert and oriented to person, place, month, year, and president, no focal defects, no tremors noted Psych:No acute distress, calm and cooperative during the exam Principal Diagnosis syncope due to orthostatic hypotension Discharge Exam General: Awake, conversant Heart: S1, S2/regular rate and rhythm, no murmur rubs or gallops Lungs: Clear to auscultation bilaterally. Normal effort Abdomen: Soft/nontender/nondistended. No hepatosplenomegaly Extremities: No clubbing/cyanosis. No edema Behavior: Appropriate, cooperative Discharge Data Allergies Allergy/AdvReac Type Severity Reaction Status Date / Time No Known Allergies Allergy Verified 09/30/22 10:10 Consultations 10/12/22 12:30 ED Decision to Admit Stat 10/12/22 13:09 Consult Cardiology Routine 10/14/22 08:08 Consult [facility] data warehousing manager Routine Ordered Studies 10/12/22 11:14 CT head/brain wo con Stat Hospital Course (1) Syncope and collapse: secondary to orthostatic hypotension Patient is not orthostatic today Was clinically dehydrated initially as the patient was not drinking enough water all day. He was only drinking tea and was working in the yard In the heat. He was hydrated and was still dropping his blood pressure upon standing. He was started on salt tablets twice daily and was also started on Florinef. Today he did not have any orthostatic drop on this current regimen. He will be discharged on this regimen Echocardiogram unremarkable Pacemaker interrogated, no tachyarrhythmia or bradycardia arrhythmia that was thought to be responsible for his syncopal episodes. Patient has been encouraged to to eat more salt in his diet. He is used to taking 'no salt' in his meals which has been advised against. He will follow-up with his nutritional services director and his EP nutritional services director outpatient He will follow-up with his primary care physician. Once he starts eating salt in his diet, he may be able to come off of salt tablets. (2) Pacemaker: -Interrogated in the ED -Appreciate cardiology input (3) Neck pain: -Patient has been experiencing generalized cervical neck pain over the past 2-3 weeks -Has full ROM without significant pain and no significant pain on palpation -Neck pain has not been consistent with pre-syncopal or syncopal episodes per the patient -Tylenol and lidcoaine patch for now Resolved (4) Hypertension: -Stable -Conitnue to monitor (5) DM II (diabetes mellitus, type II), controlled: -Diet controlled -Last A1c was 6.1 on 09/16/22 -For now will monitor BSG ACHS, goal is 110-160 -DMII and HH diet for now -Continue to monitor (6) Paroxysmal A-fib: -Stable -Continue Eliquis -Continue amiodarone Plan DVT prophylaxis: Eliquis Full code Total Time Total Time Spent Total Time Spent (In Minutes): 35 Discharge Plan Discharge Items Patient Disposition: Home - Self-Care Reason For Visit: SYNCOPE Discharge Diagnosis: orthostatic hypotension leading to syncope Activity: Resume your previous activity Non-emergency contact: Primary Care Provider Call non-emergency contact if: you have any medication questions and your symptoms worsen Follow-up/Referrals: Davon Tabor MD [Physician] - 11/05/22 2:30 pm Carmelo Mason MD [Primary Care Provider] - 10/21/22 3:00 pm Gabe Irene MD [Physician] - 12/16/22 12:15 pm Diet: Carb Consistent or DM2 Addtl Attending Provider Instructions: Advised to follow-up with Dr. Irene in 2 months Advised to follow-up with Dr. Tabor in 2 weeks Advised to follow-up with PCP in 1 week Advised to stay hydrated (drink water, not tea) Advised to get up slowly from lying position to sitting position, wait for a few minutes and then stand up. Pending Studies at Discharge: No Stand-Alone Forms: [facility] Medications and DC Order Prescriptions: New fludrocortisone 0.1 mg Tablet 0.1 mg PO QAM 30 Days Qty: 30 0RF sodium chloride 1,000 mg Tablet,Soluble 1,000 mg PO BID 30 Days Qty: 60 0RF Continued amiodarone 200 mg tablet 200 mg PO DAILY Qty: 90 3RF cholecalciferol (vitamin D3) 1,000 unit capsule 1,000 units PO QAM cyanocobalamin (vitamin B-12) 1,000 mcg tablet 1,000 mcg PO QAM Qty: 30 psyllium husk 3.4 gram/5.4 gram powder 2 tbs PO QAM Eliquis 5 mg tablet 5 mg PO BID Qty: 180 3RF Rx Instructions: restart on Wednesday duloxetine 30 mg capsule,delayed release(DR/EC) 30 mg PO DAILY Qty: 30 2RF potassium gluconate 595 mg (99 mg) Tablet 595 mg PO QAM omeprazole 20 mg capsule,delayed release(DR/EC) 20 mg PO BID Qty: 90 3RF calcium carbonate [Calcium 600] 600 mg calcium (1,500 mg) Tablet 600 mg PO DAILY Mag 64 64 mg Tablet,Delayed Release (Dr/Ec) 64 mg PO BID Qty: 60 0RF Discharge Orders: Discharge Order (Routine); Ordered 10/16/22 Ordered By: Berry Lange/Other Patient Handouts: What Is Syncope, Causes of Syncope, Diagnosing Syncope, Treating Syncope: Prevention Admission Data Admit Date/Time: 10/14/22 12:34 Attending Provider: Berry Lambert Admit Provider: Dajuan Levi Primary Care Provider: Carmelo Mason Other Providers: Dajuan Levi ; Nico Barnett Other Interventions: Discharge Summary Assessment (RN) Last Done: 10/16/22 10:06 Coding Level of Care Code 30361 INP/OBS DISCH >30 MIN Diagnoses Syncope and collapse R55 Pacemaker Z95.0 Neck pain M54.2 Hypertension I10 DM II (diabetes mellitus, type II), controlled E11.9 Paroxysmal A-fib I48.0
== END 2022-10-16 13:38 | disposition home or self-care (01) | DRG 312 ==
LOC: ED 09:36 → 2W 09:36 → SUATTDRO 12:47 → 2W 14:27
DX: Z95.0 Presence of cardiac pacemaker; E86.0 Dehydration; I49.5 Sick sinus syndrome; I95.1 Orthostatic hypotension; I10 Essential (primary) hypertension; I48.0 Paroxysmal atrial fibrillation; Z86.718 Personal history of other venous thrombosis and embolism; Z98.890 Other specified postprocedural states; E11.9 Type 2 diabetes mellitus without complications

== ENCOUNTER 2023-01-08 13:36 | Observation (INO) ==
--- NOTE | 2023-01-08 13:45 | ED Triage Note ---
Date of Service January 08, 2023 History of Present Illness This patient was briefly evaluated while in triage. An abbreviated physical exam was performed. This patient is a 82-year-old Male who presents to the ED for evaluation of an abnormal potassium level. Patient just had a recent colonoscopy that was normal. The patient had additional lab work performed, showing a potassium of 2.5. Patient does have a history of pacemaker as well. Patient has been off of his medicines for 3 days. Patient reports right abdominal pain seems to be worsened with deep breathing. He denies any hai shortness of breath or chest pain. The patient rates his discomfort a 7 out of 10. Physical Exam CONSTITUTIONAL: Healthy and well nourished. Alert and oriented X 3. GCS 15. HEENT: No scleral icterus or conjunctival injection. RESPIRATORY: Clear to auscultation bilaterally with no wheezing, crackles, rhonchi or stridor. CARDIOVASCULAR: Regular rate and rhythm with no murmurs, rubs or gallops. GASTROINTESTINAL: Bowel sounds present in all quadrants. Patient has mild right abdominal tenderness to palpation. MUSCULOSKELETAL: Full range of motion of all joints without discomfort. INTEGUMENTARY: No rash or other significant dermatologic conditions noted. HEMATOLOGIC: No ecchymosis or petechiae. PSYCHIATRIC: Positive affect. NEUROLOGIC: No focal neurologic deficits noted. Initial orders for labs and / or imaging were placed and patient was placed in the waiting area until a bed is available. Please see further documentation for the full ED course.
[2023-01-08] MEDS ORDERED: POTASSIUM CHLORIDE 10 MEQ TABCR PO STA (13:53)
--- NOTE | 2023-01-08 14:18 | Emergency Department Note ---
History of Present Illness General Chief complaint: Abnormal Labs/Diagnostic Testing Stated complaint: POTASSIUM LEVEL LOW, RT FLANK PAIN, COLONOSCAPY Time Seen by Provider: 01/08/23 13:50 History of Present Illness Maximum Pain Intensity: 6 82-year-old male presents emergency department with complaint of low potassium after he had an endoscopy and colonoscopy today. Patient was discharged from the hospital at 11 AM. He had been doing a bowel prep for the past few days and he also is on potassium for which he stopped taking his medications the past 3 days. Patient was called by the facility that his potassium was low. Patient denies any muscle weakness nausea vomiting fever. Patient states he is usually taking potassium supplementation on a daily basis. Home Medications Medication Instructions Recorded Confirmed Type cholecalciferol (vitamin D3) 25 1,000 units PO QAM 10/06/18 01/08/23 History mcg (1,000 unit) capsule cyanocobalamin (vitamin B-12) 1,000 mcg PO QAM #30 tabs 10/06/18 01/08/23 History 1,000 mcg tablet psyllium husk 3.4 gram/5.4 gram 2 tbs PO QAM 10/06/18 01/08/23 History oral powder potassium gluconate 595 mg (99 mg) 595 mg PO QAM 11/14/19 01/08/23 History tablet calcium carbonate 600 mg calcium 600 mg PO QAM 05/25/22 01/08/23 History (1,500 mg) tablet (Calcium) magnesium chloride 64 mg 64 mg PO BID #60 tabs 05/27/22 01/08/23 Rx (magnesium chloride) tablet,delayed release (Mag 64) omeprazole 20 mg capsule,delayed 20 mg PO BID #90 caps 06/10/22 01/08/23 Rx release apixaban 5 mg tablet (Eliquis) 5 mg PO BID #180 tabs 07/03/22 01/08/23 Rx fludrocortisone 0.1 mg tablet 0.1 mg PO QAM #90 tabs 11/11/22 01/08/23 Rx sodium chloride 1,000 mg soluble 1,000 mg PO BID #180 tabs 12/02/22 01/08/23 Rx tablet buspirone 5 mg tablet 5 mg PO TID PRN anxiety #90 tabs 12/14/22 01/08/23 Rx amiodarone 200 mg tablet 200 mg PO QAM 01/05/23 01/08/23 History ascorbic acid (vitamin C) 500 mg 500 mg PO QAM 01/05/23 01/08/23 History tablet (Vitamin C) duloxetine 60 mg capsule,delayed 60 mg PO QAM 01/05/23 01/08/23 History release ramelteon 8 mg tablet 8 mg PO QAM 01/05/23 01/08/23 History Allergies Allergy/AdvReac Type Severity Reaction Status Date / Time No Known Allergies Allergy Verified 01/08/23 09:49 Past Med/Surg History Medical History Hepatic flexure mass Paroxysmal atrial fibrillation currently on eliquis GERD (gastroesophageal reflux disease) Hypertension History of anxiety Hx of basal cell carcinoma removed spring 2022 Pacemaker 05/2022, [facility]; dr[facility] griffiths, [facility] [place] Syncope and collapse (09/2022) had pacemaker inserted Hypokalemia Pericardial effusion (05/2022) Sinus pause (05/2022) Hypomagnesemia Pre-syncope spring 2022 Syncope (10/2021) Sleep trouble SBO (small bowel obstruction) hx-had a colectomy Osteoarthritis Chronic back pain History of esophageal dilatation Diverticulosis of colon Hepatic steatosis Hiatal hernia Hypercholesterolemia hx of / pt not sure currently Osteopenia Schatzki's ring Type 2 diabetes mellitus no medications currently. monitoring with PCP. Left leg DVT pt unsure of details. Acute diverticulitis (08/08/13) hx Surgical History S/P cardiac pacemaker procedure S/P pericardiocentesis 05/2022, [facility] Hx of basal cell carcinoma excision S/P trigger finger release History of esophagogastroduodenoscopy (EGD) History of colostomy reversal History of colostomy Hx of tonsillectomy Hx of colectomy Hx of inguinal hernia repair Hx of colonoscopy Hx of appendectomy Family History Family/Other Aorta aneurysm Perceptive hearing loss or deafness Mother Alcoholism /alcohol abuse Lung cancer Lung disease Father Alcoholism /alcohol abuse Lung disease Brother Primary hemochromatosis Denies family history of Colon cancer Ovarian cancer Prostate cancer Myocardial infarction Breast cancer Colorectal cancer Hypertension Stroke Asthma Social History Smoking Status: Former smoker Tobacco Type: Cigarettes Second Hand Exposure: Yes (hx as child); Do You Dip or Chew Tobacco: No; Hx Alcohol Use: Yes (none for over 1 year-"never a heavy drinker") Hx Substance Use: No Preferred Language: Belarusian Communication Ability: Effective Visual Impairment: No Limitations 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: Normal Prize Coordinator Required: No Beliefs That Will Affect Care: None marital status: Single Current Living Situation: Other Current Living Situation Comment: has 2 apt in house, with 3 tenants total current occupational status: retired current occupation: [employer] Feels Safe at Home: Yes Dental Care, Regularly: No Physical Activity Frequency: 1-2 Times per Week Seatbelt Use: always Assistive Devices: Glasses Review of Systems A total of 10 systems reviewed and were otherwise negative Cardiovascular: no chest pain Gastrointestinal: no abdominal pain Musculoskeletal: no back pain Physical Exam Vital Signs Vital Signs - 24 hr 01/08/23 13:41 01/08/23 14:31 01/08/23 15:56 Temperature 36.5 C Temperature Source Temporal Artery Scan Pulse Rate 87 81 Respiratory Rate 20 Respiratory Effort / Characteristics Non-Labored Spontaneous Respiratory Depth Normal Respiratory Pattern Regular Blood Pressure 117/77 Blood Pressure Mean 90 Blood Pressure Position Sitting Pulse Oximetry 97 97 Oxygen Delivery Method Room Air Room Air Sepsis Recent Fever Within 48 Hours No Sepsis New/Unexplained Change in Mental Status No Sepsis Action Taken by Nursing No Action Required GENERAL: Patient is awake alert in no acute distress patient is resting comfortably and showing no signs of anxiety EYES: The conjunctivae are clear. The pupils are round and reactive. EARS, NOSE, MOUTH AND THROAT: The nose is without any evidence of any deformity. Mucous membranes are moist. Tongue is midline. NECK: The neck is nontender and supple. RESPIRATORY: Normal respiratory effort is noted there is no evidence of wheezing rhonchi or rales CARDIOVASCULAR: Regular rate and rhythm noted there no murmurs rubs or gallops normal S1 normal S2. GASTROINTESTINAL: The abdomen is soft. Abdomen is nontender. BACK: No midline tenderness or or step-off noted range of motion in flexion extension as well as rotation no signs of muscle spasm noted MUSCULOSKELETAL/EXTREMITIES: There is no evidence of gross deformity full range of motion is noted in the hips and shoulders. SKIN: There is no obvious evidence of any rash. There are no petechiae, pallor or cyanosis noted. NEUROLOGIC: Patient is awake alert and oriented x3 strength is symmetric Course Reevaluation(s) Reevaluation #1: Patient is resting in no distress was started on IV fluids was given p.o. K-Dur as well as IV potassium. Time: 17:13 Consultations Consultation #1: Case was discussed with the [facility]ist for admission Time: 17:13 Administered Medications Discontinued Medications Potassium Chloride (K Sudeep / Wtr) 10 meq in 100 mls @ 100 mls/hr IV Q1H PATRICIA Stop: 01/08/23 16:14 Last Infusion: 01/08/23 16:52 Dose: Infused Documented By: LKNikia Admin: 01/08/23 15:51 Dose: 100 mls/hr Documented By: LKNikia Infusion: 01/08/23 15:19 Dose: Infused Documented By: LKNikia Admin: 01/08/23 14:19 Dose: 100 mls/hr Documented By: ACC Sodium Chloride (Nss) 500 mls @ 250 mls/hr IV .Q2H ONE Stop: 01/08/23 16:24 Last Infusion: 01/08/23 16:53 Dose: Infused Documented By: Admin: 01/08/23 14:28 Dose: 250 mls/hr Documented By: ACC Ioversol (Optiray 320 100ml) 92 ml IV ONCE ONE Stop: 01/08/23 15:45 Last Admin: 01/08/23 15:44 Dose: 92 ml Documented By: HUGO Potassium Chloride (Potassium Chloride 10 Meq Tabcr) 40 meq PO NOW STA Stop: 01/08/23 13:54 Last Admin: 01/08/23 14:17 Dose: 40 meq Documented By: ACC Medical Decision Making Medical Records Attestation: I reviewed the patient's medical records. Home Medications Current Medication List: was personally reviewed by me Laboratory Data Attestation: I reviewed the patient's lab results. Lab results interpreted by me patient has hypokalemia 01/08/23 14:10 01/08/23 14:10 Lab Results 01/08/23 Range/Units 14:10 WBC 5.12 (4.8-10.8) K/ul RBC 3.69 L (4.70-6.10) M/uL Hgb 11.7 L (14.0-18.0) g/dl Hct 35.9 L (42.0-52.0) % MCV 97.3 (80.0-100.0) fL MCH 31.7 (25.0-34.0) pg MCHC 32.6 (32.0-36.0) g/dL RDW Std Deviation 47.4 H (36.4-46.3) fL RDW Coeff of Saturnino 13.2 (11.5-14.5) % Plt Count 260 (130-400) K/uL MPV 9.6 (9.4-12.4) fL Immature Gran % (Auto) 0.2 % Neut % (Auto) 64.0 % Lymph % (Auto) 29.1 % Payette % (Auto) 6.1 % Eos % (Auto) 0.2 % Baso % (Auto) 0.4 % Neut # (Auto) 3.28 (1.40-6.50) K/uL Lymph # (Auto) 1.49 (1.20-3.40) K/uL Payette # (Auto) 0.31 (0.11-0.59) K/uL Eos # (Auto) 0.01 (0.00-0.50) K/uL Baso # (Auto) 0.02 (0.00-0.20) K/uL Immature Gran # (Auto) 0.01 (0.01-0.20) K/uL Sodium 141 (136-145) mmol/L Potassium 2.4 L* (3.5-5.1) mmol/L Chloride 101 (98-107) mmol/L Carbon Dioxide 28 (21-32) mmol/L Anion Gap 12 H (3-11) BUN 8 (6-23) mg/dl Creatinine 1.12 (0.6-1.4) mg/dl Est Cr Clr Drug Dosing 49.1 ml/min Est GFR ( Amer) 71.5 ml/min Est GFR (Non-Af Amer) 61.7 ml/min BUN/Creatinine Ratio 7.1 L (10-20) Glucose 132 H (70-99(Fasting)) mg/dl Calcium 8.8 (8.6-10.3) mg/dl Phosphorus 2.7 (2.5-4.9) mg/dl Magnesium 1.7 (1.7-2.4) mg/dl Total Bilirubin 0.4 (0.2-1.0) mg/dl AST 16 (13-39) U/L ALT 8 (7-52) U/L Alkaline Phosphatase 95 (34-104) U/L Troponin I High Sens 19.9 (0-20) pg/ml Total Protein 7.3 (6.0-8.3) gm/dl Albumin 4.1 (3.4-5.0) gm/dl Globulin 3.2 (2.5-4.0) gm/dl Albumin/Globulin Ratio 1.3 (0.9-2) Lipase 6 L (11-82) U/L Imaging Data Attestation: I personally reviewed and interpreted this imaging study as follows: My Impression: Chest x-ray interpreted by me no obvious infiltrate there is a pacemaker present Radiologist's Impression: Abdomen/Pelvis CT 01/08/23 13:47 CT abd pelvis IV con only CLINICAL HISTORY: R abd pain s/p colonoscopy TECHNIQUE: Helical axial images of the abdomen and pelvis were obtained and displayed. Automated dose lowering techniques and/or adjustment according to patient size were utilized for this exam. This exam was performed with intravenous contrast. CT DOSE: 733.39 mGy.cm COMPARISON: Comparison is made to CT abdomen pelvis 12/11/2022 FINDINGS: Lower chest: Bilateral pleural effusions are seen with underlying atelectasis. Liver: Unremarkable. No focal lesions are seen. Gallbladder and biliary tree: No calcified gallstones. Normal caliber wall. No intra- or extrahepatic biliary ductal dilation. Pancreas: Unremarkable, no focal lesions. Spleen: Unremarkable. Adrenals: Unremarkable. Kidneys and ureters: Subcentimeter hypodensities are too small to characterize. Bladder: Unremarkable. Reproductive organs: Prostatic calcifications are seen which may represent prior hemorrhage or granulomatous disease. Bowel: Diverticulosis is seen without evidence of diverticulitis. Patient is status post appendectomy. Lymph nodes Retroperitoneal: Unremarkable. Pelvic: Unremarkable. Mesenteric: Unremarkable. Peritoneum: Normal. Vessels: Atherosclerotic calcifications are seen. Abdominal wall: Unremarkable. Bones: Unremarkable. IMPRESSION: 1. No acute abnormalities and in particular no pneumoperitoneum to suggest perforation. 2. Diverticulosis without diverticulitis. 3. Small bilateral pleural effusions with underlying atelectasis. 4. Additional findings as above. ACT 112: Negative or not required by law. Electronically signed by: Zhou Roman M.D. 01/08/2023 4:06 PM Chest X-Ray 01/08/23 13:48 XR chest 1V portable HISTORY: Hypokalemia, abd pain COMPARISON: Chest 11/24/2022. FINDINGS: No pneumothorax. The cardiac silhouette is normal in size. There is a left-sided posterior pacemaker. Progressive interstitial/vascular thickening suggestive of mild congestive change. There are trace bilateral pleural effusions. Left basilar linear densities favor subsegmental atelectasis. Otherwise, no focal lung consolidations to suggest a pneumonia. IMPRESSION: Mild central pulmonary vascular congestion and trace bilateral pleural effusions. ACT 112: Negative or not required by law. Electronically signed by: Vu Graves M.D. 01/08/2023 2:51 PM ECG Data Attestation: I personally reviewed and interpreted this ECG as follows: Additional Comments: EKG interpreted by me sinus rhythm first-degree AV block rate of [address]-T change, left axis deviation, no obvious ST segment elevation Telemetry was ordered by me, interpreted as normal sinus rhythm rate of 66 MDM Narrative Medical decision making differential diagnosis includes electrolyte abnormality, lab error, metabolic derangement, dehydration, generalized weakness Plan is to check labs, EKG, give potassium supplementation I have reviewed the patient's lab work and notes of this morning January 08, 2023 the patient's potassium then was 2.5 Impression & Plan Acute hypokalemia Discharge Plan Visit Data Chief Complaint: Abnormal Labs/Diagnostic Testing Stated Complaint: POTASSIUM LEVEL LOW, RT FLANK PAIN, COLONOSCAPY ED Provider: Santino Devlin Discharge Problem: Acute hypokalemia Patient Disposition: Admitted As Inpatient Forms Stand Alone Forms: My [facility] Prescriptions Prescriptions: No Action fludrocortisone 0.1 mg tablet 0.1 mg PO QAM Qty: 90 3RF buspirone 5 mg tablet 5 mg PO TID PRN (Reason: anxiety) Qty: 90 0RF cholecalciferol (vitamin D3) 1,000 unit capsule 1,000 units PO QAM cyanocobalamin (vitamin B-12) 1,000 mcg tablet 1,000 mcg PO QAM Qty: 30 psyllium husk 3.4 gram/5.4 gram powder 2 tbs PO QAM sodium chloride 1,000 mg tablet,soluble 1,000 mg PO BID Qty: 180 3RF Eliquis 5 mg tablet 5 mg PO BID Qty: 180 3RF Rx Instructions: restart on Wednesday potassium gluconate 595 mg (99 mg) Tablet 595 mg PO QAM omeprazole 20 mg capsule,delayed release(DR/EC) 20 mg PO BID Qty: 90 3RF calcium carbonate [Calcium 600] 600 mg calcium (1,500 mg) Tablet 600 mg PO QAM Mag 64 64 mg Tablet,Delayed Release (Dr/Ec) 64 mg PO BID Qty: 60 0RF ascorbic acid (vitamin C) [Vitamin C] 500 mg Tablet 500 mg PO QAM amiodarone 200 mg tablet 200 mg PO QAM duloxetine 60 mg capsule,delayed release(DR/EC) 60 mg PO QAM ramelteon 8 mg tablet 8 mg PO QAM Referrals Referrals: Carmelo Mason MD [Primary Care Provider] -
[2023-01-08] MEDS: POTASSIUM CHLORIDE / WTR 10 MEQ/100 ML PLCT IV SCH ×4 (14:19→19:16)
[2023-01-08] MEDS ORDERED: SODIUM CHLORIDE 0.9% 500 ML IV ONE (14:25)
[2023-01-08 14:31] LABS: Basophils # (auto) 0.02 K/uL (0.00-0.20); Basophils % (auto) 0.4 %; Eosinophils # (auto) 0.01 K/uL (0.00-0.50); Eosinophils % (auto) 0.2 %; Hematocrit (blood only) 35.9 % (42.0-52.0); Hemoglobin 11.7 g/dl (14.0-18.0); Immature Granulocytes # (auto) 0.01 K/uL (0.01-0.20); Immature Granulocytes % (auto) 0.2 %; Lymphocytes # (auto) 1.49 K/uL (1.20-3.40); Lymphocytes % (auto) 29.1 %; Mean Corpuscular Hemoglobin 31.7 pg (25.0-34.0); Mean Corpuscular Hgb Conc 32.6 g/dL (32.0-36.0); Mean Corpuscular Volume 97.3 fL (80.0-100.0); Mean Platelet Volume 9.6 fL (9.4-12.4); Monocytes # (auto) 0.31 K/uL (0.11-0.59); Monocytes % (auto) 6.1 %; Neutrophils # (auto) 3.28 K/uL (1.40-6.50); Platelet Count 260 K/uL (130-400); RDW Coefficient of Variation 13.2 % (11.5-14.5); RDW Standard Deviation 47.4 fL (36.4-46.3); Red Blood Count 3.69 M/uL (4.70-6.10); White Blood Count 5.12 K/ul (4.8-10.8)
[2023-01-08 14:47] LABS: Albumin Globulin Ratio 1.3 (0.9-2); Albumin Level 4.1 gm/dl (3.4-5.0); BUN Creatinine Ratio 7.1 (10-20); Bilirubin,Total 0.4 mg/dl (0.2-1.0); Calcium 8.8 mg/dl (8.6-10.3); Creatinine Clr Calc Pharmacy 49.1 ml/min; Est GFR (African American) 71.5 ml/min; Est GFR (Non-African American) 61.7 ml/min; Globulin 3.2 gm/dl (2.5-4.0); Magnesium 1.7 mg/dl (1.7-2.4); Phosphorus 2.7 mg/dl (2.5-4.9); Potassium 2.4 mmol/L (3.5-5.1); Total Protein 7.3 gm/dl (6.0-8.3)
[2023-01-08 14:49] LABS: Troponin I High Sensitivity 19.9 pg/ml (0-20)
--- NOTE | 2023-01-08 14:53 | XRay Report ---
XR chest 1V portable HISTORY: Hypokalemia, abd pain COMPARISON: Chest 11/24/2022. FINDINGS: No pneumothorax. The cardiac silhouette is normal in size. There is a left-sided posterior pacemaker. Progressive interstitial/vascular thickening suggestive of mild congestive change. There a re trace bilateral pleural effusions. Left basilar linear densities favor subsegmental atelectasis. O therwise, no focal lung consolidations to suggest a pneumonia. IMPRESSION: Mild central pulmonary vascular congestion and trace bilateral pleural effusions. ACT 112: Negative or not required by law. Electronically signed by: Vu Graves M.D. 01/08/2023 2:51 PM
[2023-01-08] MEDS ORDERED: OPTIRAY 320 100ml IV ONE (15:44)
--- NOTE | 2023-01-08 15:44 | Electrocardiogram Report ---
Test Reason : Blood Pressure : / mmHG Vent. Rate : 066 BPM Atrial Rate : 066 BPM P-R Int : 212 ms QRS Dur : 094 ms QT Int : 516 ms P-R-T Axes : 009 -60 -23 degrees QTc Int : 540 ms Sinus rhythm with 1st degree A-V block Left anterior fascicular block Diffuse Nonspecific T wave abnormality Prolonged QT Abnormal ECG When compared with ECG of 24-NOV-2022 10:02, QT has lengthened Confirmed by Davon Tabor ([id number]) on 01/08/2023 3:44:25 PM Referred By: Confirmed By:Davon Tabor
--- NOTE | 2023-01-08 16:08 | CT Scan Report ---
CT abd pelvis IV con only CLINICAL HISTORY: R abd pain s/p colonoscopy TECHNIQUE: Helical axial images of the abdomen and pelvis were obtained and displayed. Automated dose lowering techniques and/or adjustment according to patient size were utilized for this exam. This e xam was performed with intravenous contrast. CT DOSE: 733.39 mGy.cm COMPARISON: Comparison is made to CT abdomen pelvis 12/11/2022 FINDINGS: Lower chest: Bilateral pleural effusions are seen with underlying atelectasis. Liver: Unremarkable. No focal lesions are seen. Gallbladder and biliary tree: No calcified gallstones. Normal caliber wall. No intra- or extrahepatic biliary ductal dilation. Pancreas: Unremarkable, no focal lesions. Spleen: Unremarkable. Adrenals: Unremarkable. Kidneys and ureters: Subcentimeter hypodensities are too small to characterize. Bladder: Unremarkable. Reproductive organs: Prostatic calcifications are seen which may represent prior hemorrhage or granul omatous disease. Bowel: Diverticulosis is seen without evidence of diverticulitis. Patient is status post appendectomy . Lymph nodes Retroperitoneal: Unremarkable. Pelvic: Unremarkable. Mesenteric: Unremarkable. Peritoneum: Normal. Vessels: Atherosclerotic calcifications are seen. Abdominal wall: Unremarkable. Bones: Unremarkable. IMPRESSION: 1. No acute abnormalities and in particular no pneumoperitoneum to suggest perforation. 2. Diverticulosis without diverticulitis. 3. Small bilateral pleural effusions with underlying atelectasis. 4. Additional findings as above. ACT 112: Negative or not required by law. Electronically signed by: Zhou Roman M.D. 01/08/2023 4:06 PM
--- NOTE | 2023-01-08 16:59 | History & Physical Report ---
Date of Service January 08, 2023 Assessment & Plan (1) Acute hypokalemia: Plan: -Admit to the PCU on tele -Currently stable and asymptomatic -Was sent to the ED by Dr. Foley of GI after post-colonoscopy CMP showed a potassium of 2.4 -Marked T-wave depression in all leads on arrival but otherwise stable -The etiology is multifactorial as he stopped his home potassium/mag supplements, was taking bowel prep for Colonoscopy earlier today, and had poor oral intake with his recent GI procedures today -S/P 2 bags 10 meq IV KCL and 40 meq PO KCL, and 500 mL NSS in the ED -Will give an additional 2 bags of 10 meq IV KCL now along with 400 mg PO Mag- oxide -Will give his am dose of Amiodarone now -Will repeat K+ level at 2200 to determine need for additional supplementation overnight -Hold chemical DVT PPX tonight to monitor for GI bleeding with oozing colonic mass S/P biopsy earlier today -DMII diet -AM CBC, CMP, Mag, PT/INR (2) Hepatic flexure mass: Plan: -Noted on Colonoscopy today -Biopsy was obtained and sent for pathology -CEA level obtained by GI team earlier today is 6.0 -CT of the abd/pelvis obtained in the ED is negative for acute abnormalities S/P colonoscopy and without signs of metastases -Ensure PCP is aware of results and knows to have patient obtain CT of the chest to monitor for mets and is seen by General Surgery after discharge (3) Orthostatic hypotension: Plan: -Stable -Will restart his home NACL and Fludrocortisone -Patient was educated to change positions slowly and ask for assistance getting out of bed to prevent recurrent episodes as he has been without his home meds for the past 3 days -Will give 1L LR bolus on admission as he appears dehydrated from recent bowel prep -Fall precautions ordered; spoke to his ED nurse regarding the high risk of syncope, appreciate their assistance (4) Paroxysmal atrial fibrillation: Plan: -Stable -Restarting am amiodarone now -Will hold Eliquis tonight in case of possible GI bleeding from recent colonic mass biopsy. If stable tomorrow can restart (5) DM II (diabetes mellitus, type II), controlled: Plan: -Diet controlled -DMII diet ordered -Monitor BSG ACHS for now (6) Hypertension: Plan: -Stable -Has been off antihypertensives due to orthostatic hypotension -Cardiology has stated in the past that mild HTN should be allowed to prevent recurrent orthostatic hypotension Plan The patient was discussed with Dr. 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 ED on 01/08 at the recommendation of Dr. Foley after outpatient labs showed a potassium level of 2.5. Per chart review, the patient presented to the [facility] Endoscopy suite today for scheduled Colonoscopy and EGD with indications of iron deficiency anemia. Per the EGD report, there were no acute findings. Per the colonoscopy report, he was found to have a 15 mm polyp in the ascending colon which was not resected. He was also found to have an infiltrative non-obstructing, medium-sized mass at the hepatic flexure. It was described as non-circumferential and oozing was present. Biopsies were taken with cold forceps for histology and the distal margin of the mass was tattooed. Non-bleeding internal hemorrhoids and small-mouthed diverticula were also noted. Due to the findings of a mass concerning for malignancy CBC, CMP, and CEA levels were obtained from Dr. Foley, which is when he was noted to be hypokalemic. The patient remained stable while in the ED. Labs were significant for a stable Hgb of 11.7, K+ of 2.4, AG of 12 with bicarb WNL. Chest xray was read as "Mild central pulmonary vascular congestion and trace bilateral pleural effusions.". CT of the abd/pelvis w/IV con was read as "1. No acute abnormalities and in particular no pneumoperitoneum to suggest perforation. 2. Diverticulosis without diverticulitis. 3. Small bilateral pleural effusions with underlying atelectasis. 4. Additional findings as above.". Pror to admission the patient was given a 500 mL NSS bolus, 40 meq PO KCL, and 2 bags of 10 meq IV KCL. At the time of the exam the patient was sitting in bed in no acute distress. He states that he must have misunderstood the directions prior to his procedures today. Because of this he did not take all of his medications for the past 3 days. He did take the bowel prep as prescribed prior to the colonoscopy. He states that he has been doing well lately and has had no recent episodes of syncope. We discussed his colonoscopy findings, he did confirm that he was told his findings by the GI team. I explained that we will need to wait for the pathology results to know the official diagnosis but the initial results were concerning for possible malignancy. He denies a personal or family hx of colon cancer and tobacco abuse. He previously used alcohol but denies heavy alcohol use. Currently he is without complaints besides mild RUQ discomfort. He has not had a BM yet today since his colonoscopy. We had a long discussion regarding code status as he previously saw Palliative medicine in September of this year and was made a DNR/DNI. But during his admissions over the past year has always been a full code. After further discussions he wishes to be a conditional code. He would not want CPR/defibrillation in the event of cardiac arrest. In the event of respiratory failure he would want a trial of intubation. He would want his nephew, Antonio Robetrson, to make medical decisions for him if he cannot make them himself. Please refer to Dr. Levi's attestation for any changes to the treatment plan Allergies Allergy/AdvReac Type Severity Reaction Status Date / Time No Known Allergies Allergy Verified 01/08/23 09:49 Home Medications Medication Instructions Recorded Confirmed Type cholecalciferol (vitamin D3) 25 1,000 units PO QAM 10/06/18 01/08/23 History mcg (1,000 unit) capsule cyanocobalamin (vitamin B-12) 1,000 mcg PO QAM #30 tabs 10/06/18 01/08/23 History 1,000 mcg tablet psyllium husk 3.4 gram/5.4 gram 2 tbs PO QAM 10/06/18 01/08/23 History oral powder potassium gluconate 595 mg (99 mg) 595 mg PO QAM 11/14/19 01/08/23 History tablet calcium carbonate 600 mg calcium 600 mg PO QAM 05/25/22 01/08/23 History (1,500 mg) tablet (Calcium) magnesium chloride 64 mg 64 mg PO BID #60 tabs 05/27/22 01/08/23 Rx (magnesium chloride) tablet,delayed release (Mag 64) omeprazole 20 mg capsule,delayed 20 mg PO BID #90 caps 06/10/22 01/08/23 Rx release apixaban 5 mg tablet (Eliquis) 5 mg PO BID #180 tabs 07/03/22 01/08/23 Rx fludrocortisone 0.1 mg tablet 0.1 mg PO QAM #90 tabs 11/11/22 01/08/23 Rx sodium chloride 1,000 mg soluble 1,000 mg PO BID #180 tabs 12/02/22 01/08/23 Rx tablet buspirone 5 mg tablet 5 mg PO TID PRN anxiety #90 tabs 12/14/22 01/08/23 Rx amiodarone 200 mg tablet 200 mg PO QAM 01/05/23 01/08/23 History ascorbic acid (vitamin C) 500 mg 500 mg PO QAM 01/05/23 01/08/23 History tablet (Vitamin C) duloxetine 60 mg capsule,delayed 60 mg PO QAM 01/05/23 01/08/23 History release ramelteon 8 mg tablet 8 mg PO HS 01/05/23 01/08/23 History Past Med/Surg History Medical History Hepatic flexure mass Paroxysmal atrial fibrillation currently on eliquis GERD (gastroesophageal reflux disease) Hypertension History of anxiety Hx of basal cell carcinoma removed spring 2022 Pacemaker 05/2022, [facility]; dr. tabor, [facility] [place] Syncope and collapse (09/2022) had pacemaker inserted Hypokalemia Pericardial effusion (05/2022) Sinus pause (05/2022) Hypomagnesemia Pre-syncope spring 2022 Syncope (10/2021) Sleep trouble SBO (small bowel obstruction) hx-had a colectomy Osteoarthritis Chronic back pain History of esophageal dilatation Diverticulosis of colon Hepatic steatosis Hiatal hernia Hypercholesterolemia hx of / pt not sure currently Osteopenia Schatzki's ring Type 2 diabetes mellitus no medications currently. monitoring with PCP. Left leg DVT pt unsure of details. Acute diverticulitis (08/08/13) hx Surgical History S/P cardiac pacemaker procedure S/P pericardiocentesis 05/2022, [facility] Hx of basal cell carcinoma excision S/P trigger finger release History of esophagogastroduodenoscopy (EGD) History of colostomy reversal History of colostomy Hx of tonsillectomy Hx of colectomy Hx of inguinal hernia repair Hx of colonoscopy Hx of appendectomy Family History Family/Other Aorta aneurysm Perceptive hearing loss or deafness Mother Alcoholism /alcohol abuse Lung cancer Lung disease Father Alcoholism /alcohol abuse Lung disease Brother Primary hemochromatosis Denies family history of Colon cancer Ovarian cancer Prostate cancer Myocardial infarction Breast cancer Colorectal cancer Hypertension Stroke Asthma Social History Smoking Status: Former smoker Tobacco Type: Cigarettes Second Hand Exposure: Yes (hx as child); Do You Dip or Chew Tobacco: No; Hx Alcohol Use: No Hx Substance Use: No Preferred Language: Senegalese Communication Ability: Effective Visual Impairment: No Limitations 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: Normal 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 Beliefs That Will Affect Care: None marital status: Single Current Living Situation: Alone Current Living Situation Comment: has 2 apt in house, with 3 tenants total current occupational status: retired current occupation: [employer] Feels Safe at Home: Yes Safety Concerns: Feels Safe At This Time Dental Care, Regularly: No Physical Activity Frequency: 1-2 Times per Week Seatbelt Use: always Assistive Devices: None Physical Exam Physical Exam: Physical Exam: General: In no acute distress, stated age, chronically ill appearing but non- toxic HEENT: Normocephalic, atraumatic, no scleral icterus, pupils around round, symmetrical, and reactive to light, moist mucus membranes, trachea midline, no thyromegaly Chest/Pulm: No respiratory distress, symmetrical chest expansion, clear breath sounds throughout Cardiac: RRR, no murmurs noted Abdomen: Negative for ascites and bruising, normoactive bowel sounds, soft, mild tenderness to palpation in the RUQ Musculoskeletal: Symmetrical and without signs of acute trauma, upper and lower extremities with full ROM, no atrophy, spasticity, or flaccidity Extremities: Radial, dorsalis pedis, and posterior tibial pulses are intact and symmetrical, no edema noted in the BL LE's Skin: Warm, dry, no rashes , lesions, or scars noted Neuro: Alert and oriented to person, place, month, year, and president, no focal defects, no tremors noted Psych: No acute distress, calm and cooperative during the exam Results & Data Results & Data Vital Signs (Past 12 Hours) Vital Signs Temp Pulse Resp BP Pulse Ox O2 Del Method 01/08/23 15:56 97 Room Air 01/08/23 14:31 81 01/08/23 13:41 36.5 C 87 20 117/77 97 Room Air Laboratory Results Abnormal lab results 01/08/23 Range/Units 14:10 RBC 3.69 L (4.70-6.10) M/uL Hgb 11.7 L (14.0-18.0) g/dl Hct 35.9 L (42.0-52.0) % RDW Std Deviation 47.4 H (36.4-46.3) fL Potassium 2.4 L* (3.5-5.1) mmol/L Anion Gap 12 H (3-11) BUN/Creatinine Ratio 7.1 L (10-20) Glucose 132 H (70-99(Fasting)) mg/dl Lipase 6 L (11-82) U/L Diagnostic Findings Abdomen/Pelvis CT 01/08/23 13:47 CT abd pelvis IV con only CLINICAL HISTORY: R abd pain s/p colonoscopy TECHNIQUE: Helical axial images of the abdomen and pelvis were obtained and displayed. Automated dose lowering techniques and/or adjustment according to patient size were utilized for this exam. This exam was performed with intravenous contrast. CT DOSE: 733.39 mGy.cm COMPARISON: Comparison is made to CT abdomen pelvis 12/11/2022 FINDINGS: Lower chest: Bilateral pleural effusions are seen with underlying atelectasis. Liver: Unremarkable. No focal lesions are seen. Gallbladder and biliary tree: No calcified gallstones. Normal caliber wall. No intra- or extrahepatic biliary ductal dilation. Pancreas: Unremarkable, no focal lesions. Spleen: Unremarkable. Adrenals: Unremarkable. Kidneys and ureters: Subcentimeter hypodensities are too small to characterize. Bladder: Unremarkable. Reproductive organs: Prostatic calcifications are seen which may represent prior hemorrhage or granulomatous disease. Bowel: Diverticulosis is seen without evidence of diverticulitis. Patient is status post appendectomy. Lymph nodes Retroperitoneal: Unremarkable. Pelvic: Unremarkable. Mesenteric: Unremarkable. Peritoneum: Normal. Vessels: Atherosclerotic calcifications are seen. Abdominal wall: Unremarkable. Bones: Unremarkable. IMPRESSION: 1. No acute abnormalities and in particular no pneumoperitoneum to suggest perforation. 2. Diverticulosis without diverticulitis. 3. Small bilateral pleural effusions with underlying atelectasis. 4. Additional findings as above. ACT 112: Negative or not required by law. Electronically signed by: Zhou Roman M.D. 01/08/2023 4:06 PM Chest X-Ray 01/08/23 13:48 XR chest 1V portable HISTORY: Hypokalemia, abd pain COMPARISON: Chest 11/24/2022. FINDINGS: No pneumothorax. The cardiac silhouette is normal in size. There is a left-sided posterior pacemaker. Progressive interstitial/vascular thickening suggestive of mild congestive change. There are trace bilateral pleural effusions. Left basilar linear densities favor subsegmental atelectasis. Otherwise, no focal lung consolidations to suggest a pneumonia. IMPRESSION: Mild central pulmonary vascular congestion and trace bilateral pleural effusions. ACT 112: Negative or not required by law. Electronically signed by: Vu Graves M.D. 01/08/2023 2:51 PM ECG Additional Comments: Sinus rhythm with 1st degree A-V block Left anterior fascicular block Diffuse Nonspecific T wave abnormality Prolonged QT Abnormal ECG When compared with ECG of 24-NOV-2022 10:02, QT has lengthened Confirmed by Davon Tabor ([id number]) on 01/08/2023 3:44:25 PM Code Status & VTE Plan Code Status Conditional; No CPR/defibrillation in the event of cardiac arrest, would want trial of intubation in the event of respiratory failure Supervising Physician Co-Signing Physician Notes I personally saw and examined the patient. I verified all rojas points and agree with Tex Hansen PA-C with the following exceptions and/or additions: 82 year old male presents to the ER with right sided abdominal pain following colonoscopy procedure with hepatic flexure mass earlier today. Noted to be significantly hypokalemia on labs. No specific EKG changes. No muscle weakness. Pt held his usual supplementation prior to colonoscopy and suspect this with bowel prep caused drop. Apart from the RUQ abdominal pain he feels like his normal self at this time. O/E HS RRR, no murmurs, Chest CTAB, Abdo mild RUQ tenderness without guarding or rebound A/P Hypokalemia - suspect from recently holding his supplementations in addition to bowel prep. Will continue to trend and replace PO and IV as needed. Repeat Mg level in AM. RUQ pain - CT without acute findings. Suspect from biopsy earlier today. LFTs WNL. PG Care Time/CCT Total # of Minutes Spent Total Time Spent with Patient: Total time spent is greater than 50% in coordination of care (as documented) at patient's floor/unit and/or counseling patient: Coding [place] [address] INT INP/OBS CARE 2/55MIN Patient Type Established Medical Decision Making Moderate Complexity Diagnoses Acute hypokalemia E87.6 Hepatic flexure mass K63.89 Orthostatic hypotension I95.1 Paroxysmal atrial fibrillation I48.0 DM II (diabetes mellitus, type II), controlled E11.9 Hypertension I10
[2023-01-08] MEDS ORDERED: AMIODARONE 200 MG TAB PO ONE (17:49)
[2023-01-08] MEDS ORDERED: MAGNESIUM OXIDE 400 MG TAB PO STA (17:50)
[2023-01-08] MEDS ORDERED: SODIUM CHLORIDE 1 GM TABLET PO STA (18:04)
[2023-01-08] MEDS ORDERED: LACTATED RINGER'S 1,000 ML IV ONE (18:24)
[2023-01-08] MEDS ORDERED: GLUCAGON FOR INJ 1 MG VIAL SQ PRN (18:45)
[2023-01-08] MEDS ORDERED: CARBOHYDRATES FOR HYPOGLYCEMIA PO PRN (18:45)
[2023-01-08] MEDS ORDERED: DEXTROSE 50% 50 ML SYRINGE IV PRN (18:45)
[2023-01-08] MEDS ORDERED: busPIRone 5 MG TAB PO PRN (18:45)
[2023-01-08] MEDS ORDERED: GLUCOSE 10 TAB/TUBE PO PRN (18:45)
[2023-01-08] MEDS ORDERED: GLUCOSE 40% GEL 15 GM TUBE PO PRN (18:45)
[2023-01-08] MEDS ORDERED: INFLUENZA VACCINE HIGH-DOSE (HD-IIV4) PF 65+ 0.7mL SYR IM ONE (18:57)
[2023-01-08] MEDS ORDERED: PNEUMOCOCCAL VACCINE (PCV20) 20-VAL CONJ-DIP CRM/PF 0.5 ML SYR IM ONE (18:57)
[2023-01-08] MEDS: SODIUM CHLORIDE 1 GM TABLET PO SCH (20:03)
[2023-01-08] MEDS: PANTOprazole 40 MG TAB PO SCH (20:03)
[2023-01-08] MEDS: MAGNESIUM CHLORIDE W/CALCIUM 64MG DELAYED REL TAB PO SCH (20:03)
[2023-01-09 03:15] LABS: Appearance Urine Clear (Clear); Bacteria Urine Automated Negative (Negative); Bilirubin Urine Negative (Negative); Blood Urine 1+ (Negative); Color Urine Yellow; Glucose Urine UA Negative (Negative); Ketones Urine Trace (Negative); Leukocyte Esterase Urine Negative (Negative); Nitrite Urine Negative (Negative); Protein Urine Negative (Negative); Specific Gravity Urine 1.037 (1.000-1.030); Urobilinogen Urine Negative (Negative); pH Urine 7.5 (4.5-7.5)
[2023-01-09 05:08] LABS: Basophils # (auto) 0.02 K/uL (0.00-0.20); Basophils % (auto) 0.4 %; Eosinophils # (auto) 0.11 K/uL (0.00-0.50); Eosinophils % (auto) 1.9 %; Hematocrit (blood only) 28.6 % (42.0-52.0); Hemoglobin 9.4 g/dl (14.0-18.0); Immature Granulocytes # (auto) 0.03 K/uL (0.01-0.20); Immature Granulocytes % (auto) 0.5 %; Lymphocytes # (auto) 1.53 K/uL (1.20-3.40); Mean Corpuscular Hemoglobin 31.4 pg (25.0-34.0); Mean Corpuscular Hgb Conc 32.9 g/dL (32.0-36.0); Mean Corpuscular Volume 95.7 fL (80.0-100.0); Mean Platelet Volume 9.5 fL (9.4-12.4); Monocytes # (auto) 0.33 K/uL (0.11-0.59); Monocytes % (auto) 5.8 %; Neutrophils # (auto) 3.65 K/uL (1.40-6.50); Neutrophils % (auto) 64.4 %; Platelet Count 190 K/uL (130-400); RDW Coefficient of Variation 13.3 % (11.5-14.5); RDW Standard Deviation 46.9 fL (36.4-46.3); Red Blood Count 2.99 M/uL (4.70-6.10); White Blood Count 5.67 K/ul (4.8-10.8)
[2023-01-09 05:24] LABS: INR 1.1 (0.9-1.1); Prothrombin Time 11.7 Seconds (9.0-12.0)
[2023-01-09 05:47] LABS: Albumin Globulin Ratio 1.3 (0.9-2); Albumin Level 3.1 gm/dl (3.4-5.0); BUN Creatinine Ratio 7.5 (10-20); Bilirubin,Total 0.5 mg/dl (0.2-1.0); Calcium 7.9 mg/dl (8.6-10.3); Creatinine Clr Calc Pharmacy 53.3 ml/min; Est GFR (African American) 76.4 ml/min; Globulin 2.4 gm/dl (2.5-4.0); Magnesium 1.5 mg/dl (1.7-2.4); Total Protein 5.5 gm/dl (6.0-8.3)
[2023-01-09] MEDS: PANTOprazole 40 MG TAB PO SCH (07:32)
[2023-01-09] MEDS: SODIUM CHLORIDE 1 GM TABLET PO SCH (07:32)
[2023-01-09] MEDS: MAGNESIUM CHLORIDE W/CALCIUM 64MG DELAYED REL TAB PO SCH (07:32)
[2023-01-09] MEDS ORDERED: NON-FORMULARY MEDICATION (Potassium Gluconate 595 mg (99 mg) Tablet) PO SCH (09:00)
[2023-01-09] MEDS ORDERED: DULoxetine HCL 60 MG CAP PO SCH (09:00)
[2023-01-09] MEDS ORDERED: AMIODARONE 200 MG TAB PO SCH (09:00)
[2023-01-09] MEDS ORDERED: POTASSIUM CHLORIDE CRTAB 20 MEQ TABCR PO ONE (09:00)
[2023-01-09] MEDS ORDERED: FLUDROCORTISONE ACETATE 0.1 MG TAB PO SCH (09:00)
[2023-01-09] MEDS ORDERED: POTASSIUM CHLORIDE CRTAB 20 MEQ TABCR PO STA (10:17)
[2023-01-09] MEDS: MAGNESIUM SULFATE / D5W 1 GM/100 ML BAG IV SCH ×2 (10:32→12:52)
[2023-01-09] MEDS ORDERED: OPTIRAY 320 100ml IV ONE (11:25)
--- NOTE | 2023-01-09 11:30 | Discharge Summary ---
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 Foley after outpatient labs showed a potassium level of 2.5. Per chart review, the patient presented to the [facility] suite today for scheduled Colonoscopy and EGD with indications of iron deficiency anemia. Per the EGD report, there were no acute findings. Per the colonoscopy report, he was found to have a 15 mm polyp in the ascending colon which was not resected. He was also found to have an infiltrative non-obstructing, medium-sized mass at the hepatic flexure. It was described as non-circumferential and oozing was present. Biopsies were taken with cold forceps for histology and the distal margin of the mass was tattooed. Non-bleeding internal hemorrhoids and small-mouthed diverticula were also noted. Due to the findings of a mass concerning for malignancy CBC, CMP, and CEA levels were obtained from Dr. Foley, which is when he was noted to be hypokalemic. The patient remained stable while in the ED. Labs were significant for a stable Hgb of 11.7, K+ of 2.4, AG of 12 with bicarb WNL. Chest xray was read as "Mild central pulmonary vascular congestion and trace bilateral pleural effusions.". CT of the abd/pelvis w/IV con was read as "1. No acute abnormalities and in particular no pneumoperitoneum to suggest perforation. 2. Diverticulosis without diverticulitis. 3. Small bilateral pleural effusions with underlying atelectasis. 4. Additional findings as above.". Pror to admission the patient was given a 500 mL NSS bolus, 40 meq PO KCL, and 2 bags of 10 meq IV KCL. At the time of the exam the patient was sitting in bed in no acute distress. He states that he must have misunderstood the directions prior to his procedures today. Because of this he did not take all of his medications for the past 3 days. He did take the bowel prep as prescribed prior to the colonoscopy. He states that he has been doing well lately and has had no recent episodes of syncope. We discussed his colonoscopy findings, he did confirm that he was told his findings by the GI team. I explained that we will need to wait for the pathology results to know the official diagnosis but the initial results were concerning for possible malignancy. He denies a personal or family hx of colon cancer and tobacco abuse. He previously used alcohol but denies heavy alcohol use. Currently he is without complaints besides mild RUQ discomfort. He has not had a BM yet today since his colonoscopy. We had a long discussion regarding code status as he previously saw Palliative medicine in September of this year and was made a DNR/DNI. But during his admissions over the past year has always been a full code. After further discussions he wishes to be a conditional code. He would not want CPR/defibrillation in the event of cardiac arrest. In the event of respiratory failure he would want a trial of intubation. He would want his nephew, Antonio Robertson, to make medical decisions for him if he cannot make them himself. Please refer to Dr. Levi's attestation for any changes to the treatment plan Principal Dx & Hospital Course #1 = Principal Diagnosis (1) Acute hypokalemia: -Was sent to the ED by Dr. Feliciano after post-colonoscopy CMP showed a potassium of 2.4 -The etiology is multifactorial as he stopped his home potassium/mag supplements, was taking bowel prep for Colonoscopy, and had poor oral intake with his recent GI procedures -He had potassium and magnesium replaced via IV and p.o. modalities -His chemistry panels were improving and he is tolerating a regular diet at the time of discharge. -He will resume his usual potassium and magnesium supplements on discharge -He is asymptomatic and no arrhythmias on telemetry were noted -Stable for discharge to home -Follow-up chemistry panel as an outpatient with PCP (2) Hepatic flexure mass: -Noted on Colonoscopy the day of admission and biopsies were taken which are pending -CEA level obtained by GI team is elevated at 6.0 -CT of the abd/pelvis obtained in the ED is negative for acute abnormalities S/P colonoscopy and without signs of metastases -Chest CT was performed while here to expedite work-up and is negative for metastases. Does have a pleural effusion which is asymptomatic-monitor as an outpatient -Given that the mass was oozing blood during colonoscopy, recommend that he not resume his Eliquis on discharge until after seen by surgery and potentially having partial colectomy -He is not in atrial fibrillation here and is on amiodarone as an antiarrhythmic-therefore his risk for stroke is quite low at this time and the risk of going on Eliquis outweighs the benefit-discussed this with the patient and he is in agreement (3) Orthostatic hypotension: -Stable, not having this currently -Continue home NACL and Fludrocortisone which he received here in the hospital and blood pressures were stable -Patient was educated to change positions slowly and ask for assistance getting out of bed to prevent recurrent episodes as he did not take his home meds for the past 3 days prior to admission -Received 1L LR bolus on admission as he appears dehydrated from recent bowel prep (4) Paroxysmal atrial fibrillation: -In sinus rhythm here -Continue amiodarone -Hold Eliquis indefinitely until after seen by surgeon and potentially had partial colectomy as discussed above given oozing of blood from colon mass (5) DM II (diabetes mellitus, type II), controlled: -Diet controlled (6) Hypertension: -Stable -Has been off antihypertensives due to orthostatic hypotension -Cardiology has stated in the past that mild HTN should be allowed to prevent recurrent orthostatic hypotension (7) Anemia: Hemoglobin 9.4 down from 11.7 on admission likely some dilutional effect but also with chronic anemia hence his EGD and colonoscopy yesterday which did show colon mass that is oozing blood -Remain off Eliquis -Follow-up CBC as an outpatient -Is going to see surgery and potentially would have partial colectomy for colon mass Plan Disposition-stable for discharge to home, doing very well Discharge Exam Constitutional WD/WN, vitals as above Neck trachea midline, no thyromegaly Respiratory normal respiratory effort, lungs clear to auscultation Cardiovascular RRR, no murmur, no edema Chest (Breasts) Chest: normal inspection of chest Gastrointestinal (Abdomen) normal bowel sounds, soft, nontender, no hepatosplenomegaly Musculoskeletal Extremities: extremities normal to inspection; no cyanosis and no clubbing Skin no rashes, warm and dry Neurologic moves all extremities and awake; no focal motor deficits Psychiatric A+Ox3, euthymic affect Lymphatic no lymphedema Updated Medication List Medication Instructions Recorded Confirmed Type cholecalciferol (vitamin D3) 25 1,000 units PO QAM 10/06/18 01/08/23 History mcg (1,000 unit) capsule cyanocobalamin (vitamin B-12) 1,000 mcg PO QAM #30 tabs 10/06/18 01/08/23 History 1,000 mcg tablet potassium gluconate 595 mg (99 mg) 595 mg PO QAM 11/14/19 01/08/23 History tablet calcium carbonate 600 mg calcium 600 mg PO QAM 05/25/22 01/08/23 History (1,500 mg) tablet (Calcium) magnesium chloride 64 mg 64 mg PO BID #60 tabs 05/27/22 01/08/23 Rx (magnesium chloride) tablet,delayed release (Mag 64) omeprazole 20 mg capsule,delayed 20 mg PO BID #90 caps 06/10/22 01/08/23 Rx release apixaban 5 mg tablet (Eliquis) 5 mg PO BID #180 tabs 07/03/22 01/08/23 Rx fludrocortisone 0.1 mg tablet 0.1 mg PO QAM #90 tabs 11/11/22 01/08/23 Rx sodium chloride 1,000 mg soluble 1,000 mg PO BID #180 tabs 12/02/22 01/08/23 Rx tablet buspirone 5 mg tablet 5 mg PO TID PRN anxiety #90 tabs 12/14/22 01/08/23 Rx amiodarone 200 mg tablet 200 mg PO QAM 01/05/23 01/08/23 History ascorbic acid (vitamin C) 500 mg 500 mg PO QAM 01/05/23 01/08/23 History tablet (Vitamin C) duloxetine 60 mg capsule,delayed 60 mg PO QAM 01/05/23 01/08/23 History release ramelteon 8 mg tablet 8 mg PO HS 01/05/23 01/08/23 History Hospital Stay Data Consultations 01/08/23 17:01 ED Decision to Admit Stat Diagnostic Imagining Performed 01/08/23 13:47 CT abd pelvis IV con only Stat 01/09/23 10:23 CT chest diagnostic w con Routine Pending Results Patient Have Any Pending Studies at Discharge: Yes (Colon biopsy pathology) Discharge Instructions Given to Patient (Per Discharging Provider) You were admitted with low potassium and magnesium levels caused by not taking your potassium and magnesium supplements before your colonoscopy. You had your potassium and magnesium replaced here. Because you were found to have a tumor in your colon, there is a possibility this is a cancer. You had a CT scan of your abdomen and pelvis which did not show any other tumors. Because this tumor in your colon was oozing blood, it is recommended that you remain OFF your Eliquis (apixiban) until after you see the Surgeon for further instructions. You should be receiving a phone call from the Surgeon's office early next week to schedule this appointment. Total Time Total Time Spent Total Time Spent (In Minutes): 40 min Coding Level of Care Code 23580 INP/OBS DISCH >30 MIN Diagnoses Acute hypokalemia E87.6 Hepatic flexure mass K63.89 Orthostatic hypotension I95.1 Paroxysmal atrial fibrillation I48.0 DM II (diabetes mellitus, type II), controlled E11.9 Hypertension I10 Anemia D64.9
--- NOTE | 2023-01-09 11:55 | CT Scan Report ---
CT SCAN OF THE CHEST WITH IV CONTRAST CLINICAL HISTORY: Colon mass. Metastatic survey. COMPARISON STUDY: Chest CT scans dated 11/24/2022 and 09/15/2017. TECHNIQUE: Following the IV administration of 92 cc of Optiray 320, CT scan of the thorax was perform ed from the thoracic inlet to the upper abdomen. Images are reviewed in the axial, sagittal, and winnie nal planes. IV contrast was administered without complication. A dose lowering technique was utilize d adhering to the principles of ALARA. CT DOSE: 634.05 mGy.cm FINDINGS: Thyroid: Imaged portions of the thyroid gland are normal in size and attenuation. Thoracic aorta: There is atherosclerotic calcification of the thoracic aorta, which is normal in steve harris and demonstrates standard 3-vessel arch anatomy. No dissection is seen. Pulmonary vasculature: The pulmonary trunk is normal in caliber. There are no filling defects identif ied in the central pulmonary vessels to indicate pulmonary embolus. Note that this examination was no t protocoled for evaluation of the pulmonary arteries. Heart: A pacemaker is present in the left chest wall. The heart is mildly enlarged and without perica rdial effusion. Coronary arteries are densely calcified. Lungs and pleural spaces: Mild emphysematous change is seen at the apices. There are [id number] e pleural effusions, right larger left with dependent atelectasis. The trachea and central airways ar e clear. Mediastinum: There is no mediastinal lymphadenopathy. [place]: Clear. Axillae: There is no axillary lymphadenopathy. Upper abdomen: There is trace perihepatic ascites. Partially visualized upper abdominal viscera is wi thin normal limits. Skeletal structures: The skeletal structures are osteopenic. No lytic or blastic bony lesions are see n. There are subacute/healing left anterior 6th through 8th rib fractures. Mild degenerative change i s noted in the shoulders and spine. IMPRESSION: 1. There is no evidence of intrathoracic metastatic disease. 2. Cardiomegaly and mild emphysema. 3. Right larger than left pleural effusions with dependent atelectasis. These have modestly increased in size as compared to 11/24/2022. 4. Additional findings as above. ACT 112: Negative or not required by law. Electronically signed by: Elia Rebollar M.D. 01/09/2023 11:53 AM
--- NOTE | 2023-01-11 06:12 | Electrocardiogram Report ---
Test Reason : Blood Pressure : / mmHG Vent. Rate : 072 BPM Atrial Rate : 072 BPM P-R Int : 212 ms QRS Dur : 094 ms QT Int : 504 ms P-R-T Axes : 003 -59 011 degrees QTc Int : 551 ms Sinus rhythm with 1st degree A-V block Left anterior fascicular block Anterior infarct , age undetermined Prolonged QT Abnormal ECG When compared with ECG of 08-JAN-2023 14:10, No significant change was found Confirmed by Felipe Barry ([id number]) on 01/11/2023 6:12:15 AM Referred By: REFERRED SELF Confirmed By:Felipe Barry
== END 2023-01-09 16:38 | disposition home or self-care (01) | DRG 641 ==
LOC: ED 13:36 → INTOOBSV 17:16 → 4W 17:16 → SUATTDRO 17:16 → 4W 18:18

== ENCOUNTER 2023-02-04 10:04 | Inpatient (IN) ==
--- NOTE | 2023-01-21 10:23 | Anesthesiology Consultation ---
Date of Service January 21, 2023 Assessment & Plan Chart Review Chart Review: Acceptable Risk for Surgery and Patient NOT seen in Pre Admission Testing Consults Requested none History Surgery Operation Date: 02/04/23 09:25 Proposed Procedures p Open Right Hemicolectomy - Kasi Schulz DO Height/Weight Height: 5 ft 8 in Weight: 70.307 kg Allergies Allergy/AdvReac Type Severity Reaction Status Date / Time No Known Allergies Allergy Verified 01/20/23 08:02 Medications Home Medications Medication Instructions Recorded Confirmed Last Taken cholecalciferol (vitamin D3) 25 1,000 units PO QAM 10/06/18 01/20/23 01/07/23 mcg (1,000 unit) capsule cyanocobalamin (vitamin B-12) 1,000 mcg PO QAM #30 tabs 10/06/18 01/20/2312/23 1,000 mcg tablet potassium gluconate 595 mg (99 mg) 595 mg PO QAM 11/14/19 01/20/23 01/07/23 tablet calcium carbonate 600 mg calcium 600 mg PO QAM 05/25/22 01/20/23 01/07/23 (1,500 mg) tablet (Calcium) omeprazole 20 mg capsule,delayed 20 mg PO BID #90 caps 06/10/22 01/20/23 01/07/23 release apixaban 5 mg tablet (Eliquis) 5 mg PO BID #180 tabs 07/03/22 01/20/23 01/05/23 fludrocortisone 0.1 mg tablet 0.1 mg PO QAM #90 tabs 11/11/22 01/20/23 01/07/23 sodium chloride 1,000 mg soluble 1,000 mg PO BID #180 tabs 12/02/22 01/20/23 01/07/23 tablet buspirone 5 mg tablet 5 mg PO TID PRN anxiety #90 tabs 12/14/22 01/20/23 Unknown amiodarone 200 mg tablet 200 mg PO QAM 01/05/23 01/20/23 01/07/23 ascorbic acid (vitamin C) 500 mg 500 mg PO QAM 01/05/23 01/20/23 01/07/23 tablet (Vitamin C) duloxetine 60 mg capsule,delayed 60 mg PO QAM 01/05/23 01/20/23 01/07/23 release ramelteon 8 mg tablet (Rozerem) 8 mg PO HS 01/05/23 01/20/23 01/07/23 diphenhydramine 25 3 tab PO HS PRN pain/sleep 01/20/23 01/20/23 Unknown mg-acetaminophen 500 mg tablet (Tylenol PM Extra Strength) magnesium oxide 400 mg PO QAM 01/20/23 01/20/23 Unknown psyllium seed (sugar) oral powder 1 tbsp PO DAILY 01/20/23 01/20/23 Unknown Past Medical History Medical History (Updated 01/20/23 @ 08:27 by Judith Alvarez, RN) 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 Paroxysmal atrial fibrillation currently on eliquis GERD (gastroesophageal reflux disease) Hypertension History of anxiety Hx of basal cell carcinoma removed spring 2022 Pacemaker 05/2022, [facility]; dr. griffiths, [facility] [place] pt unsure when it was last checked. Current use of detention anticoagulation Syncope and collapse (09/2022) had pacemaker inserted Pericardial effusion (05/2022) Sinus pause (05/2022) Hypomagnesemia Pre-syncope spring 2022 Sleep trouble SBO (small bowel obstruction) hx-had a colectomy Osteoarthritis Chronic back pain History of esophageal dilatation Diverticulosis of colon Hepatic steatosis Hiatal hernia Hypercholesterolemia hx of / pt not sure currently Osteopenia Schatzki's ring Type 2 diabetes mellitus no medications currently. monitoring with PCP. Left leg DVT pt unsure of details. Acute diverticulitis (08/08/13) hx Hypertension pt denies, no medications currently (11/14/2019) Past Family History Family History Family/Other Aorta aneurysm Perceptive hearing loss or deafness Mother Alcoholism /alcohol abuse Lung cancer Lung disease Father Alcoholism /alcohol abuse Lung disease Brother Primary hemochromatosis Denies family history of Colon cancer Ovarian cancer Prostate cancer Myocardial infarction Breast cancer Colorectal cancer Hypertension Stroke Asthma Past Surgical History Surgical History H/O colonoscopy S/P cardiac pacemaker procedure S/P pericardiocentesis 05/2022, [facility] Hx of basal cell carcinoma excision S/P trigger finger release History of esophagogastroduodenoscopy (EGD) History of colostomy reversal History of colostomy Hx of tonsillectomy Hx of colectomy Hx of inguinal hernia repair Hx of colonoscopy Hx of appendectomy Social History Smoking Status: Former smoker tobacco type: cigarettes Do You Dip or Chew Tobacco: No Smoking End Date: quit in the early Hx Alcohol Use: No Hx Substance Use: No substance use type: does not use Testing Laboratory Results Laboratory Tests 09/16/22 11/24/22 01/09/23 11:58 11:05 04:35 WBC Hgb Hct Plt Count PT 11.7 INR 1.1 APTT 31.4 H Sodium Potassium Chloride Carbon Dioxide BUN Creatinine Glucose Hemoglobin A1c 6.1 H 01/20/23 08:58 WBC 4.94 Hgb 10.8 L Hct 33.7 L Plt Count 211 PT INR APTT Sodium 142 Potassium 3.5 Chloride 105 Carbon Dioxide 30 BUN 11 Creatinine 0.91 Glucose 148 H Hemoglobin A1c Electrocardiogram Date: 01/08/23 Findings: + NSR @ and + LBBB (lafb) Chest X-Ray Date: 01/08/23 Findings: + NAD and + pulmonary vascular congestion Echocardiogram Date: 01/12/23 EF: 65 LV Function: normal
[~2023-02-04 10:04] MED LIST changes: -ASPI-435 PO; -CHOL1CAP57 PO; -CYAN100020 PO; +HEPARIN SOD 5,000 UNIT/0.5 ML VIAL SQ ONE; +LACTATED RINGER'S 1,000 ML IV SCH; -MAGN400T6 PO; -MULT-506 PO; -OMEP20CA9 PO; -POTA550T4 PO; +ceFAZolin 2000MG 2,000 MG/15 ML SYR IV SCH
[2023-02-04] MEDS ORDERED: HEPARIN SOD 5,000 UNIT/0.5 ML VIAL ONE (10:34)
[2023-02-04] MEDS ORDERED: ROPIVACAINE 0.5% 5 MG/ML 30 ML VIAL ONE (10:47)
[2023-02-04] MEDS ORDERED: MIDAZOLAM HCL 1 MG/ML 2ML VIAL ONE (11:03)
[2023-02-04] MEDS ORDERED: fentaNYL citrate PF 100 MCG/2 ML VIAL ONE (11:03)
--- NOTE | 2023-02-04 11:11 | History & Physical Bridge Note ---
Date of Service February 04, 2023 History & Physical Bridge Note I have examined the patient, reviewed the History & Physical and in the interval since the performance of the History & Physical I have noted the following changes of clinical significance: no changes noted
[2023-02-04] MEDS ORDERED: LIDOCAINE 2% 2 ML VIAL/AMP(20MG/ML) INFIL ONE (11:30)
[2023-02-04] MEDS ORDERED: ROCURONIUM BROMIDE 10 MG/ML 5 ML VIAL IV ONE ×2 (11:30→13:10)
[2023-02-04] MEDS ORDERED: PROPOFOL IV EMULSION 10 MG/ML 20 ML VIAL IV ONE (11:30)
[2023-02-04] MEDS ORDERED: PROMETHAZINE HCL 12.5 MG in SODIUM CHLORIDE 0.9% 50 ML IV PRN (11:56)
[2023-02-04] MEDS ORDERED: ONDANSETRON INJ 2 MG/ML 2 ML VIAL IV PRN ×2 (11:56→15:50)
[2023-02-04] MEDS ORDERED: ATROPINE SULFATE 0.1 MG/ML 10ML SYR IV PRN (11:56)
[2023-02-04] MEDS ORDERED: ePHEDrine sulfate 50 MG/ML AMP IV PRN (11:56)
[2023-02-04] MEDS ORDERED: DEXAMETHASONE SOD INJ 4 MG/ML VIAL ONE (12:36)
[2023-02-04] MEDS ORDERED: SUGAMMADEX SODIUM 200 MG/2 ML VIAL IV ONE (13:26)
[2023-02-04] MEDS: fentaNYL citrate PF 100 MCG/2 ML VIAL IV PRN ×4 (14:06→14:21)
--- NOTE | 2023-02-04 14:14 | Operative Report ---
PG Post Operative Report Pre & Post Diagnosis Operation Date: 02/04/23 12:05 Pre-Op Diagnosis: Hepatic flexure mass Post-Op Diagnosis: Hepatic flexure mass; enterolysis I identified the patient and participated in the time-out.: Yes Procedure Operation Date: 02/04/23 12:05 Actual Procedures p Open Right Hemicolectomy with Extensive Enterolysis(Right); patial omentectomy - Kasi Schulz DO Surgeon Kasi Schulz DO Criminal Justice Instructor [employer] [place] Estimated Blood Loss 25 Findings Consistent with Post-Op Diagnosis Specimens terminal ileum, cecum, right colon, portion of transverse colon;portion of omentum Description of Procedure After informed consent was obtained the patient was taken to the operating room and placed in's supine position. Anesthesia placed a tap block. After successful intubation a Layne catheter was placed and the abdomen was shaved and sterilely prepped and draped in usual I began with a midline incision from the xiphoid process down around the umbilicus through his old scar line. This was carried down through the soft tissue using cautery. I was able to elevate peritoneum and opened it with a Metzenbaum scissor. There were some adhesions but I was able to work around these using primarily finger fractionation and small amounts of sharp scissor lysis. Base I was able to open the incision to both poles. Once in the abdomen we were able to continue to take down adhesions for the first half hour of the procedure. This was done using primarily sharp scissor lysis. Once these adhesions were down I was able to identify the hepatic flexure mass and the tattoo was readily visible. There was no evidence clinically of any metastatic disease and no palpable lymphadenopathy. I began by freeing up the right colon along the white line of Toldt. Once this was done I then transected the terminal ileum several centimeters proximal to the cecum using a MATHEW brown cartridge linear stapler. I then found a spot on the mid transverse colon just proximal to the middle colic vessels and transected the transverse colon also using 2 firings of the MATHEW 60 mm brown cartridge stapler. LigaSure device was used to take down the mesentery of the colon the specimen was passed off to the back table. I did examine the specimen which did show the mass in the midportion of the specimen with adequate margins. At this point I changed my gloves. We then performed a [id number] small bowel transverse anastomosis using a MATHEW brown cartridge linear stapler. The common enterotomy was closed with a handsewn technique using 3-0 Monocryl for the serosal /mucosal layers as well as 3-0 silk in Lembert fashion for the serosal layer. 3-0 silk was also used to place a crotch stitch and 2-0 Vicryl used to close the mesenteric defect. The anastomosis was widely patent. It was intact with no evidence of any ischemia. Thorough irrigation of the abdomen was performed. Prior to making the anastomosis there was some ischemic appearing omentum and therefore I resected this using LigaSure device and we added this to the specimen. Other than some additional adhesions no other gross abnormalities were identified. The abdomen was thoroughly irrigated and closed using #1 PDS in running fashion. Soft tissue was irrigated and skin was closed using skin ajay over quarter inch David drain. Silver dressing was placed as well as gauze and tape. The patient was awakened extubated and transferred recovery in stable condition. My nurse practitioner was present for the entire case was instrumental in assisting helping with exposure assisting with the anastomosis wound closure and dressing placement. I attest to the content of the Intraoperative Record and any orders documented therein. Any exceptions are noted below.
[2023-02-04] MEDS: HYDROmorphone INJ 2 MG/ML SYR/VIAL IV PRN ×4 (14:28→14:43)
--- NOTE | 2023-02-04 14:37 | Anesthesiology Progress Note ---
Date of Service February 04, 2023 Anesthesia Post Procedure Vital Signs Vital Signs: Temp Pulse Pulse Resp BP Pulse Ox O2 Del Method 02/04/23 14:25 63 15 173/76 H 96 Oxymask 02/04/23 14:15 67 15 190/84 H 95 Oxymask 02/04/23 14:05 67 16 186/88 H 97 Oxymask 02/04/23 13:55 36.3 C L 65 19 175/82 H 94 Oxymask 02/04/23 10:50 36.6 C 88 20 145/68 H 94 Room Air O2 Flow Rate 02/04/23 14:25 5 02/04/23 14:15 5 02/04/23 14:05 5 02/04/23 13:55 5 02/04/23 10:50 Transfer of Care Handoff Completed per policy Notes Mental Status: alert / awake / arousable and participated in evaluation Patient Amnestic to Procedure: Yes Nausea / Vomiting: adequately controlled Pain: adequately controlled Airway Patency, RR, SpO2: stable & adequate BP & HR: stable & adequate Hydration State: stable & adequate Anesthetic Complications: no major complications apparent
[2023-02-04] MEDS ORDERED: busPIRone 5 MG TAB PO PRN (15:50)
[2023-02-04] MEDS ORDERED: HYDROmorphone INJ 0.5 MG/0.5 ML SYR IV PRN (15:50)
[2023-02-04] MEDS: LACTATED RINGER'S 1,000 ML IV SCH (16:33)
[2023-02-04] MEDS: ACETAMINOPHEN 1,000 MG/100 ML VIAL IV SCH (16:43)
[2023-02-04] MEDS: HYDROmorphone INJ 0.5 MG/0.5 ML SYR IV PRN ×2 (19:19→22:16)
[2023-02-04] MEDS: SODIUM CHLORIDE 1 GM TABLET PO SCH (20:00)
[2023-02-04] MEDS: ceFAZolin 2000MG 2,000 MG/15 ML SYR IV SCH (20:01)
--- NOTE | 2023-02-04 21:22 | Hospitalist Consultation ---
Date of Consultation February 04, 2023 Assessment & Plan (1) Status post partial colectomy: VTE/Pain/bowel/diet management per primary orthopedic team Currently with NG tube in place Restart Eliquis when ok from surgical perspective for atrial fibrillation which will cover his VTE prophylaxis (2) Paroxysmal atrial fibrillation: Currently in NSR and took his usual amiodarone this morning If stays in NSR overnight and labs relatively normal tomorrow suspect he can be downgraded to med/surg (3) Orthostatic hypotension: Restart fludrocortisone in AM, continue salt tabs (started in September for this) BP currently stable - no need for stress dose steroids (4) Hypomagnesemia: Repeat level with morning labs (5) Hypokalemia: In the setting of colonoscopy prep and stopping his regular supplement on prior admission Will repeat level with AM labs Plan Thank you for consulting us for this patient. We will continue to follow along with you. History of Present Illness Reason for Consultation: Hx pacemaker, Afib, diabetes type 2 Attending Physician: Kasi Schulz, DO History of Present Illness Eleuterio Robertson is an 82 year old male who presents for elective open right hemicolec rory with extensive enterolysis performed by Dr Schulz earlier today. Estimated blood loss 25ml. No complications noted. No acute concerns from patient when seen. Telemetry reveals no episodes of atrial fibrillation and the patient reports taking his usual amiodarone this morning. No chest pain, palpitations or shortness of breath. He currently has an NG tube in from the surgery and is NPO on IV fluids ordered by surgery. He denies any history of congestive heart failure or pulmonary edema. He denies having diabetes and is not on any medications for this with prior HbA1C 6.1 in August suggestive of pre- diabetes. He was recently admitted for hypokalemia on January 08 however this was in the setting of stopping his potassium supplementation and taking bowel prep and resolved overnight. He has also had multiple hospitalizations for syncope with no arrhythmia associated on pacemaker and determined to be orthostatic which has resolved with his fludrocortisone and salt tabs. Allergies Allergy/AdvReac Type Severity Reaction Status Date / Time No Known Allergies Allergy Verified 02/04/23 10:44 Home Medications Medication Instructions Recorded Confirmed Type cholecalciferol (vitamin D3) 25 1,000 units PO QAM 10/06/18 01/20/23 History mcg (1,000 unit) capsule cyanocobalamin (vitamin B-12) 1,000 mcg PO QAM #30 tabs 10/06/18 01/20/23 History 1,000 mcg tablet potassium gluconate 595 mg (99 mg) 595 mg PO QAM 11/14/19 01/20/23 History tablet calcium carbonate 600 mg calcium 600 mg PO QAM 05/25/22 01/20/23 History (1,500 mg) tablet (Calcium) apixaban 5 mg tablet (Eliquis) 5 mg PO BID #180 tabs 07/03/22 02/04/23 Rx fludrocortisone 0.1 mg tablet 0.1 mg PO QAM #90 tabs 11/11/22 01/20/23 Rx sodium chloride 1,000 mg soluble 1,000 mg PO BID #180 tabs 12/02/22 02/04/23 Rx tablet buspirone 5 mg tablet 5 mg PO TID PRN anxiety #90 tabs 12/14/22 01/20/23 Rx amiodarone 200 mg tablet 200 mg PO QAM 01/05/23 02/04/23 History ascorbic acid (vitamin C) 500 mg 500 mg PO QAM 01/05/23 01/20/23 History tablet (Vitamin C) ramelteon 8 mg tablet (Rozerem) 8 mg PO HS 01/05/23 01/20/23 History diphenhydramine 25 3 tab PO HS PRN pain/sleep 01/20/23 01/20/23 History mg-acetaminophen 500 mg tablet (Tylenol PM Extra Strength) magnesium oxide 400 mg PO QAM 01/20/23 01/20/23 History psyllium seed (sugar) oral powder 1 tbsp PO DAILY 01/20/23 01/20/23 History omeprazole 20 mg capsule,delayed 20 mg PO BID #90 caps 02/01/23 Rx release duloxetine 60 mg capsule,delayed 60 mg PO QAM #90 caps 02/02/23 Rx release Patient History Medical History 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 Paroxysmal atrial fibrillation currently on eliquis GERD (gastroesophageal reflux disease) Hypertension History of anxiety Hx of basal cell carcinoma removed spring 2022 Pacemaker 05/2022, [facility]; dr[place] [facility] [place] unsure when it was last checked. Current use of fdc anticoagulation Syncope and collapse (09/2022) had pacemaker inserted Pericardial effusion (05/2022) Sinus pause (05/2022) Hypomagnesemia Pre-syncope spring 2022 Sleep trouble SBO (small bowel obstruction) hx-had a colectomy Osteoarthritis Chronic back pain History of esophageal dilatation Diverticulosis of colon Hepatic steatosis Hiatal hernia Hypercholesterolemia hx of / pt not sure currently Osteopenia Schatzki's ring Type 2 diabetes mellitus no medications currently. monitoring with PCP. Left leg DVT pt unsure of details. Acute diverticulitis (08/08/13) hx Hypertension pt denies, no medications currently (11/14/2019) Surgical History (Updated 02/04/23 @ 21:16 by Dajuan Levi MD) H/O right hemicolectomy (02/04/23) Open Right Hemicolectomy with Extensive Enterolysis(Right); patial omentectomy - Kasi Schulz, H/O colonoscopy S/P cardiac pacemaker procedure S/P pericardiocentesis 05/2022, [facility] Hx of basal cell carcinoma excision S/P trigger finger release History of esophagogastroduodenoscopy (EGD) History of colostomy reversal History of colostomy Hx of tonsillectomy Hx of colectomy Hx of inguinal hernia repair Hx of colonoscopy Hx of appendectomy Family History Family/Other Aorta aneurysm Perceptive hearing loss or deafness Mother Alcoholism /alcohol abuse Lung cancer Lung disease Father Alcoholism /alcohol abuse Lung disease Brother Primary hemochromatosis Denies family history of Colon cancer Ovarian cancer Prostate cancer Myocardial infarction Breast cancer Colorectal cancer Hypertension Stroke Asthma Social History Smoking Status: Former smoker Tobacco Type: Cigarettes Smoking End Date: quit in the early 1969's; Second Hand Exposure: Yes (hx as child); Do You Dip or Chew Tobacco: No; Tobacco Cessation Education Requested by Patient: No Hx Alcohol Use: No Hx Substance Use: No Preferred Language: Occitan Communication Ability: Effective Visual Impairment: No Limitations 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: Normal 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 Beliefs That Will Affect Care: None marital status: Single Current Living Situation: Alone Current Living Situation Comment: has 2 apt in house, with 3 tenants total current occupational status: retired current occupation: [employer] - [place] Other Information That Helps Us Care for You: No Feels Safe at Home: Yes Safety Concerns: Feels Safe At This Time Dental Care, Regularly: No Physical Activity Frequency: 1-2 Times per Week Seatbelt Use: always Assistive Devices: Glasses Review of Systems Review of Systems: All systems reviewed & are unremarkable except as noted in HPI & below Physical Exam Constitutional: well developed; + not well nourished and no acute distress Eyes: + anicteric sclerae; normal pupil size ENMT: Mouth: + dry oral mucous membranes (NG tube in place) Respiratory: normal respiratory effort, lungs clear to auscultation Cardiovascular: RRR, no murmur, no edema Gastrointestinal (Abdomen): Inspection/Auscultation: + abdomen distended and + hypoactive bowel sounds (scant) Percussion/Palpation: + abdomen tender (mild generalized) and abdomen soft surgical dressing C/D/I not removed Neurologic: moves all extremities and awake; not confused Psychiatric: A+Ox3, euthymic affect Results & Data Results & Data Vital Signs (Past 12 Hours) Vital Signs Temp Pulse Pulse Resp BP Pulse Ox O2 Del Method 02/04/23 19:36 36.7 C 68 16 137/73 94 Room Air 02/04/23 19:31 Nasal Cannula 02/04/23 18:41 Nasal Cannula 02/04/23 15:59 67 18 138/70 95 Nasal Cannula 02/04/23 15:28 66 18 146/72 H 94 Nasal Cannula 02/04/23 15:16 70 18 150/68 H 96 Nasal Cannula 02/04/23 14:55 67 16 160/79 H 96 Nasal Cannula 02/04/23 14:45 36.4 C L 69 14 157/79 H 96 Nasal Cannula 02/04/23 14:35 67 14 159/76 H 96 Nasal Cannula 02/04/23 14:25 63 15 173/76 H 96 Oxymask 02/04/23 14:15 67 15 190/84 H 95 Oxymask 02/04/23 14:05 67 16 186/88 H 97 Oxymask 02/04/23 13:55 36.3 C L 65 19 175/82 H 94 Oxymask 02/04/23 10:50 36.6 C 88 20 145/68 H 94 Room Air O2 Flow Rate 02/04/23 19:36 02/04/23 19:31 4 02/04/23 18:41 4 02/04/23 15:59 4.0 02/04/23 15:28 4.0 02/04/23 15:16 4.0 02/04/23 14:55 4 02/04/23 14:45 4 02/04/23 14:35 4 02/04/23 14:25 5 02/04/23 14:15 5 02/04/23 14:05 5 02/04/23 13:55 5 02/04/23 10:50 PG Care Time/CCT Total # of Minutes Spent Total Time Spent with Patient: Total time spent is greater than 50% in coordination of care (as documented) at patient's floor/unit and/or counseling patient: Coding Level of Care Code 78616 IN/OBS CONSULT LVL 4,60M Diagnoses Status post partial colectomy Z90.49 Paroxysmal atrial fibrillation I48.0 Orthostatic hypotension I95.1 Hypomagnesemia E83.42 Hypokalemia E87.6
[2023-02-04] MEDS: PANTOprazole 40 MG in SYRINGE 0 ML IV SCH (22:13)
[2023-02-05] MEDS: ACETAMINOPHEN 1,000 MG/100 ML VIAL IV SCH ×3 (01:12→15:28)
[2023-02-05] MEDS: LACTATED RINGER'S 1,000 ML IV SCH ×3 (01:12→18:17)
[2023-02-05] MEDS: ceFAZolin 2000MG 2,000 MG/15 ML SYR IV SCH ×2 (02:50→13:20)
[2023-02-05] MEDS: HYDROmorphone INJ 0.5 MG/0.5 ML SYR IV PRN ×5 (02:53→22:50)
[2023-02-05 07:27] LABS: Basophils # (auto) 0.01 K/uL (0.00-0.20); Basophils % (auto) 0.1 %; Hematocrit (blood only) 31.3 % (42.0-52.0); Hemoglobin 10.2 g/dl (14.0-18.0); Immature Granulocytes # (auto) 0.04 K/uL (0.01-0.20); Immature Granulocytes % (auto) 0.4 %; Lymphocytes # (auto) 0.57 K/uL (1.20-3.40); Lymphocytes % (auto) 6.1 %; Mean Corpuscular Hemoglobin 31.2 pg (25.0-34.0); Mean Corpuscular Hgb Conc 32.6 g/dL (32.0-36.0); Mean Corpuscular Volume 95.7 fL (80.0-100.0); Mean Platelet Volume 9.9 fL (9.4-12.4); Monocytes # (auto) 0.53 K/uL (0.11-0.59); Monocytes % (auto) 5.7 %; Neutrophils # (auto) 8.14 K/uL (1.40-6.50); Neutrophils % (auto) 87.7 %; Platelet Count 223 K/uL (130-400); RDW Coefficient of Variation 14.1 % (11.5-14.5); RDW Standard Deviation 49.9 fL (36.4-46.3); Red Blood Count 3.27 M/uL (4.70-6.10); White Blood Count 9.29 K/ul (4.8-10.8)
[2023-02-05 07:48] LABS: BUN Creatinine Ratio 12.5 (10-20); Calcium 8.3 mg/dl (8.6-10.3); Creatinine Clr Calc Pharmacy 57.9 ml/min; Est GFR (African American) 86.2 ml/min; Est GFR (Non-African American) 74.4 ml/min; Magnesium 1.6 mg/dl (1.7-2.4); Potassium 3.3 mmol/L (3.5-5.1)
--- NOTE | 2023-02-05 08:21 | XRay Report ---
SINGLE VIEW CHEST CLINICAL HISTORY: Hypoxia. FINDINGS: An AP, portable, upright chest radiograph is compared to study dated 01/08/2023 and correla patience with chest CT dated 01/09/2023. A 2-lead cardiac pacemaker is unchanged in position and partially obscures the left upper chest. An enteric tube has been placed. The tip projects below the diaphragm and is not visualized. The heart is enlarged and noting atherosclerotic calcification of the thoraci c aorta. There is pulmonary vascular congestion. Bilateral airspace opacities likely representing int erstitial edema. There are layering pleural effusions with dependent consolidation. No pneumothorax i s seen. The skeletal structures are osteopenic. The bony thorax is grossly intact. Indeterminant gas below the right hemidiaphragm is suspicious for intraperitoneal free air. IMPRESSION: 1. Indeterminant gas below the right hemidiaphragm is highly suspicious for intraperitoneal free air. Clinical correlation will be required. Abdominal CT is recommended for further assessment. 2. Cardiomegaly and cardiac pacemaker with evidence of congestive failure and pulmonary edema. 3. Layering pleural effusions with dependent consolidation. 4. An enteric tube has been placed as above. ACT 112: Negative or not required by law. Electronically signed by: Elia Rebollar M.D. 02/05/2023 8:19 AM
[2023-02-05] MEDS ORDERED: NON-FORMULARY MEDICATION (Potassium Gluconate 595 mg (99 mg) Tablet) PO SCH (09:00)
[2023-02-05] MEDS: AMIODARONE 200 MG TAB PO SCH (10:00)
[2023-02-05] MEDS: FLUDROCORTISONE ACETATE 0.1 MG TAB PO SCH (10:01)
[2023-02-05] MEDS: SODIUM CHLORIDE 1 GM TABLET PO SCH ×2 (10:01→20:18)
[2023-02-05] MEDS: DULoxetine HCL 60 MG CAP PO SCH (10:01)
[2023-02-05] MEDS: PANTOprazole 40 MG in SYRINGE 0 ML IV SCH ×2 (10:02→20:17)
--- NOTE | 2023-02-05 11:02 | Surgery Progress Note ---
Date of Service February 05, 2023 Assessment & Plan (1) Status post partial colectomy: Plan: POD 1 doing well will d/c ngt and jacobson start clears but slowly OOB Dr. Elena covering for weekend. Admission and Anticipated Discharge Date Admission Date: February 04, 2023 Subjective Patient seen. Feeling reasonably well considering his postoperative day #1. No major complaints. Pain currently managed Physical Exam Physical Exam: alert. nad abd: soft. dressings clean/dry. Results & Data Vital Signs (Past 12 Hours) Vital Signs Temp Pulse Pulse Pulse Resp BP Pulse Ox 02/05/23 07:26 36.7 C 68 18 134/57 L 91 02/05/23 03:34 36.5 C 66 20 130/65 93 02/04/23 23:59 36.9 C 70 18 136/75 95 02/04/23 23:41 66 O2 Del Method O2 Flow Rate 02/05/23 07:26 Room Air 02/05/23 03:34 Other 3 02/04/23 23:59 Nasal Cannula 3 02/04/23 23:41 PG Care Time/CCT Total # of Minutes Spent Total Time Spent with Patient: Total time spent is greater than 50% in coordination of care (as documented) at patient's floor/unit and/or counseling patient: Coding Level of Care Code 35844 Post Operative Follow-Up Diagnoses Status post partial colectomy Z90.49
[2023-02-05] MEDS ORDERED: POTASSIUM CHLORIDE CRTAB 20 MEQ TABCR PO STA (16:55)
[2023-02-05] MEDS: MAGNESIUM SULFATE / D5W 1 GM/100 ML BAG IV SCH ×2 (18:11→20:13)
--- NOTE | 2023-02-05 22:30 | Hospitalist Progress Note ---
Date of Service February 05, 2023 Assessment & Plan (1) Status post partial colectomy: Plan: VTE/Pain/bowel/diet management per primary orthopedic team Currently with NG tube in place Restart Eliquis when ok from surgical perspective for atrial fibrillation which will cover his VTE prophylaxis (2) Paroxysmal atrial fibrillation: Plan: Currently in NSR and took his usual amiodarone this morning If stays in NSR overnight and labs relatively normal tomorrow suspect he can be downgraded to med/surg (3) Orthostatic hypotension: Plan: Restart fludrocortisone in AM, continue salt tabs (started in September for this) BP currently stable - no need for stress dose steroids (4) Hypomagnesemia: Plan: Remained low. Was replenished (5) Hypokalemia: Plan: In the setting of colonoscopy prep and stopping his regular supplement on prior admission replenished Admission and Anticipated Discharge Date Admission Date: February 04, 2023 Subjective Patient reports no new symptoms. Review of Systems Review of Systems: All systems reviewed & are unremarkable except as noted in HPI & below Physical Exam Constitutional: well developed; + not well nourished and no acute distress Eyes: + anicteric sclerae; normal pupil size ENMT: Mouth: oral mucous membranes not dry (NG tube in place) Respiratory: normal respiratory effort, lungs clear to auscultation Cardiovascular: RRR, no murmur, no edema Gastrointestinal (Abdomen): Inspection/Auscultation: + abdomen distended and + hypoactive bowel sounds (scant) Percussion/Palpation: + abdomen tender (mild generalized) and abdomen soft surgical dressing C/D/I not removed Neurologic: moves all extremities and awake; not confused Psychiatric: A+Ox3, euthymic affect Results & Data Results & Data Vital Signs (Past 12 Hours) Vital Signs Temp Pulse Pulse Pulse Resp BP Pulse Ox 02/05/23 19:32 36.7 C 73 16 138/66 91 02/05/23 18:44 73 02/05/23 16:47 36.8 C 75 16 162/68 H 91 02/05/23 10:37 36.7 C 70 16 160/68 H 92 O2 Del Method 02/05/23 19:32 Room Air 02/05/23 18:44 02/05/23 16:47 Room Air 02/05/23 10:37 Room Air PG Care Time/CCT Total # of Minutes Spent Total Time Spent with Patient: Total time spent is greater than 50% in coordination of care (as documented) at patient's floor/unit and/or counseling patient: Coding Level of Care Code 38412 SUB INP/OBS CARE 2/35MIN Diagnoses Status post partial colectomy Z90.49 Paroxysmal atrial fibrillation I48.0 Orthostatic hypotension I95.1 Hypomagnesemia E83.42 Hypokalemia E87.6
[2023-02-06] MEDS: ACETAMINOPHEN 1,000 MG/100 ML VIAL IV SCH ×3 (01:00→18:30)
[2023-02-06] MEDS ORDERED: Nursing to Pharmacy Communication SCH (01:00)
[2023-02-06] MEDS: LACTATED RINGER'S 1,000 ML IV SCH ×3 (02:18→19:06)
[2023-02-06] MEDS: HYDROmorphone INJ 0.5 MG/0.5 ML SYR IV PRN ×2 (05:31→08:43)
--- NOTE | 2023-02-06 05:49 | Surgery Progress Note ---
Date of Service February 06, 2023 Assessment & Plan (1) Status post partial colectomy: Plan: Status post right hemicolectomy on 02/04/2023 (postop day #2) Continue analgesics as needed Continue antiemetics as needed Will maintain the patient on clear liquids until he has further return of bowel function Encourage use of incentive spirometer Mobilize as able Will monitor patient for further episodes of hypoxia. As noted by RN hypoxia last evening was after patient received pain medication and he was sleeping. At the present time he is greater than 90% on room air. Check a.m. labs when available Will discuss with attending if patient should have DVT prophylaxis initiated at this time Admission and Anticipated Discharge Date Admission Date: February 04, 2023 Supervising Physician Co-Signing Physician Notes Patient was seen and examined thia am. I agree with above exam. Soreness at t he midline incision site. Evidence for previous drainage at the inferior aspect of the wound has stabilized and is not currently active. I am aware of the report of an episode of hypoxia after pain medication administration. The patient has no sequelae of that at this time. He is not SOB. Of note, he does have a cough with significant sputum production that he is unable to expectorate due to his abdominal splinting which is not helping with the use of a firm pillow against his abdomen. Patient states this is not his baseline and he is already on Mucinex. He is afebrile and otherwise has good O2 saturation. Encourage aggressive incentive spirometer use every hour Get OOB and to the chair Patient has started passing a small amount of flatus but will continue with a clear liquid diet for today until he displays more bowel function. Start oral pain medication today, reserve low dose Dilaudid for severe pain only. Orders have been adjusted. He remains on Ofirmev. Subjective Patient is currently resting comfortably at the bedside. He notes he is passing a small amount of flatus but has not had a bowel movement since surgery. He notes he is voiding without difficulty. He does note some pain at his surgical incision. He denies any nausea or vomiting. I discussed with the lunchroom operator RN. She notes that patient did have an episode of hypoxia with pulse ox of approximately 81% when he fell asleep after receiving pain medications. She notes that this resolved with administration of oxygen. She notes that the patient is now up and awake and sitting at the bedside and is not requiring any oxygen, maintaining saturations greater than 90% on room air. Physical Exam Respiratory: Breath sounds are slightly decreased at bases as abdominal pain is exacerbated by respiratory effort. No wheezing or rales noted. Gastrointestinal (Abdomen): Abdomen is soft with minimal distention. Bowel sounds are hypoactive. Incision is intact with ajay. There is a [place] drain in place. There is a small amount of serosanguineous fluid on patient's dressing. Patient has appropriate pain with palpation near his surgical incision. Results & Data Vital Signs (Past 12 Hours) Vital Signs Temp Pulse Pulse Pulse Resp BP Pulse Ox 02/06/23 03:41 36.6 C 78 20 153/65 H 94 02/06/23 00:00 71 02/05/23 22:26 36.6 C 72 20 146/55 H 91 02/05/23 20:15 02/05/23 19:32 36.7 C 73 16 138/66 91 02/05/23 18:44 73 O2 Del Method O2 Flow Rate 02/06/23 03:41 Nasal Cannula 2 02/06/23 00:00 02/05/23 22:26 Room Air 02/05/23 20:15 Room Air 02/05/23 19:32 Room Air 02/05/23 18:44 PG Care Time/CCT Total # of Minutes Spent Total Time Spent with Patient: Total time spent is greater than 50% in coordination of care (as documented) at patient's floor/unit and/or counseling patient: Coding Level of Care Code 35929 Post Operative Follow-Up Diagnoses Status post partial colectomy Z90.49
[2023-02-06] MEDS ORDERED: ALBUT/IPRATROP 3MG/0.5MG NEB 3 ML VIAL NEB PRN (06:14)
[2023-02-06 07:21] LABS: Basophils # (auto) 0.02 K/uL (0.00-0.20); Basophils % (auto) 0.3 %; Eosinophils # (auto) 0.04 K/uL (0.00-0.50); Eosinophils % (auto) 0.6 %; Hematocrit (blood only) 30.3 % (42.0-52.0); Hemoglobin 9.5 g/dl (14.0-18.0); Immature Granulocytes # (auto) 0.03 K/uL (0.01-0.20); Immature Granulocytes % (auto) 0.5 %; Lymphocytes # (auto) 1.16 K/uL (1.20-3.40); Lymphocytes % (auto) 17.9 %; Mean Corpuscular Hemoglobin 31.4 pg (25.0-34.0); Mean Corpuscular Hgb Conc 31.4 g/dL (32.0-36.0); Mean Platelet Volume 9.7 fL (9.4-12.4); Monocytes % (auto) 6.2 %; Neutrophils # (auto) 4.82 K/uL (1.40-6.50); Neutrophils % (auto) 74.5 %; Platelet Count 197 K/uL (130-400); RDW Coefficient of Variation 14.5 % (11.5-14.5); RDW Standard Deviation 53.1 fL (36.4-46.3); Red Blood Count 3.03 M/uL (4.70-6.10); White Blood Count 6.47 K/ul (4.8-10.8)
[2023-02-06 07:49] LABS: BUN Creatinine Ratio 12.5 (10-20); Calcium 8.2 mg/dl (8.6-10.3); Creatinine Clr Calc Pharmacy 63.2 ml/min; Est GFR (Non-African American) 81.1 ml/min; Magnesium 1.8 mg/dl (1.7-2.4); Potassium 3.4 mmol/L (3.5-5.1)
[2023-02-06] MEDS: FLUDROCORTISONE ACETATE 0.1 MG TAB PO SCH (09:13)
[2023-02-06] MEDS: AMIODARONE 200 MG TAB PO SCH (09:14)
[2023-02-06] MEDS: DULoxetine HCL 60 MG CAP PO SCH (09:14)
[2023-02-06] MEDS: SODIUM CHLORIDE 1 GM TABLET PO SCH ×2 (09:15→21:06)
[2023-02-06] MEDS: PANTOprazole 40 MG in SYRINGE 0 ML IV SCH ×2 (09:15→21:06)
[2023-02-06] MEDS: guaiFENesin 600 MG TABCR PO SCH ×2 (09:15→21:05)
[2023-02-06] MEDS ORDERED: HYDROmorphone INJ 0.5 MG/0.5 ML SYR IV PRN (12:06)
[2023-02-06] MEDS: oxyCODONE HCL IR 5 MG TAB (IMMEDIATE RELEASE) PO PRN ×2 (15:25→22:59)
--- NOTE | 2023-02-06 21:19 | Hospitalist Progress Note ---
Date of Service February 06, 2023 Assessment & Plan (1) Status post partial colectomy: Plan: VTE/Pain/bowel/diet management per primary orthopedic team Currently with NG tube in place Restart Eliquis when ok from surgical perspective for atrial fibrillation which will cover his VTE prophylaxis (2) Paroxysmal atrial fibrillation: Plan: Currently in NSR and took his usual amiodarone this morning If stays in NSR overnight and labs relatively normal tomorrow suspect he can be downgraded to med/surg (3) Orthostatic hypotension: Plan: Restart fludrocortisone in AM, continue salt tabs (started in September for this) BP currently stable - no need for stress dose steroids (4) Hypomagnesemia: Plan: Remained low. Was replenished will recheck levels. (5) Hypokalemia: Plan: In the setting of colonoscopy prep and stopping his regular supplement on prior admission replenished Admission and Anticipated Discharge Date Admission Date: February 04, 2023 Subjective Patient reports no new symptoms. Review of Systems Review of Systems: All systems reviewed & are unremarkable except as noted in HPI & below Physical Exam Constitutional: well developed; + not well nourished and no acute distress Eyes: + anicteric sclerae; normal pupil size ENMT: Mouth: oral mucous membranes not dry Respiratory: normal respiratory effort, lungs clear to auscultation Cardiovascular: RRR, no murmur, no edema Gastrointestinal (Abdomen): Inspection/Auscultation: + abdomen distended and + hypoactive bowel sounds (scant) Percussion/Palpation: + abdomen tender (mild generalized) and abdomen soft Neurologic: moves all extremities and awake; not confused Psychiatric: A+Ox3, euthymic affect Results & Data Results & Data Vital Signs (Past 12 Hours) Vital Signs Temp Pulse Pulse Pulse Resp BP Pulse Ox 02/06/23 19:28 36.9 C 74 20 176/81 H 95 02/06/23 18:58 73 02/06/23 17:06 36.6 C 78 18 164/72 H 94 02/06/23 11:09 36.6 C 70 18 127/64 97 02/06/23 09:46 77 18 97 O2 Del Method O2 Flow Rate 02/06/23 19:28 Nasal Cannula 2 02/06/23 18:58 02/06/23 17:06 Nasal Cannula 2.0 02/06/23 11:09 Nasal Cannula 2.0 02/06/23 09:46 Nasal Cannula 2 PG Care Time/CCT Total # of Minutes Spent Total Time Spent with Patient: Total time spent is greater than 50% in coordination of care (as documented) at patient's floor/unit and/or counseling patient: Coding Level of Care Code 18516 SUB INP/OBS CARE 2/35MIN Diagnoses Status post partial colectomy Z90.49 Paroxysmal atrial fibrillation I48.0 Orthostatic hypotension I95.1 Hypomagnesemia E83.42 Hypokalemia E87.6
[2023-02-07] MEDS: ACETAMINOPHEN 1,000 MG/100 ML VIAL IV SCH ×2 (02:08→08:46)
[2023-02-07] MEDS: LACTATED RINGER'S 1,000 ML IV SCH ×3 (02:15→21:15)
--- NOTE | 2023-02-07 05:45 | Surgery Progress Note ---
Date of Service February 07, 2023 Assessment & Plan (1) Status post partial colectomy: Plan: Status post right hemicolectomy on 02/04/2023 (postop day #3) Continue analgesics as needed Continue antiemetics as needed Continue clear liquids until bowel function has improved to more acceptable level Encourage use of incentive spirometer Mobilize as able Due to noted hypoxia we will check a chest x-ray this morning as well as sputum culture Continue Mucinex and DuoNebspatient notes that he is coughing up more mucus since these medications have been initiated Check a.m. labs when available Add subcutaneous heparin for DVT prevention if CBC does not demonstrate a significant drop in his hemoglobin and hematocrit Addendum: CXR performed secondary to hypoxia. No infiltrates noted but pt. has bilateral pleural effusions noted. Distended loops of small bowel noted. There is concern for intraperitoneal free air. Due to chest x-ray findings will make pt. npo. Discussed findings with Dr Elena who will see pt. shortly and provide additional recommendations. Labs this am show no leukocytosis. Potassium, mag, and phos all noted to be low--supplementation ordered Admission and Anticipated Discharge Date Admission Date: February 04, 2023 Supervising Physician Co-Signing Physician Notes The patient was seen and examined this am. He is joking, laughing and seems very comfortable sitting up in bed this am. He does not appear toxic or ill. His VSS and he has no leukocytosis. Free air was noted on KUB and CXR which could potential be from recent intra- abdominal surgery considering the patient's condition. He is not really complaining of any abdominal pain, just some soreness when he coughs which is expected with a midline incision. He is mildly distended. He c/o most of cough which is producing a lot of sputum that is moving around but he is unable to expectorate. Nursing reports he is using his incentive spirometer a lot. He remains on Mucinex with no improvement and continues to have episodes of hypoxia when he is off of the nasal cannula. He will try to produce sputum today for culture. He notes he is able to get sputum up better when he is sitting in a chair which he will do today. He may resume his liquid diet for now. Up, OOB with assistance today. Continue aggressive incentive spirometer use. Physical therapy as tolerated. Nurse says he was able to tolerate being up and moving around. Ordered sputum collection for cultures yesterday. Patient trying to produce sputum. Dr. Schulz will return tomorrow to follow up on his abdominal exam. Right now, he does not have an acute abdomen. Midline incision with ajay are intact. Subjective Patient is currently resting comfortably in bed. He notes that his abdominal incision is sore. He is passing flatus but has not had a bowel movement since surgery. He is tolerating clear liquids without any nausea or vomiting. He denies any fevers, shakes, or chills. The patient notes that he is coughing up some white-colored mucus. I discussed with nursing staff and patient continues to have episodes of hypoxia but he is maintaining saturations greater than 90% on 2 L of oxygen. No other issues have been identified. Physical Exam Respiratory: Lungs are overall clear to auscultation. I do not appreciate any rales, rhonchi, or wheezing. The patient was not using accessory muscles to aid in respiration. Gastrointestinal (Abdomen): Abdomen is nonrigid and is mildly distended. Incision is intact with ajay with a David noted in the subcutaneous tissue. Patient has appropriate tenderness near surgical incision. Results & Data Vital Signs (Past 12 Hours) Vital Signs Temp Pulse Pulse Resp BP Pulse Ox O2 Del Method 02/07/23 02:36 36.6 C 99 H 20 168/70 H 95 Nasal Cannula 02/06/23 23:00 71 02/06/23 22:43 36.7 C 71 20 175/81 H 98 Nasal Cannula 02/06/23 21:00 Nasal Cannula 02/06/23 19:28 36.9 C 74 20 176/81 H 95 Nasal Cannula 02/06/23 18:58 73 O2 Flow Rate 02/07/23 02:36 2 02/06/23 23:00 02/06/23 22:43 2 02/06/23 21:00 2 02/06/23 19:28 2 02/06/23 18:58 PG Care Time/CCT Total # of Minutes Spent Total Time Spent with Patient: Total time spent is greater than 50% in coordination of care (as documented) at patient's floor/unit and/or counseling patient: Coding Level of Care Code 72975 Post Operative Follow-Up Diagnoses Status post partial colectomy Z90.49
[2023-02-07 06:21] LABS: Basophils # (auto) 0.03 K/uL (0.00-0.20); Basophils % (auto) 0.5 %; Eosinophils # (auto) 0.09 K/uL (0.00-0.50); Eosinophils % (auto) 1.5 %; Hematocrit (blood only) 29.8 % (42.0-52.0); Hemoglobin 9.2 g/dl (14.0-18.0); Immature Granulocytes # (auto) 0.02 K/uL (0.01-0.20); Immature Granulocytes % (auto) 0.3 %; Lymphocytes # (auto) 0.85 K/uL (1.20-3.40); Lymphocytes % (auto) 14.5 %; Mean Corpuscular Hemoglobin 31.1 pg (25.0-34.0); Mean Corpuscular Hgb Conc 30.9 g/dL (32.0-36.0); Mean Corpuscular Volume 100.7 fL (80.0-100.0); Mean Platelet Volume 9.4 fL (9.4-12.4); Monocytes # (auto) 0.39 K/uL (0.11-0.59); Monocytes % (auto) 6.7 %; Neutrophils # (auto) 4.47 K/uL (1.40-6.50); Neutrophils % (auto) 76.5 %; Platelet Count 189 K/uL (130-400); RDW Coefficient of Variation 14.4 % (11.5-14.5); RDW Standard Deviation 53.5 fL (36.4-46.3); Red Blood Count 2.96 M/uL (4.70-6.10); White Blood Count 5.85 K/ul (4.8-10.8)
[2023-02-07 06:37] LABS: BUN Creatinine Ratio 11.9 (10-20); Calcium 8.1 mg/dl (8.6-10.3); Est GFR (African American) 105.2 ml/min; Est GFR (Non-African American) 90.8 ml/min; Magnesium 1.5 mg/dl (1.7-2.4); Potassium 3.3 mmol/L (3.5-5.1)
--- NOTE | 2023-02-07 07:19 | XRay Report ---
TWO VIEW CHEST CLINICAL HISTORY: Hypoxia. FINDINGS: PA and lateral chest radiographs are compared to study dated 02/05/2023 and correlated with chest CT dated 01/09/2023. A 2-lead cardiac pacemaker is unchanged in position and partially obscure s the left mid chest. An enteric tube has been removed. The heart is enlarged and noting atherosclero tic calcification of the thoracic aorta. Pulmonary vascular congestion persist. Bilateral airspace op acities likely represent interstitial edema. There are layering pleural effusions with dependent cons olidation. No pneumothorax is seen. The skeletal structures are osteopenic. The bony thorax is grossl y intact. Skin clips are noted in the upper abdomen. Intraperitoneal free air is again seen below the diaphragm. Distended small bowel loops are partially imaged. IMPRESSION: 1. There are skin clips in the upper abdomen with intraperitoneal free air. 2. Cardiomegaly and cardiac pacemaker with evidence of congestive failure and pulmonary edema. 3. Layering pleural effusions with dependent consolidation. 4. An enteric tube has been removed. 5. There is gaseous distention of small bowel loops partially visualized in the upper abdomen. ACT 112: Negative or not required by law. Electronically signed by: Elia Rebollar M.D. 02/07/2023 7:16 AM
[2023-02-07] MEDS ORDERED: MAGNESIUM SULFATE / D5W 1 GM/100 ML BAG IV ONE (08:03)
[2023-02-07] MEDS ORDERED: POTASSIUM PHOS 3 MMOL/1 ML INFUSION IV STA (08:04)
[2023-02-07] MEDS ORDERED: POTASSIUM CHLORIDE / WTR 10 MEQ/100 ML PLCT IV SCH (08:15)
[2023-02-07] MEDS ORDERED: POTASSIUM PHOSPHATE 6 MMOL in 0.9 % SODIUM CHLORIDE 100 ML IV ONE (08:30)
[2023-02-07] MEDS: oxyCODONE HCL IR 5 MG TAB (IMMEDIATE RELEASE) PO PRN ×2 (09:05→17:16)
[2023-02-07] MEDS: DULoxetine HCL 60 MG CAP PO SCH (09:06)
[2023-02-07] MEDS: AMIODARONE 200 MG TAB PO SCH (09:06)
[2023-02-07] MEDS: HEPARIN SOD 5,000 UNIT/0.5 ML VIAL SQ SCH ×2 (09:07→20:25)
[2023-02-07] MEDS: guaiFENesin 600 MG TABCR PO SCH ×2 (09:07→20:22)
[2023-02-07] MEDS: FLUDROCORTISONE ACETATE 0.1 MG TAB PO SCH (09:07)
[2023-02-07] MEDS: PANTOprazole 40 MG in SYRINGE 0 ML IV SCH ×2 (09:08→20:25)
[2023-02-07] MEDS: SODIUM CHLORIDE 1 GM TABLET PO SCH ×2 (09:08→20:22)
--- NOTE | 2023-02-07 22:42 | Hospitalist Progress Note ---
Date of Service February 07, 2023 Assessment & Plan (1) Status post partial colectomy: Plan: VTE/Pain/bowel/diet management per primary orthopedic team Restart Eliquis when ok from surgical perspective for atrial fibrillation which will cover his VTE prophylaxis ok to resume his diet. place on clears advance as tolerated. (2) Paroxysmal atrial fibrillation: Plan: Currently in NSR and took his usual amiodarone this morning If stays in NSR overnight and labs relatively normal tomorrow suspect he can be downgraded to med/surg (3) Orthostatic hypotension: Plan: Restart fludrocortisone in AM, continue salt tabs (started in September for this) BP currently stable - no need for stress dose steroids (4) Hypomagnesemia: Plan: Remained low. Was replenished will recheck levels. (5) Hypokalemia: Plan: In the setting of colonoscopy prep and stopping his regular supplement on prior admission replenished Admission and Anticipated Discharge Date Admission Date: February 04, 2023 Subjective Patient reports feeling hungry. He would like his diet resumed. Review of Systems Review of Systems: All systems reviewed & are unremarkable except as noted in HPI & below Physical Exam Constitutional: well developed; + not well nourished and no acute distress Eyes: + anicteric sclerae; normal pupil size ENMT: Mouth: oral mucous membranes not dry Respiratory: normal respiratory effort, lungs clear to auscultation Cardiovascular: RRR, no murmur, no edema Gastrointestinal (Abdomen): Inspection/Auscultation: + abdomen distended and + hypoactive bowel sounds (scant) Percussion/Palpation: + abdomen tender (mild generalized) and abdomen soft Neurologic: moves all extremities and awake; not confused Psychiatric: A+Ox3, euthymic affect Results & Data Results & Data Vital Signs (Past 12 Hours) Vital Signs Temp Pulse Pulse Resp BP Pulse Ox O2 Del Method 02/07/23 21:23 Nasal Cannula 02/07/23 20:02 36.5 C 77 18 188/92 H 97 Nasal Cannula 02/07/23 18:31 36.7 C 70 18 172/81 H 98 Nasal Cannula 02/07/23 11:52 36.7 C 68 18 159/79 H 98 Nasal Cannula O2 Flow Rate 02/07/23 21:23 2 02/07/23 20:02 2 02/07/23 18:31 2 02/07/23 11:52 2 PG Care Time/CCT Total # of Minutes Spent Total Time Spent with Patient: Total time spent is greater than 50% in coordination of care (as documented) at patient's floor/unit and/or counseling patient: Coding Level of Care Code 20135 SUB INP/OBS CARE 2/35MIN Diagnoses Status post partial colectomy Z90.49 Paroxysmal atrial fibrillation I48.0 Orthostatic hypotension I95.1 Hypomagnesemia E83.42 Hypokalemia E87.6
[2023-02-08] MEDS: oxyCODONE HCL IR 5 MG TAB (IMMEDIATE RELEASE) PO PRN ×3 (06:39→22:30)
[2023-02-08 06:51] LABS: Basophils # (auto) 0.02 K/uL (0.00-0.20); Basophils % (auto) 0.3 %; Eosinophils # (auto) 0.16 K/uL (0.00-0.50); Eosinophils % (auto) 2.6 %; Hematocrit (blood only) 33.9 % (42.0-52.0); Hemoglobin 10.5 g/dl (14.0-18.0); Immature Granulocytes # (auto) 0.02 K/uL (0.01-0.20); Immature Granulocytes % (auto) 0.3 %; Lymphocytes # (auto) 1.29 K/uL (1.20-3.40); Lymphocytes % (auto) 20.6 %; Mean Corpuscular Hemoglobin 31.1 pg (25.0-34.0); Mean Corpuscular Volume 100.3 fL (80.0-100.0); Mean Platelet Volume 9.3 fL (9.4-12.4); Monocytes # (auto) 0.36 K/uL (0.11-0.59); Monocytes % (auto) 5.8 %; Neutrophils # (auto) 4.41 K/uL (1.40-6.50); Neutrophils % (auto) 70.4 %; Platelet Count 213 K/uL (130-400); RDW Coefficient of Variation 14.3 % (11.5-14.5); RDW Standard Deviation 51.6 fL (36.4-46.3); Red Blood Count 3.38 M/uL (4.70-6.10); White Blood Count 6.26 K/ul (4.8-10.8)
[2023-02-08 07:10] LABS: BUN Creatinine Ratio 8.7 (10-20); Calcium 8.1 mg/dl (8.6-10.3); Creatinine Clr Calc Pharmacy 80.6 ml/min; Est GFR (African American) 103.9 ml/min; Est GFR (Non-African American) 89.7 ml/min; Potassium 3.2 mmol/L (3.5-5.1)
[2023-02-08] MEDS ORDERED: POTASSIUM CHLORIDE CRTAB 20 MEQ TABCR PO STA (07:18)
[2023-02-08] MEDS: HEPARIN SOD 5,000 UNIT/0.5 ML VIAL SQ SCH ×2 (08:45→20:05)
[2023-02-08] MEDS: guaiFENesin 600 MG TABCR PO SCH ×2 (08:45→20:05)
[2023-02-08] MEDS: MAGNESIUM OXIDE 400 MG TAB PO SCH (08:45)
[2023-02-08] MEDS: FLUDROCORTISONE ACETATE 0.1 MG TAB PO SCH (08:45)
[2023-02-08] MEDS: SODIUM CHLORIDE 1 GM TABLET PO SCH ×2 (08:45→20:06)
[2023-02-08] MEDS: AMIODARONE 200 MG TAB PO SCH (08:46)
[2023-02-08] MEDS: DULoxetine HCL 60 MG CAP PO SCH (08:46)
--- NOTE | 2023-02-08 08:46 | Surgery Progress Note ---
Date of Service February 08, 2023 Assessment & Plan (1) Status post partial colectomy: Plan: Postoperative day #4 Overall doing well Still requiring oxygen We will see how he does with his diet. We also need to increase his activity. I am going to consult physical therapy Will also need to discuss discharge plans with his assistant case manager. Pathology still pending Admission and Anticipated Discharge Date Admission Date: February 04, 2023 Subjective Patient seen. Overall doing okay. He started a low fiber diet this morning and did okay with it. He denies any nausea. He did have a small bowel movement. He is also passing gas. His main issue is pain at his incision whenever he coughs. He is coughing up a fair amount of mucus Physical Exam Physical Exam: Alert. No acute distress. Appears comfortable Dressing change. His incision looks great. [place] still in place with no sign of infection Results & Data Vital Signs (Past 12 Hours) Vital Signs Temp Pulse Pulse Pulse Resp BP Pulse Ox 02/08/23 08:22 36.8 C 87 16 136/72 96 02/08/23 02:56 36.8 C 85 16 160/79 H 96 02/07/23 22:50 70 02/07/23 22:42 36.7 C 70 18 171/78 H 97 02/07/23 21:23 O2 Del Method O2 Flow Rate 02/08/23 08:22 Nasal Cannula 2 02/08/23 02:56 Nasal Cannula 2 02/07/23 22:50 02/07/23 22:42 Nasal Cannula 2 02/07/23 21:23 Nasal Cannula 2 PG Care Time/CCT Total # of Minutes Spent Total Time Spent with Patient: Total time spent is greater than 50% in coordination of care (as documented) at patient's floor/unit and/or counseling patient: Coding Level of Care Code 30118 Post Operative Follow-Up Diagnoses Status post partial colectomy Z90.49
[2023-02-08] MEDS: PANTOprazole 40 MG in SYRINGE 0 ML IV SCH ×2 (10:05→20:05)
[2023-02-09] MEDS: oxyCODONE HCL IR 5 MG TAB (IMMEDIATE RELEASE) PO PRN ×2 (04:02→18:39)
--- NOTE | 2023-02-09 05:45 | Electrocardiogram Report ---
Test Reason : Blood Pressure : / mmHG Vent. Rate : 069 BPM Atrial Rate : 069 BPM P-R Int : 224 ms QRS Dur : 096 ms QT Int : 472 ms P-R-T Axes : 014 -43 012 degrees QTc Int : 506 ms Sinus rhythm with 1st degree A-V block Left axis deviation Incomplete right bundle branch block Nonspecific T wave abnormality Prolonged QT Abnormal ECG When compared with ECG of 08-JAN-2023 17:42, Nonspecific T wave abnormality has replaced inverted T waves in Anterior leads Confirmed by Felipe Barry ([id number]) on 02/09/2023 5:45:45 AM Referred By: Kasi Schulz Confirmed By:Felipe Barry
[2023-02-09 08:09] LABS: Basophils # (auto) 0.01 K/uL (0.00-0.20); Basophils % (auto) 0.2 %; Eosinophils # (auto) 0.15 K/uL (0.00-0.50); Eosinophils % (auto) 2.8 %; Hematocrit (blood only) 30.2 % (42.0-52.0); Hemoglobin 9.4 g/dl (14.0-18.0); Immature Granulocytes # (auto) 0.02 K/uL (0.01-0.20); Immature Granulocytes % (auto) 0.4 %; Lymphocytes # (auto) 1.06 K/uL (1.20-3.40); Lymphocytes % (auto) 20.1 %; Mean Corpuscular Hemoglobin 30.7 pg (25.0-34.0); Mean Corpuscular Hgb Conc 31.1 g/dL (32.0-36.0); Mean Corpuscular Volume 98.7 fL (80.0-100.0); Mean Platelet Volume 9.6 fL (9.4-12.4); Monocytes # (auto) 0.42 K/uL (0.11-0.59); Neutrophils # (auto) 3.61 K/uL (1.40-6.50); Neutrophils % (auto) 68.5 %; Platelet Count 199 K/uL (130-400); RDW Coefficient of Variation 14.1 % (11.5-14.5); Red Blood Count 3.06 M/uL (4.70-6.10); White Blood Count 5.27 K/ul (4.8-10.8)
[2023-02-09 08:30] LABS: BUN Creatinine Ratio 11.6 (10-20); Calcium 7.8 mg/dl (8.6-10.3); Creatinine Clr Calc Pharmacy 80.6 ml/min; Est GFR (African American) 103.9 ml/min; Est GFR (Non-African American) 89.7 ml/min; Potassium 3.2 mmol/L (3.5-5.1)
[2023-02-09] MEDS ORDERED: POTASSIUM CHLORIDE CRTAB 20 MEQ TABCR PO SCH (09:00)
[2023-02-09] MEDS ORDERED: POTASSIUM CHLORIDE CRTAB 20 MEQ TABCR PO STA (09:22)
--- NOTE | 2023-02-09 09:23 | Surgery Progress Note ---
Date of Service February 09, 2023 Assessment & Plan (1) Status post partial colectomy: Plan: POD 5 Patient resting in bed No complaints other than incisional pain Denies CP sob wearing 0z via NC at 2 L min Passing flatus , and having [facility] PT saw yesterday recommended respiratory 2 step test, ordered respiratory stated will do tomorrow AM Abdomen soft , non-distended, tender around surgical incision, ajay midline, CDI donnie mild bloody drainage noted on gauze, no s/s of infection WBC 5.7 (2) Hypokalemia: Plan: potassium 3.2 ordered 40MEQ po tab now and changed scheduled 40MEQ po to BID Will recheck in AM Admission and Anticipated Discharge Date Admission Date: February 04, 2023 Subjective Patient resting in bed No complaints other than incisional pain Denies CP sob wearing 0z via NC at 2 L min Passing flatus Review of Systems Constitutional: no fever and no chills Ear, Nose, Mouth, Throat: no hearing loss Respiratory: no dyspnea Cardiovascular: no chest pain Gastrointestinal: + abdominal pain (at incisional area); n o nausea and no vom iting Genitourinary: no problem reported Neurologic: no abnormal speech, no confusion and no memory loss Physical Exam Physical Exam: alert oriented Constitutional: cooperative and comfortable; no acute distress ENMT: external ear and nose normal, oropharynx normal Neck: trachea midline, no thyromegaly Respiratory: normal respiratory effort and able to speak in complete sentences; no respiratory distress wearing 02 via NC @ 2L/min Cardiovascular: Rate/Rhythm: regular rate Gastrointestinal (Abdomen): Inspection/Auscultation: + abdominal surgical incision (ajay midline , [place] mild bloody drainage ); abdomen not distended Percussion/Palpation: + abdomen tender and abdomen soft; no guarding Neurologic: awake; not confused Psychiatric: Orientation: oriented x 3 Results & Data Vital Signs (Past 12 Hours) Vital Signs Temp Pulse Pulse Pulse Resp BP Pulse Ox 02/09/23 07:59 97.7 F 80 19 167/82 H 90 02/09/23 05:35 167/88 H 02/09/23 02:50 98.1 F 72 18 184/74 H 98 02/09/23 00:43 69 02/08/23 23:36 98.2 F 71 16 171/81 H 97 O2 Del Method O2 Flow Rate 02/09/23 07:59 Nasal Cannula 2 02/09/23 05:35 02/09/23 02:50 Nasal Cannula 2 02/09/23 00:43 02/08/23 23:36 Nasal Cannula 2 PG Care Time/CCT Total # of Minutes Spent Total Time Spent with Patient: Total time spent is greater than 50% in coordination of care (as documented) at patient's floor/unit and/or counseling patient: Coding Level of Care Code 45836 Post Operative Follow-Up Diagnoses Status post partial colectomy Z90.49 Hypokalemia E87.6
[2023-02-09] MEDS: guaiFENesin 600 MG TABCR PO SCH ×2 (09:52→20:12)
[2023-02-09] MEDS: SODIUM CHLORIDE 1 GM TABLET PO SCH ×2 (09:52→20:14)
[2023-02-09] MEDS: PANTOprazole 40 MG in SYRINGE 0 ML IV SCH ×2 (09:52→20:13)
[2023-02-09] MEDS: DULoxetine HCL 60 MG CAP PO SCH (09:53)
[2023-02-09] MEDS: MAGNESIUM OXIDE 400 MG TAB PO SCH (09:53)
[2023-02-09] MEDS: AMIODARONE 200 MG TAB PO SCH (09:54)
[2023-02-09] MEDS: FLUDROCORTISONE ACETATE 0.1 MG TAB PO SCH (09:54)
[2023-02-09] MEDS: HEPARIN SOD 5,000 UNIT/0.5 ML VIAL SQ SCH ×2 (09:55→20:13)
[2023-02-09] MEDS: MAGNESIUM SULFATE / D5W 1 GM/100 ML BAG IV SCH ×2 (10:03→11:57)
[2023-02-09] MEDS: POTASSIUM CHLORIDE CRTAB 20 MEQ TABCR PO SCH (20:13)
--- NOTE | 2023-02-09 22:28 | Hospitalist Progress Note ---
Date of Service February 09, 2023 Assessment & Plan (1) Status post partial colectomy: Plan: VTE/Pain/bowel/diet management per primary orthopedic team Restart Eliquis when ok from surgical perspective for atrial fibrillation which will cover his VTE prophylaxis ok to resume his diet. place on clears advance as tolerated. Patient has continued to require oxygen supplementation. Will obtain an x ray in the AM. will recommend the patient continues to use a flutter valve and incentive spiroemetry. (2) Paroxysmal atrial fibrillation: Plan: Currently in NSR and took his usual amiodarone this morning If stays in NSR overnight and labs relatively normal tomorrow suspect he can be downgraded to med/surg (3) Orthostatic hypotension: Plan: Restart fludrocortisone in AM, continue salt tabs (started in September for this) BP currently stable - no need for stress dose steroids (4) Hypomagnesemia: Plan: Remained low. Was replenished will recheck levels. (5) Hypokalemia: Plan: In the setting of colonoscopy prep and stopping his regular supplement on prior admission replenished Admission and Anticipated Discharge Date Admission Date: February 04, 2023 Subjective Patient reports no new symptoms. Review of Systems Review of Systems: All systems reviewed & are unremarkable except as noted in HPI & below Physical Exam Constitutional: well developed; + not well nourished and no acute distress Eyes: + anicteric sclerae; normal pupil size ENMT: Mouth: oral mucous membranes not dry Respiratory: bibasilar rales Cardiovascular: RRR, no murmur, no edema Gastrointestinal (Abdomen): Inspection/Auscultation: + abdomen distended and + hypoactive bowel sounds (scant) Percussion/Palpation: + abdomen tender (mild generalized) and abdomen soft Neurologic: moves all extremities and awake; not confused Psychiatric: A+Ox3, euthymic affect Results & Data Results & Data Vital Signs (Past 12 Hours) Vital Signs Temp Pulse Pulse Pulse Resp BP Pulse Ox 02/09/23 20:26 02/09/23 19:39 36.4 C L 70 20 159/61 H 99 02/09/23 16:31 80 02/09/23 15:38 36.7 C 70 19 153/64 H 99 02/09/23 11:21 36.6 C 79 18 136/79 99 O2 Del Method O2 Flow Rate 02/09/23 20:26 Nasal Cannula 2 02/09/23 19:39 Nasal Cannula 2 02/09/23 16:31 02/09/23 15:38 Nasal Cannula 2 02/09/23 11:21 Nasal Cannula 2 PG Care Time/CCT Total # of Minutes Spent Total Time Spent with Patient: Total time spent is greater than 50% in coordination of care (as documented) at patient's floor/unit and/or counseling patient: Coding Level of Care Code 95443 SUB INP/OBS CARE 2/35MIN Diagnoses Status post partial colectomy Z90.49 Paroxysmal atrial fibrillation I48.0 Orthostatic hypotension I95.1 Hypomagnesemia E83.42 Hypokalemia E87.6
[2023-02-10] MEDS: oxyCODONE HCL IR 5 MG TAB (IMMEDIATE RELEASE) PO PRN (02:52)
[2023-02-10 08:18] LABS: Basophils # (auto) 0.02 K/uL (0.00-0.20); Basophils % (auto) 0.4 %; Eosinophils # (auto) 0.14 K/uL (0.00-0.50); Eosinophils % (auto) 3.1 %; Hematocrit (blood only) 28.8 % (42.0-52.0); Hemoglobin 8.8 g/dl (14.0-18.0); Immature Granulocytes # (auto) 0.03 K/uL (0.01-0.20); Immature Granulocytes % (auto) 0.7 %; Lymphocytes # (auto) 0.98 K/uL (1.20-3.40); Lymphocytes % (auto) 21.6 %; Mean Corpuscular Hemoglobin 30.6 pg (25.0-34.0); Mean Corpuscular Hgb Conc 30.6 g/dL (32.0-36.0); Mean Platelet Volume 9.8 fL (9.4-12.4); Monocytes % (auto) 8.8 %; Neutrophils # (auto) 2.96 K/uL (1.40-6.50); Neutrophils % (auto) 65.4 %; Platelet Count 191 K/uL (130-400); RDW Coefficient of Variation 14.1 % (11.5-14.5); RDW Standard Deviation 52.1 fL (36.4-46.3); Red Blood Count 2.88 M/uL (4.70-6.10); White Blood Count 4.53 K/ul (4.8-10.8)
[2023-02-10 08:26] LABS: BUN Creatinine Ratio 11.7 (10-20); C Reactive Protein 6.75 mg/dl (0-0.5); Calcium 7.7 mg/dl (8.6-10.3); Creatinine Clr Calc Pharmacy 72.2 ml/min; Est GFR (African American) 99.3 ml/min; Est GFR (Non-African American) 85.7 ml/min; Potassium 3.4 mmol/L (3.5-5.1)
--- NOTE | 2023-02-10 09:22 | XRay Report ---
XR chest 2V PA/lateral CLINICAL HISTORY: Hypoxia. COMPARISON STUDY: Chest CT January 09, 2023. Chest radiograph February 07, 2023. FINDINGS: Left subclavian pacer is in place. Cardiomediastinal silhouette is stable. Moderate bilater al pleural effusions have slightly increased. There is hazy bibasilar opacities. No evidence for pulm onary edema. Abdominal skin ajay are present. Pneumoperitoneum has decreased. Dilated gas-filled l oop of small bowel within left upper quadrant were shown on prior exam. This is partially imaged. IMPRESSION: 1. Moderate bilateral pleural effusions, slightly increased in size since prior exam. Associated biba silar opacities likely reflect atelectasis although consolidation could appear similar. 2. Interval decrease in pneumoperitoneum, likely postsurgical. Gaseous distention of small bowel loop s, partially imaged on this exam. ACT 112: Negative or not required by law. Electronically signed by: Scooter Wang M.D. 02/10/2023 9:21 AM
[2023-02-10] MEDS: PANTOprazole 40 MG in SYRINGE 0 ML IV SCH (09:31)
[2023-02-10] MEDS: guaiFENesin 600 MG TABCR PO SCH (09:32)
[2023-02-10] MEDS: SODIUM CHLORIDE 1 GM TABLET PO SCH (09:32)
[2023-02-10] MEDS: DULoxetine HCL 60 MG CAP PO SCH (09:33)
[2023-02-10] MEDS: FLUDROCORTISONE ACETATE 0.1 MG TAB PO SCH (09:33)
[2023-02-10] MEDS: AMIODARONE 200 MG TAB PO SCH (09:34)
[2023-02-10] MEDS: POTASSIUM CHLORIDE CRTAB 20 MEQ TABCR PO SCH (09:34)
[2023-02-10] MEDS: MAGNESIUM OXIDE 400 MG TAB PO SCH (09:34)
[2023-02-10] MEDS: HEPARIN SOD 5,000 UNIT/0.5 ML VIAL SQ SCH (09:56)
--- NOTE | 2023-02-10 11:57 | Surgery Progress Note ---
Date of Service February 10, 2023 Assessment & Plan (1) Status post partial colectomy: Plan: I will check with case management but he passed his respiratory test this morning. I believe he is ready for discharge. We discussed instructions. I would like to see him in about a week at which point I will remove his David drain. Admission and Anticipated Discharge Date Admission Date: February 04, 2023 Subjective Patient seen. Doing well. Would like to go home Physical Exam Physical Exam: Alert. No acute distress His incision looks great Results & Data Vital Signs (Past 12 Hours) Vital Signs Temp Pulse Pulse Pulse Pulse Pulse Resp 02/10/23 10:55 36.6 C 70 19 02/10/23 08:23 115 H 103 H 02/10/23 08:00 80 02/10/23 07:34 36.4 C L 93 H 19 02/10/23 02:43 36.7 C 70 18 02/10/23 01:30 74 Resp Resp BP Pulse Ox Pulse Ox Pulse Ox O2 Del Method 02/10/23 10:55 162/72 H 95 Room Air 02/10/23 08:23 22 16 91 98 02/10/23 08:00 02/10/23 07:34 121/69 96 Nasal Cannula 02/10/23 02:43 162/78 H 98 Nasal Cannula 02/10/23 01:30 O2 Flow Rate 02/10/23 10:55 02/10/23 08:23 02/10/23 08:00 02/10/23 07:34 2 02/10/23 02:43 2 02/10/23 01:30 PG Care Time/CCT Total # of Minutes Spent Total Time Spent with Patient: Total time spent is greater than 50% in coordination of care (as documented) at patient's floor/unit and/or counseling patient: Coding Level of Care Code 81805 Post Operative Follow-Up Diagnoses Status post partial colectomy Z90.49
[2023-02-10] MEDS ORDERED: APIXABAN 5 MG TABLET PO SCH (21:00)
== END 2023-02-10 15:16 | disposition home health service (06) | DRG 331 ==
LOC: ASU 10:04 → 2S 14:10
DX: I95.1 Orthostatic hypotension; Z79.01 Long term (current) use of anticoagulants; I10 Essential (primary) hypertension; Z95.0 Presence of cardiac pacemaker; Z87.891 Personal history of nicotine dependence; E11.9 Type 2 diabetes mellitus without complications; C18.3 Malignant neoplasm of hepatic flexure; Z86.718 Personal history of other venous thrombosis and embolism; I48.0 Paroxysmal atrial fibrillation; E87.6 Hypokalemia; K66.0 Peritoneal adhesions (postprocedural) (postinfection); E83.42 Hypomagnesemia